=== PATIENT | male | born 1950 | race Caucasian/White ===

== ENCOUNTER → 2017-11-26 15:39 | Outpatient (CLI) | payer MEDICARE, OTHER, SELFPAY ==
--- NOTE | 2017-11-26 | DI.MRI.S_ITS ---
PROCEDURE: MR THORACIC SPINE WO CON INDICATIONS: PAIN IN THORACIC SPINE TECHNIQUE: Noncontrast sagittal T1 spine echo and T2 fast spin echo, sagittal STIR, axial T1 and T2 fast spin echo through the thoracic spine. COMPARISON: [facility], MR, L-SPINE W&WO CONTRAST, 05/08/2017, 17:51. [facility], MR, MR CERVICAL SPINE WO CON, 11/26/2017, 16:16. FINDINGS: Image quality: This examination is limited by involuntary motion artifact. Alignment and Curvature: There is normal bony alignment. Bone Marrow: Marrow is of normal overall signal. No acute vertebral body compression fractures. Scattered foci are seen, which are hyperintense on T1-weighted and T2-weighted imaging, which are most consistent with benign vertebral body hemangiomas. The most prominent of these is seen within the posterior T9 level. Spinal Cord: Visualized spinal cord is normal in size and signal. Paraspinous Soft Tissues: No paravertebral masses. Miscellaneous: At the T6-T7 level, there is a mild central/left disc protrusion seen. Minimal central canal narrowing is seen, with minimal mass effect on the ventral spinal cord. Multiple levels of bridging endplate osteophytes can be seen. IMPRESSION: Normal thoracic spine MRI for age. Dictated by: Houston Jackson M.D. on 11/26/2017 at 16:52 Approved by: Houston Jackson M.D. on 11/26/2017 at 16:54
--- NOTE | 2017-11-26 | DI.MRI.S_ITS ---
PROCEDURE: MR CERVICAL SPINE WO CON INDICATIONS: PAIN IN THORACIC SPINE TECHNIQUE: Noncontrast sagittal T1 spin echo and T2 fast spin echo, sagittal STIR, foraminal oblique sagittal T2 fast spin echo, and axial gradient echo or T2 fast spin echo through the cervical spine. COMPARISON: [facility], MR, MR THORACIC SPINE WO CON, 11/26/2017, 16:35. FINDINGS: Image quality: This examination is limited by involuntary motion artifact. Alignment and Curvature: There is normal bony alignment. Bone Marrow: Marrow demonstrates normal overall signal. Spinal Cord: Visualized spinal cord has normal size and signal. No cerebellar tonsillar herniation. Paraspinous Soft Tissues: No paravertebral masses. Prevertebral soft tissues are normal in thickness. C2-C3: No significant disc abnormality is seen. Moderate facet joint hypertrophy is seen. There is mild left-sided and no significant right-sided neural foraminal narrowing seen. Mild central canal narrowing is seen. C3-C4: The disc height is well-preserved. Mild to moderate disc osteophyte complex is seen. Moderate facet joint hypertrophy is seen. Moderate to severe bilateral neural foraminal narrowing is seen. Moderate central canal narrowing is seen. C4-C5: The disc height is well-preserved. Moderate generalized disc osteophyte complex is seen. Moderate facet joint hypertrophy is seen. There is moderate to severe bilateral neural foraminal narrowing seen, left worse than right. At least moderate central canal narrowing is seen. C5-C6: Multilevel loss of disc height and disc signal are seen. Moderate generalized disc osteophyte complex is seen. There is moderate to severe bilateral neural foraminal narrowing seen. Moderate to severe central canal narrowing is seen. C6-C7: Mild loss of disc height is seen. Loss of disc signal is seen. At least moderate disc osteophyte complex is seen. Lsjn-bo-qihaispd facet hypertrophy is seen. Moderate to severe bilateral neural foraminal narrowing is seen, left worse than right. Moderate central canal narrowing is seen. C7-T1: The disc height is well-preserved. Mild to moderate disc osteophyte complex is seen. Mild facet joint hypertrophy is seen. Moderate bilateral neural foraminal narrowing is seen. Tazr-[id number] central canal narrowing is seen. IMPRESSION: Multiple levels of cervical spine degenerative change are seen, which are most prominent at the C5-C6 level. Dictated by: Houston Jackson M.D. on 11/26/2017 at 16:47 Approved by: Houston Jackson M.D. on 11/26/2017 at 16:52
== END ==
PROVIDERS: PCP Internal Medicine; Visit Provider Family Medicine
DX: M50.322 Other cervical disc degeneration at C5-C6 level (principal); M54.6 Pain in thoracic spine; M48.02 Spinal stenosis, cervical region
CPT/HCPCS: 72141; 72146

== ENCOUNTER → 2018-01-07 12:36 | Outpatient (CLI) | payer MEDICARE, OTHER, SELFPAY ==
--- NOTE | 2018-01-07 | DI.MRI.S_ITS ---
PROCEDURE: MR KNEE LT WO CON INDICATIONS: PAIN IN LEFT KNEE TECHNIQUE: Noncontrast sagittal PD fast spin echo and T2 fast spin echo with fat saturation, sagittal 3-D FLASH with fat saturation; coronal T1 spin echo and PD fast spin echo with fat saturation, and axial PD fast spin echo with fat saturation through the knee. COMPARISON: None. FINDINGS: Image quality: Diagnostic. Bones and joint: There is no acute fracture or dislocation. No suspicious osseous lesions are evident. There is a moderate to large knee joint effusion identified with synovial hypertrophy present and scattered intra-articular joint bodies present the largest joint bodies are located on the posterior margin of the femoral notch, measuring up to approximately 11 mm in diameter. There is a Nix's cyst. Mild edema about the proximal and distal margins of the Nix's cyst are noted. Additional areas of subcutaneous edema are present about the knee. Mild/moderate degenerative changes of the left knee are most pronounced within the the patellofemoral and medial tibiofemoral compartments. Moderate to large full-thickness chronic appearing defect at the hyaline articular cartilage within these 2 compartments of the knee are present with areas of mild degenerative/reactive marrow change. Mild degenerative changes of the proximal tibiofibular joint are noted. Cruciate ligaments: The anterior and posterior cruciate ligaments are intact. Menisci: The lateral meniscus is intact and otherwise unremarkable. There is extensive maceration involving the body of the medial meniscus with complex tearing along the free edge. An oblique tear extending along the posterior horn of the medial meniscus is evident involving the inferior articular surface. Medial structures: The medial collateral ligament is intact. A small amount of fluid is contained within the medial collateral ligament bursa. The proximal aspect of the medial collateral ligament is thickened. The semimembranosus tendon insertion is intact. The imaged portions of the pes anserinus tendons are unremarkable. No significant fluid is contained within the pes anserinus bursa. Lateral structures: The popliteal tendon is edematous and heterogeneous with increased signal present.. The lateral collateral ligament proper (fibular collateral ligament) and the proximal tibiofibular ligaments are intact. Increased signal involving the femoral attachment of lateral collateral ligament is noted. The distal aspect of the biceps femoris tendon and the iliotibial band are intact. Anterior structures: The quadriceps and patellar tendons are intact. There is edema within the infrapatellar fat pad. Prominent prepatellar bursal edema/thickening is noted. ` IMPRESSION: 1. Moderate degenerative changes of the knee are most pronounced within the patellofemoral and medial tibiofemoral compartments. There are mild degenerative changes of the proximal tibiofibular joint. 2. Moderate to large knee joint effusion with an associated oderate sized probable leaking Nix cyst and scattered intra-articular joint bodies. 3. Complex tear involving the body of the medial meniscus. 4. Mild spurring of the medial collateral ligament. 5. Mild proximal popliteal tendinopathy. 6. Probable ligamentous degeneration/scarring of the lateral collateral ligament. No complete tear. 7. Prominent edema within the prepatellar soft tissues may be related to bursitis. Please correlate clinically. Dictated by: Jose Cisneros M.D. on 01/07/2018 at 14:42 Approved by: Jose Cisneros M.D. on 01/07/2018 at 14:47
== END ==
PROVIDERS: PCP Family Medicine; Visit Provider Family Medicine
DX: M25.562 Pain in left knee (principal); S83.232A Complex tear of medial meniscus, current injury, left knee, initial encounter; M71.22 Synovial cyst of popliteal space [Baker], left knee; M17.12 Unilateral primary osteoarthritis, left knee; M25.462 Effusion, left knee
CPT/HCPCS: 73721

== ENCOUNTER 2018-01-29 05:27 | Inpatient (IN) | payer MEDICARE, OTHER, SELFPAY ==
[2018-01-14 09:43] VITALS: BMI 36.6
[2018-01-29] VITALS (20 sets, daily range): BP systolic 119–154; BP diastolic 68–102; PULSE 59–81; RESP 10–96; TEMP 32–37.9; O2SAT 93–100; BMI 37.3
--- NOTE | 2018-01-29 | DI.RAD.S_ITS ---
PROCEDURE: XR LUMBAR SPINE 2-3V INDICATIONS: L3-4, L4-5 XLIF, L5-S1 TLIF FINDINGS: 2 limited intraoperative fluoroscopically stored images of the lower lumbar spine were obtained for intraoperative hardware localization purposes. These images are not meant for diagnostic purposes. Intraoperative findings related to a lower lumbar fusion procedure are present. IMPRESSION: Interpreted images obtained during the patient's lower lumbar fusion procedure. Dictated by: Jose Cisneros M.D. on 01/29/2018 at 12:53 Approved by: Jose Cisneros M.D. on 01/29/2018 at 12:54
[2018-01-29] MEDS: LACTATED RINGERS 1,000 ML 42 ML IV ×3 (07:18→13:16)
--- NOTE | 2018-01-29 07:24 | PM.PREOP ---
Pre-operative Note Interval Note Pre-op Check: Yes History & Physical Reviewed by Physician and Yes Exam Performed Changes: No
[2018-01-29] MEDS: CEFAZOLIN 2 GM/100 ML FROZ.PIGGY IV ×3 (08:00→19:42)
--- NOTE | 2018-01-29 08:30 | SUR.OPER ---
Right lateral on padded OR table. Head on pillow, gel axillary roll, pillow to support left arm. Legs flexed, pillows between legs, gel pad under down leg and ankle. Multiple passes of 3 inch cloth tape across shoulder, hip, upper and lower legs to secure patient on OR table.
--- NOTE | 2018-01-29 08:31 | SUR.OPER ---
Prone on spine table, head in foam head support, padded chest and pelvic supports, gel pad at knees, lower legs supported by pillows; nipples, genitalia and toes free of pressure, arms secured on foam padded arm boards at <90 degrees abduction. Tape over blanket at thigh secured to table.
[2018-01-29] MEDS: SODIUM CHLORIDE 0.9% 1,000 ML, GENTAMICIN 80 MG IRR (08:38)
[2018-01-29] MEDS: VANCOMYCIN 1,000 MG VIAL 1000 MG TOP (08:41)
[2018-01-29] MEDS: THROMBIN (BOVINE) 5,000 UNIT VIAL 5000 UNIT TOP (09:33)
[2018-01-29] MEDS: BUPIVACAINE 0.25% W/ EPI VIAL 50 ML INJ (09:34)
[2018-01-29] MEDS: BUPIVACAINE LIPOSOME 266 MG/20 ML VIAL INJ (09:34)
--- NOTE | 2018-01-29 10:05 | SUR.OPER ---
fsbg 124 at 1000
[2018-01-29] MEDS: ACETAMINOPHEN IV 1,000 MG/100 ML VIAL 400 MG IV (12:05)
--- NOTE | 2018-01-29 13:56 | PM.OP.1 ---
Operative Date/Time/Diagnoses Date of procedure: 01/29/18 Time of procedure: 13:56 Pre-op diagnosis: History of lumbar laminectomy Lumbar stenosis with radiculopathy Post-op diagnosis: same Procedure & Clinicians Procedure: L3-4 and L4-5 anterior fusion with cages L5-S1 TLIF (post/post innerbody fusion) with cage L3-4 and L4-5 posterior fusion L3 through S1 posterior screws Iliac crest bone graft Revision laminectomy at L3-4, L4-5, L5-S1 on the right Use of microscope Same procedure as scheduled: Yes Indications: [age] year old male with intractable pain from a stenosis. They had failed conservative management and requested operative intervention. Risks and benefits of surgery were discussed and appropriate consents were obtained. Surgeon: Javier Lewis [employer] Wheels And Axle Inspector: Anjelica Hill Anesthesia Type: General Operative Notes Findings: none Closure Type: primary Specimen(s): none sent Implants & Drains: NuVasive XLIF cages Globus Rise cage NuVasive MAS and open Reline screws Applied: catheter Estimated Blood Loss (mL): 300 Procedure in detail: Patient was brought to the operating room and intubated on the table. Time-out was performed. They were then rolled over to the lateral decubitus position with the [id number]. The table was bent and they were taped down in the correct position. X-rays were taken to confirm a true AP and lateral. Preoperative antibiotics were given. The left flank was prepped and draped in standard sterile fashion. Using fluoroscopy, a 3 cm incision was made above the iliac crest. We bluntly dissected down with Metzenbaum scissors and split the 3 abdominal muscle layers. We dissected out the retroperitoneal space and using finger guidance, brought our 1st dilator down to the psoas muscle. Using neuromonitoring and fluoroscopy, we placed it through the psoas onto the L4-5 disc space in an anterior position and gradually pulled the dilator posteriorly along the disc space. We placed our guidewire and measured our depth for the retractor. We then dilated with the next 2 dilators and then placed our retractor over the dilators. Position was confirmed with fluoroscopy and the retractor was locked down to the bar. We opened up the retractor and checked with neuro monitoring. We then placed the francisca and again checked with neuro monitoring. The retractor was opened further and the ALL retractor was placed. An annulotomy was performed. We then performed a complete diskectomy with ring curette, pituitary, box osteotome. A Hay was advanced across the disc space under fluoroscopy to release the lateral annulus on the opposite side. We then used sequentially larger trials and confirmed under fluoroscopy. An XLIF cage was packed with Osteocell bone graft and impacted into the L4-5 disc space with fluoroscopy for the anterior fusion at this level. The wound was irrigated. The retractor was closed down. The francisca was removed. We carefully removed the retractor with direct visualization to make sure there was no neurovascular or abdominal injury. We then went up to L3-4 into the same procedure with dilators, opening the retractor, complete diskectomy with lateral release, trialing and placing a cage with bone graft for the anterior fusion at L3-4. We carefully removed the retractor with direct visualization. Final x-rays were taken. The muscle fascia was closed, superficial tissue was closed. The skin was closed. Sterile dressing was placed. The patient was then rolled over on the well-padded prone position on the Lalit table. Using fluoroscopy for localization, a 12 cm incision was made in the midline using his previous incision. We dissected down the right sided paraspinal muscles to expose the lamina and confirmed our position. Extreme care was taken over that his previous laminotomies to not violate the spinal canal. We had significant dissection through the scar tissue. We then exposed the transverse processes. We then began placing our screws. A bur was used to decorticate the junction of the facet and transverse process. We then advanced a gear shifter down the pedicle using neuro monitoring. We checked with the ball probe to confirm a floor and 4 ackerman on the pedicle. We then tapped also with neuro monitoring. We checked again with the ball probe and then placed our screw with neuro monitoring. The screws were placed in this fashion down the right-sided pedicles of L3, L4, L5, and S1. We used 7.5 mm screws at the lower levels and a 6.5 mm screw at L3.. The jennifer was loosely placed and x-rays were taken to confirm positioning and then the set screws were locked down from L3 through 5. We then brought in the microscope. A revision laminectomy was performed at L5-S1, L4-5, and L3-4 with a curette, bur, and Kerrison rongeurs. He was extremely scarred in throughout all of this with close adhesion of the dura to the underside of the bone. This was meticulously dissected away until we could separate the bone from the dura and worked out laterally. This part took 2-3 hours of the surgical time. We used osteotomes to remove the majority of the facets. At the end we could run the ball probe from the midline all the way out laterally and make sure the foramen were completely open. This was separate and distinct from the approach for the posterior interbody fusion at L5-S1 due to the severe scarred in nature and more than double the amount of time for the decompression compared to normal. We then went back to L5-S1. We then carefully dissected the dura away from the disc as well as removed more of the upper surface of the facet in order to prep for the TLIF. Once the dura was carefully retracted as well as the nerve root, an annulotomy was performed. We then performed a complete diskectomy with pituitaries curettes paddles and Hany. The endplates were prepped. We filled the interbody space with bone graft. We then placed a globus Rise cage. This was expanded under fluoroscopy. This completed the posterior interbody fusion portion of the L5-S1 TLIF. We then locked down the final S1 screw. The wound was copiously irrigated. A small stab incision was made over the PSIS and a Jamshidi needle was placed into the iliac crest and several mL of bone marrow was aspirated. This was mixed with our locally harvested bone graft as well as the remaining Osteocell and placed in the posterolateral gutter for fusion at L3-4, L4-5, and the posterolateral aspect of the TLIF at L5-S1. The fascia was then closed. We then used fluoroscopy and made a 12 cm incision on the left-hand side. We came down and split the fascia with the Bovie. We then percutaneously placed Jamshidi needles down the left pedicles of L3 through S1 using fluoroscopic guidance and neural monitoring. These were changed out to guidewires. We then tapped and placed our matching MAS Reline screws. The jennifer was placed and locked down. The wound was irrigated and the fascia closed. Vancomycin powder was placed in the wounds The superficial and skin were closed. Sterile dressing was placed. The patient was then rolled over, extubated, brought to the recovery room with no complications. Complications: none Condition: stable Disposition: PACU Plan for aftercare: Inpatient. Up with physical therapy.
[2018-01-29] MEDS: hydrOXYzine 50 MG/ML INJ 25 MG IM (14:00)
[2018-01-29] MEDS: HYDROMORPHONE 2 MG INJ 1 MG IM ×2 (14:15→14:20)
[2018-01-29] MEDS: HYDROMORPHONE 2 MG INJ 0.5 MG IV ×2 (14:30→14:40)
--- NOTE | 2018-01-29 15:00 | SUR.PHASEI ---
pt held in holding PACU due to RN change of shift
--- NOTE | 2018-01-29 15:41 | SUR.PHASEI ---
pt in hold waiting for acute care RN-SPO2 dropped with periods of apnea . pt is alert and oriented taking liquids but when sleeping has periods of apnea - no further narcotics given and rt consult done- spoke with anesthesia and pt will move to ICU on bipap in order to maintain spo2
--- NOTE | 2018-01-29 16:29 | SUR.PHASEI ---
unable to end infusion last bag of LR as not started in APR- see i& o for total volume infused intra op
--- NOTE | 2018-01-29 16:29 | SUR.PHASEI ---
pt transferred to RN Kristie in stable condition. Bipap applied on arrival Spo2 100 %, VSS, pt a& o x 3
[2018-01-29] MEDS: LACTATED RINGERS 1,000 ML 125 ML IV (17:43)
--- NOTE | 2018-01-29 17:49 | PC.NURSE ---
Addendum entered by Kristie Medina R.N. 01/29/18 22:07: 1830 - Dr. Lewis into round on Pt. Updated to respiratory status. Notified of drainage to both drsgs, okay to reinforce if needed. Continue to monitor. 1945 - Pt awake, c/o pain, rx given. Pt tremulous, shaking, states that he feels like I am in shock. VSS. Educated to relaxation techniques. Warm blankets provided. 2030 - Pt c/o full bladder assess weems, Urine in bag and tubing. Advanced/adjusted weems, small clots noted. Bladder scan without any measurable amount. Weems irrigated, flush and drains easily. Small clots noted in urine. Pt report hx of difficulty initiating urine. Pt then reports that he possibly needs to have BM, became tremulous again. Offered BSC, pt declines at this time. Monitor. 2129 - Pt returned to Bi-pap, however r/t facial hair, intermittent air leak persists, RT changed to home c-pap machine without need for supplemental O2. Original Note: 1615 - Pt to room from PACU. Shadow drainage to drsgs beyond marked borders, remarked upon arrival. Pt able to follow commands and move all extremities. Mild anxiety, reinforced place, situation and treatment plan. Supportive at bedside. Drowsy. Sats >90% while awake, however with sleep pt has periods of apnea and sats decrease into the 80's. RT placed on bi-pap, FIO2 30%, 12/5, RR 10, however this desat trend continued for approximately an hour with need for intermittent stimulation and encouragement to deep breath. 1750 - Pt resting quietly, Bi-pap on, with settings unchanged. Sats 97%. Pt no longer requiring stimulation to encourage deep breath. IVF infusing as ordered. Monitor.
[2018-01-29] MEDS: CELECOXIB 200 MG CAPSULE 400 MG PO (19:15)
[2018-01-29] MEDS: HYDROMORPHONE 1 MG INJ 0.5 MG IV ×2 (19:16→23:07)
[2018-01-29] MEDS: hydrOXYzine pamoate 25 MG CAPSULE PO (19:42)
[2018-01-29] MEDS: DOCUSATE 100 MG CAPSULE PO (20:37)
[2018-01-29] MEDS: SENNOSIDES 8.6 MG TABLET 17.2 MG PO (20:37)
[2018-01-29] MEDS: ASPIRIN EC 81 MG TABLET PO (20:37)
[2018-01-29] MEDS: GABAPENTIN 300 MG CAPSULE PO (20:37)
[2018-01-30] VITALS (7 sets, daily range): BP systolic 113–131; BP diastolic 59–82; PULSE 82–90; RESP 12–96; TEMP 36.7–37.1; O2SAT 91–97
[2018-01-30] MEDS: HYDROMORPHONE 1 MG INJ 0.5 MG IV ×5 (01:31→21:43)
[2018-01-30] MEDS: LACTATED RINGERS 1,000 ML 125 ML IV (01:36)
[2018-01-30] MEDS: CEFAZOLIN 2 GM/100 ML FROZ.PIGGY IV (03:54)
[2018-01-30 05:16] LABS: Hematocrit 35.4 % (41-53); Hemoglobin 12.5 g/dL (13.5-17.5)
--- NOTE | 2018-01-30 06:03 | PC.NURSE ---
NOC Shift: POD #1 LAMI TLIF w/resp. suppression in PACU following extubation from surgery. Pt remained on home CPAP unit throughout shift while asleep w/o O2 bleed. SAO2 stable, pt denies SOB, lungs remain clear. Pt needs encouragement to use IS, and pulmonary toilet. Will be easier to comply when OOB. Pt continues to have 7 to 8/10 pain when awake re: low lumbar incision and bilateral leg pain. Most of the shift pt refused to reposition off of back, however did turn side to side several times to check dsg, and to receive skin care. Continues to take IV dilaudid for pain until taking more po for pain pills to avoid nausea. Josse remains in w/mild hematuria old blood unknown cause. Pt states he is ready to have it out. Has not been OOB yet, will get up today. VSS, SR 1 AVB on tele. ICU care.
[2018-01-30] MEDS: HYDROCODONE/ACET 5/325 TABLET 2 TAB PO ×5 (06:33→23:30)
[2018-01-30] MEDS: hydrOXYzine pamoate 25 MG CAPSULE PO ×3 (06:35→23:31)
--- NOTE | 2018-01-30 08:03 | P.PN_ITS ---
Subjective Date Patient Seen: 01/30/18 Time Patient Seen: 08:01 Interval history: He was very sedated after surgery and required BiPAP with an ICU admission for this. They did not have to use the BiPAP after yesterday evening and he has been alert and oriented since. Pain was about 8 earlier but now is down to 5/10 after few pills. Still pain in his bad left knee but no more radicular pain in the legs. The pain is primarily across his low back. Exam Vital Signs (past 8 hours): - 01/30/18 04:26 01/30/18 07:58 Temperature 98.7 F 98.8 F Pulse Rate 82 86 Respiratory Rate 21 12 Blood Pressure 131/82 128/81 Pulse Oximetry 93 97 Fraction of Inspired Oxygen 30 Oxygen Delivery Method CPAP Oxygen Flow Rate 0 Const Orientation: alert and oriented x3 Back/Spine/Pelvis Other: Heavy drainage with some saturation on the posterior dressing. Minimal dry drainage on the lateral dressing.. 5/5 motor both lower extremities Objective Labs Result Diagrams: 01/30/18 05:00 Labs: Laboratory Results - last 24 hr 01/29/18 01/30/18 16:15 05:00 Hgb 12.5 L Hct 35.4 L Nasal Screen MRSA (PCR) Negative for mrsa Assessment & Plan Post-op Postoperative Procedures Operation Date: 01/29/18 07:45 Actual Procedures Side Surgeon p L3-4,L4-5,L5-S1 Revision Laminectomy & Instru Fusion w/bone graft anterior/ posterior Javier Lewis MD He is doing much better now that the anesthetic is worn off. Mobilize with physical therapy. Transfer to the regular floor. Quality VTE Deep Vein Thrombosis/Pulmonary Embolism Present on Admission: No
[2018-01-30] MEDS: TELMISARTAN 40 MG TABLET 80 MG PO (08:26)
[2018-01-30] MEDS: BUMETANIDE 1 MG TABLET 2 MG PO (08:26)
[2018-01-30] MEDS: AMLODIPINE 5 MG TABLET PO (08:26)
[2018-01-30] MEDS: CELECOXIB 200 MG CAPSULE PO ×2 (08:27→21:11)
[2018-01-30] MEDS: CYANOCOBALAMIN (VITAMIN B-12) 500 MCG TABLET 1000 MCG PO (08:27)
[2018-01-30] MEDS: hydroCHLOROthiazide 25 MG TABLET PO (08:27)
[2018-01-30] MEDS: MULTIVITAMIN 1 TABLET 2 TAB PO (08:27)
[2018-01-30] MEDS: DOCUSATE 100 MG CAPSULE PO ×2 (08:27→21:10)
[2018-01-30] MEDS: TAMSULOSIN 0.4 MG CAPSULE PO (08:28)
[2018-01-30] MEDS: INSULIN ASPART 100 UNIT/ML INSULN PEN SUBCUT ×3 (08:29→17:22)
[2018-01-30] MEDS: MAGNESIUM HYDROXIDE 30 ML UDC PO ×2 (08:31→21:10)
--- NOTE | 2018-01-30 11:16 | PT.IIE ---
Current Diagnoses Obstructive sleep apnea (adult) (pediatric) (01/29/18) Unspecified asthma, uncomplicated (01/29/18) Spinal stenosis, lumbar region with neurogenic claudication (01/29/18) Ankylosing hyperostosis [[place]stier], site unspecified (01/29/18) Strain of muscle, fascia and tendon of lower back, subsequent encounter (01/29/18) Other specified postprocedural states (01/29/18) Surgery Performed Operation Date: 01/29/18 07:45 Actual Procedures p L3-4,L4-5,L5-S1 Revision Laminectomy & Instru Fusion w/bone graft anterior/posterior - Javier Lewis MD Surgical History (Last Updated 01/14/18 @ 10:59 by Zunilda Olivas, RN) History of colonoscopy (Acute) History of laminectomy (Acute) Medical History (Last Updated 01/14/18 @ 10:59 by Zunilda Olivas, RN) Obstructive sleep apnea of adult (Chronic) Primary insomnia (Resolved) Excessive daytime sleepiness (Resolved) Asthma (Acute) BPH (benign prostatic hyperplasia) (Acute) Cervical radiculopathy (Acute) Colitis (Acute) Constipation (Acute) DISH (diffuse idiopathic skeletal hyperostosis) (Acute) Derangement of other medial meniscus due to old tear or injury, unspecified knee (Acute) Diabetes mellitus (Acute) Disorder of nail (Acute) Disorder of tendon of shoulder region (Acute) Dyslipidemia (Acute) Edema (Acute) Hip pain (Acute) Hyperlipidemia (Acute) Hypertension (Acute) Hypokalemia (Acute) Lumbar stenosis with neurogenic claudication (Acute) Lumbar strain (Acute) Migraine (Acute) Morbid obesity (Acute) Myopia (Acute) Recurrent erosion of cornea (Acute) Slowing of urinary stream (Acute) Spider bite, venomous (Acute ~04/2017) Thoracic back pain (Acute) Venous stasis (Acute) Physical Therapy Inpatient Evaluation/Re-Eval M1 PT/OT-IP Prior Functional Status Start: 01/30/18 10:52 Freq: NEEDED Status: Active Protocol: Document 01/30/18 10:52 GLENIS (Rec: 01/30/18 11:16 GLENIS [id number]) Medical Review Prior Functional Status Medical History Reviewed Yes Diet/Fluid Consistency Regular Communication Normal Mobility and Gait Ambulates 5 blocks with the use of four wheel walker independently. Had a fall once 2 wks ago. 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 Social History Household Members spouse Living Arrangements House Number of Stairs To Enter/Railing? 1 step to get in to the main floor Home Environment Standard Height Toilet Home Equipment Front Wheel Walker Four Wheel Walker Employment Status Retired M2 PT-IP Current Condition Start: 01/30/18 10:52 Freq: NEEDED Status: Active Protocol: Document 01/30/18 10:52 EA (Rec: 01/30/18 11:16 EA [id number]) Physical Therapy Current Condition Current Condition Evaluation Date 01/29/18 Treatment Diagnosis S/P L3-L4, L4-L5 ANT FUS w/ cages, L5-S1 TLIF w/ cage, L3 through L5 POST F Onset Date 01/29/18 Precautions Lumbar Precautions Log Roll Weight Bearing Status Weight Bearing Status Weight Bear as Tolerated M3 PT-IP Subjective Start: 01/30/18 10:52 Freq: NEEDED Status: Active Protocol: Document 01/30/18 10:52 EA (Rec: 01/30/18 11:16 EA [id number]) Subjective Physical Therapy Visit Type Type Initial Evaluation Visit Start Time 10:15 Visit Stop Time 11:55 Total Visit Minutes 40 Number of DATA ACQUISITION TECHNICIAN Visits 0 Physical Therapy Visit Comments Patient Comments Patient would like to set-up on bed side chair. Patient would like to discharge to SNF; states his will have difficulty of taking care of him because of his body weight. Pt mentioned that it was difficult for them during the recovery of back surgery 2 years ago. Patient Goals Be able to walk 200 ft and indep bed and tranfers prior to discharge to SNF. Therapy Pain Assessment Pain When Pain Assessed At Rest Pain Present Pain Present Pain Reported Location Back Intensity 8 Scale Used Numeric (1 - 10) Description Acute Burning Pain Behaviors Facial Grimacing Guarding Moaning M4 PT-IP Mobility and Gait Start: 01/30/18 10:52 Freq: NEEDED Status: Active Protocol: Document 01/30/18 10:52 EA (Rec: 01/30/18 11:16 EA [id number]) PT-Bed Mobility Assessment Rolling Type of Rolling Log Rolling Level of Assist Minimal Assistance Supine to Sit Supine to Sit Minimal Assistance Sit to Supine Sit to Supine Minimal Assistance Scooting Scooting to Edge of Bed Minimal Assistance PT-Transfer Assessment Sit to and From Stand Sit to and from Stand Minimal Assistance Equipment Transfer Assistive Device Bed Rail Front Wheeled Walker Transfers Transfer Destination Bed Chair Transfer Technique stepping Comments Mobility Comments Moderate difficulty due to severe pain to low back/ surgical area Gait Assessment Gait Gait Assistance Required: Contact Guard Assist Able to Maintain Weight Bearing Status Yes During Gait Assistive Devices Assistive Device Gait Belt Front Wheeled Walker Gait Deviations General Gait Pattern Decreased Stride Length Decreased Feet Clearance Wide Based Gait Factors Limiting Gait Function Factors Limiting Gait Function Decreased Activity Tolerance Decreased Strength Pain PT-Balance Assessment Sitting Balance and Reactions Static Sitting Balance Ability Fair Dynamic Sitting Balance Ability Poor Standing Balance and Reactions Static Standing Balance Ability Fair Dynamic Standing Balance Ability Poor Device Used FWW M5 PT-IP Objective Assessments Start: 01/30/18 10:52 Freq: NEEDED Status: Active Protocol: Document 01/30/18 10:52 EA (Rec: 01/30/18 11:16 EA [id number]) Orientation Orientation/Cognition Level of Alertness Alert Orientation Name Age Month Date Year Day of Week Place Safety Awareness Understands Safety Issues Memory Description No Deficits Noted Gross Range of Motion Upper Extremity ROM Assessment Within Functional Limits Lower Extremity ROM Assessment Within Functional Limits Strength Upper Extremity Strength Assessment Within Functional Limits Lower Extremity Strength Hip 4-/5 Knee 4/5 Ankle 5/5 Comments Strength Comments Not properly tested due to increased in low back pain Coordination Assessment Gross Coordination Gross Coordination WNL Sensation Assessment Sensation Gross Sensation WNL Light Touch Intact Proprioception (Position) Intact M6 PT-IP Treatment Start: 01/30/18 10:52 Freq: NEEDED Status: Active Protocol: Document 01/30/18 10:52 EA (Rec: 01/30/18 11:16 EA [id number]) Physical Therapy Treatment Education Education Provided Precautions Weight Bearing Status Post-Op Packet Safety M7 PT-IP Assessment and Plan Start: 01/30/18 10:52 Freq: NEEDED Status: Active Protocol: Document 01/30/18 10:52 EA (Rec: 01/30/18 11:16 EA [id number]) PT Summary Assessment and Plan Potential Rehabilitation Potential Good Status of Condition at Evaluation Evolving Summary Impairments Pain ROM Strength Balance Bed Mobility Transfers Gait Activity Tolerance Assessment Summary Pt demonstrates difficulty with transfers and mobility due to mod/severe low back pain, weakness to both LE's and decreased tolerance to activity. Patient requires assistance in all mobility for safety at this time. Patient is a good candidate for skilled PT prior to discharge. Goals Bed Mobility Goal Minimal Assistance Transfer Goal Minimal Assistance Gait Goal Minimal Assistance Gait Distance 150 ft Other Goals 1 step practice Days to Meet Goals 2 Frequency of Treatment Frequency Of Treatment Twice a Day Treatment Plan Physical Therapy Treatment Plan Bed Mobility Training Transfer Training Gait Training Therapeutic Exercise Balance Retraining Post Op Education Discharge Planning Hot or Cold Pack Recommendations To Nursing Amount of Assist Needed 2 Person Assist Discharge Recommendations PT Discharge Recommendations Home Health SNF Rehab Other Discharge Recommendations SNF vs Home health
--- NOTE | 2018-01-30 11:33 | PC.NURSE ---
Addendum entered by Atul Berumen R.N. 01/30/18 15:03: 1100- Noted new dsg with light pink sero-sang drainage after working w/ PT. Drainage maintained within gauze dsg. Will monitor. Original Note: 0750- Pt refused OOB for breakfast. Reports r/t uncontrolled pain with movement. Reviewed med regimen. Pt also refusing weems cath out today despite education. Will monitor PO intake prior to d/c'ing IVFs. 0800- Dr. Lewis on rounds at bedside. Assessed pt together. Noted saturated back dsg. Orders received (and clarified) to change dsg. Premedicated with IV dilaudid per order and for pt c/o pain. Pt tolerated well. 1030- Pt requesting to sit up to EOB. Educated on how to log roll and reinforced activity restrictions. Pt requiring frequent reminders regarding activity restrictions (such as not twisting, bending, pulling) while assisting up to EOB. PT here for eval. Notified PT of pt need for continued education regarding restrictions. Written and verbal education done at this time. Pt required 2PA, gait belt, fww, yellow socks, and frequent/consistent cues for transfer. Tolerated fair. Medicated with hydrocodone for pain (see MAR).
[2018-01-30] MEDS: ALBUTEROL HFA 60 PUFF/8 GM INH INH (12:57)
--- NOTE | 2018-01-30 14:08 | OT.IP.EVAL ---
Current Diagnoses Obstructive sleep apnea (adult) (pediatric) (01/29/18) Unspecified asthma, uncomplicated (01/29/18) Spinal stenosis, lumbar region with neurogenic claudication (01/29/18) Ankylosing hyperostosis [[place]], site unspecified (01/29/18) Strain of muscle, fascia and tendon of lower back, subsequent encounter (01/29/18) Other specified postprocedural states (01/29/18) Surgery Performed Operation Date: 01/29/18 07:45 Actual Procedures p L3-4,L4-5,L5-S1 Revision Laminectomy & Instru Fusion w/bone graft anterior/posterior - Javier Lewis MD Past Medical History (Last Updated 01/14/18 @ 10:59 by Zunilda Olivas, RN) Obstructive sleep apnea of adult (Chronic) Primary insomnia (Resolved) Excessive daytime sleepiness (Resolved) Asthma (Acute) BPH (benign prostatic hyperplasia) (Acute) Cervical radiculopathy (Acute) Colitis (Acute) Constipation (Acute) DISH (diffuse idiopathic skeletal hyperostosis) (Acute) Derangement of other medial meniscus due to old tear or injury, unspecified knee (Acute) Diabetes mellitus (Acute) Disorder of nail (Acute) Disorder of tendon of shoulder region (Acute) Dyslipidemia (Acute) Edema (Acute) Hip pain (Acute) Hyperlipidemia (Acute) Hypertension (Acute) Hypokalemia (Acute) Lumbar stenosis with neurogenic claudication (Acute) Lumbar strain (Acute) Migraine (Acute) Morbid obesity (Acute) Myopia (Acute) Recurrent erosion of cornea (Acute) Slowing of urinary stream (Acute) Spider bite, venomous (Acute ~04/2017) Thoracic back pain (Acute) Venous stasis (Acute) Surgical History (Last Updated 01/14/18 @ 10:59 by Zunilda Oliavs RN) History of colonoscopy (Acute) History of laminectomy (Acute) Occupational Therapy Inpatient Evaluation/Re-Eval M1 PT/OT-IP Prior Functional Status Start: 01/30/18 10:52 Freq: NEEDED Status: Active Protocol: Document 01/30/18 14:08 JUAN (Rec: 01/30/18 14:47 JUAN [id number]) Medical Review Prior Functional Status Medical History Reviewed Yes Diet/Fluid Consistency Regular Communication WNL Mobility and Gait Ambulates 5 blocks with the use of four wheel walker independently. Had a fall once 2 wks ago. Pt ambulates without a device in house; uses cane or walker in community depending on how he feels Activities of Daily Living and IADL's Pt independent with all self care prior to admit except occasional assist with socks and donning shirt if stiff. Prior Functional Level (Other details) Supportive capable can provide 24 hr assist at d/c. Social History Household Members spouse Living Arrangements House Number of Floors (Floors) One Floor Number of Stairs To Enter/Railing? 1 step to get in to the main floor, no rail Home Environment Standard Height Toilet Home Equipment Front Wheel Walker Four Wheel Walker Straight Cane Raised Toilet Seat Without Armrests Shower Seat with Backrest Hand Held Shower Long Handled Sponge Long Handled Shoe Horn Remnant Sorter Grab Bars Near Toilet Grab Bars In Shower Employment Status Retired M2 OT-IP Current Condition Start: 01/30/18 14:21 Freq: Status: Active Protocol: Document 01/30/18 14:08 JUAN (Rec: 01/30/18 14:47 PJM [id number]) Occupational Therapy Current Condition Current Condition Evaluation Date 01/30/18 Treatment Diagnosis decreased self care, functional mobility after L3- S1 revision, lami fusion Diagnosis Onset Date 01/29/18 Post Operative Precautions Lumbar Precautions Log Roll Other Precautions Pt in ICU with post op respiratory suppression; wears CPAP from home. Weight Bearing Status Weight Bearing Status Weight Bear as Tolerated M3 OT- IP Subjective and Pain Start: 01/30/18 14:21 Freq: Status: Active Protocol: Document 01/30/18 14:08 JUAN (Rec: 01/30/18 14:47 PJM [id number]) OT- Subjective Occupational Therapy Visit Type Type Initial Evaluation Visit Start Time 13:35 Visit Stop Time 14:08 Total Visit Minutes 33 Notes here for education this session. Occupational Therapy Visit Comments Patient Comments I have got to get back to bed. Patient/Caregiver Goals to have less pain, to go home after rehab stay OT Pain Assessment Pain When Pain Assessed During Mobility Pain Present Pain Present Pain Reported Location Back Intensity 7 Scale Used Numeric (1 - 10) Description Aching Acute Pain Behaviors Facial Grimacing Guarding Management Techniques Re-positioning Timing of Activity with Medications M4 OT- IP ADL's Start: 01/30/18 14:21 Freq: Status: Active Protocol: Document 01/30/18 14:08 PJ (Rec: 01/30/18 14:47 [facility] [id number]) OT [id number]-[id number] General Evaluation Self-Feeding Ability Independent OT ADL-Grooming General Evaluation Grooming Ability Standby Assistance Areas Needing Assistance Face Washing Comments OT Grooming Comments after set up in bed or chair OT ADL-Oral Care Comments Oral Care Comments did not occur OT ADL-Dressing General Eval Upper Body Dressing Ability Minimal Assistance Lower Body Dressing Ability Maximum Assistance Comments OT Dressing Comments min assist with gown management OT ADL-Toileting General Evaluation Toileting Ability Total Assistance Comments OT Toileting Comments weems and unable to reach bottom for esperanza car; provided education re: toilet paper aids and resources; states she can assist PRN too OT ADL-Bathing Comments OT Bathing Comments to be assessed as activity tolerance improves; states she can assist PRN with shower at home. Pt has all necessary AED M5 OT- IP IADL's Start: 01/30/18 14:21 Freq: Status: Active Protocol: Document 01/30/18 14:08 PJ (Rec: 01/30/18 14:47 [facility] [id number]) OT-Instrumental Activities of Daily Living Deficits IADL Deficits Identified Deficits Home Safety Awareness Awareness of Need for Assistance at Home Good Awareness Ability to Problem Solve Emergency Able to Problem Solve Situations Medication Management Medication Management No Deficits Identified Money Management Money Management No Deficits Identified Meal Preparation Meal Preparation Caregiver Provides Assist Meal Preparation Comments does all shopping and cooking at home Sports Photographer Sports Photographer Caregiver Provides Assist Sports Photographer Comments does all heat treating bluer Driving Driving Caregiver Provides Assist Driving Comments can assist until pt able M6 OT- IP Functional Cognition Start: 01/30/18 14:21 Freq: Status: Active Protocol: Document 01/30/18 14:08 PJ (Rec: 01/30/18 14:47 [facility] [id number]) Cognitive Factors Limiting Selfcare Function Cognitive Ability Level of Alertness Alert Patient Orientation Name Age Birthday Month Date Year Day of Week Place Situation Attention Span Ability Capable of Focused Attention Ability to Follow Commands Able to Follow One Step Commands Memory Description No Deficits Noted Safety Awareness No Deficits Noted Cognitive Comments Cognitive Assessment Comments Pt distracted by pain level but verbalizes understanding of lumbar precautions and had previous lumbar surgery 2 yrs ago so precautions are familiar. OT- Vision and Hearing OT- Hearing Assessment OT- Hearing Assessment WFL OT- Vision Assessment Visual Acuity WFL Vision Assessment Comments Pt wears glasses for distance. He denies any recent vision changes. M7 OT- IP Mobility and Balance Start: 01/30/18 14:21 Freq: Status: Active Protocol: Document 01/30/18 14:08 PJM (Rec: 01/30/18 14:47 PJM [id number]) OT- Bed Mobility Assessment Rolling Type of Rolling Roll to Right Level of Assistance Minimal Assistance Sit to Supine Sit to Supine Assist Moderate Assistance 1 Person Assistance OT-Transfer Assessment Sit to and From Stand Sit to and from Stand Contact Guard Assistance Transfers Transfer Ability Contact Guard Assistance Technique Transfer Destination Bed Toilet Transfer Technique Stand Step Pivot Devices Transfer Assistive Devices Gait Belt Front Wheeled Walker OT- Gait Assessment Gait Gait Assistance Required: Contact Guard Assist Distance (Feet) 10 Assistive Devices Assistive Device Gait Belt Front Wheeled Walker Comments Gait Ability Comments Pt ambulated out of bathroom with assist from P.T. OT- Balance Assessment Sitting Balance and Reactions Static Sitting Balance Ability Good Standing Balance and Reactions Static Standing Balance Ability Good M8 OT- IP Objective Assessments Start: 01/30/18 14:21 Freq: Status: Active Protocol: Document 01/30/18 14:08 PJM (Rec: 01/30/18 14:47 PJ [id number]) OT Gross Range of Motion Upper Extremity Range of Motion Assessment Within Functional Limits OT Strength Upper Extremity Strength Assessment Within Functional Limits Hand Windows And Doors Installer Strength Hand Dominance Right OT- Coordination Assessment Comments Coordination Comments BUE WFL OT-Muscle Tone Assessment Muscle Tone WNL Yes OT Sensation Assessment Comments Summary Comments WNL BUE per pt Edema Edema Present Edema Comments B ankles min+ edema M9 OT- IP Assessment and Plan Start: 01/30/18 14:21 Freq: Status: Active Protocol: Document 01/30/18 14:08 PJ (Rec: 01/30/18 14:47 PJ [id number]) OT Summary Assessment and Plan Potential Rehabilitation Potential Good Summary OT Impairments Pain Balance Functional Mobility Grooming Dressing Toileting Bathing Toilet Transfers Shower Transfers Assessment Summary Low complexity OT assessment completed with emphasis on self care skills within lumbar spine precautions. Pt/ familiar with precautions from previous lumbar surgery 2 years ago. Pt currently has performance deficits in activity tolerance, standing grooming, dressing, bathing and toileting. He plans a short rehab stay at [facility] prior to return home with 24 hr assist from capable . Goals Grooming Goal Standby Assistance Dressing Goal Minimal Assistance Toileting Goal Minimal Assistance Bathing Goal Minimal Assistance Toilet Transfer Goal Standby Assistance Shower Transfer Goal Contact Guard Assistance Patient/Caregiver Education Goal Demonstrate Post-Op Precautions Demonstrate Energy Conservation and Pacing Caregiver Independent Assisting Patient OT-Other Goals Grooming to be done standing at sink with good body mechanics and safety awareness . Frequency of Treatment Frequency Of Treatment Once a Day Treatment Plan OT Treatment Plan ADL Training Functional Mobility Patient/Family Education Discharge Planning Other Treatment Recommendations and Next provide info to pt about Treatment Focus options for toilet paper aids, try sock aids, may need wide one, up to sink and BR if pain allows Discharge Recommendations OT Discharge Recommendations SNF Rehab Home Equipment Needs toilet paper aid, sock aid
--- NOTE | 2018-01-30 14:21 | CM.DPC ---
Referral faxed to [facility] per Dawna
--- NOTE | 2018-01-30 15:01 | CM.IDA ---
Discharge Planning/Care Management CM Discharge Assessment Start: 01/30/18 14:53 Freq: Status: Active Protocol: Document 01/30/18 14:54 DARREL (Rec: 01/30/18 15:01 DARREL [id number]) Discharge Planning Assessment Assigned Item Repair Manager GIULIANA Topete DPOA/Assigned Designee Name Ratna Montoya, spouse Contact Information [phone] Advance Directives? Yes Advance Directives on File Yes History Provided By Patient Significant Other Medical Record Prior Living Arrangements House Household Members spouse Type of transporation used prior to Relies on Others admit Independent with ADL's Yes: Slow d/t back pain Is patient alert and oriented? Yes Patient/Family Preference [facility] Facility Barriers to Discharge Yes Comment Met w/ pt and spouse, explained SW role. Spouse explains pt got bit by a black spider while they were on their boat in July and pt spent a week at then DC to [facility] for approx 3 weeks. Pt moves slowly at home, per spouse. Pt/spouse hopeful that pt will DC to [facility] again. This SUMMER SESSIONS DIRECTOR requested desktop administrator Yasmany to send referral to [facility]; reviewed this referral verbally w/Claudia at [facility], she needs to review clinical information before acceptance. PT: SNF Discharge Plan [facility] Facility Referrals Initiated [facility] Additional Comment [facility]. No b/u choice given Medicare Choice List Provided Yes SNF/HH Preference [facility] Whiteboard Updated in Patient Room with Yes name and ext. # of Item Repair Manager Review Status In Process
--- NOTE | 2018-01-30 15:27 | PT.IPTN ---
Current Diagnoses Obstructive sleep apnea (adult) (pediatric) (01/29/18) Unspecified asthma, uncomplicated (01/29/18) Spinal stenosis, lumbar region with neurogenic claudication (01/29/18) Ankylosing hyperostosis [[place]], site unspecified (01/29/18) Strain of muscle, fascia and tendon of lower back, subsequent encounter (01/29/18) Other specified postprocedural states (01/29/18) Surgery Performed Operation Date: 01/29/18 07:45 Actual Procedures p L3-4,L4-5,L5-S1 Revision Laminectomy & Instru Fusion w/bone graft anterior/posterior - Javier Lewis MD Physical Therapy Treatment Note M2 PT-IP Current Condition Start: 01/30/18 10:52 Freq: NEEDED Status: Active Protocol: Document 01/30/18 10:52 EA (Rec: 01/30/18 11:16 EA [id number]) Physical Therapy Current Condition Current Condition Evaluation Date 01/29/18 Treatment Diagnosis S/P L3-L4, L4-L5 ANT FUS w/ cages, L5-S1 TLIF w/ cage, L3 through L5 POST F Onset Date 01/29/18 Precautions Lumbar Precautions Log Roll Weight Bearing Status Weight Bearing Status Weight Bear as Tolerated M3 PT-IP Subjective Start: 01/30/18 10:52 Freq: NEEDED Status: Active Protocol: Document 01/30/18 15:14 SA (Rec: 01/30/18 15:27 SA [email or web address]) Subjective Physical Therapy Visit Type Type Treatment Note Visit Start Time 13:15 Visit Stop Time 13:50 Total Visit Minutes 35 Number of SENIOR SQL DATABASE DEVELOPER Visits 1 Physical Therapy Visit Comments Patient Comments Pt up in WC and wanting to go to bathroom. Rates back pain as 4/10 at rest. present. Therapy Pain Assessment Pain When Pain Assessed During Mobility Pain Present Pain Present Pain Reported Location Back Intensity 8 Scale Used Numeric (1 - 10) Pain Management Techniques Apply Cold Modification of Treatment Re-positioning Timing of Activity with Medications M4 PT-IP Mobility and Gait Start: 01/30/18 10:52 Freq: NEEDED Status: Active Protocol: Document 01/30/18 15:14 SA (Rec: 01/30/18 15:27 SA [email or web address]) PT-Bed Mobility Assessment Sit to Supine Sit to Supine Minimal Assistance Scooting Scooting to Edge of Bed Moderate Assistance Scooting Up and Down in Bed Moderate Assistance PT-Transfer Assessment Sit to and From Stand Sit to and from Stand Minimal Assistance Equipment Transfer Assistive Device Gait Belt Front Wheeled Walker Orthotic/Prosthetic Devices or Brace: No Transfers Transfer Destination Bed Toilet Transfer Technique Stand Step Pivot Comments Mobility Comments Pt with high pain levels during mobility, slow gaurded movements and cues for safety. Gait Assessment Gait Gait Assistance Required: Contact Guard Assist Distance (Feet) 16 Able to Maintain Weight Bearing Status Yes During Gait Assistive Devices Assistive Device Gait Belt Front Wheeled Walker Orthotic/Prosthetic Devices or Brace: No Gait Deviations General Gait Pattern Decreased Stride Length Decreased Feet Clearance Wide Based Gait Factors Limiting Gait Function Factors Limiting Gait Function Decreased Activity Tolerance Decreased Strength Pain Comments Gait Comments Pt very gaurded, CGA with gait and cues for upright posture and decreasng WBing through UEs. Also segmental turning to avoid twisting. M5 PT-IP Objective Assessments Start: 01/30/18 10:52 Freq: NEEDED Status: Active Protocol: Document 01/30/18 10:52 EA (Rec: 01/30/18 11:16 EA [id number]) Orientation Orientation/Cognition Level of Alertness Alert Orientation Name Age Month Date Year Day of Week Place Safety Awareness Understands Safety Issues Memory Description No Deficits Noted Gross Range of Motion Upper Extremity ROM Assessment Within Functional Limits Lower Extremity ROM Assessment Within Functional Limits Strength Upper Extremity Strength Assessment Within Functional Limits Lower Extremity Strength Hip 4-/5 Knee 4/5 Ankle 5/5 Comments Strength Comments Not properly tested due to increased in low back pain Coordination Assessment Gross Coordination Gross Coordination WNL Sensation Assessment Sensation Gross Sensation WNL Light Touch Intact Proprioception (Position) Intact M6 PT-IP Treatment Start: 01/30/18 10:52 Freq: NEEDED Status: Active Protocol: Document 01/30/18 15:14 SA (Rec: 01/30/18 15:27 SA [email or web address]) Physical Therapy Treatment Exercises Exercises Ankle Pumps Education Education Provided Precautions Weight Bearing Status Post-Op Packet Safety M7 PT-IP Assessment and Plan Start: 01/30/18 10:52 Freq: NEEDED Status: Active Protocol: Document 01/30/18 15:14 SA (Rec: 01/30/18 15:27 SA [email or web address]) PT Summary Assessment and Plan Potential Rehabilitation Potential Good Status of Condition at Evaluation Evolving Summary Assessment Summary LLE weakness with standing activity, Pain is most limiting factor. CGA-Min A provided and cues for safety and pacing. Frequency of Treatment Frequency Of Treatment Twice a Day Recommendations To Nursing Amount of Assist Needed 2 Person Assist Discharge Recommendations PT Discharge Recommendations Home Health SNF Rehab
[2018-01-30] MEDS: HYDROMORPHONE 1 MG INJ 0.2 MG IV (17:27)
[2018-01-30] MEDS: GABAPENTIN 300 MG CAPSULE PO (21:10)
[2018-01-30] MEDS: SENNOSIDES 8.6 MG TABLET 17.2 MG PO (21:11)
[2018-01-30] MEDS: ASPIRIN EC 81 MG TABLET PO (21:11)
--- NOTE | 2018-01-30 21:30 | PC.NURSE ---
Pt report feeling need to have BM, 2 person assist to BSC. Pt report Flatus. HS bowel meds given. Drsg with serosanguenous drainage to back. Left hip with in marked boarder. Reinforce mobility precautions. Using I.S. independently. Call light in reach.
[2018-01-31] VITALS: BP 101/53; PULSE 80; RESP 20; TEMP 36.8; O2SAT 97
[2018-01-31] MEDS: HYDROMORPHONE 1 MG INJ 0.5 MG IV ×3 (00:22→06:44)
[2018-01-31] MEDS: TRAZODONE 50 MG TABLET PO (00:23)
[2018-01-31] MEDS: HYDROCODONE/ACET 5/325 TABLET 2 TAB PO (04:26)
[2018-01-31] MEDS: hydrOXYzine pamoate 25 MG CAPSULE PO ×4 (04:27→22:36)
[2018-01-31] MEDS: MULTIVITAMIN 1 TABLET 2 TAB PO (08:09)
[2018-01-31] MEDS: DOCUSATE 100 MG CAPSULE PO ×2 (08:09→22:06)
[2018-01-31] MEDS: TELMISARTAN 40 MG TABLET 80 MG PO (08:10)
[2018-01-31] MEDS: BUMETANIDE 1 MG TABLET 2 MG PO (08:10)
--- NOTE | 2018-01-31 08:10 | PM.PNPO.1 ---
Subjective Date Patient Seen: 01/31/18 Time Patient Seen: 08:10 Interval history: Pain levels can go as high as 8/10 but with medication comfortable enough to be able to sleep. He had some sharp pain running down the left leg to the foot last night but that resolved. However still some numbness in the little toe. Pain is all in the back at this point. Exam Vital Signs (past 8 hours): Fraction of Inspired Oxygen 30 Oxygen Delivery Method CPAP Oxygen Flow Rate 0 Const Orientation: alert and oriented x3 Back/Spine/Pelvis Other: Mild drainage on new dressing. 5/5 motor both lower extremities. Decreased sensation left little toe Objective Labs Result Diagrams: 01/30/18 05:00 Assessment & Plan Post-op Postoperative Procedures Operation Date: 01/29/18 07:45 Actual Procedures Side Surgeon p L3-4,L4-5,L5-S1 Revision Laminectomy & Instru Fusion w/bone graft anterior/posterior Javier Lewis MD He is stable. Postoperative course as expected. Mobilize with physical therapy. Try to wean off the IV medication and switch over to stronger [place]. DC [place] Transfer to floor if bed available today Quality VTE Deep Vein Thrombosis/Pulmonary Embolism Present on Admission: No
[2018-01-31 08:11] VITALS: BP 101/55; PULSE 87; RESP 20; TEMP 36.8; O2SAT 95
[2018-01-31] MEDS: TAMSULOSIN 0.4 MG CAPSULE PO (08:11)
[2018-01-31] MEDS: hydroCHLOROthiazide 25 MG TABLET PO (08:11)
[2018-01-31] MEDS: CYANOCOBALAMIN (VITAMIN B-12) 500 MCG TABLET 1000 MCG PO (08:11)
[2018-01-31] MEDS: HYDROCODONE/ACET 10/325 TABLET 2 TAB PO ×3 (08:20→20:11)
[2018-01-31] MEDS: AMLODIPINE 5 MG TABLET PO (08:21)
[2018-01-31] MEDS: CELECOXIB 200 MG CAPSULE PO ×2 (08:21→22:06)
[2018-01-31] MEDS: BISACODYL 10 MG SUPP PR (09:00)
--- NOTE | 2018-01-31 10:58 | PC.NURSE ---
pt transferring with one person assist to br x2-3 times this am for attempted bm- lungs dim but clear and pain rx increased for po pills and decreased use of iv rx is the game plan- pt on board with this - weems removed and pt has voided small amount- will work on bowel status this shift
--- NOTE | 2018-01-31 12:06 | PT.IPTN ---
Current Diagnoses Obstructive sleep apnea (adult) (pediatric) (01/29/18) Unspecified asthma, uncomplicated (01/29/18) Spinal stenosis, lumbar region with neurogenic claudication (01/29/18) Ankylosing hyperostosis [[place]], site unspecified (01/29/18) Strain of muscle, fascia and tendon of lower back, subsequent encounter (01/29/18) Other specified postprocedural states (01/29/18) Surgery Performed Operation Date: 01/29/18 07:45 Actual Procedures p L3-4,L4-5,L5-S1 Revision Laminectomy & Instru Fusion w/bone graft anterior/posterior - Javier Lewis MD Physical Therapy Treatment Note M2 PT-IP Current Condition Start: 01/30/18 10:52 Freq: NEEDED Status: Active Protocol: Document 01/30/18 10:52 EA (Rec: 01/30/18 11:16 EA [id number]) Physical Therapy Current Condition Current Condition Evaluation Date 01/29/18 Treatment Diagnosis S/P L3-L4, L4-L5 ANT FUS w/ cages, L5-S1 TLIF w/ cage, L3 through L5 POST F Onset Date 01/29/18 Precautions Lumbar Precautions Log Roll Weight Bearing Status Weight Bearing Status Weight Bear as Tolerated M3 PT-IP Subjective Start: 01/30/18 10:52 Freq: NEEDED Status: Active Protocol: Document 01/31/18 12:00 SA (Rec: 01/31/18 12:06 SA [email or web address]) Subjective Physical Therapy Visit Type Type Treatment Note Visit Start Time 11:13 Visit Stop Time 11:33 Total Visit Minutes 20 Number of ASPHALT BLENDER Visits 2 Physical Therapy Visit Comments Patient Comments Pt sitting up in chair, agreeable to walk. Rates pain as 4/10 at rest. Therapy Pain Assessment Pain When Pain Assessed During Mobility Pain Present Pain Present Pain Reported Location Back Intensity 7 Scale Used Numeric (1 - 10) Pain Management Techniques Apply Cold Modification of Treatment Re-positioning Timing of Activity with Medications M4 PT-IP Mobility and Gait Start: 01/30/18 10:52 Freq: NEEDED Status: Active Protocol: Document 01/31/18 12:00 SA (Rec: 01/31/18 12:06 SA [email or web address]) PT-Transfer Assessment Sit to and From Stand Sit to and from Stand Contact Guard Assistance Equipment Transfer Assistive Device Gait Belt Front Wheeled Walker Orthotic/Prosthetic Devices or Brace: No Transfers Transfer Destination Chair Transfer Technique Stand Step Pivot Comments Mobility Comments CGA for sit to stands and transfers. Pt uses FWW safely, demonstrates decreased WBing through UEs with standing mobility. Gait Assessment Gait Gait Assistance Required: Contact Guard Assist Distance (Feet) 65 Able to Maintain Weight Bearing Status Yes During Gait Assistive Devices Assistive Device Gait Belt Front Wheeled Walker Orthotic/Prosthetic Devices or Brace: No Gait Deviations General Gait Pattern Decreased Stride Length Decreased Feet Clearance Wide Based Gait Factors Limiting Gait Function Factors Limiting Gait Function Decreased Activity Tolerance Decreased Strength Pain Comments Gait Comments Pt able to take longer steps and self correct posture for decreased UE WBing. Pain levels persist and movements are still slow and gaurded. M5 PT-IP Objective Assessments Start: 01/30/18 10:52 Freq: NEEDED Status: Active Protocol: Document 01/30/18 10:52 EA (Rec: 01/30/18 11:16 EA [id number]) Orientation Orientation/Cognition Level of Alertness Alert Orientation Name Age Month Date Year Day of Week Place Safety Awareness Understands Safety Issues Memory Description No Deficits Noted Gross Range of Motion Upper Extremity ROM Assessment Within Functional Limits Lower Extremity ROM Assessment Within Functional Limits Strength Upper Extremity Strength Assessment Within Functional Limits Lower Extremity Strength Hip 4-/5 Knee 4/5 Ankle 5/5 Comments Strength Comments Not properly tested due to increased in low back pain Coordination Assessment Gross Coordination Gross Coordination WNL Sensation Assessment Sensation Gross Sensation WNL Light Touch Intact Proprioception (Position) Intact M6 PT-IP Treatment Start: 01/30/18 10:52 Freq: NEEDED Status: Active Protocol: Document 01/31/18 12:00 SA (Rec: 01/31/18 12:06 [email or web address]) Physical Therapy Treatment Exercises Exercises Ankle Pumps Seated Knee Flexion/Extension Education Education Provided Precautions Weight Bearing Status Post-Op Packet Safety M7 PT-IP Assessment and Plan Start: 01/30/18 10:52 Freq: NEEDED Status: Active Protocol: Document 01/31/18 12:00 SA (Rec: 01/31/18 12:06 [email or web address]) PT Summary Assessment and Plan Potential Rehabilitation Potential Good Status of Condition at Evaluation Evolving Summary Assessment Summary Pt able to recite spinal precautions and implement with functional mobility. Continued pain and guarding with ambulation and transfers. Frequency of Treatment Frequency Of Treatment Twice a Day Recommendations To Nursing Amount of Assist Needed 1 Person Assist Discharge Recommendations PT Discharge Recommendations Home Health SNF Rehab
--- NOTE | 2018-01-31 13:45 | PC.NURSE ---
Addendum entered by Kathie Vila R.N. 01/31/18 14:53: pt asking for re-insertion of weems catheter although he has urinated few times since removal of catheter- pt is working with OT at present and then told him we would bladder scan to ensure he wasn't having much urinary retention Original Note: pt has moved bowels and urinating well seems po rx increase is effective for pain control
[2018-01-31] MEDS: INSULIN ASPART 100 UNIT/ML INSULN PEN SUBCUT (14:50)
[2018-01-31 16:34] VITALS: BP 91/53; PULSE 81; RESP 18; TEMP 37; O2SAT 94
--- NOTE | 2018-01-31 17:12 | OT.IP.TRT ---
Current Diagnoses Obstructive sleep apnea (adult) (pediatric) (01/29/18) Unspecified asthma, uncomplicated (01/29/18) Spinal stenosis, lumbar region with neurogenic claudication (01/29/18) Ankylosing hyperostosis [[place]], site unspecified (01/29/18) Strain of muscle, fascia and tendon of lower back, subsequent encounter (01/29/18) Other specified postprocedural states (01/29/18) Surgery Performed Operation Date: 01/29/18 07:45 Actual Procedures p L3-4,L4-5,L5-S1 Revision Laminectomy & Instru Fusion w/bone graft anterior/posterior - Javier Lewis MD Occupational Therapy Treatment Note M2 OT-IP Current Condition Start: 01/30/18 14:21 Freq: Status: Active Protocol: Document 01/30/18 14:08 PJM (Rec: 01/30/18 14:47 PJM [id number]) Occupational Therapy Current Condition Current Condition Evaluation Date 01/30/18 Treatment Diagnosis decreased self care, functional mobility after L3- S1 revision, lami fusion Diagnosis Onset Date 01/29/18 Post Operative Precautions Lumbar Precautions Log Roll Other Precautions Pt in ICU with post op respiratory suppression; wears CPAP from home. Weight Bearing Status Weight Bearing Status Weight Bear as Tolerated M3 OT- IP Subjective and Pain Start: 01/30/18 14:21 Freq: Status: Active Protocol: Document 01/31/18 17:05 [facility] (Rec: 01/31/18 17:12 [facility] [id number]) OT- Subjective Occupational Therapy Visit Type Type Treatment Note Visit Start Time 14:40 Visit Stop Time 15:00 Total Visit Minutes 20 Occupational Therapy Visit Comments Patient Comments Pt sitting on the toilet and wanting to get back to bed. OT Pain Assessment Pain When Pain Assessed At Rest Pain Present Pain Present Denied Pain M4 OT- IP ADL's Start: 01/30/18 14:21 Freq: Status: Active Protocol: Document 01/31/18 17:05 [facility] (Rec: 01/31/18 17:12 [facility] [id number]) OT ADL-Dressing General Eval Lower Body Dressing Ability Maximum Assistance Areas Needing Assistance Underpants/Brief Comments OT Dressing Comments MAX A to help rinku brief over feet and up over his hips. OT ADL-Toileting General Evaluation Toileting Ability Moderate Assistance Areas Needing Assistance Manage Clothing Devices Toileting Assistive Devices Grab Bars M5 OT- IP IADL's Start: 01/30/18 14:21 Freq: Status: Active Protocol: Document 01/30/18 14:08 PJM (Rec: 01/30/18 14:47 PJ [email or web address]) OT-Instrumental Activities of Daily Living Deficits IADL Deficits Identified Deficits Home Safety Awareness Awareness of Need for Assistance at Home Good Awareness Ability to Problem Solve Emergency Able to Problem Solve Situations Medication Management Medication Management No Deficits Identified Money Management Money Management No Deficits Identified Meal Preparation Meal Preparation Caregiver Provides Assist Meal Preparation Comments does all shopping and cooking at home Director Trial Director Trial Caregiver Provides Assist Director Trial Comments does all manager hospice Driving Driving Caregiver Provides Assist Driving Comments can assist until pt able M6 OT- IP Functional Cognition Start: 01/30/18 14:21 Freq: Status: Active Protocol: Document 01/30/18 14:08 PJM (Rec: 01/30/18 14:47 PJ [id number]) Cognitive Factors Limiting Selfcare Function Cognitive Ability Level of Alertness Alert Patient Orientation Name Age Birthday Month Date Year Day of Week Place Situation Attention Span Ability Capable of Focused Attention Ability to Follow Commands Able to Follow One Step Commands Memory Description No Deficits Noted Safety Awareness No Deficits Noted Cognitive Comments Cognitive Assessment Comments Pt distracted by pain level but verbalizes understanding of lumbar precautions and had previous lumbar surgery 2 yrs ago so precautions are familiar. OT- Vision and Hearing OT- Hearing Assessment OT- Hearing Assessment WFL OT- Vision Assessment Visual Acuity WFL Vision Assessment Comments Pt wears glasses for distance. He denies any recent vision changes. M7 OT- IP Mobility and Balance Start: 01/30/18 14:21 Freq: Status: Active Protocol: Document 01/31/18 17:05 [facility] (Rec: 01/31/18 17:12 [facility] [id number]) OT- Bed Mobility Assessment Sit to Supine Sit to Supine Assist Moderate Assistance 1 Person Assistance OT-Transfer Assessment Sit to and From Stand Sit to and from Stand Maximum Assistance 1 Person Assistance Transfers Transfer Ability Contact Guard Assistance Technique Transfer Destination Bed Toilet Transfer Technique Stand Step Pivot Devices Transfer Assistive Devices Gait Belt Front Wheeled Walker Comments Mobility Comments Pt needing MAXA x 1 to stand from low toilet in addition to use of grab bar. Once upright needing a few seconds to steady himself and then needing CGA with FWW. Pt needing MODA for BLE to get back into bed. OT- Gait Assessment Gait Gait Assistance Required: Contact Guard Assist Distance (Feet) 10 Assistive Devices Assistive Device Gait Belt Front Wheeled Walker OT- Balance Assessment Sitting Balance and Reactions Static Sitting Balance Ability Normal Dynamic Sitting Balance Ability Good Standing Balance and Reactions Static Standing Balance Ability Good Dynamic Standing Balance Ability Fair M8 OT- IP Objective Assessments Start: 01/30/18 14:21 Freq: Status: Active Protocol: Document 01/30/18 14:08 PJM (Rec: 01/30/18 14:47 PJM [id number]) OT Gross Range of Motion Upper Extremity Range of Motion Assessment Within Functional Limits OT Strength Upper Extremity Strength Assessment Within Functional Limits Hand Supply Chain Technician Strength Hand Dominance Right OT- Coordination Assessment Comments Coordination Comments BUE WFL OT-Muscle Tone Assessment Muscle Tone WNL Yes OT Sensation Assessment Comments Summary Comments WNL BUE per pt Edema Edema Present Edema Comments B ankles min+ edema M9 OT- IP Assessment and Plan Start: 01/30/18 14:21 Freq: Status: Active Protocol: Document 01/31/18 17:05 [facility] (Rec: 01/31/18 17:12 [facility] [id number]) OT Summary Assessment and Plan Potential Rehabilitation Potential Good Analytic Complexity at Evaluation Low Summary OT Impairments Pain Balance Functional Mobility Grooming Dressing Toileting Bathing Toilet Transfers Shower Transfers Progress Towards Goals Progressing Toward Goals Assessment Summary Pt would continue to benefit from going to skilled rehab due to extensive assist to stand especially from lower surfaces, assist for LB dressing, and bed mobility needs. Pt very cooperative for OT treatment today. Goals Grooming Goal Standby Assistance Dressing Goal Minimal Assistance Toileting Goal Contact Guard Assistance Bathing Goal Minimal Assistance Toilet Transfer Goal Standby Assistance Shower Transfer Goal Contact Guard Assistance Patient/Caregiver Education Goal Demonstrate Post-Op Precautions Demonstrate Energy Conservation and Pacing Caregiver Independent Assisting Patient OT-Other Goals Grooming to be done standing at sink with good body mechanics and safety awareness . Days to Meet Goals 5 Frequency of Treatment Frequency Of Treatment Once a Day Treatment Plan OT Treatment Plan ADL Training Functional Mobility Patient/Family Education Discharge Planning Other Treatment Recommendations and Next LB dressing Treatment Focus Discharge Recommendations OT Discharge Recommendations SNF Rehab Home Equipment Needs toilet paper aid, sock aid
--- NOTE | 2018-01-31 17:33 | PT.IPTN ---
Current Diagnoses Obstructive sleep apnea (adult) (pediatric) (01/29/18) Unspecified asthma, uncomplicated (01/29/18) Spinal stenosis, lumbar region with neurogenic claudication (01/29/18) Ankylosing hyperostosis [[place]], site unspecified (01/29/18) Strain of muscle, fascia and tendon of lower back, subsequent encounter (01/29/18) Other specified postprocedural states (01/29/18) Surgery Performed Operation Date: 01/29/18 07:45 Actual Procedures p L3-4,L4-5,L5-S1 Revision Laminectomy & Instru Fusion w/bone graft anterior/posterior - Javier Lewis MD Physical Therapy Treatment Note M2 PT-IP Current Condition Start: 01/30/18 10:52 Freq: NEEDED Status: Active Protocol: Document 01/31/18 17:12 NFW (Rec: 01/31/18 17:33 NFW [id number]) Physical Therapy Current Condition Current Condition Evaluation Date 01/29/18 Treatment Diagnosis S/P L3-L4, L4-L5 ANT FUS w/ cages, L5-S1 TLIF w/ cage, L3 through L5 POST F Onset Date 01/29/18 Precautions Lumbar Precautions Log Roll Other Precautions Pt in ICU with post op respiratory suppression; wears CPAP from home. Weight Bearing Status Weight Bearing Status Weight Bear as Tolerated M3 PT-IP Subjective Start: 01/30/18 10:52 Freq: NEEDED Status: Active Protocol: Document 01/31/18 17:12 NFW (Rec: 01/31/18 17:33 NFW [id number]) Subjective Physical Therapy Visit Type Type Treatment Note Visit Start Time 15:32 Visit Stop Time 17:12 Total Visit Minutes 24 Notes Pt seen initially and walked to toilet. Pt having difficulty in urinating. Left pt with nursing and returned ~ an hour later to complete treatment. Number of PUBLISHING SPECIALIST Visits 0 Physical Therapy Visit Comments Patient Comments Pt right sd lying in bed with need to get up to go to the toilet. Therapy Pain Assessment Pain When Pain Assessed During Mobility M4 PT-IP Mobility and Gait Start: 01/30/18 10:52 Freq: NEEDED Status: Active Protocol: Document 01/31/18 17:12 NFW (Rec: 01/31/18 17:33 NFW [id number]) PT-Bed Mobility Assessment Rolling Type of Rolling Roll to Left Level of Assist Contact Guard Assistance Supine to Sit Supine to Sit Minimal Assistance Sit to Supine Sit to Supine Minimal Assistance Scooting Scooting to Edge of Bed Contact Guard Assistance Scooting Up and Down in Bed Contact Guard Assistance PT-Transfer Assessment Sit to and From Stand Sit to and from Stand Contact Guard Assistance Equipment Transfer Assistive Device Gait Belt Front Wheeled Walker Orthotic/Prosthetic Devices or Brace: No Transfers Transfer Destination Chair Toilet Transfer Technique Stand Step Pivot Transfer Ability Level of Assist Contact Guard Assistance Comments Mobility Comments Pt mainly needs assistance in bed mobility between sitting and sdlying with assist in lifting LEs. Gait Assessment Gait Gait Assistance Required: Contact Guard Assist Distance (Feet) 50 Able to Maintain Weight Bearing Status Yes During Gait Assistive Devices Assistive Device Gait Belt Front Wheeled Walker Orthotic/Prosthetic Devices or Brace: No Gait Deviations General Gait Pattern Decreased Stride Length Decreased Feet Clearance Wide Based Gait Factors Limiting Gait Function Factors Limiting Gait Function Decreased Activity Tolerance Decreased Strength Pain Comments Gait Comments Pain noted with ambulation mainly through fascial expressions. Performing step through gait pattern. CGA with ambulation. M5 PT-IP Objective Assessments Start: 01/30/18 10:52 Freq: NEEDED Status: Active Protocol: Document 01/30/18 10:52 EA (Rec: 01/30/18 11:16 EA [id number]) Orientation Orientation/Cognition Level of Alertness Alert Orientation Name Age Month Date Year Day of Week Place Safety Awareness Understands Safety Issues Memory Description No Deficits Noted Gross Range of Motion Upper Extremity ROM Assessment Within Functional Limits Lower Extremity ROM Assessment Within Functional Limits Strength Upper Extremity Strength Assessment Within Functional Limits Lower Extremity Strength Hip 4-/5 Knee 4/5 Ankle 5/5 Comments Strength Comments Not properly tested due to increased in low back pain Coordination Assessment Gross Coordination Gross Coordination WNL Sensation Assessment Sensation Gross Sensation WNL Light Touch Intact Proprioception (Position) Intact M6 PT-IP Treatment Start: 01/30/18 10:52 Freq: NEEDED Status: Active Protocol: Document 01/31/18 17:12 NFW (Rec: 01/31/18 17:33 NFW [id number]) Physical Therapy Treatment Education Education Provided Precautions M7 PT-IP Assessment and Plan Start: 01/30/18 10:52 Freq: NEEDED Status: Active Protocol: Document 01/31/18 17:12 NFW (Rec: 01/31/18 17:33 NFW [id number]) PT Summary Assessment and Plan Potential Rehabilitation Potential Good Status of Condition at Evaluation Evolving Summary Impairments Pain ROM Strength Balance Bed Mobility Transfers Gait Activity Tolerance Assessment Summary Overall, did well with transfers requiring a little assist with lifting LE in and out of bed between sitting and supine, otherwise CGA. Main concern at present is pt's inability to urinate. Feet edematous. Frequency of Treatment Frequency Of Treatment Twice a Day Treatment Plan Physical Therapy Treatment Plan Bed Mobility Training Transfer Training Gait Training Therapeutic Exercise Balance Retraining Post Op Education Discharge Planning Hot or Cold Pack Recommendations To Nursing Amount of Assist Needed 1 Person Assist Discharge Recommendations PT Discharge Recommendations Home Health SNF Rehab
[2018-01-31 19:00] VITALS: RESP 15; O2SAT 97
--- NOTE | 2018-01-31 20:57 | PC.NURSE ---
analy note Pt c/o severe bladder distention, discomfort. Pt trying to void on toilet. Bladder scan shows >900 ml. Assisted pt back to bed and inserted 16 Fr. weems, with 1100 ml return. Pt c/o pain from left knee down to toes, burning sensation. Pin improvement with repositioning.
[2018-01-31] MEDS: SENNOSIDES 8.6 MG TABLET 17.2 MG PO (22:06)
[2018-01-31] MEDS: GABAPENTIN 300 MG CAPSULE PO (22:06)
[2018-01-31] MEDS: ASPIRIN EC 81 MG TABLET PO (22:06)
[2018-01-31 23:00] VITALS: BP 116/65; PULSE 83; RESP 18; TEMP 36.3
--- NOTE | 2018-01-31 23:31 | PC.NURSE ---
Pt transferred from ICU @ 2200 to room 204. Pt provided with snack as per request. Assisted with positioning onto left side with pillow behind back and between knees. Loaiza to gravity with clear, yellow urine. Call light within pt's reach and cpap available for pt's use. Vistaril for c/o burning to leg. Brief placed as per pt request as pt expresses concern regarding need to move bowels.
[2018-02-01] VITALS (7 sets, daily range): BP systolic 96–118; BP diastolic 57–73; PULSE 74–81; RESP 16–20; TEMP 36.3–36.9; O2SAT 91–97
[2018-02-01] MEDS: TRAZODONE 50 MG TABLET PO ×2 (00:33→21:55)
[2018-02-01] MEDS: HYDROCODONE/ACET 10/325 TABLET 2 TAB PO ×3 (00:33→21:55)
[2018-02-01] MEDS: hydrOXYzine pamoate 25 MG CAPSULE PO (02:16)
[2018-02-01] MEDS: TAMSULOSIN 0.4 MG CAPSULE PO (08:48)
[2018-02-01] MEDS: CELECOXIB 200 MG CAPSULE PO ×2 (08:48→21:56)
[2018-02-01] MEDS: MULTIVITAMIN 1 TABLET 2 TAB PO (08:48)
[2018-02-01] MEDS: CYANOCOBALAMIN (VITAMIN B-12) 500 MCG TABLET 1000 MCG PO (08:48)
[2018-02-01] MEDS: INSULIN ASPART 100 UNIT/ML INSULN PEN SUBCUT ×3 (08:49→16:47)
[2018-02-01] MEDS: DOCUSATE 100 MG CAPSULE PO ×2 (08:49→21:56)
[2018-02-01] MEDS: DEXAMETHASONE 4 MG TABLET PO ×3 (09:45→21:55)
[2018-02-01] MEDS: hydroCHLOROthiazide 25 MG TABLET PO (10:41)
[2018-02-01] MEDS: BUMETANIDE 1 MG TABLET 2 MG PO (10:41)
[2018-02-01] MEDS: AMLODIPINE 5 MG TABLET PO (10:41)
[2018-02-01] MEDS: TELMISARTAN 40 MG TABLET 80 MG PO (10:41)
[2018-02-01] MEDS: ALBUTEROL HFA 60 PUFF/8 GM INH INH (10:42)
--- NOTE | 2018-02-01 11:31 | PM.PNPO.1 ---
Subjective Date Patient Seen: 02/01/18 Time Patient Seen: 11:31 Interval history: Hospital day 4, postop day 3 following L3-4, L4-5 XLIF and L5-S1 TLIF by Dr. Lewis. Patient complaining of continued pain and left leg symptoms. Has been using [place] 10/325 mg and Celebrex 200 mg. It was planned to have patient go to [facility]. He had urine retention again yesterday after catheter removed. He had 900 mL as needed retention on bladder scan. Loaiza was reinserted. Patient also complaining of left knee pain which he had before surgery. He did have a left knee MRI done previously. This noted medial meniscus tear and some degenerative changes along with moderately severe effusion. Exam Vital Signs (past 8 hours): - 02/01/18 05:36 02/01/18 07:25 Temperature 97.9 F 97.9 F Pulse Rate 74 80 Respiratory Rate 18 16 Blood Pressure 96/63 98/57 L Pulse Oximetry 97 94 Fraction of Inspired Oxygen 30 Oxygen Delivery Method Room Air Oxygen Flow Rate 0 Narrative Exam Narrative: Alert, oriented in no acute distress sitting in chair. Back. Dressing to lumbar area is dry without drainage or inflammation. Dressing to the left flank was dry with a small area of shadowing not enlarging. No signs of infection or inflammation. Legs. No calf pain or swelling. Pulses symmetrical. He has continued left leg weakness and difficulty firing quad. Objective Labs Result Diagrams: 01/30/18 05:00 Assessment & Plan Post-op (1) Postoperative urinary retention: Onset Date: ~01/2018 Problem details: Patient had difficulty voiding after Loaiza was removed 01/31/2018. He is on tamsulosin. Bladder scan noted 900 mL urine postvoid. Current Visit: Yes Status: Acute Assessment and plan: Will and dexamethasone 4 mg q.8h see if this will help with his back and leg symptoms. Anticipate DC Loaiza catheter later today to see if he is able to void. Would try using straight cath if needed. Will keep patient in hospital today to observe. Dissipate discharged to [facility] tomorrow if he is stable. Postoperative Procedures Operation Date: 01/29/18 07:45 Actual Procedures Side Surgeon p L3-4,L4-5,L5-S1 Revision Laminectomy & Instru Fusion w/bone graft anterior/posterior Javier Lewis MD Time Spent With Patient less than 15 minutes Quality VTE Deep Vein Thrombosis/Pulmonary Embolism Present on Admission: No
--- NOTE | 2018-02-01 11:37 | P.PN_ITS ---
Subjective Date Patient Seen: 02/01/18 Time Patient Seen: 11:31 Interval history: Hospital day 4, postop day 3 following L3-4, L4-5 XLIF and L5- S1 TLIF by Dr. Lewis. Patient complaining of continued pain and left leg symptoms. Has been using [place] 10/325 mg and Celebrex 200 mg. It was planned to have patient go to [facility]. He had urine retention again yesterday after catheter removed. He had 900 mL as needed retention on bladder scan. Loaiza was reinserted. Patient also complaining of left knee pain which he had before surgery. He did have a left knee MRI done previously. This noted medial meniscus tear and some degenerative changes along with moderately severe effusion. Exam Vital Signs (past 8 hours): - 02/01/18 05:36 02/01/18 07:25 Temperature 97.9 F 97.9 F Pulse Rate 74 80 Respiratory Rate 18 16 Blood Pressure 96/63 98/57 L Pulse Oximetry 97 94 Fraction of Inspired Oxygen 30 Oxygen Delivery Method Room Air Oxygen Flow Rate 0 Narrative Exam Narrative: Alert, oriented in no acute distress sitting in chair. Back. Dressing to lumbar area is dry without drainage or inflammation. Dressing to the left flank was dry with a small area of shadowing not enlarging. No signs of infection or inflammation. Legs. No calf pain or swelling. Pulses symmetrical. He has continued left leg weakness and difficulty firing quad. Objective Labs Result Diagrams: 01/30/18 05:00 Assessment & Plan Post-op (1) Postoperative urinary retention: Onset Date: ~01/2018 Problem details: Patient had difficulty voiding after Loaiza was removed 01/31/2018. He is on tamsulosin. Bladder scan noted 900 mL urine postvoid. Current Visit: Yes Status: Acute Assessment and plan: Will and dexamethasone 4 mg q.8h see if this will help with his back and leg symptoms. Anticipate DC Loaiza catheter later today to see if he is able to void. Would try using straight cath if needed. Will keep patient in hospital today to observe. Dissipate discharged to [facility] tomorrow if he is stable. Postoperative Procedures Operation Date: 01/29/18 07:45 Actual Procedures Side Surgeon p L3-4,L4-5,L5-S1 Revision Laminectomy & Instru Fusion w/bone graft anterior/ posterior Javier Lewis MD Time Spent With Patient less than 15 minutes Quality VTE Deep Vein Thrombosis/Pulmonary Embolism Present on Admission: No
--- NOTE | 2018-02-01 11:39 | PT.IPTN ---
Current Diagnoses Obstructive sleep apnea (adult) (pediatric) (01/29/18) Unspecified asthma, uncomplicated (01/29/18) Spinal stenosis, lumbar region with neurogenic claudication (01/29/18) Ankylosing hyperostosis [[place]], site unspecified (01/29/18) Other postprocedural complications and disorders of genitourinary system (01/29/18) Other retention of urine (01/29/18) Strain of muscle, fascia and tendon of lower back, subsequent encounter (01/29/18) Other specified postprocedural states (01/29/18) Surgery Performed Operation Date: 01/29/18 07:45 Actual Procedures p L3-4,L4-5,L5-S1 Revision Laminectomy & Instru Fusion w/bone graft anterior/posterior - Javier Lewis MD Physical Therapy Treatment Note M2 PT-IP Current Condition Start: 01/30/18 10:52 Freq: NEEDED Status: Active Protocol: Document 01/31/18 17:12 NFW (Rec: 01/31/18 17:33 NFW [id number]) Physical Therapy Current Condition Current Condition Evaluation Date 01/29/18 Treatment Diagnosis S/P L3-L4, L4-L5 ANT FUS w/ cages, L5-S1 TLIF w/ cage, L3 through L5 POST F Onset Date 01/29/18 Precautions Lumbar Precautions Log Roll Other Precautions Pt in ICU with post op respiratory suppression; wears CPAP from home. Weight Bearing Status Weight Bearing Status Weight Bear as Tolerated M3 PT-IP Subjective Start: 01/30/18 10:52 Freq: NEEDED Status: Active Protocol: Document 02/01/18 11:39 DLM (Rec: 02/01/18 12:43 DLM [id number]) Subjective Physical Therapy Visit Type Type Treatment Note Visit Start Time 10:40 Visit Stop Time 11:39 Total Visit Minutes 59 Notes some of his treatment time was with pt having loose stool on toilet, supervised pt while up for safety Number of FIRE SPRINKLER DESIGNER Visits 0 Physical Therapy Visit Comments Patient Comments He feels like he leaks some loose stool every time he moves, reports he has a lot of pain last night (up to 8/10), he describes burning in his back this visit but no LE burning at this time, he has Left LE burning last night Therapy Pain Assessment Pain When Pain Assessed During Mobility Pain Present Pain Present Pain Reported Location Back Intensity 6 Scale Used Numeric (1 - 10) Pain Behaviors Facial Grimacing Guarding Pain Management Techniques Distraction Re-positioning Timing of Activity with Medications M4 PT-IP Mobility and Gait Start: 01/30/18 10:52 Freq: NEEDED Status: Active Protocol: Document 02/01/18 11:39 DLM (Rec: 02/01/18 12:43 DLM [id number]) PT-Transfer Assessment Sit to and From Stand Sit to and from Stand Minimal Assistance Use of Upper Extremities Equipment Transfer Assistive Device Gait Belt Front Wheeled Walker Transfers Transfer Destination Chair Toilet Transfer Technique Stand Step Pivot Transfer Ability Level of Assist Contact Guard Assistance Minimal Assistance Use of Upper Extremities Comments Mobility Comments Pt up in recliner at start of visit, recently got up with nursing. Gait Assessment Gait Gait Assistance Required: Contact Guard Assist Distance (Feet) 35 Assistive Devices Assistive Device Gait Belt Front Wheeled Walker Gait Deviations General Gait Pattern Decreased Stride Length Decreased Feet Clearance Wide Based Gait Factors Limiting Gait Function Factors Limiting Gait Function Decreased Activity Tolerance Decreased Strength Pain Comments Gait Comments He describes burning in his back while ambulating, pt describes feeling groggy from medications, noted he often closes his eyes PT-Balance Assessment Sitting Balance and Reactions Static Sitting Balance Ability Good Dynamic Sitting Balance Ability Good Standing Balance and Reactions Static Standing Balance Ability Fair Dynamic Standing Balance Ability Fair Device Used FWW M5 PT-IP Objective Assessments Start: 01/30/18 10:52 Freq: NEEDED Status: Active Protocol: Document 02/01/18 11:39 DLM (Rec: 02/01/18 12:43 DLM [id number]) Orientation Orientation/Cognition Level of Alertness Lethargic Orientation Name Age Month Date Year Day of Week Place Language Function Ability No Deficits Noted Safety Awareness Understands Safety Issues Memory Description No Deficits Noted Comments able to stay alert during visit but closes his eyes often, he describes feeling groggy in his head related to medications Strength Lower Extremity Strength Assessment Bilaterally Impaired Knee left knee ext 2+/5 with c/o pain Coordination Assessment Assessment Coordination Comments moving slowly over-all with LE 's more than UE's, motor planning is WNL but slow Sensation Assessment Comments Sensation Comments no abnormal sensation reported in LE's today, had burning in LE's over-night M6 PT-IP Treatment Start: 01/30/18 10:52 Freq: NEEDED Status: Active Protocol: Document 02/01/18 11:39 DLM (Rec: 02/01/18 12:43 DLM [id number]) Physical Therapy Treatment Exercises Exercises Ankle Pumps Seated Knee Flexion/Extension Education Education Provided Precautions Safety M7 PT-IP Assessment and Plan Start: 01/30/18 10:52 Freq: NEEDED Status: Active Protocol: Document 02/01/18 11:39 DLM (Rec: 02/01/18 12:43 DLM [id number]) PT Summary Assessment and Plan Summary Impairments Pain ROM Strength Balance Sensation Bed Mobility Transfers Gait Activity Tolerance Progress Towards Goals Slow Progress due to Pain Slow Progress due to Activity Tolerance Assessment Summary Pt is progressing slowly post- op. He continues to have a weems catheter due to urine retention. He has loose stool today. He has been experiencing intermittent nerve-like pains in his LE's with left LE more than right. Pt reports increased pain in left knee that makes it more difficult to use the LE functionally. His distance of gait is limited by pain, weakness and decreased activity tolerance. Due to the complex nature of his case and his slow progress he is a good candidate for SNF rehab at discharge before returning home. Frequency of Treatment Frequency Of Treatment Twice a Day Treatment Plan Physical Therapy Treatment Plan Bed Mobility Training Transfer Training Gait Training Therapeutic Exercise Balance Retraining Post Op Education Discharge Planning Hot or Cold Pack Recommendations To Nursing Amount of Assist Needed 1 Person Assist Discharge Recommendations PT Discharge Recommendations SNF Rehab
[2018-02-01] MEDS: HYDROCODONE/ACET 10/325 TABLET 1 TAB PO (11:52)
--- NOTE | 2018-02-01 12:31 | CM.DPC ---
DCP/ Call to [facility]: Able to accept patient. Per PA patient continues to have urine retention and leg pain. Patient has weems in place. Possible discharge tomorrow. Plan: [facility] when stable.
--- NOTE | 2018-02-01 14:29 | PT.IPTN ---
Current Diagnoses Obstructive sleep apnea (adult) (pediatric) (01/29/18) Unspecified asthma, uncomplicated (01/29/18) Spinal stenosis, lumbar region with neurogenic claudication (01/29/18) Ankylosing hyperostosis [[place]], site unspecified (01/29/18) Other postprocedural complications and disorders of genitourinary system (01/29/18) Other retention of urine (01/29/18) Strain of muscle, fascia and tendon of lower back, subsequent encounter (01/29/18) Other specified postprocedural states (01/29/18) Surgery Performed Operation Date: 01/29/18 07:45 Actual Procedures p L3-4,L4-5,L5-S1 Revision Laminectomy & Instru Fusion w/bone graft anterior/posterior - Javier Lewis MD Physical Therapy Treatment Note M2 PT-IP Current Condition Start: 01/30/18 10:52 Freq: NEEDED Status: Active Protocol: Document 01/31/18 17:12 NFW (Rec: 01/31/18 17:33 NFW [id number]) Physical Therapy Current Condition Current Condition Evaluation Date 01/29/18 Treatment Diagnosis S/P L3-L4, L4-L5 ANT FUS w/ cages, L5-S1 TLIF w/ cage, L3 through L5 POST F Onset Date 01/29/18 Precautions Lumbar Precautions Log Roll Other Precautions Pt in ICU with post op respiratory suppression; wears CPAP from home. Weight Bearing Status Weight Bearing Status Weight Bear as Tolerated M3 PT-IP Subjective Start: 01/30/18 10:52 Freq: NEEDED Status: Active Protocol: Document 02/01/18 14:28 GGD (Rec: 02/01/18 14:29 GGD [id number]) Subjective Physical Therapy Visit Type Type Patient Refusal Notes Pt refused, states he been spending a lot of time in the bathroom and can't walk far without needing to go back to the bathroom. Will see in AM. Recommendations To Nursing Amount of Assist Needed 1 Person Assist Discharge Recommendations PT Discharge Recommendations SNF Rehab
--- NOTE | 2018-02-01 14:36 | OT.IP.TRT ---
Current Diagnoses Obstructive sleep apnea (adult) (pediatric) (01/29/18) Unspecified asthma, uncomplicated (01/29/18) Spinal stenosis, lumbar region with neurogenic claudication (01/29/18) Ankylosing hyperostosis [[place]], site unspecified (01/29/18) Other postprocedural complications and disorders of genitourinary system (01/29/18) Other retention of urine (01/29/18) Strain of muscle, fascia and tendon of lower back, subsequent encounter (01/29/18) Other specified postprocedural states (01/29/18) Surgery Performed Operation Date: 01/29/18 07:45 Actual Procedures p L3-4,L4-5,L5-S1 Revision Laminectomy & Instru Fusion w/bone graft anterior/posterior - Javier Lewis MD Occupational Therapy Treatment Note M2 OT-IP Current Condition Start: 01/30/18 14:21 Freq: Status: Active Protocol: Document 01/30/18 14:08 PJM (Rec: 01/30/18 14:47 PJM [id number]) Occupational Therapy Current Condition Current Condition Evaluation Date 01/30/18 Treatment Diagnosis decreased self care, functional mobility after L3- S1 revision, lami fusion Diagnosis Onset Date 01/29/18 Post Operative Precautions Lumbar Precautions Log Roll Other Precautions Pt in ICU with post op respiratory suppression; wears CPAP from home. Weight Bearing Status Weight Bearing Status Weight Bear as Tolerated M3 OT- IP Subjective and Pain Start: 01/30/18 14:21 Freq: Status: Active Protocol: Document 02/01/18 14:35 [facility] (Rec: 02/01/18 14:36 [facility] [id number]) OT- Subjective Occupational Therapy Visit Type Type Patient Unavailable Notes Went to check on pt x2 and in the bathroom each time with . Therefore to check on pt tomorrow for OT treatment.
[2018-02-01] MEDS: GABAPENTIN 300 MG CAPSULE PO (21:56)
[2018-02-01] MEDS: SENNOSIDES 8.6 MG TABLET 17.2 MG PO (21:56)
[2018-02-01] MEDS: ASPIRIN EC 81 MG TABLET PO (21:56)
--- NOTE | 2018-02-02 03:04 | PC.NURSE ---
Addendum entered by Akiko Chan R.N. 02/02/18 06:48: [id number] Pt woke up with an erection, requesting that his weems be removed immediately as it was causing discomfort. Josse Ojeda. Urinal at this bedside. Original Note: Addendum entered by Akiko Chan R.N. 02/02/18 03:55: [id number] for pain. Discussed dc ge weems and pt refuses at this time, pt wants to sleep with minimal disruptions. Requested that his SCD's be removed, notable increase in edema to feet since the start of shift, right foot has 3+ pitting edema. Original Note: shift foreman: 0200 Pt has been on the toilet, had a small loose BM. Pt ambulated halls with 1PA/FWW/Gait belt and did well, steady on his feet and following post op precautions. Denies pain.
[2018-02-02] MEDS: hydrOXYzine pamoate 25 MG CAPSULE PO ×2 (03:39→11:15)
[2018-02-02] MEDS: HYDROCODONE/ACET 10/325 TABLET 1 TAB PO ×2 (03:39→11:15)
[2018-02-02 04:06] VITALS: BP 98/58; PULSE 74; RESP 16; TEMP 36.4; O2SAT 97
[2018-02-02] MEDS: DEXAMETHASONE 4 MG TABLET PO (06:36)
--- NOTE | 2018-02-02 07:09 | P.PN_ITS ---
Subjective Date Patient Seen: 02/02/18 Time Patient Seen: 07:07 Interval history: He is doing great. Absolutely no pain. He was a little bit lightheaded when he stood up yesterday but feels fine this morning. Exam Vital Signs (past 8 hours): - 02/01/18 23:30 02/02/18 04:06 Temperature 98.0 F 97.5 F L Pulse Rate 79 74 Respiratory Rate 16 16 Blood Pressure 113/66 98/58 L Pulse Oximetry 91 97 Fraction of Inspired Oxygen 30 Oxygen Delivery Method Room Air,CPAP Oxygen Flow Rate 0 Const Orientation: alert and oriented x3 Back/Spine/Pelvis Other: 5/5 motor both lower extremities. Dressing clean dry intact Objective Labs Result Diagrams: 01/30/18 05:00 Assessment & Plan Post-op Postoperative Procedures Operation Date: 01/29/18 07:45 Actual Procedures Side Surgeon p L3-4,L4-5,L5-S1 Revision Laminectomy & Instru Fusion w/bone graft anterior/ posterior Javier Lewis MD He is doing extremely well. I explained that at some point his epidural will wear off in his pain levels will increase. Continue to mobilize with physical therapy. I anticipate he should be fine for discharge home tomorrow. However, if he is doing extremely well, he could go home later today. Quality VTE Deep Vein Thrombosis/Pulmonary Embolism Present on Admission: No
--- NOTE | 2018-02-02 07:20 | P.DS_ITS ---
History of Present Illness Date Patient Seen: 02/02/18 Time Patient Seen: 07:20 Chief complaint: [id number] Narrative: 67-year-old male with spinal stenosis. He had back pain and primarily left leg pain. History of a three-level lumbar laminectomy in 2016. He had failed conservative management with therapy, medication, and injections and is brought to the operating room for surgery. Discharge Providers Date of admission: 01/29/18 05:27 Primary care physician: Allyson Zelaya DO Consults: 01/29/18 16:31 Consult to Occupational Therapy Evaluate & Treat Comment: Physician Instructions: Evaluate and treat Consult to Physical Therapy Evaluate & Treat Comment: Physician Instructions: Evaluate and Treat 01/31/18 08:13 Consult to Lead Software Developer Routine Comment: snf eval Discharge provider: Javier Lewis MD Discharge Date: 02/02/18 Summary Discharge Diagnosis: Lumbar stenosis with radiculopathy Urinary retention Hospital Course: He was admitted to the hospital on 01/29/2018 where he underwent a L3 through S1 anterior and posterior instrumented fusion and revision laminectomies. He had some difficulty waking up and was kept in the ICU overnight for monitoring and then went up to the floor afterwards. He slowly mobilized with therapy but after adjusting his medications the pain was under much better control and he was able move better. He also had urinary retention after his Loaiza catheter was removed and this did have to be replaced and he was kept an extra night. It was pulled on date of discharge. He did have some drainage in the 1st few days but it dried up by postop day 3. Status at Discharge Functional status at discharge: uses cane/walker Overall status at discharge: patient is progressing back to baseline Exam Vital Signs (past 8 hours): - 02/01/18 23:30 02/02/18 04:06 Temperature 98.0 F 97.5 F L Pulse Rate 79 74 Respiratory Rate 16 16 Blood Pressure 113/66 98/58 L Pulse Oximetry 91 97 Fraction of Inspired Oxygen 30 Oxygen Delivery Method Room Air,CPAP Oxygen Flow Rate 0 Const Orientation: alert and oriented x3 Back/Spine/Pelvis Other: Mild dry drainage on dressing. 5/5 motor both lower extremities. Objective Labs Result Diagrams: 01/30/18 05:00 Discharge Plan Discharge Plan Transfer to: [facility] Under care of provider: facility MD Transportation: Facility vehicle Consult as needed: Dental, Hearing, Mental health, Podiatry and Vision I certify the postop hospital alf care is medically necessary on a continuing basis for any conditions for which he/ she received care during this hospitalization.: Yes The receiving facility has agreed to accept transfer and provide medical treatment.: Yes Discharge Med Rec/Prescriptions Prescriptions: New hydrocodone-acetaminophen 10-325 mg Tablet See Label Instructions .ROUTE .COMPLEX PRN (Reason: Pain, Moderate (4-6)) Qty: 50 RF: 0 celecoxib [Celebrex] 200 mg Capsule 200 mg PO BID PRN (Reason: pain) Qty: 60 RF: 0 hydroxyzine pamoate 25 mg Capsule 25 mg PO Q4HR PRN (Reason: Nausea And Vomiting) Qty: 30 RF: 0 Continue aspirin 81 MG tablet,delayed release (DR/EC) 81 mg PO HS Qty: 0 RF: 0 epinephrine 0.3 MG/0.3 ML auto-injector 0.3 mg IM PRN PRN (Reason: Allergic Reaction) Qty: 0 RF: 0 telmisartan-hydrochlorothiazid [Micardis HCT] 80 MG/25 MG tablet 1 tab PO QDAY Qty: 0 RF: 0 albuterol sulfate [Ventolin HFA] 90 MCG/PUFF HFA aerosol inhaler 2 puff INH Q6H PRN (Reason: asthma) Qty: 0 RF: 0 fluticasone [Flonase Allergy Relief] 9.9 ML spray,suspension 1 spray Intranasal QDAY PRN (Reason: Sinus Congestion) Qty: 0 RF: 0 tamsulosin [Flomax] 0.4 MG capsule,extended release 24hr 0.4 mg PO QDAY Qty: 0 RF: 0 amlodipine [Norvasc] 5 mg Tablet 5 mg PO QDAY Qty: 0 RF: 0 cyanocobalamin (vitamin B-12) 5,000 MCG tablet,disintegrating 5,000 mcg PO QDAY Qty: 0 RF: 0 [PROBIOTIC 10] 2 cap PO QDAY Qty: 0 RF: 0 multivitamin [Multiple Vitamins] 1 EACH tablet 2 tab PO QDAY Qty: 0 RF: 0 acetaminophen 325 mg Tablet 650 mg PO Q6H PRN (Reason: Pain) RF: 0 docusate calcium 240 mg Capsule 240 mg PO DAILY RF: 0 docusate sodium [Dulcolax Stool Softener (dss)] 100 mg Capsule 100 mg PO BID RF: 0 bumetanide 2 mg Tablet 2 mg PO DAILY RF: 0 trazodone 50 mg Tablet 50 mg PO DAILY PRN (Reason: Sleep) RF: 0 Discontinued naproxen sodium [Aleve] 220 mg Tablet 660 mg PO BID PRN (Reason: Pain) RF: 0 hydrocodone-acetaminophen 7.5-325 mg Tablet 1 tab PO Q6H PRN (Reason: Pain) RF: 0 Discharge Orders: Discharge (Order); Ordered 02/02/18 Ordered By: Javier Lewis Discharge Data Primary Care Provider: Allyson Zelaya Attending Provider: Javier Lewis Admit Date/Time: 01/29/18 05:27 Quality VTE Deep Vein Thrombosis/Pulmonary Embolism Present on Admission: No
[2018-02-02 08:00] VITALS: BP 118/79; PULSE 74; RESP 16; TEMP 36.6; O2SAT 92
[2018-02-02] MEDS: CYANOCOBALAMIN (VITAMIN B-12) 500 MCG TABLET 1000 MCG PO (08:13)
[2018-02-02] MEDS: AMLODIPINE 5 MG TABLET PO (08:13)
[2018-02-02] MEDS: TAMSULOSIN 0.4 MG CAPSULE PO (08:13)
[2018-02-02] MEDS: MULTIVITAMIN 1 TABLET 2 TAB PO (08:14)
[2018-02-02] MEDS: CELECOXIB 200 MG CAPSULE PO (08:14)
[2018-02-02] MEDS: BUMETANIDE 1 MG TABLET 2 MG PO (08:14)
[2018-02-02] MEDS: DOCUSATE 100 MG CAPSULE PO (08:14)
[2018-02-02] MEDS: INSULIN ASPART 100 UNIT/ML INSULN PEN SUBCUT (08:15)
[2018-02-02] MEDS: hydroCHLOROthiazide 25 MG TABLET PO (08:15)
[2018-02-02] MEDS: TELMISARTAN 40 MG TABLET 80 MG PO (08:15)
--- NOTE | 2018-02-02 08:15 | CM.DPC ---
Addendum entered by GIULIANA Griffin 02/02/18 11:07: ADD: Return call from [facility] admissions Shanon RN who confirms they can accept the pt and provide transport around [phone]. SW updated STOCK PATCHER and NTL who updated RN and pt. Plan: Patient to d/c to [facility] today via w/c van at 1130. GIULIANA Griffin Original Note: DCP SNF Discharge Per MD, pt is medically stable to d/c to SNF today. SW met bedside with pt and explained role and pt confirmed that he is still agreeable with d/c plan to [facility] today via w/c. SW inquired if pt would like SW to call and update family and pt states he has his cell phone now and plans to place calls to family himself to update on d/c today. SW checked in with RN who requests d/c transport around 1100 if possible. DYAN Romero faxed pt d/c packed to [facility] efax for the weekend staff and SW called [facility] admissions and left msg with update on d/c orders and request for time to transport. Plan: SW to follow for return call from [facility] to confirm d/c transport time and confirmation they received d/c packet. aCsie Flores, :GIULIANA
[2018-02-02] MEDS: BISACODYL 10 MG SUPP PR (08:21)
--- NOTE | 2018-02-02 12:31 | PT.IPTN ---
Current Diagnoses Obstructive sleep apnea (adult) (pediatric) (01/29/18) Unspecified asthma, uncomplicated (01/29/18) Spinal stenosis, lumbar region with neurogenic claudication (01/29/18) Ankylosing hyperostosis [[place]], site unspecified (01/29/18) Other postprocedural complications and disorders of genitourinary system (01/29/18) Other retention of urine (01/29/18) Strain of muscle, fascia and tendon of lower back, subsequent encounter (01/29/18) Other specified postprocedural states (01/29/18) Surgery Performed Operation Date: 01/29/18 07:45 Actual Procedures p L3-4,L4-5,L5-S1 Revision Laminectomy & Instru Fusion w/bone graft anterior/posterior - Javier Lewis MD Physical Therapy Treatment Note M2 PT-IP Current Condition Start: 01/30/18 10:52 Freq: NEEDED Status: Discharge Protocol: Document 01/31/18 17:12 NFW (Rec: 01/31/18 17:33 NFW [id number]) Physical Therapy Current Condition Current Condition Evaluation Date 01/29/18 Treatment Diagnosis S/P L3-L4, L4-L5 ANT FUS w/ cages, L5-S1 TLIF w/ cage, L3 through L5 POST F Onset Date 01/29/18 Precautions Lumbar Precautions Log Roll Other Precautions Pt in ICU with post op respiratory suppression; wears CPAP from home. Weight Bearing Status Weight Bearing Status Weight Bear as Tolerated M3 PT-IP Subjective Start: 01/30/18 10:52 Freq: NEEDED Status: Discharge Protocol: Document 02/02/18 09:05 GGD (Rec: 02/02/18 12:30 GGD [email or web address]) Subjective Physical Therapy Visit Type Type Treatment Note Visit Start Time 08:50 Visit Stop Time 09:05 Total Visit Minutes 15 Number of TELEVISION NEWS VIDEO EDITOR Visits 1 Physical Therapy Visit Comments Patient Comments Pt states he wants to take a shower. Therapy Pain Assessment Pain When Pain Assessed During Mobility Pain Present Pain Present Pain Reported M4 PT-IP Mobility and Gait Start: 01/30/18 10:52 Freq: NEEDED Status: Discharge Protocol: Document 02/02/18 09:05 GGD (Rec: 02/02/18 12:30 GGD [email or web address]) PT-Transfer Assessment Sit to and From Stand Sit to and from Stand Contact Guard Assistance 1 Person Assistance Use of Upper Extremities Equipment Transfer Assistive Device Gait Belt Front Wheeled Walker Orthotic/Prosthetic Devices or Brace: No Transfers Transfer Destination Chair Transfer Ability Level of Assist Contact Guard Assistance Use of Upper Extremities Gait Assessment Gait Gait Assistance Required: Contact Guard Assist Distance (Feet) 40 Able to Maintain Weight Bearing Status Yes During Gait Assistive Devices Assistive Device Gait Belt Front Wheeled Walker Orthotic/Prosthetic Devices or Brace: No Gait Deviations General Gait Pattern Decreased Stride Length Decreased Feet Clearance Wide Based Gait Factors Limiting Gait Function Factors Limiting Gait Function Decreased Activity Tolerance Decreased Strength Pain Stair Climbing Assessment Evaluation Level of Assist On Stairs Contact Guard Assistance Devices Stair Climbing Assistive Devices Front Wheel Walker Technique/Endurance Stair Climbing Direction Ascend and Descend Stair Climbing Technique Step to Step Number of Steps Climbed 1 Query Text: Stair Climbing Set # Repetitions (reps) 1 M5 PT-IP Objective Assessments Start: 01/30/18 10:52 Freq: NEEDED Status: Discharge Protocol: Document 02/01/18 11:39 DLM (Rec: 02/01/18 12:43 DLM [id number]) Orientation Orientation/Cognition Level of Alertness Lethargic Orientation Name Age Month Date Year Day of Week Place Language Function Ability No Deficits Noted Safety Awareness Understands Safety Issues Memory Description No Deficits Noted Comments able to stay alert during visit but closes his eyes often, he describes feeling groggy in his head related to medications Strength Lower Extremity Strength Assessment Bilaterally Impaired Knee left knee ext 2+/5 with c/o pain Coordination Assessment Assessment Coordination Comments moving slowly over-all with LE 's more than UE's, motor planning is WNL but slow Sensation Assessment Comments Sensation Comments no abnormal sensation reported in LE's today, had burning in LE's over-night M6 PT-IP Treatment Start: 01/30/18 10:52 Freq: NEEDED Status: Discharge Protocol: Document 02/02/18 09:05 GGD (Rec: 02/02/18 12:30 GGD [email or web address]) Physical Therapy Treatment Exercises Exercises Ankle Pumps Education Education Provided Precautions M7 PT-IP Assessment and Plan Start: 01/30/18 10:52 Freq: NEEDED Status: Discharge Protocol: Document 02/02/18 09:05 GGD (Rec: 02/02/18 12:30 GGD [email or web address]) PT Summary Assessment and Plan Summary Assessment Summary Pt improving with mobility and gait. He had improved stability with gait with fWW. He was safe and stable with single step with FWW. Frequency of Treatment Frequency Of Treatment Twice a Day Treatment Plan Physical Therapy Treatment Plan Bed Mobility Training Transfer Training Gait Training Therapeutic Exercise Balance Retraining Post Op Education Discharge Planning Hot or Cold Pack Recommendations To Nursing Amount of Assist Needed 1 Person Assist Discharge Recommendations PT Discharge Recommendations SNF Rehab
== END 2018-02-02 11:55 | DRG 455 ==
LOC: AC 02-02 09:03 → ICU 12-23 14:27
PROVIDERS: Admitting Provider Orthopaedic Surgery; PCP Family Medicine; Visit Provider Orthopaedic Surgery
PROC: 0SG00A0 Fusion of Lumbar Vertebral Joint with Interbody Fusion Device, Anterior Approach, Anterior Column, Open Approach (ICD-10-PCS; CPT 22558; principal; 2018-01-29 07:45)
DX: M48.062 Spinal stenosis, lumbar region with neurogenic claudication (principal); M48.10 Ankylosing hyperostosis [Forestier], site unspecified; I10 Essential (primary) hypertension; E78.5 Hyperlipidemia, unspecified; J45.909 Unspecified asthma, uncomplicated; G47.30 Sleep apnea, unspecified; Z87.891 Personal history of nicotine dependence; E11.9 Type 2 diabetes mellitus without complications; Z79.84 Long term (current) use of oral hypoglycemic drugs; M96.1 Postlaminectomy syndrome, not elsewhere classified; S83.8X2D Sprain of other specified parts of left knee, subsequent encounter; M25.462 Effusion, left knee; R33.9 Retention of urine, unspecified
CPT/HCPCS: 36415; 72100; 76001; 82962; 85014; 85018; 87797; 94640; 94660; 94760; 97110; 97116; 97162; 97165; 97530; 97535; C1776; C9290; J0131; J0330; J0690; J1170; J2250; J2405; J2704; J3010; J3410

== ENCOUNTER → 2018-05-03 15:11 | Outpatient (CLI) | payer MEDICARE, OTHER, SELFPAY ==
[2018-01-29 16:44] VITALS: BMI 37.3
[2018-01-29 18:16] VITALS: PULSE 81; RESP 18; O2SAT 100
--- NOTE | 2018-05-03 | DI.CT.S_ITS ---
PROCEDURE: CT LUMBAR SPINE WO CON INDICATIONS: LOW BACK PAIN TECHNIQUE: Noncontrast 3 mm thick sections acquired from the T12 level to the sacrum. Sagittal and coronal reformats were constructed. For radiation dose reduction, the following was used: automated exposure control. COMPARISON: [facility] [place], CR, XR LUMBAR SPINE 2 OR 3 VIEWS, 04/24/2018, 9:54. [facility], MR, L-SPINE W&WO CONTRAST, 05/08/2017, 17:51. [facility] [place], CR, XR LUMBAR SPINE 2 OR 3 VIEWS, 04/30/2018, 15:04. FINDINGS: Image quality: Excellent. Bones: There is normal bony alignment. No acute vertebral body compression fractures. There is discectomy, posterior decompression and spinal fusion at L3-S1. There is fracture of the left S1 pedicular screw with mild displacement. No suspicious lytic or blastic bony lesions. Central spinal caliber is of normal overall caliber. No pars defects. T12-L1: Mild loss of disc height and Schmorl's nodes in the superior and inferior endplates. There is mild posterior disc bulge. The central canal is patent. No foraminal stenosis. L1-L2: Preserved disc height and Schmorl's nodes in the superior and inferior endplates. There is mild posterior disc bulge. The central canal is mildly narrowed. No foraminal stenosis. L2-L3: Moderate loss of disc height and endplate degeneration. There is diffuse posterior disc bulge and disc osteophyte complex. The central canal is mildly narrowed. Mild to moderate bilateral foraminal stenosis. L3-L4: Surgically fused with discectomy and posterior decompression. No central canal or foraminal stenosis. L4-L5: Surgically fused with discectomy and posterior decompression. No central canal stenosis. Moderate right and mild left foraminal stenosis. L5-S1: Surgically fused with discectomy and posterior decompression. There is a disc prosthesis. No central canal or foraminal stenosis. Soft tissues: No retroperitoneal masses or hematomas. Visualized aorta is normal in caliber. IMPRESSION: 1. Postsurgical changes with discectomy, posterior decompression and surgical fusion at L3-S1. 2. Fractured left S1 pedicular screw. 3. Mild central canal stenosis at L1-L2 and L2-L3. 4. Multilevel foraminal stenosis as described. Dictated by: Laury Nguyen M.D. on 05/03/2018 at 15:51 Approved by: Laury Nguyen M.D. on 05/03/2018 at 17:18
== END ==
PROVIDERS: PCP Family Medicine; Visit Provider Physician Assistant
DX: M54.5 Low back pain (principal); T84.216A Breakdown (mechanical) of internal fixation device of vertebrae, initial encounter; M48.061 Spinal stenosis, lumbar region without neurogenic claudication; Z98.1 Arthrodesis status
CPT/HCPCS: 72131

== ENCOUNTER 2018-05-09 09:48 | Inpatient (IN) | payer MEDICARE, OTHER, SELFPAY ==
[2018-01-29 16:44] VITALS: BMI 37.3
[2018-01-29 18:16] VITALS: PULSE 81; RESP 18; O2SAT 100
[2018-05-07 12:09] VITALS: BMI 37.3
[2018-05-09] VITALS (14 sets, daily range): BP systolic 118–143; BP diastolic 67–96; PULSE 57–83; RESP 10–18; TEMP 35.8–36.6; O2SAT 96–100; BMI 36.3
--- NOTE | 2018-05-09 10:10 | PM.PREOP ---
Pre-operative Note Interval Note History & Physical reviewed/Exam performed by Physician: Yes Changes to H&P: No
[2018-05-09] MEDS: LACTATED RINGERS 1,000 ML 42 ML IV ×2 (10:32→13:40)
[2018-05-09] MEDS: CEFAZOLIN 2 GM/100 ML FROZ.PIGGY IV ×2 (11:02→18:50)
[2018-05-09] MEDS: BUPIVACAINE LIPOSOME 266 MG/20 ML VIAL INJ (11:35)
[2018-05-09] MEDS: BUPIVACAINE 0.25% W/ EPI 30 ML VIAL 60 ML INJ (11:36)
[2018-05-09] MEDS: VANCOMYCIN 1,000 MG VIAL 1000 MG TOP (11:40)
[2018-05-09] MEDS: SODIUM CHLORIDE 0.9% 1,000 ML, GENTAMICIN 80 MG IRR (11:41)
[2018-05-09] MEDS: ACETAMINOPHEN IV 1,000 MG/100 ML VIAL 400 MG IV (13:15)
--- NOTE | 2018-05-09 13:27 | PM.OP.1 ---
Operative Date/Time/Diagnoses Date of procedure: 05/09/18 Time of procedure: 13:27 Pre-op diagnosis: Lumbar pseudoarthrosis broken hardware with bilateral broken S1 screws obesity, BMI 36 Post-op diagnosis: same Procedure & Clinicians Procedure: removal of broken bilateral S1 screws Placement of new bilateral S1 screws and jennifer from L3 through S1 iliac crest bone graft revision L5-S1 posterolateral fusion Same procedure as scheduled: Yes Indications: 67-year-old male 3 months after a lumbar fusion. He felt a pop in his back and was found to have a broken screw possibly bilaterally. It is felt that revision surgery would be in his best interest to stabilize him and help the fusion continue. Risks and benefits of surgery were discussed and appropriate consents were obtained. Surgeon: Javier Lewis Refinery Operator: Lawanda Veronica Anesthesia Type: General Operative Notes Findings: broken bilateral S1 screws Closure Type: primary Specimen(s): none sent Prosthetic devices, grafts, tissues, transplants, or devices: NuVasive Reline screws Estimated Blood Loss (mL): 50 Procedure in detail: The patient was brought to the operating room and intubated on the stretcher. He was rolled over to the well-padded prone position on the Lalit table. Preoperative antibiotics were given and a time-out was performed. The back was prepped and draped in the standard sterile fashion. We started off with the left side. We utilized his previous incision and opened back up again. Bovie used to come down to and split through the scar and lumbodorsal fascia down to the screws with fluoroscopic guidance. We then exposed the screws and cleared off the surrounding soft tissue Due to the patient's obesity, this was very deep approximately 10 cm to get down to the screws themselves. Due to this, it took much more time and dissection to get this exposed increased the complexity. We then removed the set screws and the jennifer. A screwdriver was placed into the head of the S1 screw and this was removed showing the broken piece approximately 1 cm down the threads. We then used the Bovie to clear around the facet and tissue around the screw hole . A bur was used to decorticate the facet and the remaining bone around the screw and exposed approximately 7 mm. We tried grabbing it with vice light cleaner but the screw was so well fixed in the bone that we could not remove it. We used the power screwdriver operator set and placed the screw extractor over the end of the screw and removed it by grabbing it with a reverse threaded extraction device. This came out. We exposed the transverse process of L5 as well as the sacral ala and decorticated them with a bur. A small stab incision was made over the left PSIS and a Jamshidi needle was advanced into the pelvis. We aspirated 5 mL of iliac crest bone graft. This was mixed with Osteocel bone graft and placed on the posterolateral gutter as well as along the decorticated L5-S1 facet for the posterolateral revision fusion at L5-S1. We then probed the hole with neuro monitoring. We tapped with a 7.5 tap and placed a new 8.5 mm screw into the S1 hole on the left with neural monitoring. We checked with fluoro. The wound was copiously irrigated. A new jennifer was placed and locked down. The fascia was closed. We then went to the right side. We utilized his previous incision to open it back up. Bovie was used to work our way out laterally to where the screws were. This was done with fluoro guidance. Once the screws were exposed the set screws were removed and the jennifer was removed. We removed the S1 screw on the right and also was broken. We then had to expose around the hole where the previous screw had been and bur down around this and then used the extraction device to remove it. We used the Bovie to expose the sacral ala on this side as well as the bony fusion mass laterally at L5. These were decorticated with the bur to prepare for the revision fusion. We checked the hole with a probe and neural monitoring. We tapped with another 7.5 mm tap and placed a new 8.5 mm S1 screw on the right. Position was confirmed with fluoroscopy. The wound was irrigated. A new jennifer and set screws were placed and locked down. Another 4 mL of iliac crest bone graft aspirate was obtained and mixed with demineralized bone matrix and placed out the posterolateral gutter for the revision posterolateral fusion on this side at L5-S1. The fascia was closed. We then used combination of Exparel and Marcaine for local anesthetic. Vancomycin powder was placed in the wounds. The superficial skin were closed. Sterile dressing was placed. He was then rolled over, extubated, and brought to recovery room with no complications. Complications: none Condition: stable Disposition: PACU Plan for aftercare: Inpatient. Up with physical therapy. Limited mobility.
--- NOTE | 2018-05-09 14:01 | SUR.PHASEI ---
Pt arrived to PACU, cpap ith 02 placed on pt. dressing as charted. no numbness/tingling. Report to Janna.
--- NOTE | 2018-05-09 14:03 | SUR.PHASEI ---
ASSUMED CARE OF PT FROM [facility] AT THIS TIME. PT RESTING IN BED WITH EYES CLOSED, EASILY AROUSES WHEN SPOKEN TO. DRSG OVER SURGICAL SITE OBSERVED TO HAVE MINIMUAL AMOUNT OF RED BLOOD -CIRCLED BY [facility]. PT CPAP IN PLACE AND BLEEDING IN 02 5 LITERS. PT TOLERATING ICE CHIPS WITHOUT ANY DIFFICULTLY. PT RATING PAIN 3/10 AT THIS TIME BUT REQUESTING NO PAIN MEDICATION AT THIS TIME. PT HAS EQUAL STRENGTH AND SENSTATION IN ALL FOUR EXTREMITIES.
--- NOTE | 2018-05-09 14:07 | DI.RAD.S_ITS ---
PROCEDURE: XR LUMBAR SPINE 2-3V INDICATIONS: REVISE SCREWS TECHNIQUE: 3 views of the lumbar spine were acquired. COMPARISON: [facility], CR, XR LUMBAR SPINE 2-3V, 01/29/2018, 8:26. [facility], CR, XR LUMBAR SPINE 2 OR 3 VIEWS, 04/30/2018, 15:04. FINDINGS: 3 spot fluoroscopic intraoperative images demonstrating paraspinal jennifer and pedicle screw fixation from L3-S1. There are also interbody cage grafts. There is expected intraoperative alignment. Overlying skin claudia. Hardware appears intact. Dictated by: Atul Monet M.D. on 05/09/2018 at 14:17 Approved by: Atul Monet M.D. on 05/09/2018 at 14:19
--- NOTE | 2018-05-09 14:13 | SUR.PHASEI ---
CHARTED CPAP IN ERROR, SHOULD BE BIPAP.
[2018-05-09] MEDS: POLYVINYL ALCOHOL DROPS 1 DROPS EYE-RIGHT (14:30)
--- NOTE | 2018-05-09 14:30 | SUR.PHASEI ---
PT C/O FEELING LIKE SOMETHING IN HIS RIGHT EYE. UPON LOOKING IN PT EYE, APPEARS TO BE IRRITATED AREA ON [place]NEA. CALLED AND SPOKE WITH DR. NEWMAN WHO GAVE VERBAL ORDER TO INSTILL ARTIFICAL TEARS IN RIGHT EYE. PT TOLERATED WELL.
--- NOTE | 2018-05-09 14:47 | SUR.PHASEI ---
PT TRANSFERRED TO ACUTE CARE FLOOR IN STABLE CONDITION, VSS. PT ALERT AND TALKING TO RN DURING TRANSPORT. PT FAMILY IN ROOM UPON ARRIVAL. BEDSIDE REPORT GIVEN TO [facility]. CHECKED DRESSING WITH [facility]Y JOHNSON NO CHANGE IN DRAINAGE AMOUNT ON DRSG. PT REPORTS ABLE TO SEE OUT OF RIGHT EYE BUT FEELS IRRITATED. TRANSFERRED CARE OF PT TO [facility] JOHNSON IN STABLE CONDITION.
[2018-05-09] MEDS: LACTATED RINGERS 1,000 ML 125 ML IV ×2 (14:58→23:15)
--- NOTE | 2018-05-09 15:02 | PC.ADMIT ---
[id number] Admission Note: The patient,Federico Montoya,67 y/o, was given written information regarding hospital policies, unit procedures and contact persons. Patient's smoking status: Former smoker. Vital Signs - 8 hr 05/09/18 10:15 05/09/18 13:54 05/09/18 13:59 Temperature 97.6 F Pulse Rate 72 67 66 Respiratory Rate 16 10 L 10 L Blood Pressure 141/94 H 132/94 H 141/96 H Pulse Oximetry 100 96 99 05/09/18 14:07 05/09/18 14:14 05/09/18 14:24 Temperature 96.8 F L 96.9 F L Pulse Rate 61 63 62 Respiratory Rate 10 L 12 11 L Blood Pressure 130/89 141/81 H 135/87 Pulse Oximetry 100 100 100 05/09/18 14:49 05/09/18 15:01 Temperature 97.2 F L Pulse Rate 64 62 Respiratory Rate 14 Blood Pressure 126/87 Pulse Oximetry 100 100 PATIENT CAME FROM PACU TO 205, ALERT, ORIENTED, CONVERSANT. SAT 100% W/ HM BIPAP MACHINE WITHOUT OXYGEN BLEED IN. DRSG DRY AND INTACT W/ SM AMT SHADOW DRAINAGE WHICH WAS MARKED IN INK BY RECOVERY NURSE. STILL WITH IN MARKINGS. BP ELEVATED BUT STABLE. STATES DID NOT take any of his USUAL MEDS THIS AM. HIS RIGHT EYE IS IRRITATED. HE FEELS LIKE THERE IS AN EYELASH. NOTHING SEEN. PER REPORTS FROM SYSTEMS ACCOUNTANT, ANESTHESIOLOGY SUGGESTED COULD BE REACTION FROM TAPE. WAS BROUGHT UP WITH ARTIFICIAL TEARS, WHICH ISN'T PARTICULARILY HELPING. NO NAUSEA. TAKING ICE CHIPS. IVF INFUSING. REPORT GIVEN TO DAISY CHACON RN, INCLUDING ALL ASSESSMENTS STILL NEED TO BE COMPLETED.
[2018-05-09] MEDS: CELECOXIB 200 MG CAPSULE PO (18:33)
[2018-05-09] MEDS: DOCUSATE 100 MG CAPSULE PO (20:46)
[2018-05-09] MEDS: GABAPENTIN 300 MG CAPSULE PO (20:46)
[2018-05-09] MEDS: ASPIRIN EC 81 MG TABLET PO (20:46)
[2018-05-09] MEDS: SENNOSIDES 8.6 MG TABLET 17.2 MG PO (20:46)
[2018-05-09] MEDS: HYDROCODONE/ACET 5/325 TABLET 2 TAB PO (22:01)
[2018-05-09] MEDS: BISACODYL 10 MG SUPP PR (22:08)
--- NOTE | 2018-05-09 22:34 | PC.NURSE ---
Kaci shift note: Received patient at 1500 with c/o right eye irritation. Patient states feels like something is in his eye. This RN visualized closely, no foreign object noted. Only mild redness and tearing. As shift progressed, redness significantly decreased and tearing stopped. Patient reports decreased in irritation and states its much improved. Artificial eye drops PRN. This RN visualized with second RN Rosemarie for any changes. Patient denies blurry vision or halos. Will continue to monitor closely.
[2018-05-10] MEDS: HYDROCODONE/ACET 5/325 TABLET 2 TAB PO ×2 (02:30→07:58)
[2018-05-10] MEDS: CEFAZOLIN 2 GM/100 ML FROZ.PIGGY IV (02:39)
[2018-05-10 03:00] VITALS: BP 123/81; PULSE 82; RESP 20; TEMP 36.4; O2SAT 97
[2018-05-10 06:46] LABS: Hematocrit 40.1 % (41-53); Hemoglobin 13.9 g/dL (13.5-17.5)
[2018-05-10] MEDS: TELMISARTAN 40 MG TABLET 80 MG PO (07:56)
[2018-05-10] MEDS: hydroCHLOROthiazide 25 MG TABLET PO (07:57)
[2018-05-10] MEDS: MULTIVITAMIN 1 TABLET 2 TAB PO (07:57)
[2018-05-10] MEDS: DOCUSATE 100 MG CAPSULE PO (07:58)
[2018-05-10] MEDS: TAMSULOSIN 0.4 MG CAPSULE PO (07:58)
[2018-05-10] MEDS: CYANOCOBALAMIN (VITAMIN B-12) 500 MCG TABLET 5000 MCG PO (07:59)
[2018-05-10] MEDS: AMLODIPINE 5 MG TABLET PO (08:00)
--- NOTE | 2018-05-10 08:15 | PM.PNPO.1 ---
Subjective Date Patient Seen: 05/10/18 Time Patient Seen: 08:15 Interval history: He is doing quite well. Pain manageable with medication. He has been out of bed and walking around the halls twice overnight. Exam Vital Signs (past 8 hours): - 05/10/18 03:00 Temperature 97.6 F Pulse Rate 82 Respiratory Rate 20 Blood Pressure 123/81 Pulse Oximetry 97 Oxygen Delivery Method BiPAP Oxygen Flow Rate 0 Const Orientation: alert and oriented x3 Back/Spine/Pelvis Other: Mild drainage at the bottom of the dressing. 5/5 motor both lower extremities Objective Labs Result Diagrams: 05/10/18 06:30 Labs: Laboratory Results - last 24 hr 05/10/18 06:30 Hgb 13.9 Hct 40.1 L Assessment & Plan Post-op Postoperative Procedures Operation Date: 05/09/18 11:15 Actual Procedures Side Surgeon p Removal, spinal instru, posterior non-segmental; Revision S1 screws & bone grafting Jvaier Lewis MD He is doing well. Continue to mobilize with physical therapy this morning and should be fine for discharge later today.
[2018-05-10 09:00] VITALS: BP 99/71; PULSE 86; RESP 18; TEMP 36.6; O2SAT 98
--- NOTE | 2018-05-10 09:32 | PT.IIE ---
Current Diagnoses Ankylosing hyperostosis [[place]], site unspecified (05/09/18) Strain of muscle, fascia and tendon of lower back, subsequent encounter (05/09/18) Breakdown (mechanical) of internal fixation device of vertebrae, initial encounter (05/09/18) Surgery Performed Operation Date: 05/09/18 11:15 Actual Procedures p Removal, spinal instru, posterior non-segmental; Revision S1 screws & bone grafting - Javier Lewis MD Surgical History (Last Updated 05/07/18 @ 12:21 by Priscilla Gilmore RN) History of colonoscopy (Acute) History of laminectomy (Acute ~2015) History of lumbar fusion (Acute 01/29/18) Medical History (Last Updated 05/07/18 @ 12:22 by Priscilla Gilmore RN) Obstructive sleep apnea of adult (Chronic) Primary insomnia (Resolved) Excessive daytime sleepiness (Resolved) Asthma (Acute) BPH (benign prostatic hyperplasia) (Acute) Cervical radiculopathy (Acute) Colitis (Acute) Constipation (Acute) DISH (diffuse idiopathic skeletal hyperostosis) (Acute) Derangement of other medial meniscus due to old tear or injury, unspecified knee (Acute) Diabetes mellitus (Acute) Disorder of nail (Acute) Disorder of tendon of shoulder region (Acute) Dyslipidemia (Acute) Edema (Acute) Hip pain (Acute) Hyperlipidemia (Acute) Hypertension (Acute) Hypokalemia (Acute) Lumbar stenosis with neurogenic claudication (Acute) Lumbar strain (Acute) Migraine (Acute) Morbid obesity (Acute) Myopia (Acute) Recurrent erosion of cornea (Acute) Slowing of urinary stream (Acute) Spider bite, venomous (Acute ~04/2017) Thoracic back pain (Acute) Urinary retention (Acute ~01/2018) Venous stasis (Acute) Physical Therapy Inpatient Evaluation/Re-Eval M1 PT/OT-IP Prior Functional Status Start: 05/10/18 09:32 Freq: NEEDED Status: Active Protocol: Document 05/10/18 09:32 DLMarianela (Rec: 05/10/18 09:43 DLMarianela [id number]) Medical Review Prior Functional Status Medical History Reviewed Yes Diet/Fluid Consistency Regular Communication WNL Mobility and Gait Independent without device Activities of Daily Living and IADL's Independent, uses assistive device to assist with toileting due to limited bending after back sx in January Social History Household Members spouse Living Arrangements House Number of Floors (Floors) One Floor Number of Stairs To Enter/Railing? 1, no rail Home Environment Standard Height Toilet Bidet Home Equipment Front Wheel Walker Four Wheel Walker Hospital Bed Employment Status Retired Additional Social History Comment Went to SNF rehab in Jan after surgery. He reports he can sleep in hospital bed or recliner at home. M2 PT-IP Current Condition Start: 05/10/18 09:32 Freq: NEEDED Status: Active Protocol: Document 05/10/18 09:32 DLM (Rec: 05/10/18 09:43 DL [id number]) Physical Therapy Current Condition Current Condition Evaluation Date 05/10/18 Treatment Diagnosis L3-S1 TLIF revision Onset Date 05/09/18 Precautions Lumbar Precautions Log Roll No Twisting Limit Bending Lifting Restriction of 10 lbs Gait Belt above Incisional Area Weight Bearing Status Weight Bearing Status Weight Bear as Tolerated M3 PT-IP Subjective Start: 05/10/18 09:32 Freq: NEEDED Status: Active Protocol: Document 05/10/18 09:32 DLM (Rec: 05/10/18 09:43 DL [id number]) Subjective Physical Therapy Visit Type Type Initial Evaluation Visit Start Time 09:00 Visit Stop Time 09:32 Total Visit Minutes 32 Number of SENIOR SALES OPERATIONS ANALYST Visits 0 Physical Therapy Visit Comments Patient Comments Numbness in left LE has resolved since surgery Patient Goals go home today Therapy Pain Assessment Pain When Pain Assessed After Treatment Pain Present Pain Present Pain Reported Location Back Intensity 5 Scale Used Numeric (1 - 10) Description Aching Pain Behaviors Guarding Pain Management Techniques Apply Cold Re-positioning M4 PT-IP Mobility and Gait Start: 05/10/18 09:32 Freq: NEEDED Status: Active Protocol: Document 05/10/18 09:32 DLM (Rec: 05/10/18 09:43 DL [id number]) PT-Transfer Assessment Sit to and From Stand Sit to and from Stand Independent Use of Upper Extremities Equipment Transfer Assistive Device Gait Belt Front Wheeled Walker Transfers Transfer Destination Chair Transfer Technique Stand Step Pivot Transfer Ability Level of Assist Standby Assistance Use of Upper Extremities Comments Mobility Comments he declined to get back into bed, he reports it is too hard /painful, wants to stay up in chair, he plans to stay in recliner at home until his back feels better Gait Assessment Gait Gait Assistance Required: Standby Assistance Distance (Feet) 250 Assistive Devices Assistive Device Gait Belt Front Wheeled Walker Gait Deviations General Gait Pattern Decreased Stride Length Factors Limiting Gait Function Factors Limiting Gait Function Decreased Activity Tolerance Pain Stair Climbing Assessment Evaluation Level of Assist On Stairs Standby Assistance Devices Stair Climbing Assistive Devices Left Railing Right Railing Technique/Endurance Stair Climbing Direction Ascend and Descend Stair Climbing Technique Step to Step Number of Steps Climbed 1 Query Text: Stair Climbing Set # Repetitions (reps) 4 Comments Stair Climbing Comments he reports he hold door frame at home PT-Balance Assessment Sitting Balance and Reactions Static Sitting Balance Ability Good Dynamic Sitting Balance Ability Good Standing Balance and Reactions Static Standing Balance Ability Good Dynamic Standing Balance Ability Good Device Used FWW M5 PT-IP Objective Assessments Start: 05/10/18 09:32 Freq: NEEDED Status: Active Protocol: Document 05/10/18 09:32 DLM (Rec: 05/10/18 09:43 DL [id number]) Orientation Orientation/Cognition Level of Alertness Alert Orientation Name Age Birthday Month Date Year Day of Week Place Situation Language Function Ability No Deficits Noted Safety Awareness Understands Safety Issues Memory Description No Deficits Noted Comments he can verbalize his spine precautions Gross Range of Motion Upper Extremity ROM Assessment Within Functional Limits Lower Extremity ROM Assessment Within Functional Limits Impairments pain with hip flexion on right Strength Upper Extremity Strength Assessment Within Functional Limits Lower Extremity Strength Assessment Within Functional Limits Hip painful Coordination Assessment Gross Coordination Gross Coordination WNL Sensation Assessment Sensation Gross Sensation WNL Comments Sensation Comments he reports numbness in left LE before this surgery that has now resolved Muscle Tone Muscle Tone WNL Yes M6 PT-IP Treatment Start: 05/10/18 09:32 Freq: NEEDED Status: Active Protocol: Document 05/10/18 09:32 DLM (Rec: 05/10/18 09:43 DL [id number]) Physical Therapy Treatment Education Education Provided Precautions Safety Other Treatments Other Treatment Performed his is not present this visit M7 PT-IP Assessment and Plan Start: 05/10/18 09:32 Freq: NEEDED Status: Active Protocol: Document 05/10/18 09:32 DLM (Rec: 05/10/18 09:43 DL [id number]) PT Summary Assessment and Plan Potential Rehabilitation Potential Good Status of Condition at Evaluation Evolving Summary Impairments Pain ROM Strength Balance Bed Mobility Transfers Gait Activity Tolerance Assessment Summary Federico tolerated gait in the lindo well this visit with fWW. Educated in post-op precautions. He recalls his spine precautions from Dec surgery. He reports left LE numbness has resolves since surgery. He appears safe to discharge home with his to assist when medically cleared. Goals Bed Mobility Goal Independent Transfer Goal Independent Front Wheeled Walker Gait Goal Independent Front Wheel Walker Gait Distance 300 Other Goals up and down one step with UE support, independent Days to Meet Goals 1 Frequency of Treatment Frequency Of Treatment Twice a Day Treatment Plan Physical Therapy Treatment Plan Bed Mobility Training Transfer Training Gait Training Post Op Education Discharge Planning Hot or Cold Pack Recommendations To Nursing Amount of Assist Needed Standby Assistance Discharge Recommendations PT Discharge Recommendations Home with Assistance Outpatient PT
--- NOTE | 2018-05-10 09:59 | OT.IP.TRT ---
Current Diagnoses Ankylosing hyperostosis [[place]], site unspecified (05/09/18) Strain of muscle, fascia and tendon of lower back, subsequent encounter (05/09/18) Breakdown (mechanical) of internal fixation device of vertebrae, initial encounter (05/09/18) Surgery Performed Operation Date: 05/09/18 11:15 Actual Procedures p Removal, spinal instru, posterior non-segmental; Revision S1 screws & bone grafting - Javier Lewis MD Occupational Therapy Treatment Note M3 OT- IP Subjective and Pain Start: 05/10/18 09:56 Freq: Status: Active Protocol: Document 05/10/18 09:56 [facility] (Rec: 05/10/18 09:59 [facility] [id number]) OT- Subjective Occupational Therapy Visit Type Type Administrative Note Notes Pt has all OT equipment needs from prior surgery and able to assist for all needs. Therefore OT eval not needed at this time.
--- NOTE | 2018-05-10 10:56 | PC.NURSE ---
DRSG CHANGED PRIOR TO DC PER DOCTOR ORDER. COVERSITE X2 APPLIED. NO ACTIVE DRAINAGE FROM PARALLEL INCISIONS. JANAK PRESENT AND INTACT, BUT RATHER THAN FLUSH AGAINST THE SKIN, ARE AT APPROX 50% LENGTH OF INSERTION. NO ERYTHEMA OR EDEMA. PATIENT DISCHARGED W/ SCRIPTS AND BELONGINGS W/ CUSTOMER LOGISTICS MANAGER ESCORT BY WC TO VEHICLE W/ SPOUSE.
--- NOTE | 2018-05-10 11:12 | CM.DANOTE ---
Discharge Planning/Care Management DCP: assessment: case received and discussed today in Team Rounds, 1000. AUTOMOTIVE GENERAL MANAGER noted that pt was doing well from a therapy standpoint and would likely d/c home today.' Pt is a 67 year old male who admitted to care of Dr. Lewis for a spinal surgery yesterday. Payer: Medicare and Revl. Dr. Lewis did see pt early today and ok'd him for d/c home as long as he did well with PT. Went to room 1100 to meet with pt. YOLY Wise reports that pt had left for home with his shortly before 1100. No concerns re the d/c home were noted by the care team members. CM Discharge Assessment Start: 05/10/18 11:10 Freq: Status: Active Protocol: Document 05/10/18 11:10 ITV (Rec: 05/10/18 11:12 ITV [id number]) Discharge Planning Assessment Advance Directives? Yes Advance Directives on File Yes History Provided By Medical Record Prior Living Arrangements House Review Status In Process Next Review Type Continued Stay Review Pre-Anesthesia Assessment Start: 05/07/18 12:09 Freq: Status: Complete Protocol: Document 05/07/18 12:09 CAB (Rec: 05/07/18 12:23 CAB [id number]) Pre-Anesthesia Assessment PAC Comment Chart review only, pt s/p L3- S1 TLIF 01/29/18 Patient Information Reviewed Via Chart Review Primary Care Provider Allyson Zelaya Seen Specialist in Last 12 Months Yes Specialist Seen Orthopedist Primary Language Greek Preferred Language Greek Communications Engineering Technician Required No Height 177.8 cm Weight 117.934 kg Body Mass Index (BMI) 37.3 Hearing Ability Hard of Hearing Visual Impairment Partially Limited Visual Assist Glasses Dentition Type Teeth, Natural Present Teeth, Missing Partial- Upper Barriers to Learning Auditory Visual Hx Anesthesia Reactions No Hx Family Anesthesia Reaction No Hx Malignant Hyperthermia No Hx Blood Transfusions No alcohol intake current alcohol intake frequency a few times a week Smoking Status Former smoker Tobacco type cigarettes Has it been 2 weeks or less since No patient quit smoking how long ago did patient quit smoking 42 years ago Substance Use Type does not use Pain Present Pain Reported Musculoskeletal Symptoms Abnormal Gait Back Pain History of Falling (Recent or History of Yes ) Patient is completely paralyzed or No completely immobile Prosthesis or Orthotic Device Cane Front Wheel Walker Crutches Gait/Transferring Weak Mental Status Oriented to own ability Is patient on oxygen? No Does patient have REYNA/SOB Yes: Sometimes, inhibited by pain Hx Sleep Apnea Yes CPAP/BIPAP use prescribed and used routinely Currently Taking a Beta Wilma No Can You Climb a Flight of Stairs Without Yes SOB Hx Chest Pain Yes: When he has asthma, work- up negative, last incident 2 yr ago Hx SOB Yes Hx Syncope or Dizziness No Anti-Coagulant Therapy Yes: Aspirin Has a Vacuum Bottle Assembler No Cardiac Testing No Hx Pacemaker/ICD No Pacemaker Rep Required? No Cardiac Clearance Received Not Applicable Diet Type At Home Diabetic Low Sodium dysphagia No Bladder Pattern Frequency Hesitancy Nocturia Retention Urgency Urinary Catheter Present No Hx Urinary Self Catheterization No Comment Urinary retention s/p TLIF 01/06 Diabetes Yes HgbA1C 6.2 Date 12/07/17 Have you traveled outside the [facility] in the last 30 days? Marital Status Lives With spouse Prior Living Arrangements House Number of Floors (Floors) One Floor Support System Spouse Does the Patient Have Assistance After Yes Surgery Do You Have Any Spiritual Beliefs That No May Affect Your HC Choices? Do You Have Any Cultural Practices That No May Affect Your HC Choices? Spiritual Referral None Comment Anglican Who Can We Speak to About Patient's Care Family, friends Identifying Code for Release of Patient Declines to issue Information Health Care Proxy/Next of Kin Ratna () Health Care Proxy Emergency Contact Name Ratna () Emergency Contact Advance Directives? Yes Advance Directives on File Yes Power of Tamping Machine Operator Yes Power of Tamping Machine Operator Name Ratna () Power of Tamping Machine Operator
== END 2018-05-10 10:40 | disposition home or self-care (01) | DRG 460 ==
PROVIDERS: Admitting Provider Orthopaedic Surgery; PCP Family Medicine; Visit Provider Orthopaedic Surgery
PROC: 0SG3071 Fusion of Lumbosacral Joint with Autologous Tissue Substitute, Posterior Approach, Posterior Column, Open Approach (ICD-10-PCS; principal; 2018-05-09 11:15)
DX: T84.216A Breakdown (mechanical) of internal fixation device of vertebrae, initial encounter (principal); M48.10 Ankylosing hyperostosis [Forestier], site unspecified; Z98.1 Arthrodesis status
CPT/HCPCS: 72100; 76000; 85014; 85018; 97162; C1776; C9290; J0131; J0330; J0690; J2250; J2405; J2704; J3010

== ENCOUNTER → 2018-08-12 10:50 | Outpatient (CLI) | payer MEDICARE, OTHER, SELFPAY ==
[2018-01-29 18:16] VITALS: PULSE 81; RESP 18; O2SAT 100
[2018-05-09 15:35] VITALS: BMI 36.3
--- NOTE | 2018-08-12 | DI.CT.S_ITS ---
PROCEDURE: CT CERVICAL SPINE WO CON INDICATIONS: BILATERAL UPPER EXTREMITY NUMBNESS TECHNIQUE: Noncontrast 3 mm thick sections acquired from the skull base to the T4 level. Sagittal and coronal reformats were then constructed. For radiation dose reduction, the following was used: automated exposure control, adjustment of mA and/or kV according to patient size. COMPARISON: [facility], MR, MR CERVICAL SPINE WO CON, 11/26/2017, 16:16. FINDINGS: Image quality: Excellent. Bones: No fractures or dislocations. Visualized superior ribs are intact. There is reversal cervical curvature most prominent from C5-C7, increased compared to exam. There is trace anterolisthesis of C4 on C5, trace retrolisthesis of C6 on C7. There is moderate to severe disc space narrowing at C6-7, moderate throughout the remainder of the cervical spine. Disc osteophyte complexes are present throughout the cervical spine. Mild spinal stenosis is noted at C2-3, moderate C3-C4, C4-5, C6-7, C7-T1 and moderate to severe C5-6. There is mild left foraminal narrowing C2-3, moderate to severe bilateral C3-4, C4-5, C5-6, C6-7 and moderate bilateral C7-T1. Multilevel facet arthropathy is present. Overall, no appreciable interval change. Soft tissues: Prevertebral soft tissues are normal in thickness. No paravertebral hematomas. No apical pneumothoraces. IMPRESSION: 1. Multilevel degenerative changes, overall stable compared to 2018. 2. Multilevel moderate to severe spinal stenosis secondary to disc osteophyte complexes, as well as reversal cervical curvature. 3. Multiple moderate to severe foraminal narrowing secondary to uncovertebral arthropathy. Dictated by: Brenna Corrales M.D. on 08/12/2018 at 12:59 Approved by: Brenna Corrales M.D. on 08/12/2018 at 13:15
== END ==
PROVIDERS: PCP Family Medicine; Visit Provider Orthopaedic Surgery
DX: R20.0 Anesthesia of skin (principal); M48.02 Spinal stenosis, cervical region; M47.812 Spondylosis without myelopathy or radiculopathy, cervical region
CPT/HCPCS: 72125

== ENCOUNTER → 2018-11-04 12:53 | Outpatient (CLI) | payer MEDICARE, OTHER, SELFPAY ==
[2018-01-29 18:16] VITALS: PULSE 81; RESP 18; O2SAT 100
[2018-05-09 15:35] VITALS: BMI 36.3
--- NOTE | 2018-11-04 12:57 | DI.CT.S_ITS ---
PROCEDURE: CT LUMBAR SPINE WO CON INDICATIONS: Arthrodesis status TECHNIQUE: Noncontrast 3 mm thick sections acquired from the T12 level to the sacrum. Sagittal and coronal reformats were constructed. For radiation dose reduction, the following was used: automated exposure control. COMPARISON: [facility], MR, L-SPINE W&WO CONTRAST, 05/08/2017, 17:51. [facility], CR, XR LUMBAR SPINE 2 OR 3 VIEWS, 10/30/2018, 11:46. [facility], CR, XR LUMBAR SPINE 2 OR 3 VIEWS, 08/07/2018, 10:58. [facility], CR, XR LUMBAR SPINE 2 OR 3 VIEWS, 05/28/2018, 13:48. [facility], CT, CT LUMBAR SPINE WO CON, 05/03/2018, 15:24. FINDINGS: Image quality: Excellent. Bones: No acute vertebral body compression fractures. No suspicious lytic or blastic bony lesions. Central spinal caliber is of normal overall caliber. No pars defects. Postoperative changes are seen, with bilateral pedicle screws at the L3, L4, L5, and S1 levels. The screws appear well placed. There is a fractured left S1 screw seen. Vertical fixation rods are seen. Disc spacers are seen at L3-L4, L4-L5, and L5-S1 levels. No other findings of hardware failure or hardware loosening can be seen. There has been removal of portions of the posterior elements. Minimal retrolisthesis is seen at the L5-S1 level. T12-L1: The disc height is relatively well-preserved. Bridging endplate osteophytes are seen. No significant neural foraminal or central canal narrowing can be seen. Stable from the prior study. L1-L2: The disc height is well-preserved. Bridging anterior osteophytes are seen. Moderate disc bulge is seen. There is moderate bilateral neural foraminal narrowing seen. Moderate central canal narrowing is seen. When comparison is made with the prior examination, these findings are similar. L2-L3: Moderate to severe loss of disc height is seen at this level. Prominent endplate irregularity is seen. Prominent bridging endplate osteophytes are seen. There is moderate bilateral neural foraminal narrowing seen at this level. Moderate central canal narrowing is seen. When comparison is made with the prior examination, these findings are similar. L3-L4: Postoperative changes are seen at this level. Mild bilateral neural foraminal narrowing is seen. No significant central canal narrowing is seen. Stable from the prior study. L4-L5: There are postoperative changes at this level. Mild to moderate disc bulge is seen. There is moderate bilateral neural foraminal narrowing seen. No significant central canal narrowing is seen. When comparison is made with the prior examination, these findings are similar. L5-S1: The disc height is well preserved. Postoperative changes are seen at this level. Moderate facet joint hypertrophy is seen. There is at least moderate bilateral neural foraminal narrowing seen. No significant central canal narrowing is seen. When comparison is made with the prior examination, these findings are similar. Soft tissues: No retroperitoneal masses or hematomas. Visualized aorta is normal in caliber. IMPRESSION: L3-S1 postoperative hardware. The left screw at S1 is again seen to be fractured. Multiple levels of degenerative change are seen, which are similar to the prior CT examination. Dictated by: Houston Jackson M.D. on 11/04/2018 at 15:07 Approved by: Houston Jackson M.D. on 11/04/2018 at 15:17
== END ==
PROVIDERS: Family Provider Family Medicine; PCP Family Medicine; Visit Provider Orthopaedic Surgery
DX: T84.216A Breakdown (mechanical) of internal fixation device of vertebrae, initial encounter (principal); M47.816 Spondylosis without myelopathy or radiculopathy, lumbar region; Z98.1 Arthrodesis status
CPT/HCPCS: 72131

== ENCOUNTER → 2019-03-25 14:52 | Outpatient (CLI) | payer MEDICARE, OTHER, SELFPAY ==
[2018-01-29 18:16] VITALS: PULSE 81; RESP 18; O2SAT 100
[2018-05-09 15:35] VITALS: BMI 36.3
--- NOTE | 2019-03-25 | DI.MRI.S_ITS ---
PROCEDURE: MR LUMBAR SPINE WO CON INDICATIONS: SPINAL STENOSIS TECHNIQUE: Noncontrast sagittal T1 spin echo and T2 fast echo, sagittal STIR, axial T1 and T2 fast spin echo through the lumbar spine. In cases with scoliosis, additional coronal T2 fast spin echo may be performed. COMPARISON: [facility], CT, CT LUMBAR SPINE WO CON, 03/25/2019, 14:58. [facility], MR, L-SPINE W&WO CONTRAST, 05/08/2017, 17:51. [facility], MR, L-SPINE WITHOUT CONTRAST, 11/29/2015, 20:14. FINDINGS: Image quality: Excellent. Alignment and Curvature: There is trace retrolisthesis of L1 on L2, L2 on L3, trace anterolisthesis of L4 on L5. Posterior fusion is present from L3-S1. Left S1 pedicular screw fracture is noted better appreciated on CT L-spine of 03/25/19. Bone Marrow: Marrow is of normal overall signal. No acute vertebral body compression fractures. Spinal Cord: Conus medullaris terminates at the L1-L2 level. Visualized cord demonstrates normal signal and size. Paraspinous Soft Tissues: No paravertebral masses. Discs: Moderate to severe desiccation is present within the discs of the lumbar spine. L1-L2: Mild disc bulge with moderate spinal stenosis. No foraminal narrowing. Facet and ligamentum flavum hypertrophy are present. No interval change. L2-L3: Mild disc bulge with moderate spinal stenosis. Moderate to severe right and moderate left foraminal narrowing with facet and ligamentum flavum hypertrophy. No interval change. L3-L4: Postsurgical changes are present at this level. Mild spinal stenosis which has improved compared to prior MRI in 2018, but stable since CT lumbar spine 2019. Moderate to severe bilateral foraminal narrowing is present with facet/ligamentum flavum hypertrophy. L4-L5: Postsurgical changes are present at this level. Mild spinal stenosis which has improved compared to prior MRI in 2018, but stable since CT lumbar spine 2019. Mild to moderate bilateral foraminal narrowing is present with facet/ligamentum flavum hypertrophy. L5-S1: Postsurgical changes are present. No spinal stenosis. Left lateral disc osteophyte complex is noted, stable. The right foramina is significantly obscured secondary to artifact. Mild degree of foraminal narrowing cannot be definitively excluded. It does not appear significantly changed. Facet hypertrophy is present. IMPRESSION: 1. Multilevel postsurgical changes as above. Pedicular screw fracture is noted better appreciated on CT lumbar spine 03/25/19. 2. Multilevel foraminal narrowing most prominent at L2-3 and L3-4 secondary to facet arthropathy. 3. Multilevel spinal stenosis most notable at L2-3 secondary to disc bulge with contributing factor facet/ligament flavum arthropathy. Dictated by: Brenna Corrales M.D. on 03/26/2019 at 10:48 Approved by: Brenna Corrales M.D. on 03/26/2019 at 11:28
--- NOTE | 2019-03-25 | DI.CT.S_ITS ---
PROCEDURE: CT LUMBAR SPINE WO CON INDICATIONS: SPINAL STENOSIS TECHNIQUE: Noncontrast 3 mm thick sections acquired from the T12 level to the sacrum. Sagittal and coronal reformats were constructed. For radiation dose reduction, the following was used: automated exposure control. COMPARISON: [facility] [place], CR, XR LUMBAR SPINE 2 OR 3 VIEWS, 12/25/2018, 9:49. [facility], CT, CT LUMBAR SPINE WO CON, 11/04/2018, 12:58. FINDINGS: Image quality: Excellent. Bones: No acute vertebral body compression fractures. No suspicious lytic or blastic bony lesions. Central spinal caliber is of normal overall caliber. No pars defects. Postoperative changes are seen, with bilateral pedicle screws at the L3-S1 levels. The screws appear well placed. Vertical fixation rods are seen. Disc spacers are seen at the L3-L4, L4-L5, and L5-S1. The left screw at the S1 level again demonstrates a fracture. There is lucency seen surrounding the S1 screws. No additional findings of hardware failure or hardware loosening are seen. There has been removal of portions of the posterior elements. T12-L1: The disc height is relatively well-preserved. Bridging anterior osteophytes are seen. No significant neural foraminal or central canal narrowing can be seen. No significant change from the prior. L1-L2: The disc height is relatively well-preserved. Bridging endplate osteophytes are seen. Moderate to prominent disc bulge is seen. Moderate central canal narrowing is seen. No significant change from the prior. L2-L3: Moderate to severe loss of disc height and disc signal are seen. Partial bridging of the vertebral bodies can be seen. Prominent bridging endplate osteophytes are seen. Posteriorly projected endplate osteophytes are seen. There is moderate to severe right-sided and moderate left-sided neural foraminal narrowing seen. Moderate central canal narrowing is seen. Stable from the prior study. L3-L4: Postoperative changes are seen at this level. At least moderate disc bulge is seen. Prominent bridging anterior osteophytes are seen. Moderate bilateral neural foraminal narrowing is seen. Mild central canal narrowing is seen. No significant change from the prior. L4-L5: At least moderate disc bulge is seen. [id number] foraminal neural foraminal narrowing can be seen. Mild central canal narrowing is seen. When comparison is made with the prior examination, these findings are similar. L5-S1: The disc height is relatively well-preserved. At least moderate disc bulge is seen, which is eccentric to the left. There is moderate to severe left-sided and at least moderate right-sided neural foraminal narrowing seen. No significant central canal narrowing is seen. No significant change from the prior. Soft tissues: No retroperitoneal masses or hematomas. Visualized aorta is normal in caliber. IMPRESSION: The left S1 screw again seen to be fractured. Lucency is seen adjacent to the S1 screws, which is consistent with screw loosening. Stable degenerative changes Dictated by: Houston Jackson M.D. on 03/25/2019 at 15:33 Approved by: Houston Jackson M.D. on 03/25/2019 at 15:42
--- NOTE | 2019-03-25 | DI.MRI.S_ITS ---
PROCEDURE: MR CERVICAL SPINE WO CON INDICATIONS: SPINAL STENOSIS TECHNIQUE: Noncontrast sagittal T1 spin echo and T2 fast spin echo, sagittal STIR, foraminal oblique sagittal T2 fast spin echo, and axial gradient echo or T2 fast spin echo through the cervical spine. COMPARISON: [facility], MR, MR CERVICAL SPINE WO CON, 11/26/2017, 16:16. FINDINGS: Image quality: Excellent. Alignment and Curvature: There is reversal of curvature with apex at C5-6. Bone Marrow: Marrow demonstrates normal overall signal. Schmorl's node is noted along the superior endplate at C7 and inferior endplate at C6, with mild reactive change. Spinal Cord: Visualized spinal cord has normal size and signal. No cerebellar tonsillar herniation. Paraspinous Soft Tissues: No paravertebral masses. Prevertebral soft tissues are normal in thickness. Discs: Moderate to severe disc dessication is present. C2-C3: Minimal disc bulge without spinal stenosis. Mild left foraminal narrowing with uncovertebral hypertrophy. C3-C4: Mild disc bulge with moderate spinal stenosis. Moderate to severe bilateral foraminal narrowing. Uncovertebral hypertrophy is present. No interval change. C4-C5: Mild disc bulge with moderate spinal stenosis. Moderate to severe bilateral foraminal narrowing, left greater than right and uncovertebral hypertrophy. No interval change. C5-C6: Mild disc bulge with moderate to severe spinal stenosis. This is felt to be relatively stable, although artifact was present on prior exam within this region. Moderate to severe bilateral foraminal narrowing with uncovertebral hypertrophy. No interval change. C6-C7: Mild disc bulge with moderate to severe spinal stenosis. Moderate to severe bilateral foraminal narrowing, left greater than right with uncovertebral hypertrophy. No interval change. C7-T1: Mild disc bulge with mild to moderate spinal stenosis. Moderate bilateral foraminal narrowing. No interval change.. IMPRESSION: 1. Stable exam. 2. Multilevel spinal stenosis, most notable at C5-6 and C6-7 secondary to disc bulge. 3. Multilevel foraminal narrowing overall moderate to severe secondary to uncovertebral arthropathy. Dictated by: Brenna Corrales M.D. on 03/26/2019 at 9:07 Approved by: Brenna Corrales M.D. on 03/26/2019 at 10:43
--- NOTE | 2019-03-25 15:32 | DI.RAD.S_ITS ---
PROCEDURE: XR T AND L SPINE 2 TO 3 VIEWS INDICATIONS: SCOLIOSIS TECHNIQUE: 2 views acquired of the thoracolumbar spine. COMPARISON: [facility] [place], CR, XR LUMBAR SPINE 2 OR 3 VIEWS, 12/25/2018, 9:49. [facility], CT, CT LUMBAR SPINE WO CON, 03/25/2019, 14:58. FINDINGS: Bones: No acute fractures or dislocations. Prior lumbosacral spine fusion procedure crossing from L3-S1 shows minimally displaced fracture through the shaft of the S1 left-sided pedicle fixation screw, also present on 12/25/18. No significant scoliosis is found. Visualized inferior ribs appear intact. No suspicious bony lesions. Soft tissues: No suspicious soft tissue calcifications. IMPRESSION: Lumbosacral spine fusion procedure, L3-S1, with stable appearance of the fixation devices in stable appearance of a minimally displaced fracture through the shaft of the left S1 fixation screw, previously documented. Dictated by: Cecilio Everett M.D. on 03/25/2019 at 16:58 Approved by: Cecilio Everett M.D. on 03/25/2019 at 17:00
== END ==
PROVIDERS: Family Provider Family Medicine; PCP Family Medicine; Referring Provider Student in an Organized Health Care Education/Training Program; Visit Provider Student in an Organized Health Care Education/Training Program
DX: M48.061 Spinal stenosis, lumbar region without neurogenic claudication (principal); T84.226A Displacement of internal fixation device of vertebrae, initial encounter; T84.216A Breakdown (mechanical) of internal fixation device of vertebrae, initial encounter; M47.816 Spondylosis without myelopathy or radiculopathy, lumbar region; M51.26 Other intervertebral disc displacement, lumbar region; M48.02 Spinal stenosis, cervical region; M47.812 Spondylosis without myelopathy or radiculopathy, cervical region; M50.21 Other cervical disc displacement, high cervical region; M89.9 Disorder of bone, unspecified; R29.890 Loss of height; Z98.1 Arthrodesis status; Z87.891 Personal history of nicotine dependence; Z91.89 Other specified personal risk factors, not elsewhere classified; Z98.890 Other specified postprocedural states
CPT/HCPCS: 72082; 72131; 72141; 72148; 77080

== ENCOUNTER → 2019-08-19 13:19 | Outpatient (CLI) | payer MEDICARE, OTHER, SELFPAY ==
[2018-01-29 18:16] VITALS: PULSE 81; RESP 18; O2SAT 100
[2018-05-09 15:35] VITALS: BMI 36.3
[2019-08-19 14:36] LABS: Add Manual Diff / Slide Review NO; Basophils Absolute Auto 100 /uL (0-100); Basophils Percent Auto 0.7 % (0-2); Eosinophils Absolute Auto 200 /uL (0-450); Eosinophils Percent Auto 2.4 % (2-4); Hematocrit 41.7 % (41-53); Hemoglobin 15.2 g/dL (13.5-17.5); Lymphocytes Absolute Auto 1800 /uL (1100-4500); Lymphocytes Percent Auto 22.5 % (25-40); Mean Corpuscular HGB Conc 36.4 % (30-36); Mean Corpuscular Hemoglobin 32.4 PG (26-34); Mean Corpuscular Volume 88.9 fL (80-100); Monocytes Absolute Auto 600 /uL (0-900); Monocytes Percent Auto 6.8 % (3-14); Neutrophils Absolute Auto 5500 /uL (1500-7000); Neutrophils Percent Auto 67.6 % (50-75); Platelet Count 215 X10^3/uL (150-400); Red Blood Cell Count 4.68 X10^6/uL (4.5-5.9); Red Cell Distribution Width 13.7 % (11.6-14.8); White Blood Cell Count 8.1 X10^3/uL (4.5-11.0)
[2019-08-19 15:00] LABS: BUN Creatinine Ratio 26.4 (6-22); Blood Urea Nitrogen 19 mg/dL (9-20); Calcium 9.9 mg/dL (8.4-10.2); Carbon Dioxide 27 mmol/L (22-32); Chloride 101 mmol/L (98-107); Estimated Glomerular Filt Rate > 60.0 mL/min (>60); Glucose 185 mg/dL (80-110); HEMOLYSIS < 15 (0-50); Potassium 3.7 mmol/L (3.4-5.1); Sodium 136 mmol/L (137-145)
== END ==
PROVIDERS: Family Provider Family Medicine; PCP Family Medicine; Referring Provider Family Medicine; Visit Provider Orthopaedic Surgery
DX: Z01.818 Encounter for other preprocedural examination (principal); Z01.812 Encounter for preprocedural laboratory examination
CPT/HCPCS: 36415; 80048; 85025; 93005

== ENCOUNTER → 2019-08-29 08:39 | Outpatient (CLI) | payer MEDICARE, OTHER, SELFPAY ==
[2018-01-29 18:16] VITALS: PULSE 81; RESP 18; O2SAT 100
[2018-05-09 15:35] VITALS: BMI 36.3
[2019-08-30 09:06] LABS: COVID19 Sendout Not Detected (Not Detect)
== END ==
PROVIDERS: Family Provider Family Medicine; PCP Family Medicine; Visit Provider Physician Assistant
DX: Z01.812 Encounter for preprocedural laboratory examination (principal)
CPT/HCPCS: 87635

== ENCOUNTER 2019-09-01 05:36 | Inpatient (IN) | payer MEDICARE, OTHER, SELFPAY ==
[2018-01-29 18:16] VITALS: PULSE 81; RESP 18; O2SAT 100
[2018-05-09 15:35] VITALS: BMI 36.3
[2019-08-27 09:59] VITALS: BMI 37.4
[2019-09-01] VITALS (16 sets, daily range): BP systolic 124–159; BP diastolic 75–98; PULSE 53–94; RESP 12–20; TEMP 35.9–36.7; O2SAT 92–100; BMI 37.4
--- NOTE | 2019-09-01 06:00 | DI.RAD.S_ITS ---
PROCEDURE: XR SHOULDER LT MIN 1V INDICATIONS: post op total shoulder. TECHNIQUE: Single frontal views of the shoulder were acquired. COMPARISON: None. FINDINGS: Bones: No fractures or dislocations. Normal frontal view alignment after right shoulder arthroplasty. No suspicious bony lesions. Visualized ribs appear intact. Soft tissues: No suspicious soft tissue calcifications. IMPRESSION: Normal alignment is stab list after right shoulder arthroplasty. A surgical drain overlies the operative bed. Dictated by: Cecilio Everett M.D. on 09/01/2019 at 16:17 Approved by: Cecilio Everett M.D. on 09/01/2019 at 16:18
[2019-09-01] MEDS: ACETAMINOPHEN 325 MG TABLET 975 MG PO (10:16)
[2019-09-01] MEDS: PREGABALIN 75 MG CAPSULE PO (10:17)
[2019-09-01] MEDS: CELECOXIB 200 MG CAPSULE PO (10:17)
[2019-09-01] MEDS: LACTATED RINGERS 1,000 ML 42 ML IV ×2 (10:36→13:07)
--- NOTE | 2019-09-01 10:56 | PM.PREOP ---
Pre-operative Note COVID-19 COVID-19 status: Negative Result date/Date tested (Pos, Neg/Pending): 08/29/19 Interval Note History & Physical reviewed/Exam performed by Physician: Yes Changes to H&P: No
[2019-09-01] MEDS: MIDAZOLAM 2 MG/2 ML VIAL IV (11:27)
[2019-09-01] MEDS: CEFAZOLIN 2 GM/100 ML FROZ.PIGGY IV (11:47)
--- NOTE | 2019-09-01 12:05 | SUR.PREOP ---
Block start time [1125] . Monitoring initiated and maintained throughout procedure. Oxygen and medications given per anesthesiologist instructions. Patient remained stable throughout procedure, no adverse reactions noted. Block end time [1127.
[2019-09-01] MEDS: TRANEXAMIC ACID 1,000 MG VIAL 1000 MG INJ ×2 (12:10→13:49)
--- NOTE | 2019-09-01 12:34 | SUR.OPER ---
Beach chair with Schlein shoulder positioner. Lower body on padded OR bed. Head in foam padded head cradle, secured with straps. Non-operative arm secured <90 degrees abduction. Pillow x2 under knees. Safety belt at thigh. Cloth tape over blanket over lower legs.
[2019-09-01] MEDS: THROMBIN (RECOMBINANT) 5,000 UNIT VIAL 5000 UNIT TOP (12:39)
[2019-09-01] MEDS: BUPIVACAINE 0.5% W/ EPI (PF) 30 ML VIAL INJ (12:44)
--- NOTE | 2019-09-01 13:23 | SUR.OPER ---
CBG taken at 1225. It was 142. Left great toe used d/t unable to access a finger.
[2019-09-01] MEDS: HYDROMORPHONE 2 MG INJ IV ×2 (14:32→14:47)
--- NOTE | 2019-09-01 14:33 | P.OP_ITS ---
Operative Date/Time/Diagnoses Date of procedure: 09/01/19 Time of procedure: 14:33 Pre-op diagnosis: Left shoulder osteoarthritis Post-op diagnosis: same Procedure & Clinicians Procedure: Left total shoulder replacement Same procedure as scheduled: Yes Indications: The patient has had progressively worsening left shoulder pain with radiographic changes consistent with arthritis. Non-operative management has failed and the patient has requested total shoulder replacement. The risks, benefits and alternatives to surgery were discussed with the patient prior to proceeding. Risks discussed included, but were not limited to, failure to relieve pain, stiffness, infection, nerve damage, deep venous thrombosis, pulmonary embolism, stroke, coma, heart attack, permanent paralysis and , as well as the potential need for eventual revision of the prosthetic. Surgeon: Hesham Reyes Personal Care Assistant: Solange Holland Click Yes if Unassisted: No Anesthesia Type: General, Peripheral nerve block and Local Operative Notes Findings: Significant osteoarthritic change with large osteophytes Closure Type: primary Specimen(s): none sent Prosthetic devices, grafts, tissues, transplants, or devices: Implants used in this procedure were manufactured by the [employer] and included a 14 mm short stemmed Altivate humeral prosthetic with a neutral neck and a 50 mm x 18 mm offset humeral head. There was also a 50 mm all polyethylene pegged E +glenoid. Applied: drain(s) and implant(s) Estimated Blood Loss (mL): 300 Blood products transfused: none Procedure in detail: The patient was seen in the pre-operative area, where the patient identified the left shoulder as the operative site and this was marked with my initials. The patient received pre-operative antibiotics, underwent an interscalene block, and was taken to the operating room and placed on the operative table in the supine position. After satisfactory anesthesia, a full ?time out? was performed. The patient was repositioned in the ?beach chair? position using a dedicated positioner. All pressure points were well padded, and the knees were slightly bent to prevent tension on the sciatic nerves. The left arm was prepared from the fingers to the base of the neck with ChloroPrep in the usual fashion and draped through sterile drapes. An approximately 15 cm incision was created, starting at the clavicle above the coracoid process and extended towards the deltoid insertion. The deltopectoral interval was used to access the shoulder. The cephalic vein was taken medially. A self retaining retractor was placed. The upper centimeter of the pectoralis major tendon was released. The ?three sisters? were identified and cauterized. The axillary nerve was palpated and protected throughout the case. The biceps was released from its groove and tenodesed over the top of the pectoralis major tendon. The subscapularis was released from the lesser tuberosity with a subscapularis peel and tagged for later repair. The shoulder was dislocated and a cutting guide was used for the proximal humeral osteotomy in 30 degrees of retroversion. A starter Reamer was used followed by the cylindrical reamers. This continued in larger sizes in till cortical bite was achieved. Sequential broaching was then performed until a line to line fit with the Reamer occurred. A proximal humeral protector was then placed. We then removed the self-retaining retractor and placed retractors to access the glenoid. The subscapularis was released with a ?360 degree release? with care being taken to protect the axillary nerve with the inferior portion of this procedure. The remnant of labrum and biceps stump were removed. The appropriate size reamer was chosen with the glenoid sizer, and the guide pin placed. The glenoid was appropriately reamed. The guide for the peripheral holes was used and the center hole enlarged. The trial glenoid was placed with good stability. We then cemented the final implant into place after irrigating the peg holes and drying them with thrombin-soaked Gelfoam. We returned our attention to the humerus, a trial humeral head was applied and a trial reduction performed. Stability was checked with 50% posterior translation with spontaneous reduction, 45? external rotation with the subscapularis held in the repaired position and 70? of internal rotation in the ?scarecrow position?. This was felt to be satisfactory and the appropriate implants were opened. Five holes were drilled along the humeral osteotomy and #2 Ethibond sutures placed for eventual subscapularis repair. The humeral prosthetic was impacted into the humerus. The humeral head was applied when the stem was still slightly proud and impacted to both seat the head and fully seat the stem. The joint was relocated one final time. The joint was irrigated and the subscapularis repaired to the previously placed sutures using Seng-Varinder sutures. The top of the subscapularis was closed to the leading edge of the supraspinatus with a figure of 8 #2 Ethibond to close the rotator interval. A deep drain was placed and brought out supero-laterally. The deltopectoral interval was closed with interrupted 0 Vicryl. The subcutaneous layer was closed with 3-0 Vicryl, and the skin with a running 3-0 V-Lock suture and Dermabond. 20 mL of 0.5% Marcaine was injected into the subcutaneous tissues for postoperative pain control. An Aquacel Ag dressing was applied, the patient?s arm was placed in a sling, and the patient was taken to recovery having tolerated the procedure well. Complications: none Post-operative Condition: stable Disposition: PACU Plan for aftercare: The patient will be maintained on a standard total shoulder replacement protocol with passive range of motion limited to 90 degrees forward flexion, 0 degrees external rotation at the side, 0 degrees abduction and internal rotation to the body. The patient will receive aspirin and sequential compression devices for DVT prophylaxis. The patient will be discharged home when safe for the home environment, likely tomorrow.
[2019-09-01] MEDS: HYDROMORPHONE 2 MG TABLET PO (15:04)
[2019-09-01] MEDS: hydrOXYzine 50 MG/ML INJ 25 MG IM (15:09)
--- NOTE | 2019-09-01 15:40 | SUR.PHASEI ---
Pt to transfer to room 210 via bed with all belongings. Report given to YOLY Fong prior to transfer. Pt's vital signs stable with pain controlled with medications; see flowsheet documentation for details. YOLY Fong at bedside upon arrival to room 210; handoff assessment completed. Hetal to assume care of pt at this time.
--- NOTE | 2019-09-01 16:03 | PT-IP ANOTE ---
Received PT orders and checked with nursing and with pt who was complaining of severe pain. Pt still very groggy and unable to participate with PT at this time.
[2019-09-01] MEDS: LACTATED RINGERS 1,000 ML 125 ML IV ×2 (16:14→23:47)
[2019-09-01] MEDS: ALBUTEROL INHALER 2 EACH INH (16:32)
[2019-09-01] MEDS: OXYCODONE/ACETAMINOPHEN 5/325 TABLET 2 TAB PO ×2 (16:43→20:39)
[2019-09-01] MEDS: HYDROMORPHONE 0.5 MG INJ IV (18:42)
--- NOTE | 2019-09-01 19:11 | PC.NURSE ---
Addendum entered by Hetal Ontiveros R.N. 09/01/19 21:31: pt unable to void. pt tried to void and got up 3 times. bladder scan 460cc. In and out cath output had 625cc. pt tolerated well. Original Note: pt reports hx of itching w/oxycodone, verified percocet order with and he was ok with patient taking percocet. VTO for bendaryl PRN. pain controlled wiht percocet and dilaudid IV.
[2019-09-01] MEDS: POTASSIUM CHLORIDE 10 MEQ TAB PO (20:39)
[2019-09-01] MEDS: NAPROXEN 250 MG TABLET 500 MG PO (20:40)
[2019-09-01] MEDS: TRAZODONE 50 MG TABLET PO (23:30)
[2019-09-01] MEDS: ZOLPIDEM 5 MG TABLET 10 MG PO (23:30)
--- NOTE | 2019-09-02 00:28 | PC.NURSE ---
Addendum entered by Miladis De Leon R.N. 09/02/19 06:15: Continues to complain of 3/10 shoulder pain so medicated with 2nd tab of Percocet (had only wanted 1 tab earlier). Has not been able to void and bladder scan showing 377cc. In/out cath done with 375cc clear ta urine returned; tolerated well. Addendum entered by Miladis De Leon R.N. 09/02/19 05:13: Complains of 3/10 right shoulder pain; medicated with Percocet. Has not yet voided since straight cathed on previous shift; wants to wait for pain med to start working and then will stand and try to void. Original Note: Patient seen and assessed at 0. Is alert and oriented. Breath sounds CTA with RA sat of 98%; placed on home bipap for night. HRR. BP elevated at 159/80; hx of HTN and is on Amlodipine. Denies nausea. BT hypoactive and denies having passed flatus. Straight cathed on previous shift as was unable to void. Is able to turn himself in bed. Needs 1 assist to get out of bed. Aquacel dressing to left shoulder is CDI; hemovac is intact and compressed. Left arm is in sling and has good CMS although states his fingers are stiff. Stated pain was only 3/10 and tolerable; had been medicated with Percocet at 2038 so ice pack applied. Wearing bilateral calf SCD's. Fall risk score is moderate; bed alarm is activated.
[2019-09-02 04:00] VITALS: BP 121/72; PULSE 65; RESP 18; TEMP 36.2; O2SAT 96
[2019-09-02] MEDS: OXYCODONE/ACETAMINOPHEN 5/325 TABLET 1 TAB PO ×2 (05:12→06:15)
[2019-09-02 05:42] LABS: Hematocrit 36.3 % (41-53); Hemoglobin 12.8 g/dL (13.5-17.5); Mean Corpuscular HGB Conc 35.3 % (30-36); Mean Corpuscular Hemoglobin 31.9 PG (26-34); Mean Corpuscular Volume 90.2 fL (80-100); Platelet Count 173 X10^3/uL (150-400); Red Blood Cell Count 4.02 X10^6/uL (4.5-5.9); Red Cell Distribution Width 13.3 % (11.6-14.8); White Blood Cell Count 10.1 X10^3/uL (4.5-11.0)
--- NOTE | 2019-09-02 07:54 | P.DS_ITS ---
History of Present Illness History of Present Illness Date Patient Seen: 09/02/19 Time Patient Seen: 07:55 Chief complaint: LT TSA Narrative: History and physical is contained in the chart previously completed note. Please refer to that note for this information. Discharge Providers Provider Date of admission: 09/01/19 05:36 Discharge Date: 09/02/19 Primary care physician: Allyson Zelaya DO Consults: 09/01/19 06:00 Consult to Anesthesiology Routine Comment: Consulting Provider: Anesthesiologist Reason for consultation: Regional block for post operative pain control 09/01/19 15:35 Consult to Discharge Planning Routine Comment: Consult to Physical Therapy Evaluate & Treat Comment: Pendulums. PROM 90 FF, 0 ER, 0 Ab, IR to body Physician Instructions: Evaluate and Treat Consult to Respiratory Therapy Evaluate & Treat Comment: Physician Instructions: Evaluate and treat Discharge provider: Hesham Reyes MD Summary Hospital Course Discharge Diagnosis: 1. Left shoulder osteoarthritis 2. Post hemorrhagic anemia 3. Acute urinary retention Hospital Course: The patient was admitted to the hospital and taken directly to the operating room on September 01, 2019. He underwent a left total shoulder replacement without complications. Postoperatively he had moderate pain control issues. He also had difficulty urinating and required to straight catheterization episodes. At the time of this dictation the plan is to mobilize him this morning and see if he has the ability to spontaneously void. If he requires catheterization again a Loaiza catheter and leg bag will be placed with a referral to Urology as well as an in-patient urology consult. It is anticipated he will be discharged later today. Status at Discharge Cognitive/behavioral status at discharge: oriented Functional status at discharge: independent ambulation Overall status at discharge: patient is progressing back to baseline Time Spent with Patient Time spent: Less than 30 minutes Exam Vital Signs (past 8 hours): - 09/02/19 04:00 Temperature 97.2 F L Pulse Rate 65 Respiratory Rate 18 Blood Pressure 121/72 Pulse Oximetry 96 Oxygen Delivery Method CPAP,BiPAP Oxygen Flow Rate 0 Narrative Exam Narrative: Left shoulder wound is dressed with no drainage on the bandage. Light touch is intact in the radial, ulnar, median, muscular cutaneous and axillary nerve distribution. He can extend his thumb, abduct his thumb, abduct his fingers and can fire his biceps and deltoid. Objective Labs Result Diagrams: 09/02/19 05:19 Labs: Laboratory Results - last 24 hr 09/02/19 05:19 WBC 10.1 RBC 4.02 L Hgb 12.8 L Hct 36.3 L MCV 90.2 MCH 31.9 MCHC 35.3 RDW 13.3 Plt Count 173 Discharge Plan Discharge Plan Patient Disposition: Home Discharge orders & Medications Prescriptions: New oxycodone-acetaminophen 5-325 mg Tablet 1 tab PO Q4HR PRN (Reason: Pain, Moderate (4-6)) Qty: 40 RF: 0 Continued epinephrine 0.3 MG/0.3 ML auto-injector 0.3 mg IM PRN PRN (Reason: Allergic Reaction) Qty: 0 RF: 0 telmisartan-hydrochlorothiazid [Micardis HCT] 80 MG/25 MG tablet 1 tab PO QDAY Qty: 0 RF: 0 albuterol sulfate [Ventolin HFA] 90 MCG/PUFF HFA aerosol inhaler 2 puff INH Q6H PRN (Reason: asthma) Qty: 0 RF: 0 fluticasone propionate [Flonase Allergy Relief] 9.9 ML spray,suspension 1 spray Intranasal QDAY PRN (Reason: Sinus Congestion) Qty: 0 RF: 0 tamsulosin [Flomax] 0.4 MG capsule,extended release 24hr 0.4 mg PO QDAY Qty: 0 RF: 0 amlodipine [Norvasc] 5 mg Tablet 5 mg PO QDAY Qty: 0 RF: 0 cyanocobalamin (vitamin B-12) 5,000 MCG tablet,disintegrating 5,000 mcg PO QDAY Qty: 0 RF: 0 Probiotic 10 billion cell Capsule 10 cell PO DAILY Qty: 0 RF: 0 multivitamin [Multiple Vitamins] 1 EACH tablet 2 tab PO QDAY Qty: 0 RF: 0 docusate calcium 240 mg Capsule 240 mg PO DAILY RF: 0 trazodone 50 mg Tablet 50 mg PO BEDTIME RF: 0 polyethylene glycol 3350 17 gram Powder In Packet 17 g PO DAILY PRN (Reason: Constipation) RF: 0 potassium chloride [Klor-Con 10] 10 mEq Tablet Extended Release 10 meq PO BID RF: 0 aspirin 81 mg Tablet,Delayed Release (Dr/Ec) 81 mg PO DAILY RF: 0 furosemide 20 mg Tablet 20 mg PO QAM RF: 0 zolpidem 10 mg Tablet 10 mg PO BEDTIME RF: 0 naproxen 500 mg Tablet 500 mg PO BID RF: 0 Discontinued acetaminophen 325 mg Tablet 325 mg PO BID RF: 0 No Action (DME) Respironics System One BIPAP Qty: 1 RF: 0 Follow up/Referrals: Hesham Reyes MD [Physician] - 2 Weeks Allyson Zelaya DO [Primary Care Provider] - Discharge Health Status Multidrug resistant organism: No MDRO Diet/Activity/Treatments Diet: Diet as Tolerated and Regular Activity: You may use your left arm in front of your torso below shoulder level. Stay in a sling except for hygiene, eating and use of a computer. Cold/Heat Therapy: Apply ice to the left shoulder for 15 minutes every hour as needed for pain control. Skin/Wound/Dressing Care Report to your healthcare provider any signs of infection, such as:: chills, f ever, night sweats, increased pain, unusual drainage and unusual redness Dressing: Leave the dressing intact until your postoperative follow-up. You may shower with the dressing in place. If the central strip of the dressing becomes saturated with either water or blood, please call the office to have it evaluated. Visit Report/Discharge Packet Instructions: DI for Prescription Opioid Use, DI for Shoulder Replacement Stand Alone Forms: Surgery Discharge Discharge Data Primary Care Provider: Allyson Zelaya
[2019-09-02 08:00] VITALS: BP 120/75; PULSE 64; RESP 18; TEMP 36.8; O2SAT 96
[2019-09-02] MEDS: DOCUSATE 250 MG CAPSULE PO (08:36)
[2019-09-02] MEDS: AMLODIPINE 5 MG TABLET PO (08:36)
[2019-09-02] MEDS: ASPIRIN EC 81 MG TABLET PO (08:36)
[2019-09-02] MEDS: FUROSEMIDE 20 MG TABLET PO (08:37)
[2019-09-02] MEDS: POTASSIUM CHLORIDE 10 MEQ TAB PO (08:37)
[2019-09-02] MEDS: hydroCHLOROthiazide 25 MG TABLET PO (08:37)
[2019-09-02] MEDS: TAMSULOSIN 0.4 MG CAPSULE PO (08:37)
[2019-09-02] MEDS: TELMISARTAN 40 MG TABLET 80 MG PO (08:38)
[2019-09-02] MEDS: NAPROXEN 250 MG TABLET 500 MG PO (08:44)
[2019-09-02] MEDS: CYANOCOBALAMIN (VITAMIN B-12) 500 MCG TABLET 5000 MCG PO (08:48)
--- NOTE | 2019-09-02 10:16 | PT.IIE ---
Current Diagnoses Primary osteoarthritis, right shoulder (09/01/19) Surgery Performed Operation Date: 09/01/19 11:30 Actual Procedures p Total Shoulder Arthroplasty(Left) - Hesham Reyes MD Surgical History (Last Updated 08/27/19 @ 10:38 by Priscilla Gilmore, RN) History of carpal tunnel surgery of right wrist (Acute 2019) History of colonoscopy (Resolved) History of laminectomy (Resolved ~2015) History of lumbar fusion (Resolved 01/29/18) History of surgery (Acute 05/09/18) Hx of hemorrhoidectomy (Acute 2018) Medical History (Last Updated 08/27/19 @ 10:40 by Priscilla Gilmore RN) Asthma (Chronic) BPH (benign prostatic hyperplasia) (Chronic) Cervical radiculopathy (Acute) Colitis (Acute) Constipation (Acute) Derangement of other medial meniscus due to old tear or injury, unspecified knee (Acute) Diabetes mellitus (Chronic) DISH (diffuse idiopathic skeletal hyperostosis) (Chronic) Disorder of nail (Chronic) Disorder of tendon of shoulder region (Chronic) Dyslipidemia (Chronic) Edema (Acute) Excessive daytime sleepiness (Inactive) Hip pain (Acute) Hyperlipidemia (Chronic) Hypertension (Chronic) Hypokalemia (Acute) Lumbar stenosis with neurogenic claudication (Chronic) Lumbar strain (Acute) Migraine (Chronic) Morbid obesity (Resolved) Myopia (Chronic) Obstructive sleep apnea of adult (Chronic) Pre-diabetes (Acute) Primary insomnia (Inactive) Recurrent erosion of cornea (Acute) Slowing of urinary stream (Acute) Spider bite, venomous (Resolved ~04/2017) Thoracic back pain (Acute) Urinary retention (Acute ~01/2018) Venous stasis (Chronic) Physical Therapy Inpatient Evaluation/Re-Eval M1 PT/OT-IP Prior Functional Status Start: 09/01/19 15:52 Freq: NEEDED Status: Active Protocol: Document 09/02/19 09:51 AW (Rec: 09/02/19 10:16 AW [id number]) Medical Review Prior Functional Status Medical History Reviewed Yes Communication WNL. Pt is an effective verbal communicator. Mobility and Gait Pt reports independent gait with a limit of about one block primarily due to right hip pain. Activities of Daily Living and IADL's Pt admits difficulty donning a belt but states he is otherwise indpendent with dressing. His provides shower assist for washing and drying. He has a bidet and uses a comfort toilet cnc router operator to dry but requires no assist on and off the toilet. Social History Household Members spouse Living Arrangements House Number of Floors (Floors) One Floor Number of Stairs To Enter/Railing? 2 NEDRA without railing Home Environment Standard Height Toilet,Tub/ Shower,Bidet Home Equipment Front Wheel Walker,Four Wheel Walker,Straight Cane,Shower Seat without Backrest,Hand Held Shower,Long Handled Shoe Horn,Lift Recliner,Grab Bars In Shower Additional Social History Comment In addition to equipment listed above, pt also has a tripod cane. He lives with his , Diego, who does not work outside the home. She will be available and able to assist as needed at discharge. M2 PT-IP Current Condition Start: 09/01/19 15:52 Freq: NEEDED Status: Active Protocol: Document 09/02/19 09:51 AW (Rec: 09/02/19 10:16 AW [id number]) Physical Therapy Current Condition Current Condition Evaluation Date 09/02/19 Treatment Diagnosis s/p L TSA Onset Date 09/01/19 Precautions Shoulder Precautions Sling,PROM,Internal Rotation to Body,No External Rotation, No Abduction,Forward Flexion to 90 degrees,Pendulums Brace Sling on at all times M3 PT-IP Subjective Start: 09/01/19 15:52 Freq: NEEDED Status: Active Protocol: Document 09/02/19 09:51 AW (Rec: 09/02/19 10:16 AW [id number]) Subjective Physical Therapy Visit Type Type Initial Evaluation Visit Start Time 18:50 Visit Stop Time 09:14 Total Visit Minutes 24 Notes Pt's , Diego, present throughout evaluation. Number of PHYSICAL MEDICINE SPECIALIST Visits 0 Physical Therapy Visit Comments Patient Comments Pt is willing to participate with PT Patient Goals Pt hopes to return home with his assisting. Therapy Pain Assessment Pain When Pain Assessed At Rest Pain Present Pain Present Pain Reported Location left shoulder Intensity 3 Scale Used Numeric (0 - 10) Pain Management Techniques Apply Cold,Timing of Activity with Medications M4 PT-IP Mobility and Gait Start: 09/01/19 15:52 Freq: NEEDED Status: Active Protocol: Document 09/02/19 09:51 AW (Rec: 09/02/19 10:16 AW [id number]) PT-Transfer Assessment Sit to and From Stand Sit to and from Stand Contact Guard Assistance,Use of Upper Extremities Equipment Transfer Assistive Device Gait Belt Orthotic/Prosthetic Devices or Brace: Yes Transfers Transfer Destination Chair Transfer Technique pt ambulated without AD Transfer Ability Level of Assist Contact Guard Assistance,Use of Upper Extremities Comments Mobility Comments Pt was sitting up in the chair upon PT arrival. He completed sit to stand CGA and ambulated without AD to the sink but reached for the edge of the bed and for the countertop while walking with mild unsteadiness. He complained of lightheadedness which improved within one minute standing. BP was stable . He stood at the sink for education on sling adjustment and donning/doffing. He then walked into the lindo and to the stairs CGA due to mild unsteadiness. He practiced up/ down on the platform step x 2 with cues to lead with the stronger leg ascending and the weaker leg descending. He ambulated back to the room with improving steadiness and transferred to the toilet CGA with his providing assist . Pt was left in the bathroom with call light. PT notified nursing of pt's location. Gait Assessment Gait Gait Assistance Required: Contact Guard Assist Distance (Feet) 200 Assistive Devices Assistive Device Gait Belt Orthotic/Prosthetic Devices or Brace: Yes Gait Deviations General Gait Pattern Antalgic,Decreased Stride Length,Decreased Feet Clearance,Flexed Trunk Factors Limiting Gait Function Factors Limiting Gait Function Decreased Activity Tolerance, Decreased Sensation,Decreased Strength,Limited Range of Motion,Pain,Poor Balance,Poor Safety Awareness Comments Gait Comments Pt required CGA for ambulation in the halls. Pt states he occasionally uses a cane at home. He was too tired to trial gait with SPC and agreed to work with PT on gait training early PM. Stair Climbing Assessment Evaluation Level of Assist On Stairs Contact Guard Assistance Technique/Endurance Stair Climbing Direction Ascend and Descend Stair Climbing Technique Step to Step Number of Steps Climbed 1 Query Text: Stair Climbing Set # Repetitions (reps) 2 Comments Stair Climbing Comments Up/down platform step without device. PT-Balance Assessment Sitting Balance and Reactions Static Sitting Balance Ability Good Dynamic Sitting Balance Ability Good Standing Balance and Reactions Static Standing Balance Ability Good Dynamic Standing Balance Ability Fair Device Used none M5 PT-IP Objective Assessments Start: 09/01/19 15:52 Freq: NEEDED Status: Active Protocol: Document 09/02/19 09:51 AW (Rec: 09/02/19 10:16 AW [id number]) Orientation Orientation/Cognition Level of Alertness Alert Orientation Name,Day of Week,Place, Situation Language Function Ability No Deficits Noted Safety Awareness Decreased Safety Awareness Memory Description No Deficits Noted Gross Range of Motion Upper Extremity ROM Assessment Left Impaired Lower Extremity ROM Assessment Within Functional Limits Strength Upper Extremity Strength Assessment Left Impaired Lower Extremity Strength Assessment Within Functional Limits Comments Strength Comments BLE grossly 4+/5 Coordination Assessment Gross Coordination Gross Coordination WNL Sensation Assessment Sensation Gross Sensation WNL Comments Sensation Comments Pt reports good sensation to both UE Muscle Tone Muscle Tone WNL Yes M6 PT-IP Treatment Start: 09/01/19 15:52 Freq: NEEDED Status: Active Protocol: Document 09/02/19 09:51 AW (Rec: 09/02/19 10:16 [id number]) Physical Therapy Treatment Exercises Exercises Shoulder Pendulums,Elbow Flexion/Extension,Wrist ROM, Hand ROM Education Education Provided Precautions,Post-Op Packet, Safety Other Treatments Other Treatment Performed Provided education on optimal fit for shoulder sling using mirror for visual feedback. Pt and his were comfortable with adjustments for the sling and able to teach back regarding proper positioning. Pt was educated on tips for performing ADL's with the sling, shoulder precautions, and AROM for elbow, wrist, and hand. PT provided handout with ADL promotion and exercise prescription. M7 PT-IP Assessment and Plan Start: 09/01/19 15:52 Freq: NEEDED Status: Active Protocol: Document 09/02/19 09:51 AW (Rec: 09/02/19 10:16 [id number]) PT Summary Assessment and Plan Potential Rehabilitation Potential Good Status of Condition at Evaluation Evolving Summary Impairments Pain,ROM,Strength,Balance,Bed Mobility,Transfers,Gait, Activity Tolerance Assessment Summary Leoncio is a 68 yo man seen for PT evaluation on POD1 following L TSA. At baseline, he ambulates independently but with a limit of ~1 block due to back and hip pain. He has been requiring assist for ADL' s which his provides. She will be available and able to assist as needed at discharge . Pt required CGA for transfers and gait without AD this AM due to pain. He will be seen for PM session to conduct gait training with SPC . PT anticipates he will be safe for discharge once this is completed. Goals Bed Mobility Goal Standby Assistance Transfer Goal Standby Assistance,Cane Gait Goal Standby Assistance,Cane Gait Distance 200 Other Goals - up/down 2 steps with SPC SBA Frequency of Treatment Frequency Of Treatment Twice a Day Treatment Plan Physical Therapy Treatment Plan Bed Mobility Training,Transfer Training,Gait Training, Therapeutic Exercise,Balance Retraining,Post Op Education, Discharge Planning,Hot or Cold Pack Other Recommendations and Next Treatment review precautions; ask if any Focus questions about sling management; gait training with SPC to include stairs Recommendations To Nursing Amount of Assist Needed 1 Person Assist Discharge Recommendations PT Discharge Recommendations Home with Assistance, Outpatient PT Transportation Needs at Discharge Private Vehicle
[2019-09-02] MEDS: OXYCODONE/ACETAMINOPHEN 5/325 TABLET 2 TAB PO ×2 (10:54→14:52)
--- NOTE | 2019-09-02 11:35 | PC.NURSE ---
Addendum entered by Janneth Crawford R.N. 09/02/19 15:23: This RN spoke with Dawna of pharmacy regarding pt abulterol and spacer; Dawna indicates that a misplaced spacer is in the pharmacy and that she will come to the floor to verify with patient Addendum entered by Janneth Crawford R.N. 09/02/19 15:09: Pt ambulated with PT in hallway, sat in bathroom for 45 min, voided in toilet, did not use urinal; bladder scan shows 87 mL Original Note: Difficulty voiding, 25 mL to urinal; this RN encouraged hydration; mild to moderate pain, PO Percocet administered and ice applied to left shoulder; Aquacell drsg c/d/i; left arm to sling; 1+ dependent edema to BL feet; LS clear; in room
--- NOTE | 2019-09-02 14:12 | PT.IPTN ---
Current Diagnoses Primary osteoarthritis, right shoulder (09/01/19) Surgery Performed Operation Date: 09/01/19 11:30 Actual Procedures p Total Shoulder Arthroplasty(Left) - Hesham Reyes MD Physical Therapy Treatment Note M2 PT-IP Current Condition Start: 09/01/19 15:52 Freq: NEEDED Status: Active Protocol: Document 09/02/19 09:51 AW (Rec: 09/02/19 10:16 AW [id number]) Physical Therapy Current Condition Current Condition Evaluation Date 09/02/19 Treatment Diagnosis s/p L TSA Onset Date 09/01/19 Precautions Shoulder Precautions Sling,PROM,Internal Rotation to Body,No External Rotation, No Abduction,Forward Flexion to 90 degrees,Pendulums Brace Sling on at all times M3 PT-IP Subjective Start: 09/01/19 15:52 Freq: NEEDED Status: Active Protocol: Document 09/02/19 13:56 CLB (Rec: 09/02/19 14:44 CLB [id number]) Subjective Physical Therapy Visit Type Type Treatment Note Visit Start Time 13:56 Visit Stop Time 14:12 Total Visit Minutes 18 Notes Pt present in room. Physical Therapy Visit Comments Patient Comments Pt is willing to participate with PT Patient Goals Pt hopes to return home with his assisting. Therapy Pain Assessment Pain When Pain Assessed At Rest Pain Present Pain Present Pain Reported Location left shoulder Intensity 2 Scale Used Numeric (0 - 10) Pain Management Techniques Apply Cold,Timing of Activity with Medications M4 PT-IP Mobility and Gait Start: 09/01/19 15:52 Freq: NEEDED Status: Active Protocol: Document 09/02/19 13:56 CLB (Rec: 09/02/19 14:44 CLB [id number]) PT-Bed Mobility Assessment Supine to Sit Supine to Sit Contact Guard Assistance,Head of Bed Elevated Scooting Scooting to Edge of Bed Standby Assistance PT-Transfer Assessment Sit to and From Stand Sit to and from Stand Standby Assistance Equipment Transfer Assistive Device Gait Belt Orthotic/Prosthetic Devices or Brace: Yes Transfers Transfer Destination Bed,Toilet Transfer Technique pt ambulated with SPC Transfer Ability Level of Assist Standby Assistance Comments Mobility Comments Pt required CGA for supine to sit and SBA for sit-stand, SPC adjusted to proper height and pt ambulated in lindo ~400ft w /SPC and SBA. Pt climbed stairs using cane CGA and required SBA with use of rails on second set of stairs as pt stated he had stead object he holds while climbing stairs. Pt ambulated into bathroom SBA , pt remained in BR on toilet with call light, present in room and RN informed pt would call when finished in BR . Gait Assessment Gait Gait Assistance Required: Standby Assistance,1 Person Assist Distance (Feet) 400 Assistive Devices Assistive Device Gait Belt,Straight Cane Orthotic/Prosthetic Devices or Brace: Yes Gait Deviations General Gait Pattern Antalgic,Decreased Stride Length,Decreased Feet Clearance,Flexed Trunk Factors Limiting Gait Function Factors Limiting Gait Function Decreased Activity Tolerance, Decreased Sensation,Decreased Strength,Limited Range of Motion,Pain,Poor Balance Comments Gait Comments Pt ambulated in lindo with SPC and SBA with steady gait and cues for reciprocal right cane /left leg. Pt stated he felt steadier with cane and has one in car to use at d/c. Stair Climbing Assessment Evaluation Level of Assist On Stairs Contact Guard Assistance Technique/Endurance Stair Climbing Direction Ascend and Descend Stair Climbing Technique Step Over Step Number of Steps Climbed 3 Stair Climbing Set # Repetitions (reps) 2 Comments Stair Climbing Comments up/down three steps with SPC requiring CGA then use of right rail SBA. M5 PT-IP Objective Assessments Start: 09/01/19 15:52 Freq: NEEDED Status: Active Protocol: Document 09/02/19 09:51 AW (Rec: 09/02/19 10:16 AW [id number]) Orientation Orientation/Cognition Level of Alertness Alert Orientation Name,Day of Week,Place, Situation Language Function Ability No Deficits Noted Safety Awareness Decreased Safety Awareness Memory Description No Deficits Noted Gross Range of Motion Upper Extremity ROM Assessment Left Impaired Lower Extremity ROM Assessment Within Functional Limits Strength Upper Extremity Strength Assessment Left Impaired Lower Extremity Strength Assessment Within Functional Limits Comments Strength Comments BLE grossly 4+/5 Coordination Assessment Gross Coordination Gross Coordination WNL Sensation Assessment Sensation Gross Sensation WNL Comments Sensation Comments Pt reports good sensation to both UE Muscle Tone Muscle Tone WNL Yes M6 PT-IP Treatment Start: 09/01/19 15:52 Freq: NEEDED Status: Active Protocol: Document 09/02/19 09:51 AW (Rec: 09/02/19 10:16 AW [id number]) Physical Therapy Treatment Exercises Exercises Shoulder Pendulums,Elbow Flexion/Extension,Wrist ROM, Hand ROM Education Education Provided Precautions,Post-Op Packet, Safety Other Treatments Other Treatment Performed Provided education on optimal fit for shoulder sling using mirror for visual feedback. Pt and his were comfortable with adjustments for the sling and able to teach back regarding proper positioning. Pt was educated on tips for performing ADL's with the sling, shoulder precautions, and AROM for elbow, wrist, and hand. PT provided handout with ADL promotion and exercise prescription. M7 PT-IP Assessment and Plan Start: 09/01/19 15:52 Freq: NEEDED Status: Active Protocol: Document 09/02/19 13:56 CLB (Rec: 09/02/19 14:44 CLB [id number]) PT Summary Assessment and Plan Potential Rehabilitation Potential Good Status of Condition at Evaluation Evolving Summary Impairments Pain,ROM,Strength,Balance,Bed Mobility,Transfers,Gait, Activity Tolerance Assessment Summary Pt improved with ambulation with SPC able to ambulate ~ 400ft SBA. Pt required CGA for CAMP DIRECTOR in supine then SBA for scooting to EOB, sit<>stand. Pt and pt's stated they had no further questions about brace fitting. Goals Bed Mobility Goal Standby Assistance Transfer Goal Standby Assistance,Cane Gait Goal Standby Assistance,Cane Gait Distance 200 Other Goals - up/down 2 steps with SPC SBA Frequency of Treatment Frequency Of Treatment Twice a Day Treatment Plan Physical Therapy Treatment Plan Bed Mobility Training,Transfer Training,Gait Training, Therapeutic Exercise,Balance Retraining,Post Op Education, Discharge Planning,Hot or Cold Pack Other Recommendations and Next Treatment review precautions; ask if any Focus questions about sling management; gait training with SPC to include stairs Recommendations To Nursing Amount of Assist Needed 1 Person Assist Discharge Recommendations PT Discharge Recommendations Home with Assistance, Outpatient PT Transportation Needs at Discharge Private Vehicle
--- NOTE | 2019-09-02 14:50 | CM.DANOTE ---
DCP/Assessment: Reviewed chart. Patient is a 68yr male admitted to [facility] for left TSA performed on 09-01-[address] Reyes. PCP listed is Sherry Zelaya. Primary payor is 1)Medicare 2)[employer]. Met with patient and spouse/Ratna at bedside explained CM/SW role. Patient using restroom at time of visit. Spouse reports that patient hopes to d/c home today. Patient currently with weems cath waiting to void. Spouse reports patient has cane for steadiness. Spouse and patient deny any d/c planning needs. Patient seen by therapy this AM and cleared to d/c home. P: Home when medically stable. GIULIANA [place] Discharge Planning/Care Management CM Discharge Assessment Start: 09/02/19 14:36 Freq: Status: Active Protocol: Document 09/02/19 14:43 KJS (Rec: 09/02/19 14:50 KJS [id number]) Discharge Planning Assessment Assigned Farm Supervisor GIULIANA [place] Contact Information Ratna Montoya (spouse) [phone] Advance Directives? Yes Advance Directives on File Yes History Provided By Patient,Significant Other, Medical Record Has Patient been admitted in last 30 No days? Prior Living Arrangements House Household Members spouse Independent with ADL's Yes Is patient alert and oriented? Yes Caregiver for Another No Barriers to Discharge No Discharge Plan Home Transportation Arrangement Family to provide transport. Whiteboard Updated in Patient Room with Yes name and ext. # of Farm Supervisor Review Status In Process Next Review Type Continued Stay Review Pre-Anesthesia Assessment Start: 08/27/19 09:59 Freq: Status: Complete Protocol: Document 08/27/19 09:59 CAB (Rec: 08/27/19 10:40 CAB [id number]) Pre-Anesthesia Assessment Preferred Name Leoncio Patient Information Reviewed Via Phone Assessment Assessment Completed With Patient Diagnostic Results BMP/CMP,CBC,EKG Comment Labs/EKG @ 08/19/19-COVID screen @ 08/29/19 Primary Care Provider Allyson Zelaya Seen Specialist in Last 12 Months Yes Specialist Seen Orthopedist Primary Language Ecuadorean Preferred Language Ecuadorean Type Bar And Segment Assembler Required No Height 177.8 cm Weight 118.388 kg Body Mass Index (BMI) 37.4 Hearing Ability Hard of Hearing Visual Assist Glasses Dentition Type Teeth, Natural Present,Teeth, Missing Barriers to Learning None Hx Anesthesia Reactions No Hx Family Anesthesia Reaction No Hx Malignant Hyperthermia No Hx Blood Transfusions No Hx Blood Transfusion Reaction No Anesthesia Review Requested No Tube Room Cashier No alcohol intake current alcohol intake frequency a few times a week Smoking Status Former smoker Tobacco type cigarettes how long ago did patient quit smoking 42 years ago Substance Use Type does not use Pain Present Pain Reported Musculoskeletal Symptoms Back Pain,Joint Pain,Limited Range of Motion,Numbness Patient is completely paralyzed or No completely immobile Mental Status Oriented to own ability Does patient have REYNA/SOB Yes: Sometimes r/t flying, Asthma Hx Sleep Apnea Yes: BiPAP CPAP/BIPAP use prescribed and used routinely Will Bring CPAP/BIPAP DOS Yes Currently Taking a Beta Wilma No Can You Climb a Flight of Stairs Without Yes SOB Hx Chest Pain Yes: Sometimes r/t flying, Asthma Hx SOB Yes Hx Syncope or Dizziness No Anti-Coagulant Therapy No Has a Bronze Plater No Cardiac Testing No Hx Pacemaker/ICD No Pacemaker Rep Required? No Cardiac Clearance Received Not Applicable Diet Type At Home Regular dysphagia No Gastrointestinal Symptoms Constipation Genitourinary Symptoms Change in Urinary Stream Bladder Pattern Retention Urinary Catheter Present No Hx Urinary Self Catheterization No Comment Urinary stream improved with flomax, hx retention w/back surgeries Diabetes No: Pre-diabetes Hx Drug Resistant Organism No Presence of External or Internal Medical Yes: BiPAP, lumbar hardware, Devices teeth implants Have you had any close contact with No someone diagnosed with COVID-19? Evaluation/Screening for possible COVID- Yes 19 infection completed? Marital Status Lives With spouse Prior Living Arrangements House Number of Floors (Floors) One Floor Support System Spouse Does the Patient Have Assistance After Yes Surgery Patient Discharge Plan Description Return Home Comment Pt advised overnight length of stay per surgeon Feels Safe in Current Environment Yes Been Physically Hurt or Threatened By a No Person in Current Environment Do you have thoughts of harming yourself None or others? Are you currently considering suicide? No Do you have a plan to hurt yourself or No Plan others? Do You Have Any Spiritual Beliefs That No May Affect Your HC Choices? Do You Have Any Cultural Practices That No May Affect Your HC Choices? Comment Confucianist Who Can We Speak to About Patient's Care Family, friends Identifying Code for Release of Patient Declines to issue Information Health Care Proxy/Next of Kin Diego () Health Care Proxy Emergency Contact Name Ratna () Emergency Contact Advance Directives? Yes Advance Directives on File Yes Power of Materials Research Engineer Yes Power of Materials Research Engineer Name Ratna () Power of Materials Research Engineer PAC Instructions Bring CPAP/BIPAP,Durable medical equipment,Medications to take/avoid,Nasal antibiotic ,No ETOH/petroleum product on skin DOS,NPO,Pre-surgical wash ,Sturdy shoes/comfortable clothes,Do not bring valuables and remove jewelry Document 09/01/19 21:00 HCW (Rec: 09/01/19 21:31 HCW [id number])
== END 2019-09-02 15:43 | disposition home or self-care (01) | DRG 483 ==
PROVIDERS: Admitting Provider Orthopaedic Surgery; Family Provider Family Medicine; PCP Family Medicine; Referring Provider Orthopaedic Surgery; Visit Provider Orthopaedic Surgery
PROC: 0RRK0JZ Replacement of Left Shoulder Joint with Synthetic Substitute, Open Approach (ICD-10-PCS; CPT 23472; principal; 2019-09-01 11:30)
DX: M19.012 Primary osteoarthritis, left shoulder (principal); G47.33 Obstructive sleep apnea (adult) (pediatric); E66.01 Morbid (severe) obesity due to excess calories; I10 Essential (primary) hypertension; E78.5 Hyperlipidemia, unspecified; J45.909 Unspecified asthma, uncomplicated; M25.712 Osteophyte, left shoulder; E11.9 Type 2 diabetes mellitus without complications; N40.1 Benign prostatic hyperplasia with lower urinary tract symptoms; R33.9 Retention of urine, unspecified; Z87.891 Personal history of nicotine dependence; Z01.812 Encounter for preprocedural laboratory examination; Z11.59 Encounter for screening for other viral diseases; Z68.37 Body mass index [BMI] 37.0-37.9, adult
CPT/HCPCS: 36415; 64450; 73030; 82962; 85027; 87635; 94640; 94760; 97116; 97161; 97530; C1776; J0690; J1100; J1170; J2250; J2405; J2704; J3010; J3410

== ENCOUNTER → 2020-05-05 15:22 | Outpatient (CLI) | payer MEDICARE, OTHER, SELFPAY ==
[2018-01-29 18:16] VITALS: PULSE 81; RESP 18; O2SAT 100
[2019-09-01 15:45] VITALS: BMI 37.4
--- NOTE | 2020-05-05 15:26 | DI.ECHO.S_ITS ---
[facility] +---------+ : : [address] : : : : [id number] : : : : Phone: [phone]+ Echocardiogram Report + + :Name: LUISITO YOUSSEF Study Date: 05/05/2020 Height: 70 in : :[facility] ReadingLocation: Weight: 255 lb : : Gender: Male BSA: 2.3 m2 : :: 1950 Age: 69 yrs BP: 147/91 mmHg: :Reason For Study: CHEST PAIN : :Ordering Physician: FABIO, : :YVAN Bear Performed By: Lucie Maciel : :Referring: YVAN MCCARTHY : + + Interpretation Summary The left ventricle is normal in size and wall thickness. The ejection fraction is estimated to be 55-60%. The right ventricle is mildly dilated. The right ventricular systolic function is normal. No significant valvular pathology seen. The ascending aorta is mildly enlarged. 4.2 cm in diameter. BSA 2.3 mA?. Procedure: A two-dimensional transthoracic echocardiogram with color flow and Doppler was performed. The study quality was technically adequate. There is no prior echocardiogram noted for this patient. The patient was in sinus rhythm with heart rates between 55-76 bpm during the exam. Left Ventricle: The left ventricle is normal in size and wall thickness. There is no thrombus. The ejection fraction is estimated to be 55-60%. There are no focal wall motion abnormalities. Diastolic parameters suggest a relaxation abnormality of the left ventricle, consistent with probable normal filling pressures. Right Ventricle: The right ventricle is mildly dilated. The right ventricular systolic function is normal. Atria: The left atrial size is normal. Right atrial size is normal. There is no Doppler evidence for an interatrial shunt. Mitral Valve: The mitral valve leaflets are slightly calcified. There is trace mitral regurgitation. Aortic Valve: The aortic valve is trileaflet. The aortic valve opens well. There is no aortic valve stenosis. No aortic regurgitation is present. Tricuspid Valve: The tricuspid valve is normal in structure and function. There is trace tricuspid regurgitation. Pulmonary artery pressures cannot be estimated because of the lack of a measurable TR jet velocity but the IVC suggests a CVP of around 8 mmHg. Pulmonic Valve: The pulmonic valve is not well seen, but is grossly normal. There is no pulmonic valvular regurgitation. Great Vessels: The aortic root is normal size. The ascending aorta is mildly enlarged. The IVC is of normal diameter and collapses greater than 50% with a sniff. This suggests a low right atrial pressure of 3 mm Hg. Pericardium/ Pleura There is no pericardial effusion. There is no pleural effusion. MMode/2D Measurements & Calculations LVIDd: 5.2 cm LVOT diam: 2.3 cm LVIDs: 3.7 cm Ao root diam: 3.9 cm FS: 29.0 % asc Aorta Diam: 4.2 cm EPSS: 1.3 cm IVSd: 0.94 cm LVPWd: 1.0 cm LV vasquez. diameter/BSA (cm/m^2): 2.3 LV sys. diameter/BSA (cm/m^2): 1.6 LA A2 area: 20.9 cm2 RA long axis: 4.8 cm LA A4 area: 16.5 cm2 RA area: 16.9 cm2 LA length (vol): 5.0 cm RA vol: 50.6 ml LA vol: 58.4 ml RA : 21.9 ml/m2 LA vol index: 25.2 ml/m2 IVC diam: 2.1 cm RVD1 (basal): 4.0 cm TAPSE: 2.2 cm Doppler Measurements & Calculations Ao V2 max: 119.7 cm/sec LVOT Max Vazquez: 101.7 cm/sec Ao V2 mean: 80.3 cm/sec LV V1 max P.1 mmHg Ao max P.7 mmHg LV V1 VTI: 19.9 cm Ao mean P.0 mmHg SIMBA(I,D): 3.4 cm2 Ao V2 VTI: 23.8 cm SIMBA(V,D): 3.4 cm2 sev ratio: 0.83 SIMBA indexed to BSA (cm^2/m^2): 1.5 MV E max vazquez: 43.3 cm/sec PA pr(Accel): 32.8 mmHg MV A max vazquez: 71.5 cm/sec MV E/A: 0.61 Med Peak E' Vazquez: 9.3 cm/sec E/E' med: 4.7 Lat Peak E' Vazquez: 8.0 cm/sec E/E' lat: 5.4 E/e' average: 5.0 MV dec time: 0.41 sec SV(LVOT): 80.2 ml Reading Physician:12:02 PM
== END ==
PROVIDERS: Family Provider Family Medicine; PCP Family Medicine; Referring Provider Family Medicine; Visit Provider Family Medicine
DX: R07.9 Chest pain, unspecified (principal); I77.89 Other specified disorders of arteries and arterioles; R60.9 Edema, unspecified
CPT/HCPCS: 93306

== ENCOUNTER 2021-01-14 05:34 | Emergency (ER) | payer MEDICARE, OTHER, SELFPAY ==
[2018-01-29 18:16] VITALS: PULSE 81; RESP 18; O2SAT 100
[2019-09-01 15:45] VITALS: BMI 37.4
--- NOTE | 2021-01-14 05:43 | DI.RAD.S_ITS ---
PROCEDURE: XR FOOT LT MIN 3V INDICATIONS: dropped heavy bar on it week ago TECHNIQUE: 3 views of the foot were acquired. COMPARISON: None. FINDINGS: Bones: No fractures or dislocations. Small calcaneal spurs. Small osteophytes in the midfoot. No suspicious bony lesions. Soft tissues: No tibiotalar joint effusion. Achilles tendon appears normal. Swelling at the dorsal aspect of the foot. IMPRESSION: No acute osseous abnormality. Swelling at the dorsal aspect of the foot. This report is concordant with the overnight preliminary interpretation. Dictated by: Benitez Parker M.D. on 01/14/2021 at 8:10 Approved by: Benitez Parker M.D. on 01/14/2021 at 8:11
[2021-01-14 05:45] VITALS: BP 158/94; PULSE 57; RESP 16; TEMP 36.3; O2SAT 97; BMI 37.6
--- NOTE | 2021-01-14 06:29 | ED.LOWEXIN ---
HPI - Extremity Injury (Lower) General Chief Complaint: Extremity Injury, Lower Stated Complaint: left foot pain/injury 7 days ago Time Seen by Provider: 01/14/21 06:29 Source: patient Mode of arrival: Ambulatory Limitations: no limitations History of Present Illness HPI Narrative: 70-year-old male with history of osteoarthritis, morbid obesity, hypertension, hyperlipidemia, spinal stenosis presenting today day with left foot pain. He has been on it unable to sleep because he has sharp stabbing pains intermittently in his foot. He dropped something heavy on about 1 week ago but the pain and discomfort did not start until last night. He does have some swelling but he is ambulatory on it. No other issue today Related Data Home Medications Medication Instructions Recorded Confirmed albuterol sulfate 90 mcg/actuation 2 puff INH Q6H PRN #0 01/12/16 07/15/20 aerosol inhaler (Ventolin HFA) epinephrine 0.3 mg/0.3 mL 0.3 mg IM PRN PRN #0 01/12/16 07/15/20 injection, auto-injector fluticasone propionate 50 1 spray INTRANASAL QDAY PRN #0 01/12/16 07/15/20 mcg/actuation nasal spray,suspension (Flonase Allergy Relief) telmisartan 80 1 tab PO QDAY #0 01/12/16 07/15/20 mg-hydrochlorothiazide 25 mg tablet (Micardis HCT) Lactobacillus acidophilus 10 10 cell PO DAILY #0 05/28/17 07/15/20 billion cell capsule (Probiotic) amlodipine 5 mg tablet (Norvasc) 5 mg PO QDAY #0 05/28/17 07/15/20 cyanocobalamin (vitamin B-12) 5,000 mcg PO QDAY #0 05/28/17 07/15/20 5,000 mcg disintegrating tablet multivitamin (Multiple Vitamins) 2 tab PO QDAY #0 05/28/17 07/15/20 trazodone 50 mg tablet 50 mg PO BEDTIME 01/14/18 07/15/20 aspirin 81 mg tablet,delayed 81 mg PO DAILY 08/27/19 07/15/20 release naproxen 500 mg tablet 500 mg PO BID 08/27/19 07/15/20 polyethylene glycol 3350 17 gram 17 g PO DAILY PRN 08/27/19 07/15/20 oral powder packet zolpidem 10 mg tablet 10 mg PO BEDTIME 08/27/19 07/15/20 ResMed BIPAP #1 ea 07/15/20 07/15/20 furosemide 20 mg tablet 40 mg PO QAM tab 07/15/20 07/15/20 Previous Rx's Medication Instructions Recorded gabapentin 300 mg capsule 300 mg PO BEDTIME #30 cap 01/14/21 Allergies Allergy/AdvReac Type Severity Reaction Status Date / Time shellfish derived Allergy Severe ALLERGIC Verified 09/01/19 10:11 [SHELLFISH DERIVED] TO LOBSTER, CLOSES THROAT, CHEST PRESSURE venom-honey bee Allergy Severe THROAT Verified 09/01/19 10:11 [BEE VENOM (HONEY BEE)] CLOSES, CHEST PRESSURE oxycodone Allergy Intermediate Itch all Verified 09/01/19 10:11 over sildenafil AdvReac Intermediate Migraine Verified 09/01/19 10:11 Review of Systems Review of Systems Narrative: GENERAL: Denies chills,fever HEENT: Denies throat pain RESPIRATORY: Denies dyspnea, cough, wheezing CARDIOVASCULAR: Denies chest pain, palpitations GASTROINTESTINAL: Denies nausea, vomiting MUSCULOSKELETAL: See HPI SKIN: No rash, no laceration, no pruritus NEUROLOGIC: Denies weakness, dizziness, headache, numbness 8 point review of systems is negative except for those stated above and HPI Patient History Medical History (Updated 01/14/21 @ 06:49 by Maggie Burgos DO) Asthma BPH (benign prostatic hyperplasia) Cellulitis Cervical radiculopathy Colitis Constipation Derangement of other medial meniscus due to old tear or injury, unspecified knee Diabetes mellitus DISH (diffuse idiopathic skeletal hyperostosis) Disorder of nail Disorder of tendon of shoulder region Dyslipidemia Edema Excessive daytime sleepiness Hip pain Hyperlipidemia Hypertension Hypokalemia Left leg cellulitis Lumbar stenosis with neurogenic claudication Lumbar strain Migraine Myopia Obstructive sleep apnea of adult Postoperative urinary retention (~01/2018) Pre-diabetes Primary insomnia Recurrent erosion of cornea Slowing of urinary stream Spider bite, venomous (~04/2017) Thoracic back pain Tinea pedis Urinary retention (~01/2018) UTI (urinary tract infection) Venous stasis Surgical History History of carpal tunnel surgery of right wrist (2019) History of colonoscopy History of laminectomy (~2015) History of lumbar fusion (01/29/18) History of surgery (05/09/18) Hx of hemorrhoidectomy (2019) Social History marital status: (to Ratna) details: lives in [place] household members: spouse lives independently: Yes caregiver/support person: No housing: house Smoking Status: Former smoker alcohol intake: current Smoking Status: Former smoker alcohol intake frequency: 0-2 drinks per day Substance Use Type: does not use Exam Initial Vital Signs Initial Vital Signs: Vital Signs Temperature 97.4 F L 01/14/21 05:45 Pulse Rate 57 L 01/14/21 05:45 Respiratory Rate 16 01/14/21 05:45 Blood Pressure 158/94 H 01/14/21 05:45 Pulse Oximetry 97 01/14/21 05:45 GENERAL: Alert 70-year-old male appears to be uncomfortable CARDIOVASCULAR: peripheral pulses in tact, cap refill <2 sec RESPIRATORY: No respiratory distress, speaks in full sentences without difficulty EXTREMITIES: Normal range of motion, no clubbing or edema. Neurovascularly intact Left foot [Right/Left] eye was treated with proparacaine, stained with fluorescein. No dye uptake. No foreign body. Swelling not significantly more supple no erythema no contusion tender dorsal side skin min sensitive able to flex extend and move ankle without any issue Achilles tendon is intact. Able flex NEUROLOGICAL: Cranial nerves II through XII grossly intact. Normal gait and speech. SKIN: Warm, dry, no petechiae, no rashes or lesions. Course Orders Ordered: ED Orders 01/14/21 05:43 XR foot LT min 3V Stat Discontinued Medications Acetaminophen (Acetaminophen 325 Mg Tablet) 975 mg PO NOW ONE Stop: 01/14/21 06:43 Last Admin: 01/14/21 06:55 Dose: 975 mg Documented by: BHARATHI Vital Signs Vital signs: Vital Signs - 8 hr 01/14/21 05:45 01/14/21 07:07 Temperature 97.4 F L Pulse Rate 57 L 56 L Pulse Rate [Left Dorsalis Pedis] 57 L Respiratory Rate 16 18 Blood Pressure 158/94 H 151/82 H Pulse Oximetry 97 97 MDM - Extremity Injury (Lower) Imaging Data Extremity x-ray #1: Radiologist's Impression: Preliminary report no acute osseous findings dorsal soft tissue swelling Discharge Plan Departure Patient Disposition: Home Clinical Impression: Contusion of foot, left Instructions: DI for Foot Pain Activity Restrictions/Additional Instructions: *You have been diagnosed with left foot contusion *What to do: At this time his acute having nerve pain. Please let they and at least 4 times day for 20 minutes at a time. Or orthopedic shoe as needed increase activity as tolerated. If pain is still occurring he may require patient MRI however not indicated today *Continue to take medications as directed Tylenol 1000 mg every 6 hours if needed for tvgh-iq-oqnhftww pain Motrin 600 mg needed for omfe-sb-tarblhlp pain Gabapentin 300 mg at night to help nerve pain and get sleep *Follow up with your primary care provider in 2-3 days *Return to ER if you should have increasing pain swelling, inability to walk or any new, worsening or concerning symptoms Prescriptions: New gabapentin 300 mg capsule 300 mg PO BEDTIME Qty: 30 0RF No Action epinephrine 0.3 MG/0.3 ML auto-injector 0.3 mg IM PRN PRN (Reason: Allergic Reaction) Qty: 0 0RF telmisartan-hydrochlorothiazid [Micardis HCT] 80 MG/25 MG tablet 1 tab PO QDAY Qty: 0 0RF albuterol sulfate [Ventolin HFA] 90 MCG/PUFF HFA aerosol inhaler 2 puff INH Q6H PRN (Reason: asthma) Qty: 0 0RF fluticasone propionate [Flonase Allergy Relief] 9.9 ML spray,suspension 1 spray Intranasal QDAY PRN (Reason: Sinus Congestion) Qty: 0 0RF amlodipine [Norvasc] 5 mg Tablet 5 mg PO QDAY Qty: 0 0RF cyanocobalamin (vitamin B-12) 5,000 MCG tablet,disintegrating 5,000 mcg PO QDAY Qty: 0 0RF Probiotic 10 billion cell Capsule 10 cell PO DAILY Qty: 0 0RF multivitamin [Multiple Vitamins] 1 EACH tablet 2 tab PO QDAY Qty: 0 0RF trazodone 50 mg Tablet 50 mg PO BEDTIME 0RF polyethylene glycol 3350 17 gram Powder In Packet 17 g PO DAILY PRN (Reason: Constipation) 0RF aspirin 81 mg Tablet,Delayed Release (Dr/Ec) 81 mg PO DAILY 0RF zolpidem 10 mg Tablet 10 mg PO BEDTIME 0RF naproxen 500 mg Tablet 500 mg PO BID 0RF furosemide 20 mg tablet 40 mg PO QAM 0RF (DME) ResMed BIPAP Qty: 1 0RF Dose Instruction: As directed Label Comments: Pressure: IPAP 13 EPAP 9 DME: [facility] Rx Instructions: As directed Referrals: Allyson Zelaya DO [Primary Care Provider] -
[2021-01-14] MEDS: ACETAMINOPHEN 325 MG TABLET 975 MG PO (06:55)
[2021-01-14 07:07] VITALS: BP 151/82; PULSE 56; RESP 18; O2SAT 97
== END 2021-01-14 07:08 | disposition home or self-care (01) ==
PROVIDERS: Emergency Provider Emergency Medicine; Family Provider Family Medicine; PCP Family Medicine
DX: S90.32XA Contusion of left foot, initial encounter (principal); W20.8XXA Other cause of strike by thrown, projected or falling object, initial encounter
CPT/HCPCS: 73630; 99283

== ENCOUNTER → 2021-09-01 14:59 | Outpatient (CLI) | payer MEDICARE, OTHER, SELFPAY ==
[2018-01-29 18:16] VITALS: PULSE 81; RESP 18; O2SAT 100
[2019-09-01 15:45] VITALS: BMI 37.4
--- NOTE | 2021-09-01 | DI.CT.S_ITS ---
PROCEDURE: CT UE RT WO CON INDICATIONS: Primary osteoarthritis, right shoulder TECHNIQUE: Noncontrast 1 mm thick sections acquired from the acromioclavicular joint to the inferior scapula using match point protocol, with coronal and sagittal reformatting. COMPARISON: [facility] [place], CR, XR SHOULDER 2+ VIEWS LEFT, 08/23/2021, 10:53. FINDINGS: Image quality: Excellent. Bones: Shoulder alignment is anatomic. Moderate acromioclavicular joint osteoarthritic changes are seen with joint space narrowing and subchondral sclerosis. Severe glenohumeral joint osteoarthritic changes are noted with significant joint space narrowing, subchondral sclerosis and prominent inferior marginal osteophyte formation. No suspicious intraosseous lesion. No fracture or dislocation. Visualized left upper ribs are intact. Soft tissues: There is no full-thickness rotator cuff tendon rupture. No significant muscle atrophy is seen on sagittal images. There is small joint effusion and moderate amount of subcoracoid bursal fluid. No abnormal soft tissue calcifications. No axillary lymphadenopathy. Visualized right upper lung field is clear. IMPRESSION: 1. Severe glenohumeral joint osteoarthritis and moderate acromioclavicular joint osteoarthritis. No shoulder fracture or dislocation. No suspicious bony lesion. 2. No full-thickness rotator cuff tendon rupture. No significant muscle atrophy. No abnormal soft tissue calcifications. 3. Small to moderate amount of joint effusion and subcoracoid bursal fluid. No intra-articular loose bodies. Dictated by: Augustin King M.D. on 09/01/2021 at 16:47 Approved by: Augustin King M.D. on 09/01/2021 at 16:50
== END ==
PROVIDERS: Family Provider Family Medicine; PCP Family Medicine; Referring Provider Orthopaedic Surgery; Visit Provider Orthopaedic Surgery
DX: M19.011 Primary osteoarthritis, right shoulder (principal); M25.411 Effusion, right shoulder
CPT/HCPCS: 73200

== ENCOUNTER → 2022-02-16 10:19 | Outpatient (CLI) | payer MEDICARE, OTHER, SELFPAY ==
[2018-01-29 18:16] VITALS: PULSE 81; RESP 18; O2SAT 100
[2019-09-01 15:45] VITALS: BMI 37.4
[2022-02-16 11:11] LABS: Add Manual Diff / Slide Review NO; Basophils Absolute Auto 100 /uL (0-100); Eosinophils Absolute Auto 300 /uL (0-450); Hematocrit 44.6 % (41-53); Hemoglobin 16.1 g/dL (13.5-17.5); Lymphocytes Absolute Auto 2100 /uL (1100-4500); Lymphocytes Percent Auto 29.5 % (25-40); Mean Corpuscular HGB Conc 36.2 % (30-36); Mean Corpuscular Hemoglobin 31.8 PG (26-34); Mean Corpuscular Volume 87.9 fL (80-100); Monocytes Absolute Auto 500 /uL (0-900); Monocytes Percent Auto 6.8 % (3-14); Neutrophils Absolute Auto 4100 /uL (1500-7000); Neutrophils Percent Auto 58.7 % (50-75); Platelet Count 192 X10^3/uL (150-400); Red Blood Cell Count 5.07 X10^6/uL (4.5-5.9); Red Cell Distribution Width 13.4 % (11.6-14.8)
[2022-02-16 11:17] LABS: Hemoglobin A1C% w Est Avg Glu 8.2 % (4.0-6.0)
[2022-02-16 11:43] LABS: Appearance Urine UA CLEAR; Bilirubin Urine UA NEGATIVE (NEGATIVE); Color Urine UA YELLOW; Glucose Urine UA NEGATIVE (Negative); Ketones Urine UA NEGATIVE (NEGATIVE); Leukocyte Esterase Urine UA TRACE (NEGATIVE); Nitrite Urine UA NEGATIVE (Negative); Occult Blood Urine UA NEGATIVE (Negative); Protein Urine UA TRACE (Negative); Urobilinogen Urine UA 0.2 E.U./dL (0.2); pH Urine UA 6.5 (4.5-8.0)
[2022-02-16 11:44] LABS: Blood Urea Nitrogen 22 mg/dL (9-20); Calcium 9.8 mg/dL (8.4-10.2); Carbon Dioxide 32 mmol/L (22-32); Chloride 100 mmol/L (98-107); Estimated Glomerular Filt Rate > 60 mL/min (>60); Glucose 191 mg/dL (80-110); HEMOLYSIS < 15 (0-50); Potassium 4.4 mmol/L (3.4-5.1); Sodium 138 mmol/L (137-145)
[2022-02-16 11:53] LABS: Bacteria Urine Occasional (0-1); Culture Indicated Urine Specimen Cultured; RBC Urine None Seen (0-5/HPF); WBC Urine 5-10/HPF (0-5/HPF)
== END ==
PROVIDERS: Family Provider Family Medicine; PCP Family Medicine; Referring Provider Orthopaedic Surgery; Visit Provider Orthopaedic Surgery
DX: Z01.818 Encounter for other preprocedural examination (principal); R73.9 Hyperglycemia, unspecified; M25.511 Pain in right shoulder; Z01.812 Encounter for preprocedural laboratory examination; N39.0 Urinary tract infection, site not specified
CPT/HCPCS: 36415; 80048; 81001; 83036; 85025; 87086; 93005

== ENCOUNTER 2022-08-03 07:52 | Day surgery (SDC) | payer MEDICARE, OTHER, SELFPAY ==
[2018-01-29 18:16] VITALS: PULSE 81; RESP 18; O2SAT 100
[2019-09-01 15:45] VITALS: BMI 37.4
[2022-07-26 09:52] VITALS: BMI 38.4
[2022-08-03] VITALS (11 sets, daily range): BP systolic 133–164; BP diastolic 82–102; PULSE 55–75; RESP 10–20; TEMP 35.9–36.8; O2SAT 98–100; BMI 38.4
--- NOTE | 2022-08-03 08:32 | DI.RAD.S_ITS ---
PROCEDURE: XR HIP W PEL IF DONE RT 2V INDICATIONS: postop TECHNIQUE: AP pelvis and lateral view of the right hip acquired. COMPARISON: None. FINDINGS: Bones: Patient is status post right hip arthroplasty, with hardware components in expected positions. The hip joint appears congruent. The visualized bony structures appear intact. Soft tissues: Overlying postoperative changes are noted. No suspicious soft tissue densities. IMPRESSION: Expected postoperative appearance of a right hip arthroplasty. Dictated by: Yousuf Porter M.D. on 08/03/2022 at 16:15 Approved by: Yousuf Porter M.D. on 08/03/2022 at 16:16
[2022-08-03] MEDS: PREGABALIN 75 MG CAPSULE PO (09:04)
[2022-08-03] MEDS: ACETAMINOPHEN 325 MG TABLET 975 MG PO (09:04)
[2022-08-03] MEDS: CELECOXIB 200 MG CAPSULE PO (09:04)
[2022-08-03] MEDS: LACTATED RINGERS 1,000 ML 42 ML IV ×2 (09:04→11:45)
--- NOTE | 2022-08-03 09:31 | SUR.PREOP ---
ambulates with cane. Chronic knee, back, hip and shoulder pain. 3+ LE edema. States he has been very sedentary the last couple years. Uses BiPap.
[2022-08-03] MEDS: VANCOMYCIN 1,000 MG/200 ML PIGGYBACK 200 MG IV (09:56)
--- NOTE | 2022-08-03 10:19 | P.OP_ITS ---
Operative Date/Time/Diagnoses Date of procedure: 08/03/22 Time of procedure: 11:00 Pre-op diagnosis: right hip OA Post-op diagnosis: same Procedure & Clinicians Procedure: right total hip arthroplasty posterior approach Same procedure as scheduled: Yes Indications: The patient has had progressively worsening right hip pain with radiographic changes consistent with arthritis. Non-operative management has failed and the patient has requested total hip replacement. The risks, benefits and alternatives to surgery were discussed with the patient prior to proceeding. Risks discussed included, but were not limited to, failure to relieve pain, leg length discrepancy, dislocation, stiffness, infection, nerve damage, deep venous thrombosis, pulmonary embolism, stroke, coma, heart attack, permanent paralysis and , as well as the potential need for eventual revision of the prosthetic. Patient has a very extensive spine fusion and was felt that we needed dual mobility to improve his stability due to severely restricted lumbar spine motion Surgeon: Kim Galeas Dial Equipment Engineer: Akiko High Anesthesia Type: Spinal Operative Notes Findings: Severe right hip osteoarthritis, adequate stability Closure Type: primary Specimen(s): none sent Prosthetic devices, grafts, tissues, transplants, or devices: Galeas and nephew R3, size 6 standard offset anthology, dual mobility 28 x 40 with a-3 Oxinium femoral head, size 52 R3 cup, one 6.5 mm screw Estimated Blood Loss (mL): 250 Procedure in detail: The patient was seen in the pre-operative area, where the patient identified the right hip as the operative site and this was marked with my initials. The patient received pre-operative antibiotics and was taken to the operating room and placed on the operative table in the left lateral decubitus position after satisfactory anesthesia. A suction dredge dumping supervisor out was performed. The right leg was prepared from the ankle to the iliac crest with ChloroPrep in the usual fashion and draped through sterile drapes. The hip was approached through an approximately 20 cm incision centered over the greater trochanter and curving gently posteriorly as it went proximally. This was carried sharply to the fascia megan, which was divided and retracted with a self retaining retractor. The trochanteric bursa was excised with care being taken to avoid the sciatic nerve, which was identified and protected throughout the case. The short external rotators were incised and the capsulomuscular flap was raised and tagged for later repair. The hip was dislocated, and a femoral neck osteotomy performed approximately 15 mm above the lesser trochanter. Retractors were placed around the femur. The canal was opened with a box cutting osteotome, followed by a T handled reamer and a lateralizing reamer. The chili pepper broach was then used, followed by sequential broaching until there was good stability of the broach in the femur. Retractors were placed to expose the acetabulum. He had a very tight leg and we worked meticulously to mobilize the femur in order to anteriorize it and placed it anterior to the cup. The labrum and central soft tissues were removed. Reaming was performed initially going up in 2 mm increments, then 1 mm increments until good bite was obtained with an odd sized reamer. The cup 1 mm larger than the last reamer was then inserted using the appropriate anteversion guides. It was further stabilized with a single screw. A trial neutral liner was placed. The broach was placed in the canal. A trial head and neck were then placed and the hip relocated and checked for leg length and stability. An intraoperative film confirmed the component position and no evidence of fracture. The patient was stable in the position of sleep, of squatting, and could be put through a range of motion with 45 degrees internal rotation without dislocation. At 90 degrees flexion, internal rotation to 70? was possible before dislocation. This was felt to be satisfactory and the appropriate components were opened, and the trials were removed. The patient has a very extensive spine fusion. It was felt that we needed the additional stability provided by dual mobility liner and a dual mobility liner was placed. The acetabular liner was impacted into position. The final stem was then impacted into the prepared femoral canal. A brief Betadine soak was performed while trialing with head options. The hip was meticulously irrigated with normal saline. Finally the femoral head was impacted onto the stem. The acetabulum was cleared of all material and the hip relocated one final time. The capsulomuscular flap was then repaired to the greater trochanter though an awl hole using the tag sutures. The short external rotators were repaired with a nonabsorbable suture. A deep drain was placed and brought out anteriorly. The fascia megan was closed with Vicryl. The subcutaneous layer was closed with barbed sutures and skin claudia. A pa Dressing was applied and the patient was taken to recovery having tolerated the procedure well. Complications: none Post-operative Condition: stable Disposition: Acute Care Plan for aftercare: The patient will be maintained on a standard total hip replacement protocol with weight bearing as tolerated and posterior hip precautions. The patient will receive Aspirin and sequential compression devices for DVT prophylaxis. The patient will be discharged home when safe for the home environment.
--- NOTE | 2022-08-03 10:19 | PM.PREOP ---
Pre-operative Note Interval Note History & Physical reviewed/Exam performed by Physician: Yes Changes to H&P: No
[2022-08-03] MEDS: CEFAZOLIN VIAL 3 GM in SODIUM CHLORIDE 0.9% 100 ML IV ×2 (11:00→18:10)
--- NOTE | 2022-08-03 11:00 | DI.RAD.S_ITS ---
PROCEDURE: XR PELVIS 1-2V INDICATIONS: INNER OP TECHNIQUE: Intra-operative view of the pelvis and hip acquired. COMPARISON: None. FINDINGS: Bones: Intraoperative devices prior to placement of arthroplasty prostheses are in expected positions. No fractures or suspicious bony lesions. Soft tissues: Overlying surgical retractors are present, along with other intraoperative changes. IMPRESSION: Expected appearance of the right total hip trial hardware. Dictated by: Yousuf Porter M.D. on 08/03/2022 at 16:15 Approved by: Yousuf Porter M.D. on 08/03/2022 at 16:15
--- NOTE | 2022-08-03 11:28 | SUR.OPER ---
Lateral on padded OR bed. Gel axillary roll. Arms secured on padded armboard with pillow supporting top arm. Padded hip positioner braces x4 - anterior and posterior chest and pelvis. Additional gel pad used anterior pelvis. Gel pad under bottom leg from knee to foot and secured with tape over sheet.
[2022-08-03] MEDS: BUPIVACAINE LIPOSOME 266 MG/20 ML VIAL INJ ×2 (11:33)
[2022-08-03] MEDS: TRANEXAMIC ACID 1,000 MG VIAL 1000 MG INJ (11:33)
[2022-08-03] MEDS: BUPIVACAINE 0.25% (PF) 60 ML, EPINEPHrine 0.3 MG INJ (11:33)
--- NOTE | 2022-08-03 14:32 | SUR.PHASEI ---
Pt states he feels the need to void. Unable to void using urinal. Bladder scanned for 771ml. Dr Galeas updated. Order received to straight cath pt. Emptied 1100ml. Catheter removed.
[2022-08-03] MEDS: IBUPROFEN 400 MG TABLET PO ×3 (15:23→22:11)
[2022-08-03] MEDS: ACETAMINOPHEN 325 MG TABLET 650 MG PO ×2 (15:24→20:45)
[2022-08-03] MEDS: LACTATED RINGERS 1,000 ML 100 ML IV (15:27)
[2022-08-03] MEDS: OXYCODONE IR 5 MG TABLET PO ×2 (16:03→20:46)
[2022-08-03] MEDS: ASPIRIN EC 81 MG TABLET PO (20:44)
[2022-08-03] MEDS: TEMAZEPAM 15 MG CAPSULE PO (20:45)
[2022-08-03] MEDS: PROPRANOLOL 10 MG TABLET 30 MG PO (20:46)
[2022-08-03] MEDS: DOCUSATE 100 MG CAPSULE PO (20:47)
[2022-08-03] MEDS: TRAZODONE 50 MG TABLET PO (21:50)
[2022-08-04] MEDS: LACTATED RINGERS 1,000 ML 100 ML IV (01:36)
[2022-08-04 03:05] VITALS: BP 120/72; PULSE 65; RESP 18; TEMP 36.2; O2SAT 96
[2022-08-04] MEDS: CEFAZOLIN VIAL 3 GM in SODIUM CHLORIDE 0.9% 100 ML IV (03:21)
[2022-08-04] MEDS: ACETAMINOPHEN 325 MG TABLET 650 MG PO ×4 (03:50→20:32)
[2022-08-04] MEDS: IBUPROFEN 400 MG TABLET PO ×6 (03:50→21:44)
[2022-08-04] MEDS: OXYCODONE IR 5 MG TABLET PO ×3 (04:10→13:18)
[2022-08-04] MEDS: LEVOTHYROXINE 50 MCG TABLET PO (06:17)
[2022-08-04 06:27] LABS: Hematocrit 35.8 % (41-53)
[2022-08-04 08:00] VITALS: BP 130/71; PULSE 61; RESP 17; TEMP 35.9; O2SAT 98
[2022-08-04] MEDS: ESCITALOPRAM 10 MG TABLET 5 MG PO (08:17)
[2022-08-04] MEDS: NIFEdipine 30 MG TAB ER 90 MG PO (08:17)
[2022-08-04 08:18] VITALS: BP 130/71; PULSE 61
[2022-08-04] MEDS: METFORMIN HCL 500 MG TABLET 1000 MG PO (08:18)
[2022-08-04] MEDS: DOCUSATE 100 MG CAPSULE PO ×2 (08:18→20:04)
[2022-08-04] MEDS: LOSARTAN 50 MG TABLET 100 MG PO (08:18)
[2022-08-04] MEDS: PROPRANOLOL 10 MG TABLET 30 MG PO ×2 (08:18→20:04)
[2022-08-04] MEDS: polyethylene glycoL 3350 17 GM POWD.PACK PO (08:19)
[2022-08-04] MEDS: TAMSULOSIN 0.4 MG CAPSULE PO (08:19)
[2022-08-04] MEDS: AMLODIPINE 5 MG TABLET PO (08:19)
[2022-08-04] MEDS: ASPIRIN EC 81 MG TABLET PO ×2 (08:19→20:04)
[2022-08-04] MEDS: MULTIVITAMIN 1 TABLET 1 TAB PO (08:19)
[2022-08-04] MEDS: FUROSEMIDE 20 MG TABLET 40 MG PO (08:19)
--- NOTE | 2022-08-04 11:16 | CM.DANOTE ---
Addendum entered by Neda Casillas R.N. 08/04/22 15:02: Met with patient again to discuss DCP. Just worked with PT/OT and they feel patient would do well with established plan for OP PT. CM team offered Medicare.gov list for future planning should he wish to consider HH PT. He and state they understand and agree with DCP. He offers that he will call a local friend to assist with getting him comfortably situated at home for DC plan tomorrow. Addendum entered by Neda Casillas R.N. 08/04/22 13:40: PASRR completed for anticipated SNF level rehab referral. Original Note: DCP: Chart review for case, met with patient at bedside, he agree to case management assessment. Evaluated baseline activity level prior to admission. Completed DCP assessment based on information available. PCP is Allyson Zelaya Payor: [employer] Medicare CC: Patient is a 71 year old admitted for planned right HARJIT. Admitted to care of orthopedic team. Confirms that he walks with a cane, resides with spouse in [facility]. Outlines concern for returning home and being dependent upon spouse, aims to be independent at discharge. Agrees to OP PT and states he is already set up ( has specific information in packet) but acknowledges possible need for HH PT and/or even SNF level rehab. States he has had SNF rehab after prior back surgery. Updated patient that insurance is no longer contracted with local SNF and could possibly go to SNF in [facility] as next closest option. P: Awaiting PT eval for DCP. Neda Casillas RN, CM Discharge Planning/Care Management CM Discharge Assessment Start: 08/04/22 11:10 Freq: Status: Active Protocol: Document 08/04/22 11:11 BQ (Rec: 08/04/22 11:16 BQ [id number]) Discharge Planning Assessment Assigned Funeral Home Location Manager Neda Casillas RN, CM Advance Directives? Yes Advance Directives on File Yes History Provided By Patient,Significant Other, Medical Record Has Patient been admitted in last 30 No days? Prior Living Arrangements House Household Members spouse Type of transporation used prior to Drives own vehicle admit Comment States some difficulty with pressing accelorator Independent with ADL's Yes Is patient alert and oriented? Yes Caregiver for Another No DME Already Rented / Owned Bath Bench,Elevated Toilet Seat,FWW / Walker,Cane,Other Comment States uses lift chair for standing. Patient/Family Preference Nursing Home Facility,Home with Home Health,OP FUEL HANDLER Therapy Barriers to Discharge Yes Comment Pending mobility and spousal support Discharge Plan Home Transportation Arrangement Family to provide transport, if able to go home. Whiteboard Updated in Patient Room with Yes name and ext. # of Funeral Home Location Manager Review Status In Process Next Review Type Continued Stay Review Pre-Anesthesia Assessment Start: 07/26/22 09:52 Freq: Status: Complete Protocol: Document 07/26/22 09:52 CAB (Rec: 07/26/22 10:32 CAB [id number]) Pre-Anesthesia Assessment Preferred Name Leoncio Patient Information Reviewed Via Phone Assessment Assessment Completed With Patient Diagnostic Results BMP/CMP,CBC,EKG Comment Outside labs/EKG scanned Primary Care Provider Allyson Zelaya Specialist Seen Security Flex Officer,Orthopedist Primary Language Nepalese Preferred Language Nepalese Supervisor Computer Operations Required No Height 177.8 cm Weight 121.563 kg Body Mass Index (BMI) 38.4 Hearing Ability Hearing Impaired Visual Assist Glasses Dentition Type Teeth, Natural Present,Teeth, Missing Barriers to Learning None Hx Anesthesia Reactions No: hard to wake up, required ICU stay w/a back surgery Hx Family Anesthesia Reaction No Hx Malignant Hyperthermia No Hx Blood Transfusions No Hx Blood Transfusion Reaction No Anesthesia Review Requested No 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 No Does patient have REYNA/SOB Yes: Sometimes r/t flying, Asthma Hx Sleep Apnea Yes: BiPAP CPAP/BIPAP use prescribed and used routinely Will Bring CPAP/BIPAP DOS Yes Currently Taking a Beta Wilma Yes: Propranolol Can You Climb a Flight of Stairs Without Yes SOB Hx Chest Pain Yes: Sometimes r/t flying, Asthma Hx SOB Yes Hx Syncope or Dizziness No Anti-Coagulant Therapy No Has a Battery Container Tester No Cardiac Testing No Hx Pacemaker/ICD No Pacemaker Rep Required? No Cardiac Clearance Received Not Applicable Diet Type At Home Regular Dysphagia No Gastrointestinal Symptoms Constipation Genitourinary Symptoms Change in Urinary Stream Bladder Pattern Retention Urinary Catheter Present No Hx Urinary Self Catheterization No Comment Urinary stream improved with flomax, hx retention w/back surgeries Diabetes No: Egk-bbfsykur-Zl checks blood sugars at home HgbA1C 6.8 Date 04/05/22 Comment BS in am consistently over 200 , advised to review w/surgeon and PCP prior Hx Drug Resistant Organism No Presence of External or Internal Medical Yes: BiPAP, lumbar hardware, Devices teeth implants, left shoulder Received a COVID vaccine? Yes Received all doses? No Marital Status Lives With spouse Current Living Arrangements House Number of Floors (Floors) One Floor Support System Spouse Does the Patient Have Assistance After Yes Surgery Patient Discharge Plan Description Return Home,Nursing Home Facility/Rehab Comment Pt advised that he should go to a SNF prior to DC home Feels Safe in Current Environment Yes Been Physically Hurt or Threatened By a No Person in Current Environment Do you have thoughts of harming yourself None or others? Are you currently considering suicide? No Do you have a plan to hurt yourself or No Plan others? Do You Have Any Spiritual Beliefs That No May Affect Your HC Choices? Do You Have Any Cultural Practices That No May Affect Your HC Choices? Comment Rastafarian Who Can We Speak to About Patient's Care Family, friends Identifying Code for Release of Patient Declines to issue Information Health Care Proxy/Next of Kin Diego () Health Care Proxy Emergency Contact Name Diego () Emergency Contact Advance Directives? Yes Advance Directives on File Yes Power of Planer Setup Operator Yes Power of Planer Setup Operator Name Diego () Power of Planer Setup Operator PAC Instructions Diabetes instructions,Durable medical equipment,Medications to take/avoid,Nasal antibiotic ,No ETOH/petroleum product on skin DOS,NPO,Post-op transportation,Pre-surgical wash,Sensory aids,Sturdy shoes /comfortable clothes,Do not bring valuables and remove jewelry
--- NOTE | 2022-08-04 12:06 | PT.IIE ---
Addendum entered and electronically signed by Radha Galeas PT 08/04/22 12:07: . Original Note: Current Diagnoses Unilateral primary osteoarthritis, right hip (08/03/22) Surgery Performed Operation Date: 08/03/22 10:45 Actual Procedures p Total Hip Arthroplasty(Right) - Kim Galeas MD Surgical History (Last Updated 07/26/22 @ 09:57 by Priscilla Gilmore, RN) History of carpal tunnel surgery of right wrist (2019) History of colonoscopy History of laminectomy (~2015) History of lumbar fusion (01/29/18) History of surgery (05/09/18) History of total replacement of left shoulder joint (09/01/19) Hx of hemorrhoidectomy (2018) Medical History (Last Updated 07/26/22 @ 10:18 by Priscilla Gilmore RN) Asthma BPH (benign prostatic hyperplasia) Cellulitis Cervical radiculopathy Colitis Constipation Derangement of other medial meniscus due to old tear or injury, unspecified knee Diabetes mellitus DISH (diffuse idiopathic skeletal hyperostosis) Disorder of nail Disorder of tendon of shoulder region Dyslipidemia Edema Excessive daytime sleepiness Hip pain Hyperlipidemia Hypertension Hypokalemia Left leg cellulitis Lumbar stenosis with neurogenic claudication Lumbar strain Melanoma (~2020) Migraine Myopia Obesity (BMI 30-39.9) (Unknown) Obstructive sleep apnea of adult Postoperative urinary retention (~01/2018) Pre-diabetes Primary insomnia Recurrent erosion of cornea Slowing of urinary stream Spider bite, venomous (~04/2017) Thoracic back pain Tinea pedis Urinary retention (~01/2018) UTI (urinary tract infection) Venous stasis Physical Therapy Inpatient Evaluation/Re-Eval M1 PT/OT-IP Prior Functional Status Start: 08/04/22 11:32 Freq: NEEDED Status: Active Protocol: Document 08/04/22 11:33 ES (Rec: 08/04/22 12:06 ES [id number]) Medical Review Prior Functional Status Medical History Reviewed Yes Diet/Fluid Consistency Regular Communication Indep Mobility and Gait Modified indep with cane and walkers. Uses FWW inside on occasion, 4WW outside. Has difficulty with mobility at baseline due to chronic back and joint problems. Activities of Daily Living and IADL's assists with bathing and dressing due to back problems and limited ability to bend/ reach. Social History Household Members spouse Living Arrangements House Number of Floors (Floors) One Floor Number of Stairs To Enter/Railing? 2 NEDRA without rails Home Environment Standard Height Toilet,Tub/ Shower Home Equipment Front Wheel Walker,Four Wheel Walker,Straight Cane,Shower Seat without Backrest,Hand Held Shower,Parachute Accessories Attacher,Lift Recliner,Hospital Bed,Grab Bars Near Toilet,Grab Bars In Shower Employment Status Retired Additional Social History Comment is dealing with back pain and sciatica and is limited in her ability to physically assist with mobility. Patient plans to sleep in his lift recliner. Has a hospital bed but it is folded up in the garage at the moment. M2 PT-IP Current Condition Start: 08/04/22 11:32 Freq: NEEDED Status: Active Protocol: Document 08/04/22 11:33 ES (Rec: 08/04/22 12:06 ES [id number]) Physical Therapy Current Condition Current Condition Evaluation Date 08/04/22 Treatment Diagnosis S/p R HARJIT posterior, R hip pain, difficulty walking Onset Date 08/03/22 M3 PT-IP Subjective Start: 08/04/22 11:32 Freq: NEEDED Status: Active Protocol: Document 08/04/22 11:33 ES (Rec: 08/04/22 12:06 ES [id number]) Subjective Physical Therapy Visit Type Type Initial Evaluation Visit Start Time 10:10 Visit Stop Time 11:31 Total Visit Minutes 45 Notes Split visit 10:10-10:29 and 11 :05-11:31 Physical Therapy Visit Comments Patient Comments Patient initially declined pain meds prior to visit, but after attempting to move his RLE and finding it to be very painful, he agreed to take some before mobilizing with PT . present during second half of visit. reported she and the patient were thinking they want Federico to go to rehab before going home. Therapy Pain Assessment Pain When Pain Assessed During Mobility Pain Present Pain Present Pain Reported Location right hip Intensity 5 Scale Used Numeric (0 - 10) Description With Movement Pain Management Techniques Apply Cold,Elevation, Modification of Treatment,Re- positioning,Timing of Activity with Medications M4 PT-IP Mobility and Gait Start: 08/04/22 11:32 Freq: NEEDED Status: Active Protocol: Document 08/04/22 11:33 ES (Rec: 08/04/22 12:06 ES [id number]) PT-Bed Mobility Assessment Sit to Supine Sit to Supine Moderate Assistance,Bedrails Scooting Scooting Up and Down in Bed Moderate Assistance PT-Transfer Assessment Sit to and From Stand Sit to and from Stand Moderate Assistance,Use of Upper Extremities Equipment Transfer Assistive Device Gait Belt,Front Wheeled Walker Orthotic/Prosthetic Devices or Brace: No Transfers Transfer Destination Bed,Chair,Toilet Transfer Technique Ambulation Transfer Ability Level of Assist Moderate Assistance,Use of Upper Extremities Comments Mobility Comments Required mod A to push to stand from each surface. Able to maintain hip precautions with assist to slide R foot forward. Cues for set up using LUE on chair/bed and RUE on FWW, with assist required to hold FWW steady so patient could use for better leverage. Ended session with patient in bed with legs elevated and ice packs applied to R hip. Gait Assessment Gait Gait Assistance Required: Contact Guard Assist Distance (Feet) 70 Assistive Devices Assistive Device Gait Belt,Front Wheeled Walker Gait Deviations General Gait Pattern Antalgic,Decreased Stride Length,Decreased Feet Clearance,Flexed Trunk Factors Limiting Gait Function Factors Limiting Gait Function Decreased Strength,Pain Comments Gait Comments Ambulated with emerging step- through gait, minimal foot clearance on RLE, slow chet and one standing rest break. PT-Balance Assessment Sitting Balance and Reactions Static Sitting Balance Ability Good Dynamic Sitting Balance Ability Good Standing Balance and Reactions Static Standing Balance Ability Fair Dynamic Standing Balance Ability Fair Device Used FWW M5 PT-IP Objective Assessments Start: 08/04/22 11:32 Freq: NEEDED Status: Active Protocol: Document 08/04/22 11:33 ES (Rec: 08/04/22 12:06 ES [id number]) Orientation Orientation/Cognition Level of Alertness Alert Orientation Name,Age,Birthday,Month,Date, Year,Day of Week,Place, Situation Language Function Ability No Deficits Noted Safety Awareness Decreased Safety Awareness Memory Description No Deficits Noted Gross Range of Motion Upper Extremity ROM Assessment Right Impaired Impairments R shoulder limited 2/2 pain from prior injury Lower Extremity ROM Assessment Right Impaired Impairments R hip limited 2/2 hip precautions Strength Lower Extremity Strength Assessment Bilaterally Impaired Comments Strength Comments General weakness especially in B hips. R hip grossly 3-/5. M6 PT-IP Treatment Start: 08/04/22 11:32 Freq: NEEDED Status: Active Protocol: Document 08/04/22 11:33 ES (Rec: 08/04/22 12:06 ES [id number]) Physical Therapy Treatment Exercises Exercises Ankle Pumps,Quad Sets Education Education Provided Precautions,Weight Bearing Status,Post-Op Packet,Safety M7 PT-IP Assessment and Plan Start: 08/04/22 11:32 Freq: NEEDED Status: Active Protocol: Document 08/04/22 11:33 ES (Rec: 08/04/22 12:06 ES [id number]) PT Summary Assessment and Plan Potential Rehabilitation Potential Fair Status of Condition at Evaluation Stable Summary Impairments Pain,ROM,Strength,Bed Mobility ,Transfers,Gait,Activity Tolerance Assessment Summary Patient is a 71 year old male POD #1 s/p R posterior HARJIT. Patient was seen in split visit due to needing pain meds prior to mobilizing with PT after initially declining taking any. He had improved ability to move with less pain after meds were given. He still had difficulty with all mobility in part due to weakness and pain from surgery , and in part due to his chronic back pain and LE weakness. He was able to ambulate 70 ft with FWW very slowly and got up to the bathroom. Educated patient on importance of having good pain control to allow him to move around more easily as a part of his recovery. Patient will benefit from further skilled PT to increase his independence with functional mobility. He may benefit from HH PT since it will be difficult for him to travel to OP PT appt's initially. If d/ c home is not possible due to continued mobility deficits and increased needs from baseline, patient may need short subacute rehab stay. Will continue to assess progress. Goals Transfer Goal Independent,Front Wheeled Walker Gait Goal Independent,Front Wheel Walker Gait Distance 100 ft Other Goals Patient will be able to ascend /descend 2 stairs with cane and SBA. Patient will be indep with TKA HEP. Days to Meet Goals 3 Frequency of Treatment Frequency Of Treatment Twice a Day Treatment Plan Physical Therapy Treatment Plan Transfer Training,Gait Training,Therapeutic Exercise, Post Op Education,Discharge Planning,Hot or Cold Pack Precautions Posterior Hip Precautions No Hip Flexion > 90 degrees,No Hip Internal Rotation,No Hip Adduction Weight Bearing Status Weight Bearing Status Weight Bear as Tolerated Allowed Weight Bearing Amount (enter % WBAT RLE or #) (%) Recommendations To Nursing Amount of Assist Needed 1 Person Assist Discharge Recommendations PT Discharge Recommendations Home vs SNF Other Discharge Recommendations Home with HH vs SNF Transportation Needs at Discharge Private Vehicle,Wheelchair/ Cabulance
[2022-08-04 12:47] VITALS: BP 131/79; PULSE 68; RESP 19; O2SAT 99
--- NOTE | 2022-08-04 13:18 | CM.DPC ---
Addendum entered by Karyna Brooks R.N. 08/04/22 14:44: Liz at [facility], called back and indicated that Trulicity is about $400.00, therefore can't accept. Was going to attempt to update patient on other choices, he is with P.T. in the hallway mobilizing, will check in today, and will discuss home options. He did indicate prior, that he is set up at [facility]. Addendum entered by Karyna Brooks R.N. 08/04/22 14:21: Claudia called back, indicated, Trulicity is expensive, over $300.00, and would not be able to provide due to the expense. She also indicated that most likely would not be able to do a carve out with insurance. Only other option if they change him to insulin. Claudia will hold on referral for now. Went ahead and contacted Liz at [facility]. She will consult with her pharmacist, and call back, to see if this is something that they can provide, and will call back. She does have male beds available. Original Note: DCP Cont: P.T. worked with patient today, having pain, did not want pain meds before working with P.T. Recommendations skilled versus home, but may need some rehab short term, spouse can't do any lifting. Called Claudia at [facility], does have beds. Spoke to patient over the phone regarding choice list, is ok with going to [facility] if needed, P.T. will work again with patient this pm. Claudia at [facility] indicated that she can initiate auth today if accepted, could potentially have by tonight. Patient asked this DC financial planner if he was ready for discharge today, let him know that is depends on ortho, no current note, and how he does with P.T. this afternoon. Patient concerned that if he can't mobilize on his own, going home may not be the best idea. P: DCP to continue to follow. Patient will work again with P.T. this afternoon. Plan is either home if he improves with P.T, or [facility], if they can initiate auth for the possibility of acceptance tomorrow. Will complete PASSR. Karyna Brooks RN/Dehydration Unit Operator
--- NOTE | 2022-08-04 15:16 | OT.IP.EVAL ---
Current Diagnoses Unilateral primary osteoarthritis, right hip (08/03/22) Surgery Performed Operation Date: 08/03/22 10:45 Actual Procedures p Total Hip Arthroplasty(Right) - Kim Galeas MD Past Medical History (Last Updated 07/26/22 @ 10:18 by Priscilla Gilmore, RN) Asthma BPH (benign prostatic hyperplasia) Cellulitis Cervical radiculopathy Colitis Constipation Derangement of other medial meniscus due to old tear or injury, unspecified knee Diabetes mellitus DISH (diffuse idiopathic skeletal hyperostosis) Disorder of nail Disorder of tendon of shoulder region Dyslipidemia Edema Excessive daytime sleepiness Hip pain Hyperlipidemia Hypertension Hypokalemia Left leg cellulitis Lumbar stenosis with neurogenic claudication Lumbar strain Melanoma (~2020) Migraine Myopia Obesity (BMI 30-39.9) (Unknown) Obstructive sleep apnea of adult Postoperative urinary retention (~01/2018) Pre-diabetes Primary insomnia Recurrent erosion of cornea Slowing of urinary stream Spider bite, venomous (~04/2017) Thoracic back pain Tinea pedis Urinary retention (~01/2018) UTI (urinary tract infection) Venous stasis Surgical History (Last Updated 07/26/22 @ 09:57 by Priscilal Gilmore, YOLY) History of carpal tunnel surgery of right wrist (2019) History of colonoscopy History of laminectomy (~2015) History of lumbar fusion (01/29/18) History of surgery (05/09/18) History of total replacement of left shoulder joint (09/01/19) Hx of hemorrhoidectomy (2018) Occupational Therapy Inpatient Evaluation/Re-Eval M1 PT/OT-IP Prior Functional Status Start: 08/04/22 11:32 Freq: NEEDED Status: Active Protocol: Document 08/04/22 11:33 ES (Rec: 08/04/22 12:06 ES [id number]) Medical Review Prior Functional Status Medical History Reviewed Yes Diet/Fluid Consistency Regular Communication Indep Mobility and Gait Modified indep with cane and walkers. Uses FWW inside on occasion, 4WW outside. Has difficulty with mobility at baseline due to chronic back and joint problems. Activities of Daily Living and IADL's assists with bathing and dressing due to back problems and limited ability to bend/ reach. Social History Household Members spouse Living Arrangements House Number of Floors (Floors) One Floor Number of Stairs To Enter/Railing? 2 NEDRA without rails Home Environment Standard Height Toilet,Tub/ Shower Home Equipment Front Wheel Walker,Four Wheel Walker,Straight Cane,Shower Seat without Backrest,Hand Held Shower,Manager Stone,Lift Recliner,Hospital Bed,Grab Bars Near Toilet,Grab Bars In Shower Employment Status Retired Additional Social History Comment is dealing with back pain and sciatica and is limited in her ability to physically assist with mobility. Patient plans to sleep in his lift recliner. Has a hospital bed but it is folded up in the garage at the moment. M3 OT- IP Subjective and Pain Start: 08/04/22 15:07 Freq: Status: Active Protocol: Document 08/04/22 15:07 [facility] (Rec: 08/04/22 15:16 [facility] [id number]) OT- Subjective Occupational Therapy Visit Type Type Initial Evaluation Visit Start Time 14:20 Visit Stop Time 14:58 Total Visit Minutes 38 Occupational Therapy Visit Comments Patient Comments Pt agreed to get up. Patient/Caregiver Goals To go home. OT Pain Assessment Pain When Pain Assessed At Rest Pain Present Pain Present Denied Pain M4 OT- IP ADL's Start: 08/04/22 15:07 Freq: Status: Active Protocol: Document 08/04/22 15:07 [facility] (Rec: 08/04/22 15:16 [facility] [id number]) OT BFP-Bvmi-Vyslxpo General Evaluation Self-Feeding Ability Independent OT ADL-Grooming General Evaluation Grooming Ability Independent Areas Needing Assistance Retrieving/Set-up of Grooming Items Comments OT Grooming Comments Able to do while standing with FWW. OT ADL-Oral Care General Eval Oral Care Ability Independent Areas of Assistance Retrieving/Set-Up of Items Comments Oral Care Comments Able to do while standing with FWW. OT ADL-Dressing General Eval Lower Body Dressing Ability Minimal Assistance Areas Needing Assistance Shoes Comments OT Dressing Comments Pt wears slipper and loose clothing at home and his able to assist. OT ADL-Toileting Comments OT Toileting Comments Pt has a bidet at home and use of toilet paper aid as well. Suggested pt use the urinal during the day if needed. OT ADL-Bathing Comments OT Bathing Comments Pt states to just use the shower stall with shower chair instead of tub/shower or just sponge off. M6 OT- IP Functional Cognition Start: 08/04/22 15:07 Freq: Status: Active Protocol: Document 08/04/22 15:07 [facility] (Rec: 08/04/22 15:16 [facility] [id number]) Cognitive Factors Limiting Selfcare Function Cognitive Ability Level of Alertness Alert Patient Orientation Name,Age,Birthday,Month,Date, Year,Day of Week,Place, Situation Attention Span Ability Capable of Focused Attention, Capable of Sustained Attention Ability to Follow Commands Able to Follow Multi-Step Commands Cognitive Comments Cognitive Assessment Comments Pt intact and able to follow his hip precautions for ADL and mobility needs. OT- Vision and Hearing OT- Vision Assessment Visual Acuity Glasses All The Time M7 OT- IP Mobility and Balance Start: 08/04/22 15:07 Freq: Status: Active Protocol: Document 08/04/22 15:07 [facility] (Rec: 08/04/22 15:16 [facility] [id number]) OT-Transfer Assessment Sit to and From Stand Sit to and from Stand Contact Guard Assistance Transfers Transfer Ability Contact Guard Assistance Technique Transfer Destination Bed,Chair Transfer Technique Stand Step Pivot Devices Transfer Assistive Devices Gait Belt,Front Wheeled Walker Comments Mobility Comments CGA to stand and from close SBA to CGA with FWW to walk to the sink and then in the hallway with PT. OT- Balance Assessment Sitting Balance and Reactions Static Sitting Balance Ability Good Dynamic Sitting Balance Ability Good Standing Balance and Reactions Static Standing Balance Ability Fair Dynamic Standing Balance Ability Fair M9 OT- IP Assessment and Plan Start: 08/04/22 15:07 Freq: Status: Active Protocol: Document 08/04/22 15:07 [facility] (Rec: 08/04/22 15:16 [facility] [id number]) OT Summary Assessment and Plan Potential Rehabilitation Potential Good Analytic Complexity at Evaluation Low Summary OT Impairments Pain,Balance,Functional Mobility,Dressing,Toileting, Bathing,Toilet Transfers, Shower Transfers Progress Towards Goals Progressing Toward Goals Assessment Summary Pt low complexity and main barrier are pain , steps- but now to replace the steps with a ramp, and will need assist for LB dressing bathing needs. Pt has a supportive and good set-up at home to be able to assist pt for all needs. Pt to go home with assist when medically stable. Goals Dressing Goal Minimal Assistance Toileting Goal Standby Assistance Bathing Goal Minimal Assistance Toilet Transfer Goal Standard Toilet Shower Transfer Goal Contact Guard Assistance Days to Meet Goals 7 Frequency of Treatment Frequency Of Treatment Once a Day Treatment Plan OT Treatment Plan ADL Training,Functional Mobility,Patient/Family Education,Discharge Planning Discharge Recommendations OT Discharge Recommendations Home with Assistance, Outpatient PT Transportation Needs at Discharge Private Vehicle
--- NOTE | 2022-08-04 15:18 | PT.IPTN ---
Current Diagnoses Unilateral primary osteoarthritis, right hip (08/03/22) Surgery Performed Operation Date: 08/03/22 10:45 Actual Procedures p Total Hip Arthroplasty(Right) - Kim Galeas MD Physical Therapy Treatment Note M2 PT-IP Current Condition Start: 08/04/22 11:32 Freq: NEEDED Status: Active Protocol: Document 08/04/22 11:33 ES (Rec: 08/04/22 12:06 ES [id number]) Physical Therapy Current Condition Current Condition Evaluation Date 08/04/22 Treatment Diagnosis S/p R HARJIT posterior, R hip pain, difficulty walking Onset Date 08/03/22 M3 PT-IP Subjective Start: 08/04/22 11:32 Freq: NEEDED Status: Active Protocol: Document 08/04/22 15:02 ES (Rec: 08/04/22 15:17 ES [id number]) Subjective Physical Therapy Visit Type Type Treatment Note Visit Start Time 14:22 Visit Stop Time 14:58 Total Visit Minutes 30 Notes Co-tx with OT Physical Therapy Visit Comments Patient Comments Patient agreeable to work with therapies. Still having pain but wants to participate. present and reported they have a ramp they can install on the first stair and can have a friend help him get into the house. Therapy Pain Assessment Pain When Pain Assessed During Mobility Pain Present Pain Present Pain Reported Location right hip Intensity 5 Scale Used Numeric (0 - 10) Description With Movement Pain Management Techniques Apply Cold,Elevation,Re- positioning,Timing of Activity with Medications M4 PT-IP Mobility and Gait Start: 08/04/22 11:32 Freq: NEEDED Status: Active Protocol: Document 08/04/22 15:02 ES (Rec: 08/04/22 15:17 ES [id number]) PT-Bed Mobility Assessment Sit to Supine Sit to Supine Moderate Assistance,Head of Bed Elevated,Bedrails Scooting Scooting Up and Down in Bed Standby Assistance PT-Transfer Assessment Sit to and From Stand Sit to and from Stand Contact Guard Assistance,Use of Upper Extremities Equipment Transfer Assistive Device Gait Belt,Front Wheeled Walker Transfers Transfer Destination Bed Transfer Technique Ambulation Transfer Ability Level of Assist Contact Guard Assistance,Use of Upper Extremities Comments Mobility Comments Trapeze placed on patient's bed to increase independence with bed mobility and repositioning. Able to reposition with HOB lowered without physical assistance. Performed sit to/from stand with min cues for placing R foot forward prior to reaching back. Able to stand at sink with SHRUTHI support for at least 5 minutes for self care. Gait Assessment Gait Gait Assistance Required: Standby Assistance Distance (Feet) 70 Assistive Devices Assistive Device Gait Belt,Front Wheeled Walker Gait Deviations General Gait Pattern Antalgic,Decreased Stride Length,Decreased Feet Clearance,Flexed Trunk Factors Limiting Gait Function Factors Limiting Gait Function Decreased Strength,Pain Comments Gait Comments Cued to increase R heel-toe pattern and hip/knee flexion for improved gait pattern but difficult for him due to pain. Stair Climbing Assessment Evaluation Level of Assist On Stairs Minimal Assistance Devices Stair Climbing Assistive Devices Front Wheel Walker Technique/Endurance Stair Climbing Direction Ascend and Descend Stair Climbing Technique Step to Step Number of Steps Climbed 1 Stair Climbing Set # Repetitions (reps) 1 Comments Stair Climbing Comments Performed with platform step with cues for LE sequencing. Difficult and painful for patient to fully WB onto RLE. PT-Balance Assessment Sitting Balance and Reactions Static Sitting Balance Ability Good Dynamic Sitting Balance Ability Good Standing Balance and Reactions Static Standing Balance Ability Good Dynamic Standing Balance Ability Fair Device Used FWW M5 PT-IP Objective Assessments Start: 08/04/22 11:32 Freq: NEEDED Status: Active Protocol: Document 08/04/22 11:33 ES (Rec: 08/04/22 12:06 ES [id number]) Orientation Orientation/Cognition Level of Alertness Alert Orientation Name,Age,Birthday,Month,Date, Year,Day of Week,Place, Situation Language Function Ability No Deficits Noted Safety Awareness Decreased Safety Awareness Memory Description No Deficits Noted Gross Range of Motion Upper Extremity ROM Assessment Right Impaired Impairments R shoulder limited 2/2 pain from prior injury Lower Extremity ROM Assessment Right Impaired Impairments R hip limited 2/2 hip precautions Strength Lower Extremity Strength Assessment Bilaterally Impaired Comments Strength Comments General weakness especially in B hips. R hip grossly 3-/5. M6 PT-IP Treatment Start: 08/04/22 11:32 Freq: NEEDED Status: Active Protocol: Document 08/04/22 15:02 ES (Rec: 08/04/22 15:17 ES [id number]) Physical Therapy Treatment Exercises Exercises Gluteal Sets,Quad Sets,Heel Slides Education Education Provided Precautions,Weight Bearing Status,Safety M7 PT-IP Assessment and Plan Start: 08/04/22 11:32 Freq: NEEDED Status: Active Protocol: Document 08/04/22 15:02 ES (Rec: 08/04/22 15:17 ES [id number]) PT Summary Assessment and Plan Summary Impairments Pain,ROM,Strength,Bed Mobility ,Transfers,Gait,Activity Tolerance Progress Towards Goals Slow Progress due to Pain,Slow Progress due to Activity Tolerance Assessment Summary Patient was able to perform transfers with decreased assistance this visit, and was able to initiate stair training though this was difficult and painful for him to perform. He was able to progress his HEP with improved tolerance using AAROM for heel slides. Hip abduction was too painful and weak so did not do this visit. He will benefit from further PT to increase independence and safety with stairs and for further training with HEP to be able to go home. With patient's progress today, anticipate he will be able to d/c home tomorrow. Recommend he plan to keep his OP PT appts starting next week; educated patient on importance of staying compliant with his ex's at home and mobilize throughout the day to continue to gain strength until then. Goals Transfer Goal Independent,Front Wheeled Walker Gait Goal Independent,Front Wheel Walker Gait Distance 100 ft Other Goals Patient will be able to ascend /descend 2 stairs with cane and SBA. Patient will be indep with TKA HEP. Days to Meet Goals 3 Frequency of Treatment Frequency Of Treatment Twice a Day Treatment Plan Physical Therapy Treatment Plan Transfer Training,Gait Training,Therapeutic Exercise, Post Op Education,Discharge Planning,Hot or Cold Pack Precautions Posterior Hip Precautions No Hip Flexion > 90 degrees,No Hip Internal Rotation,No Hip Adduction Weight Bearing Status Weight Bearing Status Weight Bear as Tolerated Allowed Weight Bearing Amount (enter % WBAT RLE or #) (%) Recommendations To Nursing Amount of Assist Needed 1 Person Assist Discharge Recommendations PT Discharge Recommendations Home,Outpatient PT Transportation Needs at Discharge Private Vehicle
--- NOTE | 2022-08-04 17:26 | P.DS_ITS ---
History of Present Illness History of Present Illness Date Patient Seen: 08/04/22 Time Patient Seen: 07:30 Chief complaint: Right Total Hip Arthroplasty 08/03 Narrative: Patient is resting comfortably in bed this morning. He is having right hip and thigh pain which is controlled with medication. No other complaints. Denies chest pain, shortness of breath, numbness, tingling in the extremities. Discharge Providers Provider Discharge Date: 08/04/22 Primary care physician: Allyson Zelaya DO Consults: 08/03/22 08:32 Consult to Anesthesiology Routine Comment: Consulting Provider: Anesthesiologist Reason for consultation: Regional block for post operative pain control 08/03/22 14:50 Consult to Discharge Planning Routine Comment: Consult to Occupational Therapy Evaluate & Treat Comment: Physician Instructions: Evaluate and treat Consult to Physical Therapy Evaluate & Treat Comment: Physician Instructions: post op HARJIT protocol Discharge provider: Akiko High PA-C Summary Hospital Course Discharge Diagnosis: Right total hip arthroplasty, posterior approach Hospital Course: Operative Date/Time/Diagnoses Date of procedure: 08/03/22 Time of procedure: 11:00 Pre-op diagnosis: right hip OA Post-op diagnosis: same Procedure & Clinicians Procedure: right total hip arthroplasty posterior approach Same procedure as scheduled: Yes Indications: The patient has had progressively worsening right hip pain with radiographic changes consistent with arthritis. Non-operative management has failed and the patient has requested total hip replacement. The risks, benefits and alternatives to surgery were discussed with the patient prior to proceeding. Risks discussed included, but were not limited to, failure to relieve pain, leg length discrepancy, dislocation, stiffness, infection, nerve damage, deep venous thrombosis, pulmonary embolism, stroke, coma, heart attack, permanent paralysis and , as well as the potential need for eventual revision of the prosthetic.? Patient has a very extensive spine fusion and was felt that we needed dual mobility to improve his stability due to severely restricted lumbar spine motion Surgeon: Kim Galeas Shipping And Receiving Specialist: Akiko High Anesthesia Type: Spinal Operative Notes Findings: Severe right hip osteoarthritis, adequate stability Closure Type: primary Specimen(s): none sent Prosthetic devices, grafts, tissues, transplants, or devices: Galeas and nephew R3, size 6 standard offset anthology, dual mobility 28 x 40 with a-3 Oxinium femoral head, size 52 R3 cup, one 6.5 mm screw Estimated Blood Loss (mL): 250 Status at Discharge Cognitive/behavioral status at discharge: oriented Functional status at discharge: uses cane/walker Overall status at discharge: patient is progressing back to baseline Exam Vital Signs (past 8 hours): - 08/04/22 12:47 Pulse Rate 68 Respiratory Rate 19 Blood Pressure 131/79 Pulse Oximetry 99 Oxygen Flow Rate 0 Oxygen Delivery Method Room Air Oxygen Flow Rate 0 Narrative Exam Narrative: Pleasant 71-year-old male. Awake, alert, and oriented. Intraoperative dressing clean, dry, and intact to suction. Strength and sensation intact to bilateral lower extremities. Bilateral feet with 2+ pitting edema, chronic and stable per patient. Objective Labs 08/04/22 06:20 Labs: Laboratory Results - last 24 hr 08/04/22 06:20 Hgb 13.0 L Hct 35.8 L [facility] Medical History Asthma BPH (benign prostatic hyperplasia) Cellulitis Cervical radiculopathy Colitis Constipation Derangement of other medial meniscus due to old tear or injury, unspecified knee Diabetes mellitus DISH (diffuse idiopathic skeletal hyperostosis) Disorder of nail Disorder of tendon of shoulder region Dyslipidemia Edema Excessive daytime sleepiness Hip pain Hyperlipidemia Hypertension Hypokalemia Left leg cellulitis Lumbar stenosis with neurogenic claudication Lumbar strain Melanoma (~2020) Migraine Myopia Obesity (BMI 30-39.9) (Unknown) Obstructive sleep apnea of adult Postoperative urinary retention (~01/2018) Pre-diabetes Primary insomnia Recurrent erosion of cornea Slowing of urinary stream Spider bite, venomous (~04/2017) Thoracic back pain Tinea pedis Urinary retention (~01/2018) UTI (urinary tract infection) Venous stasis Surgical History History of carpal tunnel surgery of right wrist (2019) History of colonoscopy History of laminectomy (~2015) History of lumbar fusion (01/29/18) History of surgery (05/09/18) History of total replacement of left shoulder joint (09/01/19) Hx of hemorrhoidectomy (2018) Social History marital status: (to Ratna) details: lives in [place] household members: spouse lives independently: Yes caregiver/support person: No housing: house Smoking Status: Former smoker alcohol intake: current Discharge Assessment & Plan Assessment and Plan Assessment: Patient is progressing as expected after right total hip arthroplasty, posterior approach. Plan of Treatment: Continue with outpatient physical therapy. Continue multimodal pain regimen with Tylenol, ibuprofen, and oxycodone as needed. Follow-up with orthopedics 2 weeks after surgery as scheduled. Discharge Plan Discharge Plan Patient Disposition: Home Discharge orders & Medications Discharge Orders: Discharge (Order); Ordered 08/04/22 Ordered By: Akiko High Prescriptions: New oxycodone 5 mg Tablet 5 mg PO Q3H PRN (Reason: Pain, Moderate (4-6)) Qty: 40 0RF aspirin 81 mg Tablet,Delayed Release (Dr/Ec) 81 mg PO BID Qty: 84 0RF Continued epinephrine 0.3 MG/0.3 ML auto-injector 0.3 mg IM PRN PRN (Reason: Allergic Reaction) Qty: 0 albuterol sulfate [Ventolin HFA] 90 MCG/PUFF HFA aerosol inhaler 2 puff INH Q6H PRN (Reason: asthma) Qty: 0 fluticasone propionate [Flonase Allergy Relief] 9.9 ML spray,suspension 1 spray Intranasal QDAY PRN (Reason: Sinus Congestion) Qty: 0 cyanocobalamin (vitamin B-12) 5,000 MCG tablet,disintegrating 5,000 mcg PO QDAY Qty: 0 multivitamin [Multiple Vitamins] 1 EACH tablet 2 tab PO QDAY Qty: 0 trazodone 50 mg Tablet 50 - 100 mg PO BEDTIME polyethylene glycol 3350 17 gram Powder In Packet 17 g PO DAILY PRN (Reason: Constipation) aspirin 81 mg Tablet,Delayed Release (Dr/Ec) 81 mg PO BEDTIME naproxen 500 mg Tablet 500 mg PO BID furosemide 20 mg tablet 40 mg PO QAM nifedipine 90 mg Tablet Extended Release 90 mg PO DAILY tamsulosin 0.4 mg Capsule 0.4 mg PO DAILY levothyroxine 50 mcg Tablet 50 mcg PO DAILY telmisartan 80 mg Tablet 80 mg PO DAILY gabapentin 300 mg Capsule 300 mg PO DAILY PRN (Reason: Pain) escitalopram oxalate 10 mg tablet 5 mg PO DAILY amlodipine 5 mg tablet 5 mg PO DAILY propranolol 60 mg capsule,extended release 24 hr 60 mg PO DAILY levothyroxine [Synthroid] 50 mcg tablet 50 mcg PO DAILY (DME) [facility] BIPAP Qty: 1 Dose Instruction: As directed Patient Comments: Pressure: IPAP 13 EPAP 9 DME: [facility] Rx Instructions: As directed metformin 500 mg tablet 1,000 mg PO DAILY acetaminophen [Tylenol] 325 mg capsule 325 mg PO TID temazepam 15 mg capsule 15 mg PO BEDTIME propranolol 60 mg capsule,extended release 24 hr 60 mg PO BEDTIME Trulicity 0.75 mg/0.5 mL pen injector 1.5 mg SUBCUT QWEEK Follow up/Referrals: Allyson Zelaya DO [Primary Care Provider] - Kim Galeas MD [Physician] - As previously scheduled (Follow up w/ Dr Galeas on 08/16/2022 @ 2:00 pm at [facility].) Diet/Activity/Treatments Diet: Diet as Tolerated Activity: WBAT to right leg. Posterior hip precautions. Cold/Heat Therapy: Ice to hip as needed for pain. Skin/Wound/Dressing Care Report to your healthcare provider any signs of infection, such as:: chills, fever, night sweats, unusual drainage and unusual redness Dressing: May shower. Leave dressing in place until follow up in office. No bathing or otherwise soaking incision. Call the office if the dressing becomes saturated inside. Visit Report/Discharge Packet Instructions: DI for Hip Replacement Stand Alone Forms: Patient Portal/API, Surgery Discharge Discharge Data Primary Care Provider: Allyson Zelaya Attending Provider: Kim Galeas
[2022-08-04 20:00] VITALS: BP 107/60; PULSE 78; RESP 19; TEMP 36.4; O2SAT 94
[2022-08-04] MEDS: TRAZODONE 50 MG TABLET PO (20:04)
[2022-08-04] MEDS: TEMAZEPAM 15 MG CAPSULE PO (20:04)
[2022-08-05] VITALS: BP 112/64; PULSE 71; RESP 18; TEMP 36.1; O2SAT 96
[2022-08-05 04:00] VITALS: BP 105/64; PULSE 64; RESP 16; TEMP 36.3; O2SAT 96
[2022-08-05] MEDS: LEVOTHYROXINE 50 MCG TABLET PO (05:16)
[2022-08-05 08:22] VITALS: BP 110/66; PULSE 66; RESP 17; TEMP 36.6; O2SAT 97
[2022-08-05] MEDS: ASPIRIN EC 81 MG TABLET PO (08:34)
[2022-08-05] MEDS: PROPRANOLOL 10 MG TABLET 30 MG PO (08:34)
[2022-08-05] MEDS: METFORMIN HCL 500 MG TABLET 1000 MG PO (08:34)
[2022-08-05] MEDS: FUROSEMIDE 20 MG TABLET 40 MG PO (08:35)
[2022-08-05] MEDS: MULTIVITAMIN 1 TABLET 1 TAB PO (08:35)
[2022-08-05] MEDS: TAMSULOSIN 0.4 MG CAPSULE PO (08:35)
[2022-08-05 08:36] VITALS: BP 110/66; PULSE 69
[2022-08-05] MEDS: ACETAMINOPHEN 325 MG TABLET 650 MG PO (08:36)
[2022-08-05] MEDS: LOSARTAN 50 MG TABLET 100 MG PO (08:36)
[2022-08-05] MEDS: NIFEdipine 30 MG TAB ER 90 MG PO (08:37)
[2022-08-05] MEDS: GABAPENTIN 300 MG CAPSULE PO (08:38)
[2022-08-05] MEDS: OXYCODONE IR 10 MG TABLET PO ×2 (08:38→11:12)
[2022-08-05] MEDS: DOCUSATE 100 MG CAPSULE PO (08:38)
[2022-08-05] MEDS: AMLODIPINE 5 MG TABLET PO (08:39)
--- NOTE | 2022-08-05 08:40 | PT.IPTN ---
Current Diagnoses Unilateral primary osteoarthritis, right hip (08/03/22) Surgery Performed Operation Date: 08/03/22 10:45 Actual Procedures p Total Hip Arthroplasty(Right) - Kim Galeas MD Physical Therapy Treatment Note M2 PT-IP Current Condition Start: 08/04/22 11:32 Freq: NEEDED Status: Active Protocol: Document 08/04/22 11:33 ES (Rec: 08/04/22 12:06 ES [id number]) Physical Therapy Current Condition Current Condition Evaluation Date 08/04/22 Treatment Diagnosis S/p R HARJIT posterior, R hip pain, difficulty walking Onset Date 08/03/22 M3 PT-IP Subjective Start: 08/04/22 11:32 Freq: NEEDED Status: Active Protocol: Document 08/05/22 09:07 TS (Rec: 08/05/22 09:22 TS [id number]) Subjective Physical Therapy Visit Type Type Treatment Note Visit Start Time 08:40 Visit Stop Time 09:00 Total Visit Minutes 20 Number of VICE PRESIDENT NETWORK Visits 1 Physical Therapy Visit Comments Patient Comments Pt found up in chair, reports he feeling much better this morning than yesterday, reports performing bed exercises, agreeable to PT. Therapy Pain Assessment Pain When Pain Assessed During Mobility Pain Present Pain Present Pain Reported M4 PT-IP Mobility and Gait Start: 08/04/22 11:32 Freq: NEEDED Status: Active Protocol: Document 08/05/22 09:07 TS (Rec: 08/05/22 09:22 TS [id number]) PT-Transfer Assessment Sit to and From Stand Sit to and from Stand Standby Assistance Equipment Transfer Assistive Device Gait Belt,Front Wheeled Walker Orthotic/Prosthetic Devices or Brace: No Comments Mobility Comments Pt recalled 2/3 precautions this morning(no hip flexion past 90D).Sit to stand from chair with FWW SBA, heavy UE support to come into standing with flexed posture. Pt ambulated in ~200' SBA with cautious step to gait with heavy UE assist, no bucklling or LOB, denied any dizziness. Stand to sit in chair SBA with FWW, provided cues for RLE extended descending into chair . Pt was left in room with call light nearby, all needs met, RN notified. Gait Assessment Gait Gait Assistance Required: Standby Assistance Distance (Feet) 200 Assistive Devices Assistive Device Gait Belt,Front Wheeled Walker Orthotic/Prosthetic Devices or Brace: No Gait Deviations General Gait Pattern Antalgic,Decreased Stride Length,Decreased Feet Clearance,Flexed Trunk Factors Limiting Gait Function Factors Limiting Gait Function Decreased Strength,Pain Comments Gait Comments See mobility comments. Stair Climbing Assessment Comments Stair Climbing Comments Pt will be using a ramp to get into home. PT-Balance Assessment Sitting Balance and Reactions Static Sitting Balance Ability Good Dynamic Sitting Balance Ability Good Standing Balance and Reactions Static Standing Balance Ability Good Dynamic Standing Balance Ability Fair Device Used FWW M5 PT-IP Objective Assessments Start: 08/04/22 11:32 Freq: NEEDED Status: Active Protocol: Document 08/04/22 11:33 ES (Rec: 08/04/22 12:06 ES [id number]) Orientation Orientation/Cognition Level of Alertness Alert Orientation Name,Age,Birthday,Month,Date, Year,Day of Week,Place, Situation Language Function Ability No Deficits Noted Safety Awareness Decreased Safety Awareness Memory Description No Deficits Noted Gross Range of Motion Upper Extremity ROM Assessment Right Impaired Impairments R shoulder limited 2/2 pain from prior injury Lower Extremity ROM Assessment Right Impaired Impairments R hip limited 2/2 hip precautions Strength Lower Extremity Strength Assessment Bilaterally Impaired Comments Strength Comments General weakness especially in B hips. R hip grossly 3-/5. M6 PT-IP Treatment Start: 08/04/22 11:32 Freq: NEEDED Status: Active Protocol: Document 08/05/22 09:07 TS (Rec: 08/05/22 09:22 TS [id number]) Physical Therapy Treatment Education Education Provided Precautions,Weight Bearing Status,Safety Other Treatments Other Treatment Performed Provided education on the importance of exercises while at home before outpatient therapy appointment. M7 PT-IP Assessment and Plan Start: 08/04/22 11:32 Freq: NEEDED Status: Active Protocol: Document 08/05/22 09:07 TS (Rec: 08/05/22 09:22 TS [id number]) PT Summary Assessment and Plan Potential Rehabilitation Potential Good Summary Impairments Pain,ROM,Strength,Bed Mobility ,Transfers,Gait,Activity Tolerance Progress Towards Goals Progressing Toward Goals Assessment Summary Pt is progressing well with his mobility. Pt recalled 2/3 hip precautions this morning ( no hip flexion past 90D).He performed sit to stand x1 SBA with heavy use of UEs on FWW. He progressed his ambualtion to ~200' SBA with FWW with cautious step to gait, no buckling or LOB. Pt will be using ramp to get into house and will not have to be suing stairs. He will also be sleeping in a lift recliner at home and has all DME he needs from previous surgeries. PT is recommending return home with spouse for assist. Goals Transfer Goal Independent,Front Wheeled Walker Gait Goal Independent,Front Wheel Walker Gait Distance 100 ft Other Goals Patient will be able to ascend /descend 2 stairs with cane and SBA. Patient will be indep with TKA HEP. Days to Meet Goals 3 Frequency of Treatment Frequency Of Treatment Twice a Day Treatment Plan Physical Therapy Treatment Plan Transfer Training,Gait Training,Therapeutic Exercise, Post Op Education,Discharge Planning,Hot or Cold Pack Other Recommendations and Next Treatment Continue to progress gait, Focus assess carryover of hip precautions. Precautions Posterior Hip Precautions No Hip Flexion > 90 degrees,No Hip Internal Rotation,No Hip Adduction Weight Bearing Status Weight Bearing Status Weight Bear as Tolerated Allowed Weight Bearing Amount (enter % WBAT RLE or #) (%) Recommendations To Nursing Amount of Assist Needed Standby Assistance Discharge Recommendations PT Discharge Recommendations Home,Outpatient PT Transportation Needs at Discharge Private Vehicle
[2022-08-05] MEDS: ESCITALOPRAM 10 MG TABLET 5 MG PO (08:43)
--- NOTE | 2022-08-05 10:13 | P.PN_ITS ---
Subjective Subjective Date Patient Seen: 08/05/22 Time Patient Seen: 10:13 Interval history: Pt was scheduled for d/c yesterday, but stayed the night for more work with PT this morning. Did well w/ PT, ready to go home. Pain well-controlled with oral medication. Exam Vital Signs (past 8 hours): - 08/05/22 04:00 08/05/22 08:22 08/05/22 08:36 Temperature 97.3 F L 98 F Pulse Rate 64 66 69 Respiratory Rate 16 17 Blood Pressure 105/64 110/66 110/66 Pulse Oximetry 96 97 Oxygen Flow Rate 0 Oxygen Delivery Method Room Air Oxygen Flow Rate 0 Narrative Exam Narrative: ENOC dressing working, scant bloody drainage. Objective Labs 08/04/22 06:20 [facility] Medical History Asthma BPH (benign prostatic hyperplasia) Cellulitis Cervical radiculopathy Colitis Constipation Derangement of other medial meniscus due to old tear or injury, unspecified knee Diabetes mellitus DISH (diffuse idiopathic skeletal hyperostosis) Disorder of nail Disorder of tendon of shoulder region Dyslipidemia Edema Excessive daytime sleepiness Hip pain Hyperlipidemia Hypertension Hypokalemia Left leg cellulitis Lumbar stenosis with neurogenic claudication Lumbar strain Melanoma (~2020) Migraine Myopia Obesity (BMI 30-39.9) (Unknown) Obstructive sleep apnea of adult Postoperative urinary retention (~01/2018) Pre-diabetes Primary insomnia Recurrent erosion of cornea Slowing of urinary stream Spider bite, venomous (~04/2017) Thoracic back pain Tinea pedis Urinary retention (~01/2018) UTI (urinary tract infection) Venous stasis Surgical History History of carpal tunnel surgery of right wrist (2019) History of colonoscopy History of laminectomy (~2015) History of lumbar fusion (01/29/18) History of surgery (05/09/18) History of total replacement of left shoulder joint (09/01/19) Hx of hemorrhoidectomy (2018) Social History marital status: (to Ratna) details: lives in [place] household members: spouse lives independently: Yes caregiver/support person: No housing: house Smoking Status: Former smoker alcohol intake: current Assessment & Plan Post-op Assessment and plan (1) S/P total hip arthroplasty: Assessment and Plan narrative: Discharge home, ASA BID x 6 weeks for VTE prophylaxis, WBAT to RLE w/ posterior hip precautions. Outpt PT, f/u in office in 2 weeks as scheduled. Postoperative Procedures: Procedures Operation Date: 08/03/22 10:45 Actual Procedure Side Surgeon p Total Hip Arthroplasty Right Kim Galeas MD Postoperative day: 2
[2022-08-05] MEDS: IBUPROFEN 400 MG TABLET PO (10:57)
--- NOTE | 2022-08-05 12:20 | PC.NURSE ---
Pt D/C'd home today with spouse. PICCO dressing had minimal spotting from blood. Pt and spouse verbalized understanding how to care for PICCO dressing, when to follow up with the surgeon's office, when to follow up with PCP, how to take all medications, and when to return to the ED if needed. All questions answered at the time of D/C. Pt able to self transfer from bed into W/C and W/C and to POV. IV taken out and cath tip present. Went over s/s of infection, not to submerge dressing into water/bath, and posterior hip precautions when over with Pt and spouse and they both were able to verbalize and them back to the his RN. Pt was able to demonstrated prior hip precautions prior to D/C.
== END 2022-08-05 11:40 | disposition home or self-care (01) ==
LOC: OR 07:52 → AC 07:53
PROVIDERS: Family Provider Family Medicine; PCP Family Medicine; Referring Provider Orthopaedic Surgery; Visit Provider Orthopaedic Surgery
PROC: 0SR90JZ Replacement of Right Hip Joint with Synthetic Substitute, Open Approach (ICD-10-PCS; CPT 27130; principal; 2022-08-03 10:45)
DX: M16.11 Unilateral primary osteoarthritis, right hip (principal)
CPT/HCPCS: 27130; 36415; 72170; 73502; 82962; 85014; 85018; 97110; 97116; 97161; 97165; C1776; C9290; J0171; J0690; J2704

== ENCOUNTER 2022-08-08 18:10 | Emergency (ER) | payer MEDICARE, OTHER, SELFPAY ==
[2018-01-29 18:16] VITALS: PULSE 81; RESP 18; O2SAT 100
[2022-08-03 14:58] VITALS: BMI 38.4
[2022-08-08 18:14] VITALS: BP 118/64; PULSE 75; RESP 20; TEMP 37.1; O2SAT 96; BMI 37.6
--- NOTE | 2022-08-08 18:25 | DI.US.S_ITS ---
PROCEDURE: US PERIPH VENOUS LOW EXTREM RT INDICATIONS: EDEMA 5 DAYS POST RIGHT HIP REPLACEMENT TECHNIQUE: Real-time imaging, as well as color and pulse Doppler interrogation, were performed of the lower extremity deep veins from the inguinal ligament to the popliteal fossa. COMPARISON: None. FINDINGS: The common femoral, femoral and popliteal veins are normally compressible, and free of intraluminal thrombus. Color and pulse Doppler demonstrate normal phasic intraluminal flow. There is normal augmentation response to distal compression maneuver. IMPRESSION: 1. No evidence of deep venous thrombosis in the right lower extremity. Dictated by: Jethro Greene M.D. on 08/08/2022 at 20:20 Approved by: Jethro Greene M.D. on 08/08/2022 at 20:20
[2022-08-08 21:01] VITALS: BP 135/80; PULSE 73; RESP 18; O2SAT 98
--- NOTE | 2022-08-08 21:09 | ED_ITS ---
HPI - Extremity Problem General Chief complaint: Extremity Problem,Nontraumatic Stated complaint: Sent from provider to rule out DVT Time Seen by Provider: 08/08/22 18:38 Source: patient Mode of arrival: Wheelchair History of Present Illness HPI Narrative: Patient is a 71-year-old male. His just about 1 week status post right-sided total hip replacement. He would a follow-up with his orthopedic surgeon's office today. He states he did not see the orthopedic surgeon who saw the physician's community relations assistant. Patient does have a swollen right lower extremity and there was concern about blood clot. He was sent to the emergency department to rule out a DVT. He is ambulatory. No fevers. He states that his right leg is swollen. It is red and warm compared to the left side. Related Data Home Medications Medication Instructions Recorded Confirmed albuterol sulfate 90 mcg/actuation 2 puff INH Q6H PRN asthma ##0 01/12/16 07/26/22 aerosol inhaler (Ventolin HFA) epinephrine 0.3 mg/0.3 mL 0.3 mg IM PRN PRN Allergic 01/12/16 07/26/22 injection, auto-injector Reaction ##0 fluticasone propionate 50 1 spray intranasal QDAY PRN Sinus 01/12/16 07/26/22 mcg/actuation nasal Congestion ##0 spray,suspension (Flonase Allergy Relief) cyanocobalamin (vitamin B-12) 5,000 mcg PO QDAY ##0 05/28/17 07/26/22 5,000 mcg disintegrating tablet multivitamin (Multiple Vitamins 2 tab PO QDAY ##0 05/28/17 07/26/22 tablet) trazodone 50 mg tablet 50 - 100 mg PO BEDTIME Sleep 01/14/18 07/26/22 aspirin 81 mg tablet,delayed 81 mg PO BEDTIME 08/27/19 08/03/22 release naproxen 500 mg tablet 500 mg PO BID 08/27/19 07/26/22 polyethylene glycol 3350 17 gram 17 g PO DAILY PRN Constipation 08/27/19 07/26/22 oral powder packet ResMed BIPAP #1 ea 07/15/20 08/03/22 furosemide 20 mg tablet 40 mg PO QAM 07/15/20 08/03/22 acetaminophen 325 mg capsule 325 mg PO TID 08/17/21 07/26/22 (Tylenol) dulaglutide 0.75 mg/0.5 mL 1.5 mg SUBCUT QWEEK 08/17/21 07/26/22 subcutaneous pen injector (Trulicity) metformin 500 mg tablet 1,000 mg PO DAILY 08/17/21 07/26/22 propranolol 60 mg capsule,24 60 mg PO BEDTIME 08/17/21 07/26/22 hr,extended release temazepam 15 mg capsule 15 mg PO BEDTIME 08/17/21 07/26/22 escitalopram oxalate 10 mg tablet 5 mg PO DAILY 07/26/22 07/26/22 gabapentin 300 mg capsule 300 mg PO DAILY PRN Pain 07/26/22 08/03/22 levothyroxine 50 mcg tablet 50 mcg PO DAILY 07/26/22 07/26/22 nifedipine 90 mg tablet,extended 90 mg PO DAILY 07/26/22 08/03/22 release tamsulosin 0.4 mg capsule 0.4 mg PO DAILY 07/26/22 07/26/22 telmisartan 80 mg tablet 80 mg PO DAILY 07/26/22 07/26/22 amlodipine 5 mg tablet 5 mg PO DAILY 08/03/22 08/03/22 levothyroxine 50 mcg tablet 50 mcg PO DAILY 08/03/22 08/03/22 (Synthroid) propranolol 60 mg capsule,24 60 mg PO DAILY 08/03/22 08/03/22 hr,extended release Previous Rx's Medication Instructions Recorded aspirin 81 mg tablet,delayed 81 mg PO BID #84 tabs 08/04/22 release oxycodone 5 mg tablet 5 mg PO Q3H PRN Pain, Moderate 08/04/22 (4-6) #40 tabs Allergies Allergy/AdvReac Type Severity Reaction Status Date / Time shellfish derived Allergy Severe ALLERGIC Verified 08/17/21 14:18 [SHELLFISH DERIVED] TO LOBSTER, CLOSES THROAT, CHEST PRESSURE venom-honey bee Allergy Severe THROAT Verified 08/17/21 14:18 [BEE VENOM (HONEY BEE)] CLOSES, CHEST PRESSURE oxycodone Allergy Intermediate Itch all Verified 08/17/21 14:18 over sildenafil AdvReac Intermediate Migraine Verified 08/17/21 14:18 Review of Systems Constitutional Constitutional: Reports system reviewed and no additional complaints, except as documented Musculoskeletal Musculoskeletal: Reports system reviewed and no additional complaints, except as documented Integumentary/Breasts Skin/Breast: Reports system reviewed and no additional complaints, except as documented Neurologic Neurologic: Reports system reviewed and no additional complaints, except as documented Hematologic/Lymphatic On Anticoagulants: No Patient History Medical History Asthma BPH (benign prostatic hyperplasia) Cellulitis Cervical radiculopathy Colitis Constipation Derangement of other medial meniscus due to old tear or injury, unspecified knee Diabetes mellitus DISH (diffuse idiopathic skeletal hyperostosis) Disorder of nail Disorder of tendon of shoulder region Dyslipidemia Edema Excessive daytime sleepiness Hip pain Hyperlipidemia Hypertension Hypokalemia Left leg cellulitis Lumbar stenosis with neurogenic claudication Lumbar strain Melanoma (~2020) Migraine Myopia Obesity (BMI 30-39.9) (Unknown) Obstructive sleep apnea of adult Postoperative urinary retention (~01/2018) Pre-diabetes Primary insomnia Recurrent erosion of cornea Slowing of urinary stream Spider bite, venomous (~04/2017) Thoracic back pain Tinea pedis Urinary retention (~01/2018) UTI (urinary tract infection) Venous stasis Surgical History History of carpal tunnel surgery of right wrist (2019) History of colonoscopy History of laminectomy (~2015) History of lumbar fusion (01/29/18) History of surgery (05/09/18) History of total replacement of left shoulder joint (09/01/19) Hx of hemorrhoidectomy (2018) Social History marital status: (to Ratna) details: lives in [place] household members: spouse lives independently: Yes caregiver/support person: No housing: house Smoking Status: Former smoker alcohol intake: current Smoking Status: Former smoker alcohol intake frequency: 0-2 drinks per day Substance Use Type: does not use Exam Initial Vital Signs Initial Vital Signs: Vital Signs Temperature 98.8 F 08/08/22 18:14 Pulse Rate 75 08/08/22 18:14 Respiratory Rate 20 08/08/22 18:14 Blood Pressure 118/64 08/08/22 18:14 Pulse Oximetry 96 08/08/22 18:14 Oxygen Delivery Method Room Air 08/08/22 18:14 HENMA Head: normal to inspection and normocephalic Resp Effort & Inspection: normal respiratory effort Cardio Pulses: dorsalis pedis present on the right Skin Other: Patient does have erythema that is circumferential on her right leg from his hip down to his ankle. Neuro Sensory Exam: no sensory deficits noted Extrem Other: Right leg is swollen. It is slightly worse compared to the left side. Does somewhat warm compared to the left side. Course Orders Ordered: ED Orders 08/08/22 18:25 US periph venous low extrem rt Stat 08/08/22 21:26 Basic Metabolic Panel Stat Complete Blood Count AUTO DIFF Stat 08/08/22 22:14 Blood Culture Stat Vital Signs Vital signs: Vital Signs - 8 hr 08/08/22 21:01 08/08/22 21:49 08/08/22 22:32 Pulse Rate 73 66 71 Respiratory Rate 18 22 16 Blood Pressure 135/80 155/85 H 147/80 H Pulse Oximetry 98 97 Oxygen Delivery Method Room Air Room Air MDM - Extremity (Nontraumatic) Lab Data 08/08/22 21:26 08/08/22 21:26 Labs: Lab Results 08/08/22 08/08/22 Range/Units 21:26 21:26 WBC 7.2 (4.5-11.0) X10^3/uL RBC 3.96 L (4.5-5.9) X10^6/uL Hgb 12.8 L (13.5-17.5) g/dL Hct 35.7 L (41-53) % MCV 90.2 (80-100) fL MCH 32.3 (26-34) PG MCHC 35.8 (30-36) % RDW 13.2 (11.6-14.8) % Plt Count 305 (150-400) X10^3/uL Neut % (Auto) 56.5 (50-75) % Lymph % (Auto) 28.7 (25-40) % Gosper % (Auto) 9.4 (3-14) % Eos % (Auto) 5.0 H (2-4) % Baso % (Auto) 0.4 (0-2) % Neut # (Auto) 4000 (8818-8115) /uL Lymph # (Auto) 2100 (4428-1274) /uL Gosper # (Auto) 700 (0-900) /uL Eos # (Auto) 400 (0-450) /uL Baso # (Auto) 0 (0-100) /uL Sodium 136 L (137-145) mmol/L Potassium 4.2 (3.4-5.1) mmol/L Chloride 98 (98-107) mmol/L Carbon Dioxide 34 H (22-32) mmol/L BUN 18 (9-20) mg/dL Creatinine 0.81 (0.66-1.25) mg/dL Estimated GFR > 60 (>60) mL/min BUN/Creatinine Ratio 22.2 H (6-22) Glucose 155 H (80-110) mg/dL Calcium 9.3 (8.4-10.2) mg/dL Imaging Data US - DVT: Radiologist's Impression: PROCEDURE:? US PERIPH VENOUS LOW EXTREM RT ? INDICATIONS:? EDEMA 5 DAYS POST RIGHT HIP REPLACEMENT ? TECHNIQUE:? Real-time imaging, as well as color and pulse Doppler interrogation, were p erformed of the lower extremity deep veins from the inguinal ligament to the popliteal fossa.? ? COMPARISON:? None. ? FINDINGS:? The common femoral, femoral and popliteal veins are normally compressible, and free of intraluminal thrombus.? Color and pulse Doppler demonstrate normal phasic intraluminal flow.? There is normal augmentation response to distal compression maneuver. ? ? IMPRESSION:? ? 1. No evidence of deep venous thrombosis in the right lower extremity. [facility] Narrative Medical decision making narrative: Patient's just 1 week status post right total hip replacement. His workup today is negative for a DVT although he does have swelling to his right lower extremity. He also has erythema to the right lower extremity. Patient is afebrile, not tachycardic and does not have a leukocytosis. Given the erythema I do have some suspicion about an infection however I would suspect given the extent of the redness and swelling to his right lower extremity I would think that he would have some other signs of a systemic illness such as leukocytosis or fever or tachycardia. He does not have these findings. The swelling and erythema could very well just be because of the surgery that he recently had. I feel given the lack of other findings that we should hold on any antibiotics for now but he does require close follow-up. I did discuss the case with Dr. Holland who is on-call for Orthopedic surgery. She stated that the patient could contact their office tomorrow morning and could be seen in the clinic tomorrow by the operative surgeon. I did discuss this with the patient and his . I did inform him that if his symptoms worsen prior to this visit that he does need to return to the emergency department. He was given return precautions. He expressed understanding and agreement plan. Discharge Plan Departure Patient Disposition: Home Clinical Impression: Edema Activity Restrictions/Additional Instructions: Recommend that you follow all of the postoperative instructions given to you by Dr. Galeas. I recommend that tomorrow morning you contact Dr. Galeas office here in [place] for follow-up tomorrow afternoon. Until then if your symptoms worsen or you develop new symptoms please return to the emergency department for further evaluation. Prescriptions: No Action epinephrine 0.3 MG/0.3 ML auto-injector 0.3 mg IM PRN PRN (Reason: Allergic Reaction) Qty: 0 albuterol sulfate [Ventolin HFA] 90 MCG/PUFF HFA aerosol inhaler 2 puff INH Q6H PRN (Reason: asthma) Qty: 0 fluticasone propionate [Flonase Allergy Relief] 9.9 ML spray,suspension 1 spray Intranasal QDAY PRN (Reason: Sinus Congestion) Qty: 0 cyanocobalamin (vitamin B-12) 5,000 MCG tablet,disintegrating 5,000 mcg PO QDAY Qty: 0 multivitamin [Multiple Vitamins] 1 EACH tablet 2 tab PO QDAY Qty: 0 trazodone 50 mg Tablet 50 - 100 mg PO BEDTIME polyethylene glycol 3350 17 gram Powder In Packet 17 g PO DAILY PRN (Reason: Constipation) aspirin 81 mg Tablet,Delayed Release (Dr/Ec) 81 mg PO BEDTIME naproxen 500 mg Tablet 500 mg PO BID furosemide 20 mg tablet 40 mg PO QAM nifedipine 90 mg Tablet Extended Release 90 mg PO DAILY tamsulosin 0.4 mg Capsule 0.4 mg PO DAILY levothyroxine 50 mcg Tablet 50 mcg PO DAILY telmisartan 80 mg Tablet 80 mg PO DAILY gabapentin 300 mg Capsule 300 mg PO DAILY PRN (Reason: Pain) escitalopram oxalate 10 mg tablet 5 mg PO DAILY amlodipine 5 mg tablet 5 mg PO DAILY propranolol 60 mg capsule,extended release 24 hr 60 mg PO DAILY levothyroxine [Synthroid] 50 mcg tablet 50 mcg PO DAILY aspirin 81 mg Tablet,Delayed Release (Dr/Ec) 81 mg PO BID Qty: 84 0RF oxycodone 5 mg Tablet 5 mg PO Q3H PRN (Reason: Pain, Moderate (4-6)) Qty: 40 0RF (DME) ResMed BIPAP Qty: 1 Dose Instruction: As directed Patient Comments: Pressure: IPAP 13 EPAP 9 DME: [facility] Rx Instructions: As directed metformin 500 mg tablet 1,000 mg PO DAILY acetaminophen [Tylenol] 325 mg capsule 325 mg PO TID temazepam 15 mg capsule 15 mg PO BEDTIME propranolol 60 mg capsule,extended release 24 hr 60 mg PO BEDTIME Trulicity 0.75 mg/0.5 mL pen injector 1.5 mg SUBCUT QWEEK Referrals: Allyson Zelaya DO [Primary Care Provider] - Kim Galeas MD [Physician] - Stand Alone Forms: Patient Portal/API
[2022-08-08 21:45] LABS: Add Manual Diff / Slide Review NO; Basophils Absolute Auto 0 /uL (0-100); Basophils Percent Auto 0.4 % (0-2); Eosinophils Absolute Auto 400 /uL (0-450); Hematocrit 35.7 % (41-53); Hemoglobin 12.8 g/dL (13.5-17.5); Lymphocytes Absolute Auto 2100 /uL (1100-4500); Lymphocytes Percent Auto 28.7 % (25-40); Mean Corpuscular HGB Conc 35.8 % (30-36); Mean Corpuscular Hemoglobin 32.3 PG (26-34); Mean Corpuscular Volume 90.2 fL (80-100); Monocytes Absolute Auto 700 /uL (0-900); Monocytes Percent Auto 9.4 % (3-14); Neutrophils Absolute Auto 4000 /uL (1500-7000); Neutrophils Percent Auto 56.5 % (50-75); Platelet Count 305 X10^3/uL (150-400); Red Blood Cell Count 3.96 X10^6/uL (4.5-5.9); Red Cell Distribution Width 13.2 % (11.6-14.8); White Blood Cell Count 7.2 X10^3/uL (4.5-11.0)
[2022-08-08 21:49] VITALS: BP 155/85; PULSE 66; RESP 22
[2022-08-08 21:55] LABS: BUN Creatinine Ratio 22.2 (6-22); Blood Urea Nitrogen 18 mg/dL (9-20); Calcium 9.3 mg/dL (8.4-10.2); Carbon Dioxide 34 mmol/L (22-32); Chloride 98 mmol/L (98-107); Estimated Glomerular Filt Rate > 60 mL/min (>60); Glucose 155 mg/dL (80-110); HEMOLYSIS 19 (0-50); Potassium 4.2 mmol/L (3.4-5.1); Sodium 136 mmol/L (137-145)
[2022-08-08 22:32] VITALS: BP 147/80; PULSE 71; RESP 16; O2SAT 97
== END 2022-08-08 22:33 | disposition home or self-care (01) ==
PROVIDERS: Emergency Provider Emergency Medicine; Family Provider Family Medicine; PCP Family Medicine
DX: R60.9 Edema, unspecified (principal); Z96.641 Presence of right artificial hip joint
CPT/HCPCS: 36415; 80048; 85025; 87040; 93971; 99284

== ENCOUNTER 2022-08-26 17:03 | Emergency (ER) | payer MEDICARE, OTHER, SELFPAY ==
[2018-01-29 18:16] VITALS: PULSE 81; RESP 18; O2SAT 100
[2022-08-03 14:58] VITALS: BMI 38.4
[2022-08-26] VITALS (18 sets, daily range): BP systolic 97–129; BP diastolic 53–80; PULSE 62–72; RESP 12–23; TEMP 36.5; O2SAT 94–97; BMI 39.7
--- NOTE | 2022-08-26 17:14 | DI.RAD.S_ITS ---
PROCEDURE: XR CHEST 1V INDICATIONS: chest pain TECHNIQUE: One view of the chest was acquired. COMPARISON: [facility], , CHEST FOR PICC PLACEMENT, 06/01/2017, 12:17. FINDINGS: Surgical changes and devices: None. Lungs and pleura: Lungs are clear. No pleural effusions or pneumothorax. Mediastinum: Mediastinal contours appear normal. Heart size is normal. Bones and chest wall: No suspicious bony lesions. Overlying soft tissues appear unremarkable. IMPRESSION: No acute cardiopulmonary abnormality. Dictated by: Brad Rojas M.D. on 08/26/2022 at 17:54 Approved by: Brad Rojas M.D. on 08/26/2022 at 17:54
[2022-08-26 17:44] LABS: Add Manual Diff / Slide Review NO; Basophils Absolute Auto 0 /uL (0-100); Basophils Percent Auto 0.4 % (0-2); Eosinophils Absolute Auto 200 /uL (0-450); Eosinophils Percent Auto 3.4 % (2-4); Hematocrit 38.8 % (41-53); Hemoglobin 13.8 g/dL (13.5-17.5); Lymphocytes Absolute Auto 2100 /uL (1100-4500); Lymphocytes Percent Auto 30.8 % (25-40); Mean Corpuscular HGB Conc 35.6 % (30-36); Mean Corpuscular Volume 89.9 fL (80-100); Monocytes Absolute Auto 500 /uL (0-900); Monocytes Percent Auto 7.6 % (3-14); Neutrophils Absolute Auto 4000 /uL (1500-7000); Neutrophils Percent Auto 57.8 % (50-75); Platelet Count 275 X10^3/uL (150-400); Red Blood Cell Count 4.31 X10^6/uL (4.5-5.9); Red Cell Distribution Width 13.8 % (11.6-14.8)
[2022-08-26] MEDS: SODIUM CHLORIDE 0.9% 1,000 ML 1000 ML IV (17:45)
[2022-08-26 17:46] LABS: INR 1.1 (0.9-1.3); Prothrombin Time 12.7 SECONDS (10.1-12.7)
[2022-08-26 17:49] LABS: PTT Partial Thromboplastin Tim 28 SECONDS (26-36)
[2022-08-26 17:52] LABS: Lactate (Lactic Acid) 2.3 mmol/L (0.7-2.1)
[2022-08-26 17:54] LABS: Alanine Aminotransferase 29 IU/L (<50); Albumin Globulin Ratio 1.4 (1.0-2.8); Alkaline Phosphatase 97 U/L (38-126); Aspartate Aminotransferase 22 IU/L (17-59); BUN Creatinine Ratio 14.6 (6-22); Bilirubin Total 0.5 mg/dL (0.2-1.3); Blood Urea Nitrogen 18 mg/dL (9-20); Calcium 9.5 mg/dL (8.4-10.2); Carbon Dioxide 28 mmol/L (22-32); Chloride 99 mmol/L (98-107); Creatine Kinase 26 U/L (55-170); Estimated Glomerular Filt Rate > 60 mL/min (>60); Globulin 2.8 g/dL (1.7-4.1); Glucose 209 mg/dL (80-110); HEMOLYSIS < 15 (0-50); Lipase 142 U/L (23-300); Magnesium 1.9 mg/dL (1.6-2.3); Potassium 4.2 mmol/L (3.4-5.1); Sodium 136 mmol/L (137-145); Total Protein 6.8 g/dL (6.3-8.2)
[2022-08-26 18:01] LABS: NT-proBNP (BNP-Adult 18+) 54 pg/mL (<125)
[2022-08-26 18:03] LABS: Troponin I < 0.012 ng/mL (0.01-0.034)
[2022-08-26 18:09] LABS: Procalcitonin 0.05 ng/mL (<0.5)
--- NOTE | 2022-08-26 18:44 | ED_ITS ---
HPI - General Adult General Chief complaint: Dizziness Stated complaint: BP 123/77 low, dizzy, T-0 Time Seen by Provider: 08/26/22 17:39 Source: patient Mode of arrival: Family Vehicle History of Present Illness HPI narrative: Patient is a 71-year-old male. Does have a history of hypertension. He also recently had a right hip replacement. He is currently on antibiotics because of cellulitis to his right lower extremity. He does take his blood pressure on a regular basis. He states that earlier today he started to not feel very well. He states he felt dizzy. Has some vision changes. Took his blood pressure and over several readings had a systolic blood pressure in the 70s and 80s. He states he does not think that he took extra doses of his blood pressure medicine. At the time he was not having chest pain nor palpitations. No nausea vomiting. He did have a headache. At the time of my evaluation he states he is feeling much better. He has received fluids prior to my evaluation. He is not had any recent illnesses. No change in urinary symptoms nor diarrhea. Related Data Home Medications Medication Instructions Recorded Confirmed albuterol sulfate 90 mcg/actuation 2 puff INH Q6H PRN asthma ##0 01/12/16 07/26/22 aerosol inhaler (Ventolin HFA) epinephrine 0.3 mg/0.3 mL 0.3 mg IM PRN PRN Allergic 01/12/16 07/26/22 injection, auto-injector Reaction ##0 fluticasone propionate 50 1 spray intranasal QDAY PRN Sinus 01/12/16 07/26/22 mcg/actuation nasal Congestion ##0 spray,suspension (Flonase Allergy Relief) cyanocobalamin (vitamin B-12) 5,000 mcg PO QDAY ##0 05/28/17 07/26/22 5,000 mcg disintegrating tablet multivitamin (Multiple Vitamins 2 tab PO QDAY ##0 05/28/17 07/26/22 tablet) trazodone 50 mg tablet 50 - 100 mg PO BEDTIME Sleep 01/14/18 07/26/22 aspirin 81 mg tablet,delayed 81 mg PO BEDTIME 08/27/19 08/03/22 release naproxen 500 mg tablet 500 mg PO BID 08/27/19 07/26/22 polyethylene glycol 3350 17 gram 17 g PO DAILY PRN Constipation 08/27/19 07/26/22 oral powder packet ResMed BIPAP #1 ea 07/15/20 08/03/22 furosemide 20 mg tablet 40 mg PO QAM 07/15/20 08/03/22 acetaminophen 325 mg capsule 325 mg PO TID 08/17/21 07/26/22 (Tylenol) dulaglutide 0.75 mg/0.5 mL 1.5 mg SUBCUT QWEEK 08/17/21 07/26/22 subcutaneous pen injector (Trulicity) metformin 500 mg tablet 1,000 mg PO DAILY 08/17/21 07/26/22 propranolol 60 mg capsule,24 60 mg PO BEDTIME 08/17/21 07/26/22 hr,extended release temazepam 15 mg capsule 15 mg PO BEDTIME 08/17/21 07/26/22 escitalopram oxalate 10 mg tablet 5 mg PO DAILY 07/26/22 07/26/22 gabapentin 300 mg capsule 300 mg PO DAILY PRN Pain 07/26/22 08/03/22 levothyroxine 50 mcg tablet 50 mcg PO DAILY 07/26/22 07/26/22 nifedipine 90 mg tablet,extended 90 mg PO DAILY 07/26/22 08/03/22 release tamsulosin 0.4 mg capsule 0.4 mg PO DAILY 07/26/22 07/26/22 telmisartan 80 mg tablet 80 mg PO DAILY 07/26/22 07/26/22 amlodipine 5 mg tablet 5 mg PO DAILY 08/03/22 08/03/22 levothyroxine 50 mcg tablet 50 mcg PO DAILY 08/03/22 08/03/22 (Synthroid) propranolol 60 mg capsule,24 60 mg PO DAILY 08/03/22 08/03/22 hr,extended release Previous Rx's Medication Instructions Recorded aspirin 81 mg tablet,delayed 81 mg PO BID #84 tabs 08/04/22 release oxycodone 5 mg tablet 5 mg PO Q3H PRN Pain, Moderate 08/04/22 (4-6) #40 tabs Allergies Allergy/AdvReac Type Severity Reaction Status Date / Time shellfish derived Allergy Severe ALLERGIC Verified 08/26/22 17:13 [SHELLFISH DERIVED] TO LOBSTER, CLOSES THROAT, CHEST PRESSURE venom-honey bee Allergy Severe THROAT Verified 08/26/22 17:13 [BEE VENOM (HONEY BEE)] CLOSES, CHEST PRESSURE oxycodone Allergy Intermediate Itch all Verified 08/26/22 17:13 over sildenafil AdvReac Intermediate Migraine Verified 08/26/22 17:13 Review of Systems Review of Systems ROS Unobtainable: All systems reviewed & are unremarkable except as noted in HPI and below Patient History Medical History Asthma BPH (benign prostatic hyperplasia) Cellulitis Cervical radiculopathy Colitis Constipation Derangement of other medial meniscus due to old tear or injury, unspecified knee Diabetes mellitus DISH (diffuse idiopathic skeletal hyperostosis) Disorder of nail Disorder of tendon of shoulder region Dyslipidemia Edema Excessive daytime sleepiness Hip pain Hyperlipidemia Hypertension Hypokalemia Left leg cellulitis Lumbar stenosis with neurogenic claudication Lumbar strain Melanoma (~2020) Migraine Myopia Obesity (BMI 30-39.9) (Unknown) Obstructive sleep apnea of adult Postoperative urinary retention (~01/2018) Pre-diabetes Primary insomnia Recurrent erosion of cornea Slowing of urinary stream Spider bite, venomous (~04/2017) Thoracic back pain Tinea pedis Urinary retention (~01/2018) UTI (urinary tract infection) Venous stasis Surgical History History of carpal tunnel surgery of right wrist (2019) History of colonoscopy History of laminectomy (~2015) History of lumbar fusion (01/29/18) History of surgery (05/09/18) History of total replacement of left shoulder joint (09/01/19) Hx of hemorrhoidectomy (2018) Social History marital status: (to Ratna) details: lives in [place] household members: spouse lives independently: Yes caregiver/support person: No housing: house Smoking Status: Former smoker alcohol intake: current Smoking Status: Former smoker alcohol intake frequency: 0-2 drinks per day Substance Use Type: does not use Exam Initial Vital Signs Initial Vital Signs: Vital Signs Temperature 97.7 F 08/26/22 17:07 Pulse Rate 72 08/26/22 17:07 Respiratory Rate 18 08/26/22 17:07 Blood Pressure 104/63 08/26/22 17:07 Pulse Oximetry 95 08/26/22 17:07 Oxygen Delivery Method Room Air 08/26/22 17:07 Const General: cooperative, comfortable and No ill appearing [facility] Head: normal to inspection and normocephalic Resp Effort & Inspection: normal respiratory effort Auscultation: clear to auscultation bilaterally Cardio Rate: regular rate Rhythm: regular rhythm GI Inspection: normal to inspection Palpation: soft and No tender Skin General: no rashes or lesions noted Neuro General: patient alert, patient awake, patient oriented x3 and moves all extremities Extrem General: normal to inspection and capillary refill normal Psych Appearance: grossly normal and well kempt Course Orders Ordered: ED Orders 08/26/22 17:14 XR chest 1V Stat 08/26/22 17:27 BNP [NT-proBNP (BNP-Adult 18+)] Stat Complete Blood Count AUTO DIFF Stat Comprehensive Metabolic Panel Stat Lactate (Lactic Acid) Stat Lipase Stat Magnesium Stat PTT Partial Thromboplastin Abner Stat Procalcitonin Stat Prothrombin Time INR Stat Troponin & CK Cardiac Panel Stat EKG-12 Lead Stat 08/26/22 17:36 Blood Culture Stat Discontinued Medications Aspirin (Aspirin 81 Mg Chew Tab) 324 mg PO NOW ONE Stop: 08/26/22 17:15 Last Admin: 08/26/22 17:40 Dose: Not Given Documented By: KLS Sodium Chloride (Normal Saline 0.9%) 1,000 mls @ 1,000 mls/hr IV BOLUS ONE Stop: 08/26/22 18:38 Last Infusion: 08/26/22 19:13 Dose: 0 mls/hr Documented By: Admin: 08/26/22 17:45 Dose: 1,000 mls/hr Documented By: WILLAM Vital Signs Vital signs: Vital Signs - 8 hr 08/26/22 18:00 08/26/22 18:00 08/26/22 18:10 Pulse Rate 66 63 Respiratory Rate 21 22 Blood Pressure 107/66 Pulse Oximetry 95 96 08/26/22 18:10 08/26/22 18:20 08/26/22 18:20 Pulse Rate 63 Respiratory Rate 22 Blood Pressure 112/66 115/70 Pulse Oximetry 95 08/26/22 18:30 08/26/22 18:30 08/26/22 18:40 Pulse Rate 67 68 Respiratory Rate 22 21 Blood Pressure 115/72 Pulse Oximetry 94 97 08/26/22 18:40 08/26/22 18:50 08/26/22 18:50 Pulse Rate 65 Respiratory Rate 23 Blood Pressure 113/73 105/65 Pulse Oximetry 95 08/26/22 19:00 08/26/22 19:01 08/26/22 19:01 Pulse Rate 64 62 Respiratory Rate 18 16 Blood Pressure 129/73 Pulse Oximetry 96 97 08/26/22 19:15 08/26/22 19:15 08/26/22 19:30 Pulse Rate 64 Respiratory Rate 20 Blood Pressure 118/78 126/80 Pulse Oximetry 95 08/26/22 19:30 08/26/22 19:39 08/26/22 19:39 Pulse Rate 66 65 Respiratory Rate 16 22 Blood Pressure 122/71 Pulse Oximetry 96 97 08/26/22 19:42 08/26/22 19:42 Pulse Rate 64 Respiratory Rate 12 Blood Pressure 118/74 Pulse Oximetry 97 Medical Decision Making Lab Data Lab results reviewed: Yes I reviewed the patient's lab results. 08/26/22 17:27 08/26/22 17:27 Labs: Lab Results 08/26/22 08/26/22 08/26/22 Range/Units 17:27 17:27 17:27 WBC 7.0 (4.5-11.0) X10^3/uL RBC 4.31 L (4.5-5.9) X10^6/uL Hgb 13.8 (13.5-17.5) g/dL Hct 38.8 L (41-53) % MCV 89.9 (80-100) fL MCH 32.0 (26-34) PG MCHC 35.6 (30-36) % RDW 13.8 (11.6-14.8) % Plt Count 275 (150-400) X10^3/uL Neut % (Auto) 57.8 (50-75) % Lymph % (Auto) 30.8 (25-40) % [place] % (Auto) 7.6 (3-14) % Eos % (Auto) 3.4 (2-4) % Baso % (Auto) 0.4 (0-2) % Neut # (Auto) 4000 (3345-5105) /uL Lymph # (Auto) 2100 (5612-7965) /uL [place] # (Auto) 500 (0-900) /uL Eos # (Auto) 200 (0-450) /uL Baso # (Auto) 0 (0-100) /uL PT 12.7 (10.1-12.7) SECONDS INR 1.1 (0.9-1.3) APTT 28 (26-36) SECONDS Sodium 136 L (137-145) mmol/L Potassium 4.2 (3.4-5.1) mmol/L Chloride 99 (98-107) mmol/L Carbon Dioxide 28 (22-32) mmol/L BUN 18 (9-20) mg/dL Creatinine 1.23 (0.66-1.25) mg/dL Estimated GFR > 60 (>60) mL/min BUN/Creatinine Ratio 14.6 (6-22) Glucose 209 H (80-110) mg/dL Lactate (0.7-2.1) mmol/L Calcium 9.5 (8.4-10.2) mg/dL Magnesium 1.9 (1.6-2.3) mg/dL Total Bilirubin 0.5 (0.2-1.3) mg/dL AST 22 (17-59) IU/L ALT 29 (<50) IU/L Alkaline Phosphatase 97 (38-126) U/L Total Creatine Kinase 26 L (55-170) U/L Troponin I < 0.012 (0.01-0.034) ng/mL NT-Pro-B Natriuret Pep (<125) pg/mL Total Protein 6.8 (6.3-8.2) g/dL Albumin 4.0 (3.5-5.0) g/dL Globulin 2.8 (1.7-4.1) g/dL Albumin/Globulin Ratio 1.4 (1.0-2.8) Lipase 142 (23-300) U/L Procalcitonin (<0.5) ng/mL 08/26/22 08/26/22 Range/Units 17:27 17:27 WBC (4.5-11.0) X10^3/uL RBC (4.5-5.9) X10^6/uL Hgb (13.5-17.5) g/dL Hct (41-53) % MCV (80-100) fL MCH (26-34) PG MCHC (30-36) % RDW (11.6-14.8) % Plt Count (150-400) X10^3/uL Neut % (Auto) (50-75) % Lymph % (Auto) (25-40) % [place] % (Auto) (3-14) % Eos % (Auto) (2-4) % Baso % (Auto) (0-2) % Neut # (Auto) (0885-8588) /uL Lymph # (Auto) (7651-9550) /uL [place] # (Auto) (0-900) /uL Eos # (Auto) (0-450) /uL Baso # (Auto) (0-100) /uL PT (10.1-12.7) SECONDS INR (0.9-1.3) APTT (26-36) SECONDS Sodium (137-145) mmol/L Potassium (3.4-5.1) mmol/L Chloride (98-107) mmol/L Carbon Dioxide (22-32) mmol/L BUN (9-20) mg/dL Creatinine (0.66-1.25) mg/dL Estimated GFR (>60) mL/min BUN/Creatinine Ratio (6-22) Glucose (80-110) mg/dL Lactate 2.3 H (0.7-2.1) mmol/L Calcium (8.4-10.2) mg/dL Magnesium (1.6-2.3) mg/dL Total Bilirubin (0.2-1.3) mg/dL AST (17-59) IU/L ALT (<50) IU/L Alkaline Phosphatase (38-126) U/L Total Creatine Kinase (55-170) U/L Troponin I (0.01-0.034) ng/mL NT-Pro-B Natriuret Pep 54 (<125) pg/mL Total Protein (6.3-8.2) g/dL Albumin (3.5-5.0) g/dL Globulin (1.7-4.1) g/dL Albumin/Globulin Ratio (1.0-2.8) Lipase (23-300) U/L Procalcitonin 0.05 (<0.5) ng/mL Imaging Data Chest x-ray: Radiologist's Impression: PROCEDURE:? XR CHEST 1V ? INDICATIONS:? chest pain ? TECHNIQUE:? One view of the chest was acquired.? ? COMPARISON:? [facility], , CHEST FOR PICC PLACEMENT, 06/01/2017, 12:17. ? FINDINGS:? ? Surgical changes and devices:? None.? ? Lungs and pleura:? Lungs are clear.? No pleural effusions or pneumothorax.? ? Mediastinum:? Mediastinal contours appear normal.? Heart size is normal.? ? Bones and chest wall:? No suspicious bony lesions.? Overlying soft tissues appear unremarkable.? ? IMPRESSION:? No acute cardiopulmonary abnormality. ECG Data Attestation: I personally reviewed and interpreted this ECG as follows: Interpretation: Sinus rhythm Ventricular rate is 64 Normal axis Normal QRS Normal QTC No ST T wave changes MDM Narrative Medical decision making narrative: Patient's blood pressure after fluids is unremarkable. His heart rate is unremarkable. He ambulated around the department without issue. Unsure the exact etiology of his symptoms earlier today where his hypotension but low suspicion for ACS. Low suspicion for sepsis. He was not complaining of any palpitations at the time although a transient arrhythmia his still possible. Plan will be is to discharge patient home to have him continue to take his blood pressure at home. If he finds that his blood pressure is running low then he can talk with his primary doctor about changing his blood pressure medicines alt kayleigh we will hold on doing any of that currently. He was given return precautions and follow-up instructions. He expressed understanding and agreement. Discharge Plan Departure Patient Disposition: Home Clinical Impression: Dizziness, Hypotension Instructions: DI for Dizziness-Nonvertigo Activity Restrictions/Additional Instructions: I do recommend that you continue to take all of your medications as directed and continue to take your blood pressure at home like we discussed. Keep all of your scheduled medical appointments. Return to the emergency department for new or worsening symptoms. Prescriptions: No Action epinephrine 0.3 MG/0.3 ML auto-injector 0.3 mg IM PRN PRN (Reason: Allergic Reaction) Qty: 0 albuterol sulfate [Ventolin HFA] 90 MCG/PUFF HFA aerosol inhaler 2 puff INH Q6H PRN (Reason: asthma) Qty: 0 fluticasone propionate [Flonase Allergy Relief] 9.9 ML spray,suspension 1 spray Intranasal QDAY PRN (Reason: Sinus Congestion) Qty: 0 cyanocobalamin (vitamin B-12) 5,000 MCG tablet,disintegrating 5,000 mcg PO QDAY Qty: 0 multivitamin [Multiple Vitamins] 1 EACH tablet 2 tab PO QDAY Qty: 0 trazodone 50 mg Tablet 50 - 100 mg PO BEDTIME polyethylene glycol 3350 17 gram Powder In Packet 17 g PO DAILY PRN (Reason: Constipation) aspirin 81 mg Tablet,Delayed Release (Dr/Ec) 81 mg PO BEDTIME naproxen 500 mg Tablet 500 mg PO BID furosemide 20 mg tablet 40 mg PO QAM nifedipine 90 mg Tablet Extended Release 90 mg PO DAILY tamsulosin 0.4 mg Capsule 0.4 mg PO DAILY levothyroxine 50 mcg Tablet 50 mcg PO DAILY telmisartan 80 mg Tablet 80 mg PO DAILY gabapentin 300 mg Capsule 300 mg PO DAILY PRN (Reason: Pain) escitalopram oxalate 10 mg tablet 5 mg PO DAILY amlodipine 5 mg tablet 5 mg PO DAILY propranolol 60 mg capsule,extended release 24 hr 60 mg PO DAILY levothyroxine [Synthroid] 50 mcg tablet 50 mcg PO DAILY aspirin 81 mg Tablet,Delayed Release (Dr/Ec) 81 mg PO BID Qty: 84 0RF oxycodone 5 mg Tablet 5 mg PO Q3H PRN (Reason: Pain, Moderate (4-6)) Qty: 40 0RF (DME) ResMed BIPAP Qty: 1 Dose Instruction: As directed Patient Comments: Pressure: IPAP 13 EPAP 9 DME: [facility] Rx Instructions: As directed metformin 500 mg tablet 1,000 mg PO DAILY acetaminophen [Tylenol] 325 mg capsule 325 mg PO TID temazepam 15 mg capsule 15 mg PO BEDTIME propranolol 60 mg capsule,extended release 24 hr 60 mg PO BEDTIME Trulicity 0.75 mg/0.5 mL pen injector 1.5 mg SUBCUT QWEEK Referrals: Allyson Zelaya DO [Primary Care Provider] - Stand Alone Forms: Patient Portal/API
[2022-08-26 19:42] LABS: Reflexed Lactate in 2 Hours Y
--- NOTE | 2022-08-26 19:44 | PC.NURSE ---
dc pt's IV from left forearm, site clear
== END 2022-08-26 19:52 | disposition home or self-care (01) ==
PROVIDERS: Emergency Medicine; Emergency Provider Emergency Medicine; Family Provider Family Medicine; PCP Family Medicine
DX: R42 Dizziness and giddiness (principal); I95.9 Hypotension, unspecified
CPT/HCPCS: 36415; 71045; 80053; 82550; 83605; 83690; 83735; 83880; 84145; 84484; 85025; 85610; 85730; 87040; 93005; 93010; 99283; 99284

== ENCOUNTER → 2022-09-29 11:34 | Outpatient (CLI) | payer MEDICARE, OTHER, SELFPAY ==
[2018-01-29 18:16] VITALS: PULSE 81; RESP 18; O2SAT 100
[2022-08-03 14:58] VITALS: BMI 38.4
--- NOTE | 2022-09-29 | DI.CT.S_ITS ---
PROCEDURE: CT LUMBAR SPINE WO CON INDICATIONS: spinal stenosis lumbar region TECHNIQUE: Noncontrast 3 mm thick sections acquired from the T12 level to the sacrum. Sagittal and coronal reformats were constructed. For radiation dose reduction, the following was used: automated exposure control. COMPARISON: [facility], MR, MR LUMBAR SPINE WO CON, 03/25/2019, 16:21. [facility] [place], CR, XR LUMBAR SPINE 2 OR 3 VIEWS, 09/21/2022, 9:35. [facility], CT, CT LUMBAR SPINE WO CON, 03/25/2019, 14:58. [facility], CT, CT LUMBAR SPINE WO CON, 11/04/2018, 12:58. FINDINGS: Image quality: Excellent. Bones: Postsurgical changes again seen with posterior fixation hardware extending from L3 through S1 including bilateral pedicle screws, interbody rods, and disc spacers. Fracture of the left S1 pedicle screw is again noted as before. Lucency again seen surrounding the right S1 pedicle screw with new subtle step-off indicating a minimally displaced pedicle screw fracture. There has also been interval fracture of the left L3 pedicle screw when compared to the prior CT. Metal hardware is otherwise intact. No acute vertebral body compression fracture. Osseous alignment does not appear significantly changed. No suspicious lytic or blastic bony lesions. T12-L1: Anterior and lateral osteophyte formation. No significant spinal canal stenosis or neural foraminal narrowing. L1-L2: Bridging osteophyte formation and mild circumferential disc bulging as well as mild bilateral facet hypertrophy and buckling of the ligamentum flavum. Findings result in moderate narrowing of the spinal canal and mild narrowing of the bilateral neural foramina, not significantly changed when compared to 03/25/2019. L2-L3: Moderate to severe loss of disc space height with bridging osteophyte formation as well as mild circumferential disc bulging and moderate facet hypertrophy. Findings result in moderate narrowing of the spinal canal as well as moderate to severe right and moderate left neural foraminal narrowing, not significantly changed when compared to the prior CT. L3-L4: Postsurgical changes from right hemilaminectomy with decompression of the spinal canal. Moderate bilateral neural foraminal narrowing, not significantly changed when compared to the prior exam. L4-L5: Postsurgical changes from right hemilaminectomy with decompression of the spinal canal. [id number] bilateral neural foraminal narrowing, not significantly changed when compared to the prior CT. L5-S1: Postsurgical changes are seen from right hemilaminectomy with decompression of the spinal canal. There is moderate to severe bilateral neural foraminal narrowing, not significantly changed when compared to prior exam. Soft tissues: No retroperitoneal masses or hematomas. Visualized aorta is normal in caliber. IMPRESSION: 1. Postsurgical changes again seen from posterior fixation at L3 through S1. Left at S1 pedicle screw is again seen to be fractured, unchanged. New minimally displaced fractures of the right S1 pedicle screw and left L3 pedicle screw. 2. Multilevel degenerative disc disease and facet hypertrophy does not appear significantly changed when compared to the prior CT from 03/25/2019. Approved by: Hernesto Montana M.D. on 09/29/2022 at 14:34
== END ==
PROVIDERS: Family Provider Family Medicine; PCP Family Medicine; Referring Provider Orthopaedic Surgery Orthopaedic Surgery of the Spine; Visit Provider Orthopaedic Surgery Orthopaedic Surgery of the Spine
DX: M48.062 Spinal stenosis, lumbar region with neurogenic claudication (principal); M51.36 Other intervertebral disc degeneration, lumbar region; M47.816 Spondylosis without myelopathy or radiculopathy, lumbar region; T84.216A Breakdown (mechanical) of internal fixation device of vertebrae, initial encounter
CPT/HCPCS: 72131

== ENCOUNTER → 2022-12-18 14:01 | Outpatient (CLI) | payer MEDICARE, OTHER, SELFPAY ==
[2018-01-29 18:16] VITALS: PULSE 81; RESP 18; O2SAT 100
[2022-08-03 14:58] VITALS: BMI 38.4
== END ==
PROVIDERS: Family Provider Family Medicine; PCP Family Medicine; Referring Provider Family Medicine; Visit Provider Surgery
DX: I89.0 Lymphedema, not elsewhere classified (principal)
CPT/HCPCS: 99203; 99212

== ENCOUNTER → 2022-12-23 13:48 | Outpatient (CLI) | payer MEDICARE, OTHER, SELFPAY ==
[2018-01-29 18:16] VITALS: PULSE 81; RESP 18; O2SAT 100
[2022-08-03 14:58] VITALS: BMI 38.4
--- NOTE | 2022-12-23 | DI.MRI.S_ITS ---
PROCEDURE: MR KNEE RT WO CON INDICATIONS: Pain in right knee TECHNIQUE: Noncontrast sagittal PD fast spin echo and T2 fast spin echo with fat saturation, sagittal 3-D FLASH with fat saturation; coronal T1 spin echo and PD fast spin echo with fat saturation, and axial PD fast spin echo with fat saturation through the knee. COMPARISON: [facility], MR, MR KNEE LT WO CON, 01/07/2018, 13:33. FINDINGS: Image quality: Excellent. Moderate diffuse subcutaneous ill-defined T2 signal elevation. Menisci: There is radial tearing of the posterior horn medial meniscus at the meniscal root ligament insertion site. Linear horizontal high T2 signal intensity traverses the inner, middle, and peripheral thirds of the posterior horn medial meniscus, demonstrating superior articular surface extension, indicating horizontal tearing. Lateral meniscus is intact. Cruciate ligaments: The anterior and posterior cruciate ligaments appear intact. Medial structures: The medial collateral ligament appears intact. There is a small amount of fluid deep to the medial collateral ligament. Visualized portions of the pes anserinus tendons appear normal. No abnormal bursal fluid. Lateral structures: The lateral collateral ligament, long and short heads of the biceps femoris tendon appear intact. The popliteus tendon appears normal. Iliotibial band appears normal. Anterior structures: The quadriceps and patellar tendons appear intact. Patellar alignment is normal. No femoral trochlear dysplasia or ventral trochlear prominence. No edema in the infrapatellar fat pad. Bones and cartilage: No bone marrow contusions or fractures. Mild tricompartmental periarticular osteophyte formation. Mild articular cartilage loss diffusely overlies the weight-bearing aspects of the medial femoral condyle and medial tibial plateau. Severe articular cartilage loss overlies the lateral patellar facet and lateral femoral trochlea. Moderate articular cartilage loss overlies the medial femoral trochlea. Joint space: There is a small knee joint effusion. A 24 mm diameter cystic focus at the posterior aspect of the intercondylar notch is present, suggestive of a ganglion cyst. No Nix's cyst. Normal appearing synovial plicae are incidentally noted. IMPRESSION: 1. Tricompartmental osteoarthritis with associated articular cartilage loss. 2. Medial meniscal tearing. 3. Medial collateral ligament bursitis. 4. Knee joint effusion. 5. Ganglion cyst at the posterior aspect of the knee joint. 6. Diffuse subcutaneous edema versus cellulitis. Dictated by: Kyle Bautista M.D. on 12/25/2022 at 13:19 Approved by: Kyle Bautista M.D. on 12/25/2022 at 13:22
== END ==
PROVIDERS: Family Provider Family Medicine; PCP Family Medicine; Referring Provider Family Medicine; Visit Provider Family Medicine
DX: M17.11 Unilateral primary osteoarthritis, right knee (principal); S83.241A Other tear of medial meniscus, current injury, right knee, initial encounter; M71.561 Other bursitis, not elsewhere classified, right knee; M25.461 Effusion, right knee; M67.461 Ganglion, right knee; M25.561 Pain in right knee
CPT/HCPCS: 73721

== ENCOUNTER 2023-04-27 11:19 | Inpatient (IN) | payer MEDICARE, OTHER, SELFPAY ==
[2018-01-29 18:16] VITALS: PULSE 81; RESP 18; O2SAT 100
[2022-08-03 14:58] VITALS: BMI 38.4
[2023-04-27] VITALS (31 sets, daily range): BP systolic 121–162; BP diastolic 57–91; PULSE 89–108; RESP 16–18; TEMP 37.7–40.4; O2SAT 92–97; BMI 38.7
[2023-04-27 12:21] LABS: COVID-19 CEPHEID 4-PLEX PCR Negative (Negative); Influenza A - CEPHEID Flu A NEGATIVE (NEGATIVE); Influenza B - CEPHEID Flu B NEGATIVE (NEGATIVE); Respiratory Syncytial Virus Negative (Negative)
[2023-04-27 12:34] LABS: Add Manual Diff / Slide Review NO; Basophils Absolute Auto 0 /uL (0-100); Basophils Percent Auto 0.2 % (0-2); Eosinophils Absolute Auto 0 /uL (0-450); Eosinophils Percent Auto 0.2 % (2-4); Lymphocytes Absolute Auto 600 /uL (1100-4500); Lymphocytes Percent Auto 4.4 % (25-40); Mean Corpuscular HGB Conc 35.7 % (30-36); Mean Corpuscular Hemoglobin 31.7 PG (26-34); Mean Corpuscular Volume 88.7 fL (80-100); Monocytes Absolute Auto 900 /uL (0-900); Monocytes Percent Auto 6.2 % (3-14); Neutrophils Absolute Auto 12600 /uL (1500-7000); Platelet Count 177 X10^3/uL (150-400); Red Blood Cell Count 4.74 X10^6/uL (4.5-5.9); Red Cell Distribution Width 13.8 % (11.6-14.8); White Blood Cell Count 14.1 X10^3/uL (4.5-11.0)
--- NOTE | 2023-04-27 12:39 | DI.RAD.S_ITS ---
PROCEDURE: XR CHEST 1V INDICATIONS: fever TECHNIQUE: One view of the chest was acquired. COMPARISON: [facility], [facility]ZZ[facility], XR CHEST 1V, 08/26/2022, 17:35. [facility], [facility], CHEST FOR PICC PLACEMENT, 06/01/2017, 12:17. FINDINGS: Surgical changes and devices: None. Lungs and pleura: Lungs are clear. No pleural effusions or pneumothorax. Mediastinum: Mediastinal contours appear normal. Heart size is normal. Bones and chest wall: No suspicious bony lesions. Overlying soft tissues appear unremarkable. IMPRESSION: Mild linear atelectasis lateral left lung base, no definite pneumonia seen. Dictated by: Cecilio Everett M.D. on 04/27/2023 at 13:15 Approved by: Cecilio Everett M.D. on 04/27/2023 at 13:16
[2023-04-27 12:47] LABS: Alanine Aminotransferase 24 IU/L (<50); Albumin Globulin Ratio 1.3 (1.0-2.8); Alkaline Phosphatase 83 U/L (38-126); Aspartate Aminotransferase 25 IU/L (17-59); BUN Creatinine Ratio 16.5 (6-22); Bilirubin Total 1.2 mg/dL (0.2-1.3); Blood Urea Nitrogen 14 mg/dL (9-20); Calcium 9.5 mg/dL (8.4-10.2); Carbon Dioxide 30 mmol/L (22-32); Chloride 102 mmol/L (98-107); Estimated Glomerular Filt Rate > 60 mL/min (>60); Globulin 3.1 g/dL (1.7-4.1); Glucose 224 mg/dL (80-110); HEMOLYSIS 54 (0-50); Lactate (Lactic Acid) 2.3 mmol/L (0.7-2.1); Potassium 4.3 mmol/L (3.4-5.1); Sodium 136 mmol/L (137-145); Total Protein 7.1 g/dL (6.3-8.2)
[2023-04-27] MEDS: SODIUM CHLORIDE 0.9% 1,000 ML 1000 ML IV (14:05)
[2023-04-27 14:06] LABS: Reflexed Lactate in 2 Hours Y
[2023-04-27 14:52] LABS: Lactate 2HR (Lactic Acid Rflx) 1.9 mmol/L (0.7-2.1)
--- NOTE | 2023-04-27 15:38 | PC.NURSE ---
This RN informed provider of patient increasing temperature and pulse. Provider noted and no new orders given.
--- NOTE | 2023-04-27 16:14 | DI.CT.S_ITS ---
PROCEDURE: CT ABDOMEN PELVIS W CON INDICATIONS: abd pain TECHNIQUE: After the administration of intravenous contrast, axial sections acquired from the lung bases to the pubic symphysis. Coronal and sagittal reformats were performed. For radiation dose reduction, the following was used: automated exposure control, adjustment of mA and/or kV according to patient size. COMPARISON: None. FINDINGS: Image quality: Portions of the lower pelvis are suboptimally evaluated secondary to metallic streak artifact from hip arthroplasty. Lower Chest: No significant findings. ABDOMEN: Liver: No solid mass. Liver measures 18.6 cm with steatosis. Gallbladder: No radiopaque gallstones or wall thickening. Biliary ducts: No biliary dilation. Pancreas: No ductal dilation. Spleen: Size is within normal limits. Adrenal Glands: No adrenal nodules. Kidneys and Ureters: No hydronephrosis. No solid mass. No complex renal cystic lesion which requires follow up. Stomach and Bowel: Normal colonic caliber, without significant wall thickening. Appendix is normal. Peritoneum: No abnormal intraperitoneal fluid. No free air. Ventral Wall: Fat containing ventral hernia. Abdominal Nodes: No retroperitoneal or mesenteric adenopathy by size criteria. Vessels: Aorta and inferior vena cava are normal in size. PELVIS: Pelvic Organs: Unremarkable. Bladder: No bladder wall thickening, accounting for underdistention. Pelvic Nodes: No enlarged lymph nodes. Miscellaneous: No inguinal hernias are seen. Bones: No aggressive osseous abnormality. IMPRESSION: No visualized acute intra-abdominal or pelvic process. Dictated by: Brenna Corrales M.D. on 04/27/2023 at 16:52 Approved by: Brenna Corrales M.D. on 04/27/2023 at 16:54
--- NOTE | 2023-04-27 16:14 | DI.RAD.S_ITS ---
PROCEDURE: XR TIBIA FUBULA RT 2V INDICATIONS: cellulitis r leb TECHNIQUE: 2 views of the tibia and fibula were acquired. COMPARISON: None. FINDINGS: Bones: No fractures or dislocations. No suspicious bony lesions. Soft tissues: No suspicious soft tissue calcifications or masses. Edema within the calf region soft tissues. IMPRESSION: No trauma found, no gas in the soft tissues seen. No foreign body identified. No underlying osteomyelitis. Apparent cellulitis. Dictated by: Cecilio Everett M.D. on 04/27/2023 at 16:43 Approved by: Cecilio Everett M.D. on 04/27/2023 at 16:44
--- NOTE | 2023-04-27 16:17 | ED_ITS ---
HPI - Fever General Chief Complaint: Fever Stated Complaint: Chills/shakes Time Seen by Provider: 04/27/23 12:13 Source: patient and EMS Mode of arrival: EMS History of Present Illness HPI Narrative: 72-year-old man with a history of type 2 diabetes and recurrent lower extremity cellulitis presenting with a fever beginning today. Had a temperature of a 102? at home this morning prior to coming in. Also felt generally weak lightheaded with shaking chills. Has urinary hesitancy which is baseline. He has not noted any abdominal pain nausea vomiting or diarrhea. He has not have a cough or dyspnea, does have right lower extremity warmth and some pain in his groin. He is accompanied here by his who assists with the history. Related Data Home Medications Medication Instructions Recorded Confirmed albuterol sulfate 90 mcg/actuation 2 puff INH Q6H PRN asthma ##0 01/12/16 07/26/22 aerosol inhaler (Ventolin HFA) epinephrine 0.3 mg/0.3 mL 0.3 mg IM PRN PRN Allergic 01/12/16 07/26/22 injection, auto-injector Reaction ##0 fluticasone propionate 50 1 spray intranasal QDAY PRN Sinus 01/12/16 07/26/22 mcg/actuation nasal Congestion ##0 spray,suspension (Flonase Allergy Relief) cyanocobalamin (vitamin B-12) 5,000 mcg PO QDAY ##0 05/28/17 07/26/22 5,000 mcg disintegrating tablet multivitamin (Multiple Vitamins 2 tab PO QDAY ##0 05/28/17 07/26/22 tablet) trazodone 50 mg tablet 50 - 100 mg PO BEDTIME Sleep 01/14/18 07/26/22 aspirin 81 mg tablet,delayed 81 mg PO BEDTIME 08/27/19 08/03/22 release naproxen 500 mg tablet 500 mg PO BID 08/27/19 07/26/22 polyethylene glycol 3350 17 gram 17 g PO DAILY PRN Constipation 08/27/19 07/26/22 oral powder packet ResMed BIPAP #1 ea 07/15/20 08/03/22 furosemide 20 mg tablet 40 mg PO QAM 07/15/20 08/03/22 acetaminophen 325 mg capsule 325 mg PO TID 08/17/21 07/26/22 (Tylenol) dulaglutide 0.75 mg/0.5 mL 1.5 mg SUBCUT QWEEK 08/17/21 07/26/22 subcutaneous pen injector (Trulicity) metformin 500 mg tablet 1,000 mg PO DAILY 08/17/21 07/26/22 propranolol 60 mg capsule,24 60 mg PO BEDTIME 08/17/21 07/26/22 hr,extended release temazepam 15 mg capsule 15 mg PO BEDTIME 08/17/21 07/26/22 escitalopram oxalate 10 mg tablet 5 mg PO DAILY 07/26/22 07/26/22 gabapentin 300 mg capsule 300 mg PO DAILY PRN Pain 07/26/22 08/03/22 levothyroxine 50 mcg tablet 50 mcg PO DAILY 07/26/22 07/26/22 nifedipine 90 mg tablet,extended 90 mg PO DAILY 07/26/22 08/03/22 release tamsulosin 0.4 mg capsule 0.4 mg PO DAILY 07/26/22 07/26/22 telmisartan 80 mg tablet 80 mg PO DAILY 07/26/22 07/26/22 amlodipine 5 mg tablet 5 mg PO DAILY 08/03/22 08/03/22 levothyroxine 50 mcg tablet 50 mcg PO DAILY 08/03/22 08/03/22 (Synthroid) propranolol 60 mg capsule,24 60 mg PO DAILY 08/03/22 08/03/22 hr,extended release Previous Rx's Medication Instructions Recorded aspirin 81 mg tablet,delayed 81 mg PO BID #84 tabs 08/04/22 release oxycodone 5 mg tablet 5 mg PO Q3H PRN Pain, Moderate 08/04/22 (4-6) #40 tabs Allergies Allergy/AdvReac Type Severity Reaction Status Date / Time shellfish derived Allergy Severe ALLERGIC Verified 04/27/23 11:49 [SHELLFISH DERIVED] TO LOBSTER, CLOSES THROAT, CHEST PRESSURE venom-honey bee Allergy Severe THROAT Verified 04/27/23 11:49 [BEE VENOM (HONEY BEE)] CLOSES, CHEST PRESSURE oxycodone Allergy Intermediate Itch all Verified 04/27/23 11:49 over sildenafil AdvReac Intermediate Migraine Verified 04/27/23 11:49 Patient History Medical History Asthma BPH (benign prostatic hyperplasia) Cellulitis Cervical radiculopathy Colitis Constipation Derangement of other medial meniscus due to old tear or injury, unspecified knee Diabetes mellitus DISH (diffuse idiopathic skeletal hyperostosis) Disorder of nail Disorder of tendon of shoulder region Dyslipidemia Edema Excessive daytime sleepiness Hip pain Hyperlipidemia Hypertension Hypokalemia Left leg cellulitis Lumbar stenosis with neurogenic claudication Lumbar strain Melanoma (~2020) Migraine Myopia Obesity (BMI 30-39.9) (Unknown) Obstructive sleep apnea of adult Postoperative urinary retention (~01/2018) Pre-diabetes Primary insomnia Recurrent erosion of cornea Slowing of urinary stream Spider bite, venomous (~04/2017) Thoracic back pain Tinea pedis Urinary retention (~01/2018) UTI (urinary tract infection) Venous stasis Surgical History History of carpal tunnel surgery of right wrist (2019) History of colonoscopy History of laminectomy (~2015) History of lumbar fusion (01/29/18) History of surgery (05/09/18) History of total replacement of left shoulder joint (09/01/19) Hx of hemorrhoidectomy (2018) Social History marital status: (to Ratna) details: lives in [place] household members: spouse lives independently: Yes caregiver/support person: No housing: house Smoking Status: Former smoker alcohol intake: current Smoking Status: Former smoker alcohol intake frequency: 0-2 drinks per day Substance Use Type: does not use Exam Initial Vital Signs Initial Vital Signs: Vital Signs Temperature 99.8 F H 04/27/23 11:20 Pulse Rate 95 H 04/27/23 11:20 Respiratory Rate 18 04/27/23 11:20 Blood Pressure 162/90 H 04/27/23 11:20 Pulse Oximetry 96 04/27/23 11:20 Oxygen Delivery Method Room Air 04/27/23 11:20 Patient is ill-appearing, he is flushed, he arrives with a temp of 99.8? T-max is 100.6. He is also developed a little bit of tachycardia while here. HENMT Head: normocephalic and atraumatic Mouth: oral mucosae normal, oropharynx normal and moist mucous membranes Neck Other: Neck is supple without adenopathy Resp Other: lungs are clear with equal breath sounds Cardio Other: regular rhythm rate no murmur rub or gallop GI Other: abdomen is obese, bowel sounds are normal abdomen is soft he has right and left lower quadrant tenderness no guarding rebound or mass Other: no CVAT Skin Other: flushed without rash Extrem Other: bilateral venous stasis changes in lower extremity edema. Right lower extremity is erythematous and hot between the knee and the ankle. There is no cord there is no lymphangitis he does have tender lymph nodes in the right groin Course Orders Ordered: ED Orders 04/27/23 11:27 Covid-19 + FLU A/B + RSV - PCR Stat 04/27/23 12:25 CBC Auto Diff [Complete Blood Count AUTO DIFF] Stat CMP [Comprehensive Metabolic Panel] Stat Lactate (Lactic Acid) Stat 04/27/23 12:39 Chest [XR chest 1V] Stat 04/27/23 16:14 CT abdomen pelvis w con Stat XR tibia fibula RT 2V Stat 04/27/23 16:15 Blood Culture Stat Discontinued Medications Sodium Chloride (Normal Saline 0.9%) 1,000 mls @ 1,000 mls/hr IV BOLUS ONE Stop: 04/27/23 14:46 Last Infusion: 04/27/23 15:24 Dose: Infused Documented By: Admin: 04/27/23 14:05 Dose: 1,000 mls/hr Documented By: FRANKIE Ceftriaxone Sodium 2,000 mg/ (Sodium Chloride) 100 mls @ 200 mls/hr IV NOW ONE Stop: 04/27/23 16:17 Consultations Consultation #1: D/W hospitalist, Dr. Myers who accepts admit Vital Signs Vital signs: Vital Signs - 8 hr 04/27/23 11:20 04/27/23 11:36 04/27/23 11:37 Temperature 99.8 F H Pulse Rate 95 H 95 H Respiratory Rate 18 Blood Pressure 162/90 H 162/90 H Pulse Oximetry 96 95 Oxygen Delivery Method Room Air 04/27/23 12:00 04/27/23 12:00 04/27/23 12:30 Temperature Pulse Rate 99 H 89 Respiratory Rate Blood Pressure 145/76 H Pulse Oximetry 96 96 Oxygen Delivery Method 04/27/23 12:30 04/27/23 13:00 04/27/23 13:00 Temperature Pulse Rate 90 Respiratory Rate Blood Pressure 121/63 145/91 H Pulse Oximetry 95 Oxygen Delivery Method 04/27/23 13:30 04/27/23 13:47 04/27/23 14:00 Temperature 100.6 F H Pulse Rate 97 H 95 H Respiratory Rate Blood Pressure Pulse Oximetry 95 93 Oxygen Delivery Method 04/27/23 14:00 04/27/23 14:30 04/27/23 14:30 Temperature Pulse Rate 96 H Respiratory Rate Blood Pressure 147/77 H 127/68 Pulse Oximetry 95 Oxygen Delivery Method 04/27/23 15:00 04/27/23 15:00 04/27/23 15:30 Temperature Pulse Rate 94 H 104 H Respiratory Rate Blood Pressure 131/57 L Pulse Oximetry 95 96 Oxygen Delivery Method 04/27/23 15:30 04/27/23 16:00 04/27/23 16:00 Temperature Pulse Rate 102 H Respiratory Rate Blood Pressure 128/64 145/67 H Pulse Oximetry 97 Oxygen Delivery Method 04/27/23 16:26 Temperature 100.6 F H Pulse Rate Respiratory Rate Blood Pressure Pulse Oximetry Oxygen Delivery Method MDM - Fever Lab Data Lab results narrative: white count 14.1. CMP remarkable for glucose of 224 kidney functions are intact. Initial lactate is 2.3 comes down to 1.9 with hydration. Urine dip is unremarkable. 04/27/23 12:25 04/27/23 12:25 Labs: Lab Results 04/27/23 04/27/23 04/27/23 Range/Units 11:27 12:25 14:35 WBC 14.1 H (4.5-11.0) X10^3/uL RBC 4.74 (4.5-5.9) X10^6/uL Hgb 15.0 (13.5-17.5) g/dL Hct 42.0 (41-53) % MCV 88.7 (80-100) fL MCH 31.7 (26-34) PG MCHC 35.7 (30-36) % RDW 13.8 (11.6-14.8) % Plt Count 177 (150-400) X10^3/uL Neut % (Auto) 89.0 H (50-75) % Lymph % (Auto) 4.4 L (25-40) % [place] % (Auto) 6.2 (3-14) % Eos % (Auto) 0.2 L (2-4) % Baso % (Auto) 0.2 (0-2) % Neut # (Auto) 32257 H (3400-5168) /uL Lymph # (Auto) 600 L (5453-6759) /uL [place] # (Auto) 900 (0-900) /uL Eos # (Auto) 0 (0-450) /uL Baso # (Auto) 0 (0-100) /uL Sodium 136 L (137-145) mmol/L Potassium 4.3 (3.4-5.1) mmol/L Chloride 102 (98-107) mmol/L Carbon Dioxide 30 (22-32) mmol/L BUN 14 (9-20) mg/dL Creatinine 0.85 (0.66-1.25) mg/dL Estimated GFR > 60 (>60) mL/min BUN/Creatinine Ratio 16.5 (6-22) Glucose 224 H (80-110) mg/dL Lactate 2.3 H 1.9 (0.7-2.1) mmol/L Calcium 9.5 (8.4-10.2) mg/dL Total Bilirubin 1.2 (0.2-1.3) mg/dL AST 25 (17-59) IU/L ALT 24 (<50) IU/L Alkaline Phosphatase 83 (38-126) U/L Total Protein 7.1 (6.3-8.2) g/dL Albumin 4.0 (3.5-5.0) g/dL Globulin 3.1 (1.7-4.1) g/dL Albumin/Globulin Ratio 1.3 (1.0-2.8) SARS-CoV-2 (PCR) Negative (Negative) Influenza A (RT-PCR) Flu a negative (NEGATIVE) Influenza B (RT-PCR) Flu b negative (NEGATIVE) RSV (PCR) Negative (Negative) Urine Dip Bedside Urine Glucose Negative Bedside Urine Bilirubin - Negative Bedside Urine Ketone - Negative Urine Specific [place] 1.015 Bedside Urine Occult Blood - Negative Bedside Urine pH 7.0 Bedside Urine Protein - Negative Bedside Urine Urobilinogen - Negative Bedside Urine Nitrite - Negative Bedside Urine Leukocytes - Negative Esterase Imaging Data CT scan - abdomen/pelvis: My Impression: Independently reviewed, bladder is full no acute process otherwise Radiologist's Impression: radiologist report no acute finding Chest x-ray: My Impression: no acute findings Radiologist's Impression: [address] [place] [address] XRay Report Signed Patient: Federico Montoya MR#: [id number] : 1950 Acct:[id number] Age/Sex: 72 / M Date of Service: 04/27/23 Loc: ED Accession Number: [id number] Procedure: XR chest 1V Ordering Provider: Domingo Thurston MD PROCEDURE: XR CHEST 1V INDICATIONS: fever TECHNIQUE: One view of the chest was acquired. COMPARISON: [facility], CR, XR CHEST 1V, 08/26/2022, 17:35. [facility], CR, CHEST FOR PICC PLACEMENT, 06/01/2017, 12:17. FINDINGS: Surgical changes and devices: None. Lungs and pleura: Lungs are clear. No pleural effusions or pneumothorax. Mediastinum: Mediastinal contours appear normal. Heart size is normal. Bones and chest wall: No suspicious bony lesions. Overlying soft tissues appear unremarkable. IMPRESSION: Mild linear atelectasis lateral left lung base, no definite pneumonia seen. Dictated by: Cecilio Everett M.D. on 04/27/2023 at 1 Extremity x-ray #1: My Impression: right tibia fibula, no acute findings Radiologist's Impression: radiology reports soft tissue edema, no gas in the soft tissues no bony injury MDM Narrative Medical decision making narrative: 72-year-old male with a history of recurrent lower extremity cellulitis presenting with an acute febrile illness. Right lower extremity does appear to be a bit cellulitic. He has leukocytosis presented with an elevated lactic acid and spiked a fever while here in the emergency department. The patient was ill- appearing. Extensive search for source of fever showed minimal findings on the chest x-ray and possible recurrent cellulitis. I started him on ceftriaxone for recurrent cellulitis. Patient will be admitted to the hospitalist service. Discharge Plan Departure Patient Disposition: Admitted as Observation Clinical Impression: Cellulitis Qualifiers: Site of cellulitis: extremity Site of cellulitis of extremity: lower extremity Laterality: right Qualified Code(s): L03.115 - Cellulitis of right lower limb Admit Date/Time: 04/27/23 16:57 Admit Provider: Varinder Myers
[2023-04-27] MEDS: LIDOCAINE 2% (GLYDO) 6 ML GEL TOP (17:07)
[2023-04-27] MEDS: cefTRIAXone 2,000 MG in SODIUM CHLORIDE 0.9% 100 ML 200 MG IV (17:20)
--- NOTE | 2023-04-27 17:28 | PC.NURSE ---
Patient has a weems placed with a temp sensing 2 way 10cc weems cath. The patient was given glydo lidocaine lubrication. The patient tolerated the procedure well.
--- NOTE | 2023-04-27 17:28 | PM.HP.1 ---
History of Present Illness History of Present Illness Date Patient Seen: 04/27/23 Time Patient Seen: 17:29 Chief complaint: Chills/shakes Narrative: The patient is a 72-year-old male with diabetes, obesity class 2, and recurrent right leg cellulitis as well as BPH and urinary retention. He presents not feeling well since this morning with a low-grade fever of up to 102. In addition he has had shaking chills throughout the course of the day and become progressively weak. In the emergency department he could urinate about 200 mils, when palpating his abdomen he is clearly uncomfortable in the suprapubic region. He denies recent rhinorrhea, sore throat, cough, or dyspnea. His notes his right leg will isolate between red and normal or [address] deputy [address] security in color. Fevers are abnormal for him. He has also had anorexia but no vomiting. He is some constipation and denies any recent diarrhea, blood per rectum or melena. He also denies any vomiting. He has no abdominal pain in the right upper or left upper quadrant. He does take metformin for diabetes and Flomax for BPH. He has had a Lo[place]iza catheter in the past. [facility] Medical History Melanoma (~2020) Obesity (BMI 30-39.9) (Unknown) Pre-diabetes Urinary retention (~01/2018) Postoperative urinary retention (~01/2018) Spider bite, venomous (~04/2017) Constipation Thoracic back pain Slowing of urinary stream Recurrent erosion of cornea Myopia Migraine Hypertension Hyperlipidemia Hip pain Edema Dyslipidemia Disorder of tendon of shoulder region Disorder of nail Derangement of other medial meniscus due to old tear or injury, unspecified knee Colitis Cervical radiculopathy DISH (diffuse idiopathic skeletal hyperostosis) Lumbar strain Lumbar stenosis with neurogenic claudication Hypokalemia Asthma BPH (benign prostatic hyperplasia) Diabetes mellitus Venous stasis Obstructive sleep apnea of adult Primary insomnia Excessive daytime sleepiness Cellulitis Tinea pedis Left leg cellulitis UTI (urinary tract infection) Surgical History History of total replacement of left shoulder joint (09/01/19) History of surgery (05/09/18) History of carpal tunnel surgery of right wrist (2019) Hx of hemorrhoidectomy (2018) History of lumbar fusion (01/29/18) History of colonoscopy History of laminectomy (~2015) Social History marital status: (to Ratna) details: lives in [place] household members: spouse lives independently: Yes caregiver/support person: No housing: house Smoking Status: Former smoker alcohol intake: current Meds Home Medications and Allergies Home Medications Medication Instructions Recorded Confirmed Type albuterol sulfate 90 mcg/actuation 2 puff INH Q6H PRN asthma ##0 01/12/16 07/26/22 History aerosol inhaler (Ventolin HFA) epinephrine 0.3 mg/0.3 mL 0.3 mg IM PRN PRN Allergic 01/12/16 07/26/22 History injection, auto-injector Reaction ##0 fluticasone propionate 50 1 spray intranasal QDAY PRN Sinus 01/12/16 07/26/22 History mcg/actuation nasal Congestion ##0 spray,suspension (Flonase Allergy Relief) cyanocobalamin (vitamin B-12) 5,000 mcg PO QDAY ##0 05/28/17 07/26/22 History 5,000 mcg disintegrating tablet multivitamin (Multiple Vitamins 2 tab PO QDAY ##0 05/28/17 07/26/22 History tablet) trazodone 50 mg tablet 50 - 100 mg PO BEDTIME Sleep 01/14/18 07/26/22 History aspirin 81 mg tablet,delayed 81 mg PO BEDTIME 08/27/19 08/03/22 History release naproxen 500 mg tablet 500 mg PO BID 08/27/19 07/26/22 History polyethylene glycol 3350 17 gram 17 g PO DAILY PRN Constipation 08/27/19 07/26/22 History oral powder packet ResMed BIPAP #1 ea 07/15/20 08/03/22 History furosemide 20 mg tablet 40 mg PO QAM 07/15/20 08/03/22 History acetaminophen 325 mg capsule 325 mg PO TID 08/17/21 07/26/22 History (Tylenol) dulaglutide 0.75 mg/0.5 mL 1.5 mg SUBCUT QWEEK 08/17/21 07/26/22 History subcutaneous pen injector (Trulicity) metformin 500 mg tablet 1,000 mg PO DAILY 08/17/21 07/26/22 History propranolol 60 mg capsule,24 60 mg PO BEDTIME 08/17/21 07/26/22 History hr,extended release temazepam 15 mg capsule 15 mg PO BEDTIME 08/17/21 07/26/22 History escitalopram oxalate 10 mg tablet 5 mg PO DAILY 07/26/22 07/26/22 History gabapentin 300 mg capsule 300 mg PO DAILY PRN Pain 07/26/22 08/03/22 History levothyroxine 50 mcg tablet 50 mcg PO DAILY 07/26/22 07/26/22 History nifedipine 90 mg tablet,extended 90 mg PO DAILY 07/26/22 08/03/22 History release tamsulosin 0.4 mg capsule 0.4 mg PO DAILY 07/26/22 07/26/22 History telmisartan 80 mg tablet 80 mg PO DAILY 07/26/22 07/26/22 History amlodipine 5 mg tablet 5 mg PO DAILY 08/03/22 08/03/22 History levothyroxine 50 mcg tablet 50 mcg PO DAILY 08/03/22 08/03/22 History (Synthroid) propranolol 60 mg capsule,24 60 mg PO DAILY 08/03/22 08/03/22 History hr,extended release aspirin 81 mg tablet,delayed 81 mg PO BID #84 tabs 08/04/22 Rx release oxycodone 5 mg tablet 5 mg PO Q3H PRN Pain, Moderate 08/04/22 Rx (4-6) #40 tabs Allergies Allergy/AdvReac Type Severity Reaction Status Date / Time shellfish derived Allergy Severe ALLERGIC Verified 04/27/23 11:49 [SHELLFISH DERIVED] TO LOBSTER, CLOSES THROAT, CHEST PRESSURE venom-honey bee Allergy Severe THROAT Verified 04/27/23 11:49 [BEE VENOM (HONEY BEE)] CLOSES, CHEST PRESSURE oxycodone Allergy Intermediate Itch all Verified 04/27/23 11:49 over sildenafil AdvReac Intermediate Migraine Verified 04/27/23 11:49 Review of Systems Review of Systems Narrative: All else reviewed and otherwise unremarkable except as noted in the history and physical. Exam Vital Signs (past 8 hours): - 04/27/23 11:20 04/27/23 11:36 04/27/23 11:37 Temperature 99.8 F H Pulse Rate 95 H 95 H Respiratory Rate 18 Blood Pressure 162/90 H 162/90 H Pulse Oximetry 96 95 Oxygen Delivery Method Room Air 04/27/23 12:00 04/27/23 12:00 04/27/23 12:30 Temperature Pulse Rate 99 H 89 Respiratory Rate Blood Pressure 145/76 H Pulse Oximetry 96 96 Oxygen Delivery Method 04/27/23 12:30 04/27/23 13:00 04/27/23 13:00 Temperature Pulse Rate 90 Respiratory Rate Blood Pressure 121/63 145/91 H Pulse Oximetry 95 Oxygen Delivery Method 04/27/23 13:30 04/27/23 13:47 04/27/23 14:00 Temperature 100.6 F H Pulse Rate 97 H 95 H Respiratory Rate Blood Pressure Pulse Oximetry 95 93 Oxygen Delivery Method 04/27/23 14:00 04/27/23 14:30 04/27/23 14:30 Temperature Pulse Rate 96 H Respiratory Rate Blood Pressure 147/77 H 127/68 Pulse Oximetry 95 Oxygen Delivery Method 04/27/23 15:00 04/27/23 15:00 04/27/23 15:30 Temperature Pulse Rate 94 H 104 H Respiratory Rate Blood Pressure 131/57 L Pulse Oximetry 95 96 Oxygen Delivery Method 04/27/23 15:30 04/27/23 16:00 04/27/23 16:00 Temperature Pulse Rate 102 H Respiratory Rate Blood Pressure 128/64 145/67 H Pulse Oximetry 97 Oxygen Delivery Method 04/27/23 16:26 Temperature 100.6 F H Pulse Rate Respiratory Rate Blood Pressure Pulse Oximetry Oxygen Delivery Method Oxygen Delivery Method Room Air Narrative Exam Narrative: NAD, alert and oriented, fluent speech, anxious and uncomfortable in appearance. Normocephalic skull, EOMI, anicteric sclera, symmetric pupils. Oropharynx unremarkable, no droop. Neck supple, midline trachea, no adenopathy. Lungs clear, normal rate and effort. Heart regular, no murmur gallop or rub. Abdomen is soft, distended, and very tender in the suprapubic region. Extremities are free of edema. Skin is free of rash or lesions except the right leg which is somewhat boggy above the ankle and has a light red hue. It is also warm to the touch compared to the left leg.. Joints are not swollen or deformed. Judgment appears to be normal. Cranial nerves are grossly intact, motor strength is 5/5 all extremities. Objective Imaging Chest x-ray: Radiologist's impression: Mild linear atelectasis lateral left lung base, no definite pneumonia seen. Leg X ray: Radiologist's impression: No trauma found, no gas in the soft tissues seen. No foreign body identified. No underlying osteomyelitis. Apparent cellulitis. CT scan - abdomen: Radiologist's impression: No visualized acute intra-abdominal or pelvic process. Labs 04/27/23 12:25 04/27/23 12:25 Labs: Laboratory Results - last 24 hr 04/27/23 04/27/23 04/27/23 11:27 12:25 14:35 WBC 14.1 H RBC 4.74 Hgb 15.0 Hct 42.0 MCV 88.7 MCH 31.7 MCHC 35.7 RDW 13.8 Plt Count 177 Neut % (Auto) 89.0 H Lymph % (Auto) 4.4 L [place] % (Auto) 6.2 Eos % (Auto) 0.2 L Baso % (Auto) 0.2 Neut # (Auto) 83837 H Lymph # (Auto) 600 L [place] # (Auto) 900 Eos # (Auto) 0 Baso # (Auto) 0 Sodium 136 L Potassium 4.3 Chloride 102 Carbon Dioxide 30 BUN 14 Creatinine 0.85 Estimated GFR > 60 BUN/Creatinine Ratio 16.5 Glucose 224 H Lactate 2.3 H 1.9 Calcium 9.5 Total Bilirubin 1.2 AST 25 ALT 24 Alkaline Phosphatase 83 Total Protein 7.1 Albumin 4.0 Globulin 3.1 Albumin/Globulin Ratio 1.3 SARS-CoV-2 (PCR) Negative Influenza A (RT-PCR) Flu a negative Influenza B (RT-PCR) Flu b negative RSV (PCR) Negative Assessment & Plan Assessment & Plan narrative: 1. Right leg cellulitis with shaking chills, present on admission and active. 2. Lactic acidosis, present on admission and active. 3. Urine retention, present on admission and active. 4. BPH, present on admission and active. 5. DM 2, present on admission and active. Takes metformin orally. 6. Essential hypertension, present on admission and active. 7. Obesity class 2, present on admission and active. Plan: We will treat him for cellulitis with IV ceftriaxone and vancomycin. Blood cultures are obtained and pending. -[place]iza catheter decompressed bladder and continue Flomax. -IV fluids at 100 per hour, saline. -hold blood pressure medications pending his clinical course over the next 12-24 hours. Appears to be high risk for bacteremia and sepsis based on his clinical presentation of shaking chills. -correctional lispro, monitor glucose. -trend lactic acid with IV fluid resuscitation. He is full resuscitation Proxy is his . Time Spent With Patient Time with patient: 30 to 49 minutes with 50% spent counseling/coordinating care Quality MIPS - Admit I confirm the patient?s Advance Care Plan is present, Code status is documented, Surrogate decision maker is in patient?s record [If Yes, STOP here]: Yes MIPS - Meds 'Current medications' to include all prescriptions, [id number] products, herbals, cannabis/cannabidiol products, and vitamin/mineral/dietary (nutritional) supplements. I have utilized all available resources to obtain, update, or review the patient?s current medications. [If Yes, STOP here]: Yes
[2023-04-27] MEDS: ACETAMINOPHEN 325 MG TABLET 975 MG PO (17:30)
--- NOTE | 2023-04-27 17:34 | PC.NURSE ---
Addendum entered by Denis Zhao R.N. 04/27/23 18:14: This RN immediately started cooling measures on this patient by placed ice packs under the patient armpits and down the patient core. Original Note: This RN immediately notified provider of core temp from weems once inserted. Provider gave verbal order for 975mg tylenol. This RN gave immediately.
[2023-04-27] MEDS: SODIUM CHLORIDE 0.9% 1,000 ML 100 ML IV (17:41)
[2023-04-27] MEDS: VANCOMYCIN 1,250 MG/250 ML PIGGYBACK 250 MG IV (18:00)
--- NOTE | 2023-04-27 18:14 | PC.NURSE ---
Dr. Rangel was updated via webex about the patient's rising temp. No response was given at this time.
--- NOTE | 2023-04-27 18:18 | PC.NURSE ---
This RN has made multiple attempts to call day hospitalist since rise in temperature noted. Fellow RN sent electronic message to overnight hospitalist. This RN called report to Float nurse. This RN called RN Coordinator to attempt to get a hold of hospitalist for any further orders.
--- NOTE | 2023-04-27 18:29 | PC.NURSE ---
accounts payable payroll coordinator called and confirmed to send this patient up to room 205. Patient taken to room with emergency room vibration technician via stretcher.
[2023-04-27] MEDS: INSULIN LISPRO 100 UNIT/ML 3ML VIAL SUBCUT (20:38)
[2023-04-27] MEDS: ASPIRIN EC 81 MG TABLET PO (20:39)
[2023-04-27] MEDS: SENNOSIDES 8.6 MG TABLET 17.2 MG PO (20:39)
[2023-04-27] MEDS: DOCUSATE 100 MG CAPSULE PO (20:39)
[2023-04-27] MEDS: HEPARIN 5,000 UNIT/ML VIAL 5000 UNIT SUBCUT (20:39)
--- NOTE | 2023-04-27 23:47 | PC.NURSE ---
Pt. was admitted on day shift @ 1721. Denies any pain, when assessed, CBG was 330 covered with 3 units of Humalog Insulin. Oriented to his room & encouraged to call for any assistance, call light with in reached. Will cont. POC & monitor.
[2023-04-28] VITALS (7 sets, daily range): BP systolic 140–149; BP diastolic 83–92; PULSE 71–91; RESP 16–18; TEMP 36.8–37.9; O2SAT 94–98
[2023-04-28] MEDS: ACETAMINOPHEN 325 MG TABLET 650 MG PO (00:23)
--- NOTE | 2023-04-28 00:50 | CM.MNRNOTE ---
Dr. Rangel notified via messaging to report pt. blood pressure was elevated to 174/101, awaiting response.
[2023-04-28] MEDS: VANCOMYCIN 1,250 MG/250 ML PIGGYBACK 250 MG IV ×2 (02:01→09:41)
[2023-04-28] MEDS: SODIUM CHLORIDE 0.9% 1,000 ML 100 ML IV ×2 (03:22→14:18)
[2023-04-28] MEDS: TAMSULOSIN 0.4 MG CAPSULE PO (09:40)
[2023-04-28] MEDS: SODIUM CHLORIDE 0.9% FLUSH 10 ML IV ×2 (09:40→20:38)
[2023-04-28] MEDS: DOCUSATE 100 MG CAPSULE PO ×2 (09:40→20:37)
[2023-04-28] MEDS: INSULIN LISPRO 100 UNIT/ML 3ML VIAL SUBCUT ×4 (09:41→20:38)
[2023-04-28] MEDS: HEPARIN 5,000 UNIT/ML VIAL 5000 UNIT SUBCUT ×2 (09:41→20:35)
--- NOTE | 2023-04-28 10:27 | PC.NURSE ---
Pt a&O, responsive to commands. Offers no overt c/o. Aware of his cellulitis, having had issues before. Leg a dull red with skin intact. Up with assisntance kadi weems and IV. Gait steady.
--- NOTE | 2023-04-28 13:35 | CM.DANOTE ---
Initial DCP Assessment Visit Note Reviewed EMR and team rounds for pt's medical status and updates. Met with pt at bedside to introduce self and role. Pt was found to be drowsy but arouseable, able to express his needs and provide hx for assessment. Pt resides independently in his own home with his spouse in [place]. Spouse is healthcare proxy. She will also plan to transport pt once he has been cleared for d/c. Payor: [employer], for Life PCP: Allyson Zelaya Pt is a 72 year-old M with a hx of type 2 diabetes and recurrent lower R-leg cellulitis presents to the ED with c/o worsening fevers, weakness, chills, and leg redness. He was started on IV ABO's in the ED, then admitted to the floor for continued eval/tx. Pt is found to be comfortable today, DCP will continue to monitor for any OP d/c needs/recommendations. Discharge Planning/Care Management CM Discharge Assessment Start: 04/28/23 13:32 Freq: Status: Active Protocol: Document 04/28/23 13:32 DPL (Rec: 04/28/23 13:35 DPL [id number]) Discharge Planning Assessment Assigned Merchandise Buyer GIULIANA Luther Advance Directives? Yes Advance Directives on File Yes History Provided By Patient,Medical Record Has Patient been admitted in last 30 No days? Prior Living Arrangements House Household Members spouse Type of transporation used prior to Drives own vehicle admit Independent with ADL's Yes Is patient alert and oriented? Yes Comment N/A Caregiver for Another No Comment States uses lift chair for standing. Patient/Family Preference Intermediate Facility,Home with Home Health Comment Pending mobility and spousal support Discharge Plan Home Transportation Arrangement Family to provide transport, if able to go home. Additional Comment Pending efficacy of IV ABO's. If patient plan is home with home health No : Has signed face to face form been completed? If patient plan is SNF: Has PASSR been No completed? Whiteboard Updated in Patient Room with Yes name and ext. # of Merchandise Buyer Review Status In Process Please Provide Date Initial DC 04/28/23 Assessment Was Performed
[2023-04-28 14:09] LABS: Add Manual Diff / Slide Review NO; Basophils Absolute Auto 100 /uL (0-100); Basophils Percent Auto 0.5 % (0-2); Eosinophils Absolute Auto 0 /uL (0-450); Hematocrit 39.2 % (41-53); Hemoglobin 14.1 g/dL (13.5-17.5); Lymphocytes Absolute Auto 1200 /uL (1100-4500); Mean Corpuscular HGB Conc 36.1 % (30-36); Mean Corpuscular Volume 88.6 fL (80-100); Monocytes Absolute Auto 600 /uL (0-900); Monocytes Percent Auto 5.5 % (3-14); Neutrophils Absolute Auto 8300 /uL (1500-7000); Platelet Count 151 X10^3/uL (150-400); Red Blood Cell Count 4.42 X10^6/uL (4.5-5.9); Red Cell Distribution Width 13.8 % (11.6-14.8); White Blood Cell Count 10.2 X10^3/uL (4.5-11.0)
[2023-04-28 14:25] LABS: Hemoglobin A1C% w Est Avg Glu 7.2 % (4.0-6.0)
[2023-04-28 14:32] LABS: BUN Creatinine Ratio 14.1 (6-22); Blood Urea Nitrogen 12 mg/dL (9-20); Calcium 8.7 mg/dL (8.4-10.2); Carbon Dioxide 28 mmol/L (22-32); Chloride 104 mmol/L (98-107); Estimated Glomerular Filt Rate > 60 mL/min (>60); Glucose 210 mg/dL (80-110); HEMOLYSIS 24 (0-50); Potassium 3.9 mmol/L (3.4-5.1); Sodium 135 mmol/L (137-145)
--- NOTE | 2023-04-28 17:29 | P.PN_ITS ---
Subjective Subjective Interval history: 72-year-old male with diabetes, class 2 obesity, BPH, recurrent right lower extremity cellulitis, hypertension, hyperlipidemia who was admitted overnight with right lower extremity cellulitis and sepsis, as evidenced by temp to 104.7, tachycardia, leukocytosis, and lactic acidosis. Patient reports he is feeling quite a bit better today than he was last evening. He has not had any further shaking chills. No nausea. No shortness of breath. Exam Vital Signs (past 8 hours): Oxygen Delivery Method Room Air Oxygen Flow Rate 0 Narrative Exam Narrative: GEN: Elderly male, Alert and oriented x 3, NAD HEENT:NC, Face symmetric CHEST: Respiratory excursions symmetric, CTAB CV: RRR, no M/R/G ABD: Soft, obese, NT/ND, BT present in all 4 quadrants, body habitus limits exam EXTR: warm, well perfused, no C/C, right lower extremity reveals pretibial erythema which appears consistent with venous stasis changes, slight warmth to touch, bilateral lower extremity nonpitting edema noted SKIN: warm and dry, no rash NEURO: Alert and oriented x 3, nonfocal Objective Labs 04/28/23 14:03 04/28/23 14:03 Labs: Laboratory Results - last 24 hr 04/28/23 14:03 WBC 10.2 RBC 4.42 L Hgb 14.1 Hct 39.2 L MCV 88.6 MCH 32.0 MCHC 36.1 H RDW 13.8 Plt Count 151 Neut % (Auto) 82.0 H Lymph % (Auto) 12.0 L [place] % (Auto) 5.5 Eos % (Auto) 0.0 L Baso % (Auto) 0.5 Neut # (Auto) 8300 H Lymph # (Auto) 1200 [place] # (Auto) 600 Eos # (Auto) 0 Baso # (Auto) 100 Sodium 135 L Potassium 3.9 Chloride 104 Carbon Dioxide 28 BUN 12 Creatinine 0.85 Estimated GFR > 60 BUN/Creatinine Ratio 14.1 Glucose 210 H Hemoglobin A1c 7.2 H Calcium 8.7 PFSH Medical History Melanoma (~2020) Obesity (BMI 30-39.9) (Unknown) Pre-diabetes Urinary retention (~01/2018) Postoperative urinary retention (~01/2018) Spider bite, venomous (~04/2017) Constipation Thoracic back pain Slowing of urinary stream Recurrent erosion of cornea Myopia Migraine Hypertension Hyperlipidemia Hip pain Edema Dyslipidemia Disorder of tendon of shoulder region Disorder of nail Derangement of other medial meniscus due to old tear or injury, unspecified knee Colitis Cervical radiculopathy DISH (diffuse idiopathic skeletal hyperostosis) Lumbar strain Lumbar stenosis with neurogenic claudication Hypokalemia Asthma BPH (benign prostatic hyperplasia) Diabetes mellitus Venous stasis Obstructive sleep apnea of adult Primary insomnia Excessive daytime sleepiness Cellulitis Tinea pedis Left leg cellulitis UTI (urinary tract infection) Surgical History History of total replacement of left shoulder joint (09/01/19) History of surgery (05/09/18) History of carpal tunnel surgery of right wrist (2019) Hx of hemorrhoidectomy (2018) History of lumbar fusion (01/29/18) History of colonoscopy History of laminectomy (~2015) Social History marital status: (to Ratna) details: lives in [place] household members: spouse lives independently: Yes caregiver/support person: No housing: house Smoking Status: Former smoker alcohol intake: current Assessment & Plan Assessment & Plan narrative: 1. Sepsis Patient presented with symptoms and signs of sepsis, as evidenced by fever, tachycardia, leukocytosis, and lactic acidosis. Blood cultures are pending. He remains on ceftriaxone and vancomycin. He is now afebrile with normal heart rate today. 2. Right lower extremity cellulitis Today, his leg appears more consistent with venous stasis. However, he has no other localizing symptoms. We will continue to elevate and monitor. 3. Diabetes mellitus type 2 Blood sugars have been in the low 200s. Will continue fingersticks and sliding scale. Holding metformin. Continue controlled carb diet. 4. Hypertension Blood pressures are well controlled. Resume usual outpatient medications Code status Full Prophylaxis High marce score. Will start Lovenox Disposition Pending Quality VTE Deep Vein Thrombosis/Pulmonary Embolism Present on Admission: No
[2023-04-28] MEDS: cefTRIAXone 2,000 MG in SODIUM CHLORIDE 0.9% 100 ML 200 MG IV (17:39)
[2023-04-28] MEDS: TEMAZEPAM 15 MG CAPSULE PO (20:37)
[2023-04-28] MEDS: SENNOSIDES 8.6 MG TABLET 17.2 MG PO (20:37)
[2023-04-28] MEDS: TRAZODONE 50 MG TABLET PO (20:37)
[2023-04-28] MEDS: PROPRANOLOL 10 MG TABLET 30 MG PO (20:37)
[2023-04-28] MEDS: ASPIRIN EC 81 MG TABLET PO (20:37)
[2023-04-28] MEDS: VANCOMYCIN 1,250 MG/250 ML PIGGYBACK 166.667 MG IV (21:55)
[2023-04-29] VITALS: BP 151/96; PULSE 67; RESP 19; TEMP 35.9; O2SAT 100
[2023-04-29 06:00] VITALS: BP 133/79; PULSE 63; RESP 18; TEMP 36.3; O2SAT 100
[2023-04-29] MEDS: LEVOTHYROXINE 50 MCG TABLET PO (06:18)
[2023-04-29 08:04] VITALS: BP 129/71; PULSE 61; RESP 16; TEMP 36; O2SAT 97
[2023-04-29] MEDS: INSULIN LISPRO 100 UNIT/ML 3ML VIAL SUBCUT ×4 (08:09→20:45)
--- NOTE | 2023-04-29 08:39 | DI.US.S_ITS ---
PROCEDURE: US PERIPH VENOUS LOW EXTREM RT INDICATIONS: Cellulitis, please evaluate for DVT TECHNIQUE: Real-time imaging, as well as color and pulse Doppler interrogation, were performed of the lower extremity deep veins from the inguinal ligament to the popliteal fossa, with documentation of the visualized calf veins. COMPARISON: [facility], CR, XR TIBIA FIBULA RT 2V, 04/27/2023, 16:21. [facility], US, US PERIPH VENOUS LOW EXTREM RT, 08/08/2022, 19:04. FINDINGS: The common femoral, femoral, popliteal, and the visualized calf veins are normally compressible, and free of intraluminal thrombus. Color and pulse Doppler demonstrate normal phasic intraluminal flow. There is normal augmentation response to distal compression maneuver. There is a hypoechoic focus without abnormal vascularity seen immediately medial to the popliteal artery/vein, measuring 4.2 x 2.6 x 3 cm. IMPRESSION: No findings of lower extremity deep venous thrombosis. Nonvascular hypo focus seen immediately medial to the popliteal artery/vein. This is nonspecific, although soft tissue hematoma is suspected. Dictated by: Houston Jackson M.D. on 04/29/2023 at 13:49 Approved by: Houston Jackson M.D. on 04/29/2023 at 13:50
[2023-04-29] MEDS: MULTIVITAMIN 1 TABLET 1 TAB PO (09:17)
[2023-04-29] MEDS: TAMSULOSIN 0.4 MG CAPSULE PO (09:17)
[2023-04-29] MEDS: LOSARTAN 50 MG TABLET 40 MG PO (09:17)
[2023-04-29] MEDS: NIFEdipine 30 MG TAB ER 90 MG PO (09:18)
[2023-04-29] MEDS: FUROSEMIDE 20 MG TABLET 40 MG PO (09:18)
[2023-04-29] MEDS: PROPRANOLOL 10 MG TABLET 30 MG PO ×2 (09:18→20:39)
[2023-04-29] MEDS: DOCUSATE 100 MG CAPSULE PO ×2 (09:18→20:39)
[2023-04-29] MEDS: ESCITALOPRAM 10 MG TABLET 5 MG PO (09:18)
[2023-04-29] MEDS: HEPARIN 5,000 UNIT/ML VIAL 5000 UNIT SUBCUT ×2 (09:19→20:40)
[2023-04-29] MEDS: SODIUM CHLORIDE 0.9% FLUSH 10 ML IV ×2 (09:19→20:43)
[2023-04-29 09:42] LABS: Add Manual Diff / Slide Review NO; Basophils Absolute Auto 100 /uL (0-100); Basophils Percent Auto 0.9 % (0-2); Eosinophils Absolute Auto 100 /uL (0-450); Hemoglobin 13.8 g/dL (13.5-17.5); Lymphocytes Absolute Auto 1400 /uL (1100-4500); Lymphocytes Percent Auto 22.3 % (25-40); Mean Corpuscular HGB Conc 36.3 % (30-36); Mean Corpuscular Hemoglobin 31.8 PG (26-34); Mean Corpuscular Volume 87.5 fL (80-100); Monocytes Absolute Auto 700 /uL (0-900); Monocytes Percent Auto 11.3 % (3-14); Neutrophils Absolute Auto 4000 /uL (1500-7000); Neutrophils Percent Auto 63.5 % (50-75); Platelet Count 137 X10^3/uL (150-400); Red Blood Cell Count 4.35 X10^6/uL (4.5-5.9); Red Cell Distribution Width 14.1 % (11.6-14.8); White Blood Cell Count 6.3 X10^3/uL (4.5-11.0)
[2023-04-29 09:55] LABS: BUN Creatinine Ratio 13.4 (6-22); Blood Urea Nitrogen 11 mg/dL (9-20); Calcium 8.8 mg/dL (8.4-10.2); Carbon Dioxide 27 mmol/L (22-32); Chloride 106 mmol/L (98-107); Estimated Glomerular Filt Rate > 60 mL/min (>60); Glucose 261 mg/dL (80-110); HEMOLYSIS < 15 (0-50); Potassium 3.9 mmol/L (3.4-5.1); Sodium 136 mmol/L (137-145)
[2023-04-29] MEDS: VANCOMYCIN 2,000 MG/400 ML PIGGYBACK 200 MG IV ×2 (11:54→23:38)
--- NOTE | 2023-04-29 12:01 | PC.NURSE ---
Patients blood sugar 263, 3u of insulin given and iv antibiotic hung by float RN! His bilateral legs are swollen with 3+edema to l.lower extremity and 4+ to r.lower extremity with some patchy redness and cellulitis. He is sitting up in his chair and eating lunch. Denies pain at this time.
[2023-04-29 12:31] LABS: Appearance Urine UA CLEAR; Bilirubin Urine UA NEGATIVE (NEGATIVE); Color Urine UA YELLOW; Glucose Urine UA TRACE g/dL (Negative); Ketones Urine UA TRACE (NEGATIVE); Leukocyte Esterase Urine UA NEGATIVE (NEGATIVE); Nitrite Urine UA NEGATIVE (Negative); Occult Blood Urine UA 1+ (Negative); Protein Urine UA NEGATIVE (Negative); Specific Gravity Urine UA 1.015 (1.000-1.035); Urobilinogen Urine UA 0.2 E.U./dL (0.2); pH Urine UA 5.5 (4.5-8.0)
[2023-04-29 12:50] LABS: Urine Volume 10mL (spun)
[2023-04-29 12:51] LABS: Bacteria Urine None Seen; Culture Indicated Urine Cult Not Indicated; RBC Urine 5-10/HPF (0-5/HPF); Squamous Epithelial Cell Urine 1-5 /HPF (0-5/HPF); WBC Urine 1-5/HPF (0-5/HPF)
[2023-04-29 14:22] VITALS: BP 130/73; PULSE 64; RESP 16; TEMP 36.6; O2SAT 97
--- NOTE | 2023-04-29 15:03 | CM.DPC ---
DCP Cont: Per MD, pt's weems was discontinued but ordered a DVT ultrasound for today to rule out DVT. Per Rn, pt has been SBA with ambulation and both MD and RN feel pt should be safe for discharge home with spouse when medically stable. EMR reviewed. Plan: SW to follow for DVT ultrasound results and possible discharge home tomorrow if medically stable and any further identified discharge planning needs. GIULIANA Griffin
--- NOTE | 2023-04-29 15:51 | P.PN_ITS ---
Subjective Subjective Interval history: Swelling and redness of RLE improving, but still erythematous. LE DVT US negative for clots. Exam Vital Signs (past 8 hours): - 04/29/23 08:04 04/29/23 14:22 Temperature 96.8 F L 97.8 F Pulse Rate 61 64 Respiratory Rate 16 16 Blood Pressure 129/71 130/73 Pulse Oximetry 97 97 Oxygen Flow Rate 0 0 Oxygen Delivery Method CPAP Oxygen Flow Rate 0 Narrative Exam Narrative: GEN: Elderly male, Alert and oriented x 3, NAD HEENT:NC, Face symmetric CHEST: Respiratory excursions symmetric, CTAB CV: RRR, no M/R/G ABD: Soft, obese, NT/ND, BT present in all 4 quadrants, body habitus limits exam EXTR: warm, well perfused, no C/C, right lower extremity reveals pretibial erythema and swelling greater than L, warm to touch, bilateral lower extremity nonpitting edema noted SKIN: warm and dry, no rash NEURO: Alert and oriented x 3, nonfocal Objective Labs 04/29/23 09:35 04/29/23 09:35 Labs: Laboratory Results - last 24 hr 04/29/23 04/29/23 09:35 11:48 WBC 6.3 RBC 4.35 L Hgb 13.8 Hct 38.0 L MCV 87.5 MCH 31.8 MCHC 36.3 H RDW 14.1 Plt Count 137 L Neut % (Auto) 63.5 Lymph % (Auto) 22.3 L [place] % (Auto) 11.3 Eos % (Auto) 2.0 Baso % (Auto) 0.9 Neut # (Auto) 4000 Lymph # (Auto) 1400 [place] # (Auto) 700 Eos # (Auto) 100 Baso # (Auto) 100 Sodium 136 L Potassium 3.9 Chloride 106 Carbon Dioxide 27 BUN 11 Creatinine 0.82 Estimated GFR > 60 BUN/Creatinine Ratio 13.4 Glucose 261 H Calcium 8.8 Urine Color Yellow Urine Appearance Clear Urine pH 5.5 Ur Specific [place] 1.015 Urine Protein Negative Urine Glucose (UA) Trace H Urine Ketones Trace H Urine Occult Blood 1+ H Urine Nitrate Negative Urine Bilirubin Negative Urine Urobilinogen 0.2 Ur Leukocyte Esterase Negative Urine RBC 5-10/hpf H Urine WBC 1-5/hpf Ur Squamous Epith Cells 1-5 /hpf Urine Bacteria None seen Ur Culture Indicated? Cult not indicated Vol Urine Centrifuged 10ml (spun) Vancomycin Trough 9.0 L PFSH Medical History Melanoma (~2020) Obesity (BMI 30-39.9) (Unknown) Pre-diabetes Urinary retention (~01/2018) Postoperative urinary retention (~01/2018) Spider bite, venomous (~04/2017) Constipation Thoracic back pain Slowing of urinary stream Recurrent erosion of cornea Myopia Migraine Hypertension Hyperlipidemia Hip pain Edema Dyslipidemia Disorder of tendon of shoulder region Disorder of nail Derangement of other medial meniscus due to old tear or injury, unspecified knee Colitis Cervical radiculopathy DISH (diffuse idiopathic skeletal hyperostosis) Lumbar strain Lumbar stenosis with neurogenic claudication Hypokalemia Asthma BPH (benign prostatic hyperplasia) Diabetes mellitus Venous stasis Obstructive sleep apnea of adult Primary insomnia Excessive daytime sleepiness Cellulitis Tinea pedis Left leg cellulitis UTI (urinary tract infection) Surgical History History of total replacement of left shoulder joint (09/01/19) History of surgery (05/09/18) History of carpal tunnel surgery of right wrist (2019) Hx of hemorrhoidectomy (2018) History of lumbar fusion (01/29/18) History of colonoscopy History of laminectomy (~2015) Social History marital status: (to Ratna) details: lives in [place] household members: spouse lives independently: Yes caregiver/support person: No housing: house Smoking Status: Former smoker alcohol intake: current Assessment & Plan Assessment & Plan narrative: 1. Sepsis Patient presented with symptoms and signs of sepsis, as evidenced by fever, tachycardia, leukocytosis, and lactic acidosis. Blood cultures are no growth to date. He remains on ceftriaxone and vancomycin. He is now afebrile with normal heart rate. 2. Right lower extremity cellulitis Improving swelling and erythema. DVT US negative. Continue rocephin/vanc. 3. Diabetes mellitus type 2 Blood sugars have been in the low 200s. Will continue fingersticks and sliding scale. Holding metformin. Continue controlled carb diet. 4. Hypertension Blood pressures are well controlled. Resume usual outpatient medications Code status Full Prophylaxis Lovenox Disposition Home in 1-2 days. Quality VTE Deep Vein Thrombosis/Pulmonary Embolism Present on Admission: No
[2023-04-29] MEDS: cefTRIAXone 2,000 MG in SODIUM CHLORIDE 0.9% 100 ML 100 MG IV (16:57)
[2023-04-29 20:37] VITALS: BP 116/73; PULSE 67; RESP 16; TEMP 36.3; O2SAT 98
[2023-04-29] MEDS: ASPIRIN EC 81 MG TABLET PO (20:39)
[2023-04-29] MEDS: SENNOSIDES 8.6 MG TABLET 17.2 MG PO (20:39)
[2023-04-29] MEDS: TEMAZEPAM 15 MG CAPSULE PO (20:39)
[2023-04-29] MEDS: TRAZODONE 50 MG TABLET PO (20:40)
[2023-04-29] MEDS: GABAPENTIN 300 MG CAPSULE PO (20:40)
[2023-04-30 05:37] LABS: Add Manual Diff / Slide Review NO; Basophils Absolute Auto 100 /uL (0-100); Basophils Percent Auto 1.1 % (0-2); Eosinophils Absolute Auto 200 /uL (0-450); Eosinophils Percent Auto 3.7 % (2-4); Hematocrit 36.5 % (41-53); Hemoglobin 13.1 g/dL (13.5-17.5); Lymphocytes Absolute Auto 1800 /uL (1100-4500); Lymphocytes Percent Auto 30.3 % (25-40); Mean Corpuscular Hemoglobin 31.2 PG (26-34); Mean Corpuscular Volume 86.7 fL (80-100); Monocytes Absolute Auto 600 /uL (0-900); Monocytes Percent Auto 9.6 % (3-14); Neutrophils Absolute Auto 3300 /uL (1500-7000); Neutrophils Percent Auto 55.3 % (50-75); Platelet Count 151 X10^3/uL (150-400); Red Blood Cell Count 4.21 X10^6/uL (4.5-5.9); Red Cell Distribution Width 13.9 % (11.6-14.8)
[2023-04-30 05:54] LABS: BUN Creatinine Ratio 15.4 (6-22); Blood Urea Nitrogen 10 mg/dL (9-20); Calcium 8.5 mg/dL (8.4-10.2); Carbon Dioxide 24 mmol/L (22-32); Chloride 108 mmol/L (98-107); Estimated Glomerular Filt Rate > 60 mL/min (>60); Glucose 182 mg/dL (80-110); HEMOLYSIS < 15 (0-50); Potassium 3.6 mmol/L (3.4-5.1); Sodium 136 mmol/L (137-145)
[2023-04-30 06:00] VITALS: BP 118/73; PULSE 64; O2SAT 97
[2023-04-30] MEDS: LEVOTHYROXINE 50 MCG TABLET PO (06:12)
[2023-04-30] MEDS: ACETAMINOPHEN 325 MG TABLET 650 MG PO (07:30)
[2023-04-30] MEDS: INSULIN LISPRO 100 UNIT/ML 3ML VIAL SUBCUT ×4 (08:20→20:47)
[2023-04-30 08:47] VITALS: BP 127/82; PULSE 63; RESP 18; TEMP 36; O2SAT 96
[2023-04-30] MEDS: PROPRANOLOL 10 MG TABLET 30 MG PO ×2 (09:58→20:46)
[2023-04-30] MEDS: DOCUSATE 100 MG CAPSULE PO ×2 (09:58→20:46)
[2023-04-30] MEDS: NIFEdipine 30 MG TAB ER 90 MG PO (09:59)
[2023-04-30] MEDS: FUROSEMIDE 20 MG TABLET 40 MG PO (09:59)
[2023-04-30] MEDS: ESCITALOPRAM 10 MG TABLET 5 MG PO (09:59)
[2023-04-30] MEDS: TAMSULOSIN 0.4 MG CAPSULE PO (09:59)
[2023-04-30] MEDS: LOSARTAN 50 MG TABLET 40 MG PO (10:00)
[2023-04-30] MEDS: MULTIVITAMIN 1 TABLET 1 TAB PO (10:00)
[2023-04-30] MEDS: HEPARIN 5,000 UNIT/ML VIAL 5000 UNIT SUBCUT ×2 (10:00→20:47)
[2023-04-30] MEDS: SODIUM CHLORIDE 0.9% FLUSH 10 ML IV ×2 (10:03→20:47)
--- NOTE | 2023-04-30 10:22 | PM.PN.1 ---
Subjective Subjective Interval history: He feels better. He has had cellulitis about 6 times, half resulting in admissions with this being his 3rd. He has typically been in the hospital for several days. Exam Vital Signs (past 8 hours): - 04/30/23 06:00 04/30/23 08:47 Temperature 96.8 F L Pulse Rate 64 63 Respiratory Rate 18 Blood Pressure 118/73 127/82 Pulse Oximetry 97 96 Oxygen Flow Rate 0 0 Oxygen Delivery Method CPAP Oxygen Flow Rate 0 Narrative Exam Narrative: NAD, fluent speech Lungs are clear, normal effort. Heart is regular, without murmur. Abdomen is soft, nontender. Right leg is swollen and red over an area about the size of the hand and the pretibia. There is no fluctuance. Good pedal pulses. Objective Labs 04/30/23 05:13 04/30/23 05:13 Labs: Laboratory Results - last 24 hr 04/29/23 04/29/23 04/30/23 09:35 11:48 05:13 WBC 6.3 6.0 RBC 4.35 L 4.21 L Hgb 13.8 13.1 L Hct 38.0 L 36.5 L MCV 87.5 86.7 MCH 31.8 31.2 MCHC 36.3 H 36.0 RDW 14.1 13.9 Plt Count 137 L 151 Neut % (Auto) 63.5 55.3 Lymph % (Auto) 22.3 L 30.3 [place] % (Auto) 11.3 9.6 Eos % (Auto) 2.0 3.7 Baso % (Auto) 0.9 1.1 Neut # (Auto) 4000 3300 Lymph # (Auto) 1400 1800 [place] # (Auto) 700 600 Eos # (Auto) 100 200 Baso # (Auto) 100 100 Sodium 136 L Potassium 3.6 Chloride 108 H Carbon Dioxide 24 BUN 10 Creatinine 0.65 L Estimated GFR > 60 BUN/Creatinine Ratio 15.4 Glucose 182 H Calcium 8.5 Urine Color Yellow Urine Appearance Clear Urine pH 5.5 Ur Specific [place] 1.015 Urine Protein Negative Urine Glucose (UA) Trace H Urine Ketones Trace H Urine Occult Blood 1+ H Urine Nitrate Negative Urine Bilirubin Negative Urine Urobilinogen 0.2 Ur Leukocyte Esterase Negative Urine RBC 5-10/hpf H Urine WBC 1-5/hpf Ur Squamous Epith Cells 1-5 /hpf Urine Bacteria None seen Ur Culture Indicated? Cult not indicated Vol Urine Centrifuged 10ml (spun) [facility] Medical History Melanoma (~2020) Obesity (BMI 30-39.9) (Unknown) Pre-diabetes Urinary retention (~01/2018) Postoperative urinary retention (~01/2018) Spider bite, venomous (~04/2017) Constipation Thoracic back pain Slowing of urinary stream Recurrent erosion of cornea Myopia Migraine Hypertension Hyperlipidemia Hip pain Edema Dyslipidemia Disorder of tendon of shoulder region Disorder of nail Derangement of other medial meniscus due to old tear or injury, unspecified knee Colitis Cervical radiculopathy DISH (diffuse idiopathic skeletal hyperostosis) Lumbar strain Lumbar stenosis with neurogenic claudication Hypokalemia Asthma BPH (benign prostatic hyperplasia) Diabetes mellitus Venous stasis Obstructive sleep apnea of adult Primary insomnia Excessive daytime sleepiness Cellulitis Tinea pedis Left leg cellulitis UTI (urinary tract infection) Surgical History History of total replacement of left shoulder joint (09/01/19) History of surgery (05/09/18) History of carpal tunnel surgery of right wrist (2019) Hx of hemorrhoidectomy (2018) History of lumbar fusion (01/29/18) History of colonoscopy History of laminectomy (~2015) Social History marital status: (to Ratna) details: lives in [place] household members: spouse lives independently: Yes caregiver/support person: No housing: house Smoking Status: Former smoker alcohol intake: current Assessment & Plan Assessment & Plan narrative: 1. Sepsis, present on admission and resolved. Patient presented with symptoms and signs of sepsis, as evidenced by fever, tachycardia, leukocytosis, and lactic acidosis. Blood cultures are no growth to date. He remains on ceftriaxone and vancomycin. He is now afebrile with normal heart rate. 2. Right lower extremity cellulitis, present on admission and improving. Improving swelling and erythema. DVT US negative. Continue rocephin/vanc. 3. Diabetes mellitus type 2, present on admission and stable. Blood sugars have been in the low 200s. Will continue fingersticks and sliding scale. Holding metformin. Continue controlled carb diet. 4. Hypertension, present on admission and stable. BP this morning 127/82. Blood pressures are well controlled. Resume usual outpatient medications Code status Full Prophylaxis Lovenox Disposition Home in 1-2 days. Discussed the treatment plan and disposition tomorrow with him and his who was on the phone with us this morning. Quality VTE Deep Vein Thrombosis/Pulmonary Embolism Present on Admission: No
[2023-04-30 10:59] VITALS: BP 119/77; PULSE 63; RESP 18; TEMP 35.7; O2SAT 96
[2023-04-30] MEDS: VANCOMYCIN 2,000 MG/400 ML PIGGYBACK 200 MG IV (11:51)
[2023-04-30 12:00] VITALS: BP 119/77; PULSE 63; RESP 18; TEMP 35.7; O2SAT 96
--- NOTE | 2023-04-30 13:21 | CM.DPC ---
DCP Home Planning: Per MD, pt to have another day of IV-Abx and then likely discharge home tomorrow Tues pending labs and cultures. Per RN, pt has remained ambulatory and now independent in room and has CPAP for use in room. SW met bedside with pt and explained role and pt confirms that his preference is to d/c home tomorrow if stable and confirms spouse can provide transport at d/c and also available for assist as needed. Pt states he ambulated the halls today and felt steady on his feet and states he is somewhat sedentary at home at baseline due to his chronic back pain (hx of multiple back surgeries and hip surgery). Pt declines need for HH and he has utilized their services before and does not feel he will be homebound criteria. Plan: SW to follow for plan of discharge home when medically stable via spouse POV and outpt f/u. No further SW needs at this time. GIULIANA Griffin
--- NOTE | 2023-04-30 15:23 | PC.NURSE ---
Patients leg is still red and swollen with 4+ edema.. He is ambulating in the halls with a walker and tolerating this well. IV vancomycin tolerated well through patients iv. He is nappy now and will take a shower a bit later.
[2023-04-30] MEDS: cefTRIAXone 2,000 MG in SODIUM CHLORIDE 0.9% 100 ML 100 MG IV (17:05)
[2023-04-30 20:39] VITALS: BP 141/78; PULSE 67; RESP 18; TEMP 35.8; O2SAT 97
[2023-04-30] MEDS: ASPIRIN EC 81 MG TABLET PO (20:45)
[2023-04-30] MEDS: TRAZODONE 50 MG TABLET PO (20:45)
[2023-04-30] MEDS: TEMAZEPAM 15 MG CAPSULE PO (20:45)
[2023-04-30] MEDS: SENNOSIDES 8.6 MG TABLET 17.2 MG PO (20:46)
[2023-04-30 23:47] LABS: Vancomycin Trough 12.9 ug/mL (10-20)
[2023-05-01] VITALS: BP 117/77; PULSE 61; RESP 17; TEMP 35.9; O2SAT 98
[2023-05-01] MEDS: VANCOMYCIN 2,000 MG/400 ML PIGGYBACK 200 MG IV (00:17)
[2023-05-01] MEDS: VANCOMYCIN TROUGH 1 REQUEST MISC (00:17)
[2023-05-01 05:11] VITALS: BP 122/74; PULSE 58; RESP 18; TEMP 36.1; O2SAT 98
[2023-05-01] MEDS: LEVOTHYROXINE 50 MCG TABLET PO (05:32)
[2023-05-01] MEDS: PROPRANOLOL 10 MG TABLET 30 MG PO (08:13)
[2023-05-01] MEDS: TAMSULOSIN 0.4 MG CAPSULE PO (08:13)
[2023-05-01] MEDS: ESCITALOPRAM 10 MG TABLET 5 MG PO (08:13)
[2023-05-01] MEDS: DOCUSATE 100 MG CAPSULE PO (08:13)
[2023-05-01] MEDS: NIFEdipine 30 MG TAB ER 90 MG PO (08:13)
[2023-05-01] MEDS: FUROSEMIDE 20 MG TABLET 40 MG PO (08:13)
[2023-05-01] MEDS: MULTIVITAMIN 1 TABLET 1 TAB PO (08:13)
[2023-05-01] MEDS: HEPARIN 5,000 UNIT/ML VIAL 5000 UNIT SUBCUT (08:14)
[2023-05-01] MEDS: INSULIN LISPRO 100 UNIT/ML 3ML VIAL SUBCUT (08:14)
[2023-05-01] MEDS: SODIUM CHLORIDE 0.9% FLUSH 10 ML IV (08:15)
[2023-05-01 08:41] VITALS: BP 149/86
[2023-05-01] MEDS: LOSARTAN 50 MG TABLET PO (08:41)
[2023-05-01 09:32] VITALS: BP 149/86; PULSE 61; RESP 20; TEMP 36; O2SAT 98
--- NOTE | 2023-05-01 10:14 | P.DS_ITS ---
History of Present Illness History of Present Illness Chief complaint: Chills/shakes Narrative: The patient is a 72-year-old male with diabetes, obesity class 2, and recurrent right leg cellulitis as well as BPH and urinary retention. He presents not feeling well since this morning with a low-grade fever of up to 102. In addition he has had shaking chills throughout the course of the day and become progressively weak. In the emergency department he could urinate about 200 mils, when palpating his abdomen he is clearly uncomfortable in the suprapubic region. He denies recent rhinorrhea, sore throat, cough, or dyspnea. His notes his right leg will isolate between red and normal or molder hand in color. Fevers are abnormal for him. He has also had anorexia but no vomiting. He is some constipation and denies any recent diarrhea, blood per rectum or melena. He also denies any vomiting. He has no abdominal pain in the right upper or left upper quadrant. He does take metformin for diabetes and Flomax for BPH. He has had a Loaiza catheter in the past. Discharge Providers Provider Date of admission: 04/27/23 16:57 Discharge Date: 05/01/23 Primary care physician: Allyson Zelaya DO Consults: None. Discharge provider: Varinder Myers MD Summary Hospital Course Discharge Diagnosis: 1. Sepsis, present on admission and resolved. Patient presented with symptoms and signs of sepsis, as evidenced by fever, tachycardia, leukocytosis, and lactic acidosis. Blood cultures are no growth to date. He was treated with ceftriaxone and vancomycin. 2. Right lower extremity cellulitis, present on admission and improving. Improving swelling and erythema. DVT US negative. 3. Diabetes mellitus type 2, present on admission and stable. Blood sugars have been in the low 200s. Will continue fingersticks and sliding scale. Holding metformin. Continue controlled carb diet. 4. Hypertension, present on admission and stable. BP this morning 127/82. Blood pressures are well controlled. Resume usual outpatient medications Hospital Course: He was admitted with acute sepsis, a fever and recurrent right leg cellulitis. This is his 6th episode, 3 of the 6 requiring hospital admission. He had a temperature of 104? on the day of admission and improve with IV antibiotics. Blood cultures remained negative. He had a fair amount of persistent redness and warmth through the morning of April 30. On April 30 is leg was still somewhat red but not warm or tender. He was felt to be stable for transition to oral antibiotics and discharge home. Status at Discharge Cognitive/behavioral status at discharge: oriented Functional status at discharge: independent ambulation Overall status at discharge: patient is back to baseline Time Spent with Patient Time spent: Greater than 30 minutes Exam Vital Signs (past 8 hours): - 05/01/23 05:11 05/01/23 08:41 05/01/23 09:32 Temperature 96.9 F L 96.8 F L Pulse Rate 58 L 61 Respiratory Rate 18 20 Blood Pressure 122/74 149/86 H 149/86 H Pulse Oximetry 98 98 Oxygen Flow Rate 0 0 Oxygen Delivery Method CPAP Oxygen Flow Rate 0 Narrative Exam Narrative: NAD, alert and oriented. Fluent speech. Lungs are clear, normal rate and effort. Heart is regular, no murmur gallop or rub. Abdomen is soft, non distended. Extremities are free of edema. Right leg is still somewhat red in the pretibial region but not tender or warm to touch. Objective Labs 04/30/23 05:13 04/30/23 05:13 Labs: Laboratory Results - last 24 hr 04/30/23 23:16 Vancomycin Trough 12.9 PFSH Medical History Melanoma (~2020) Obesity (BMI 30-39.9) (Unknown) Pre-diabetes Urinary retention (~01/2018) Postoperative urinary retention (~01/2018) Spider bite, venomous (~04/2017) Constipation Thoracic back pain Slowing of urinary stream Recurrent erosion of cornea Myopia Migraine Hypertension Hyperlipidemia Hip pain Edema Dyslipidemia Disorder of tendon of shoulder region Disorder of nail Derangement of other medial meniscus due to old tear or injury, unspecified knee Colitis Cervical radiculopathy DISH (diffuse idiopathic skeletal hyperostosis) Lumbar strain Lumbar stenosis with neurogenic claudication Hypokalemia Asthma BPH (benign prostatic hyperplasia) Diabetes mellitus Venous stasis Obstructive sleep apnea of adult Primary insomnia Excessive daytime sleepiness Cellulitis Tinea pedis Left leg cellulitis UTI (urinary tract infection) Surgical History History of total replacement of left shoulder joint (09/01/19) History of surgery (05/09/18) History of carpal tunnel surgery of right wrist (2019) Hx of hemorrhoidectomy (2019) History of lumbar fusion (01/29/18) History of colonoscopy History of laminectomy (~2016) Social History marital status: (to Ratna) details: lives in [place] household members: spouse lives independently: Yes caregiver/support person: No housing: house Smoking Status: Former smoker alcohol intake: current Discharge Assessment & Plan Assessment and Plan Assessment: 1. Sepsis, present on admission and resolved. 2. Right lower extremity cellulitis, present on admission and improving. 3. Diabetes mellitus type 2, present on admission and stable. 4. Hypertension, present on admission and stable. BP this morning 127/82. Plan of Treatment: He is discharged home on 5 additional days of antibiotics, amoxicillin t.i.d. as well as doxycycline 100 b.i.d.. The patient will follow up with the PCP within 5-6 days for a post hospital check. He will elevate the legs as much as possible and return for increased redness, pain or fevers. Discharge Plan Discharge Plan Patient Disposition: Home Provider Discharge Comment: Stable for discharge. You will be on 2 oral antibiotics for an additional 5 days. Please seek medical attention for fevers, increased pain, swelling, or redness of the leg. Continue to keep elevated as much as possible. See primary doctor within 5-6 days for follow-up. Discharge orders & Medications Prescriptions: New amoxicillin 500 mg capsule 500 mg PO Q8H Qty: 15 0RF doxycycline hyclate 100 mg capsule 100 mg PO BID Qty: 10 0RF Continued epinephrine 0.3 MG/0.3 ML auto-injector 0.3 mg IM PRN PRN (Reason: Allergic Reaction) Qty: 0 albuterol sulfate [Ventolin HFA] 90 MCG/PUFF HFA aerosol inhaler 2 puff INH Q6H PRN (Reason: asthma) Qty: 0 fluticasone propionate [Flonase Allergy Relief] 9.9 ML spray,suspension 1 spray Intranasal QDAY PRN (Reason: Sinus Congestion) Qty: 0 cyanocobalamin (vitamin B-12) 5,000 MCG tablet,disintegrating 5,000 mcg PO QDAY Qty: 0 multivitamin [Multiple Vitamins] 1 EACH tablet 2 tab PO BID Qty: 0 trazodone 50 mg Tablet 50 - 100 mg PO BEDTIME polyethylene glycol 3350 17 gram Powder In Packet 17 g PO DAILY PRN (Reason: Constipation) furosemide 20 mg tablet 40 mg PO QAM nifedipine 90 mg Tablet Extended Release 90 mg PO DAILY tamsulosin 0.4 mg Capsule 0.4 mg PO DAILY telmisartan 80 mg Tablet 40 mg PO DAILY gabapentin 300 mg Capsule 300 mg PO DAILY PRN (Reason: Pain) escitalopram oxalate 10 mg tablet 5 mg PO DAILY propranolol 60 mg capsule,extended release 24 hr 60 mg PO BEDTIME levothyroxine [Synthroid] 50 mcg tablet 50 mcg PO DAILY aspirin 81 mg tablet,delayed release (DR/EC) 81 mg PO BEDTIME (DME) [facility] BIPAP Qty: 1 Dose Instruction: As directed Patient Comments: Pressure: IPAP 13 EPAP 9 DME: [facility] Rx Instructions: As directed metformin 500 mg tablet 1,000 mg PO BID temazepam 15 mg capsule 15 mg PO BEDTIME Trulicity 0.75 mg/0.5 mL pen injector 1.5 mg SUBCUT QWEEK Medication counseling provided by Pharmacist: No Follow up/Referrals: Allyson Zelaya DO [Primary Care Provider] - Discharge Health Status Multidrug resistant organism: No MDRO Diet/Activity/Treatments Diet: Regular Skin/Wound/Dressing Care Report to your healthcare provider any signs of infection, such as:: chills, fever, increased pain and unusual drainage Visit Report/Discharge Packet Instructions: Cellulitis, Amoxicillin, Doxycycline (By mouth) Stand Alone Forms: Patient Portal/API, Stroke Signs & Symptoms Discharge Data Primary Care Provider: Allyson Zelaya VTE Deep Vein Thrombosis/Pulmonary Embolism Present on Admission: No
--- NOTE | 2023-05-01 10:14 | CM.DPC ---
DCP Cont. Reviewed EMR and team rounds for status updates. Pt has improved with the IV ABO course and has been medically cleared for d/c home later this morning. Spouse will transport, no needs for DCP identified during this admission.
--- NOTE | 2023-05-01 11:16 | PC.NURSE ---
Pt is dressed and ready for discharge home with Spouse. IV's have been removed. Went over d/c instructions with Pt-discussed d/c meds, time of last dose, reviewed stroke education, s/s of infection, elevating legs, seeing his doctor if the swelling and redness gets worse and follow up appointment. Pt denies further questions and will be taken out via w/c by PHOTO PRINTER to POV with Spouse and all belongings.
== END 2023-05-01 11:59 | disposition home or self-care (01) | DRG 872 ==
LOC: ED 16:17 → AC 17:23
PROVIDERS: Student in an Organized Health Care Education/Training Program; Admitting Provider Hospitalist; Emergency Provider Emergency Medicine; Family Provider Family Medicine; PCP Family Medicine; Referring Provider Emergency Medicine; Visit Provider Hospitalist
DX: A41.9 Sepsis, unspecified organism (principal); L03.115 Cellulitis of right lower limb; E87.20 Acidosis, unspecified; E11.9 Type 2 diabetes mellitus without complications; I10 Essential (primary) hypertension; N40.1 Benign prostatic hyperplasia with lower urinary tract symptoms; R33.8 Other retention of urine; E78.5 Hyperlipidemia, unspecified; G47.33 Obstructive sleep apnea (adult) (pediatric); Z79.85 Long-term (current) use of injectable non-insulin antidiabetic drugs; Z87.891 Personal history of nicotine dependence; Z79.84 Long term (current) use of oral hypoglycemic drugs
CPT/HCPCS: 0241U; 36415; 71045; 73590; 74177; 80048; 80053; 80202; 81001; 81003; 82962; 83036; 83605; 85025; 87040; 93971; 94660; 96365; 96375; 99284; J0696; J1644; J1815; Q9967

== ENCOUNTER → 2023-10-03 12:36 | Outpatient (CLI) | payer MEDICARE, OTHER, SELFPAY ==
[2018-01-29 18:16] VITALS: PULSE 81; RESP 18; O2SAT 100
[2023-04-27 18:47] VITALS: BMI 38.7
--- NOTE | 2023-10-03 12:40 | EKG_ITS ---
[place] [id number] [address] [place] [id number] Test Date: 2023-10-03 Pat Name: Federico Montoya Department: [facility] Room: Gender: Male Public Health Informatician: SRAVAN : 1950 Requested By: Order Number: [id number] Reading MD: Luis Enrique Hanley MD Measurements Intervals [place] Rate: 65 P: -28 NC: 188 QRS: 20 QRSD: 112 T: 48 QT: 396 QTc: 411 Interpretive Statements Normal sinus rhythm Electronically Signed On 10-04-2023 7:38:04 PDT by Luis Enrique Hanley MD
[2023-10-03 14:11] LABS: Blood Urea Nitrogen 17 mg/dL (9-20); Calcium 10.4 mg/dL (8.4-10.2); Carbon Dioxide 33 mmol/L (22-32); Chloride 102 mmol/L (98-107); Estimated Glomerular Filt Rate > 60 mL/min (>60); Glucose 111 mg/dL (80-110); HEMOLYSIS < 15 (0-50); Potassium 4.3 mmol/L (3.4-5.1); Sodium 141 mmol/L (137-145)
[2023-10-03 14:21] LABS: Add Manual Diff / Slide Review NO; Basophils Absolute Auto 100 /uL (0-100); Basophils Percent Auto 0.7 % (0-2); Eosinophils Absolute Auto 200 /uL (0-450); Eosinophils Percent Auto 2.5 % (2-4); Hematocrit 43.9 % (41-53); Hemoglobin 15.8 g/dL (13.5-17.5); Lymphocytes Absolute Auto 3000 /uL (1100-4500); Lymphocytes Percent Auto 32.6 % (25-40); Mean Corpuscular HGB Conc 36.1 % (30-36); Mean Corpuscular Hemoglobin 32.1 PG (26-34); Mean Corpuscular Volume 88.9 fL (80-100); Monocytes Absolute Auto 700 /uL (0-900); Monocytes Percent Auto 7.6 % (3-14); Neutrophils Absolute Auto 5200 /uL (1500-7000); Neutrophils Percent Auto 56.6 % (50-75); Platelet Count 257 X10^3/uL (150-400); Red Blood Cell Count 4.93 X10^6/uL (4.5-5.9); Red Cell Distribution Width 13.2 % (11.6-14.8); White Blood Cell Count 9.3 X10^3/uL (4.5-11.0)
== END ==
PROVIDERS: Family Provider Family Medicine; PCP Family Medicine; Referring Provider Orthopaedic Surgery; Visit Provider Orthopaedic Surgery
DX: Z01.818 Encounter for other preprocedural examination (principal); Z01.812 Encounter for preprocedural laboratory examination
CPT/HCPCS: 36415; 80048; 85025; 93005

== ENCOUNTER → 2023-10-08 10:50 | Outpatient (CLI) | payer MEDICARE, OTHER, SELFPAY ==
[2018-01-29 18:16] VITALS: PULSE 81; RESP 18; O2SAT 100
[2023-04-27 18:47] VITALS: BMI 38.7
--- NOTE | 2023-10-08 10:51 | DI.CT.S_ITS ---
PROCEDURE: CT UE RT WO CON INDICATIONS: PAIN IN RIGHT SHOULDER TECHNIQUE: Noncontrast 0.75 mm thick sections acquired from the acromioclavicular joint to the inferior scapula, with coronal and sagittal reformatting. For radiation dose reduction, the following was used: automated exposure control, adjustment of mA and/or kV according to patient size. COMPARISON: [facility] [place], CR, XR SHOULDER 2+ VIEWS RIGHT, 10/03/2023, 11:46. [facility], CT, CT UE RT WO CON, 09/01/2021, 15:08. FINDINGS: Image quality: Excellent. Bones: No acute osseous fracture or dislocation. Severe degenerative changes are seen at the glenohumeral joint with full-thickness joint space narrowing, subchondral sclerosis, subchondral cystic changes, marginal osteophyte formation, and remodeling of the articular surfaces. There is approximately 7 degrees glenoid retroversion relative to the midplane of the scapula at the mid glenoid level. Moderate acromioclavicular osteoarthrosis. Degenerative changes are seen at the sternoclavicular joint and in the included spine. Included ribs are intact. Soft tissues: Moderate to large glenohumeral effusion. Small osseous protuberance versus intra-articular loose body inferior to the coracoid at the superior subscapularis recess. The rotator cuff muscles are normal in bulk. The tendons, ligaments, articular cartilages, and labrum are not well evaluated with CT. Included portions of the lung are clear. A cardiac pacemaker is seen with pulse generator in the left chest. IMPRESSION: 1. Severe glenohumeral osteoarthrosis with remodeling of the articular surfaces resulting in up to 7 degrees glenoid retroversion relative to the midplane of the scapula at the mid glenoid level. 2. Moderate to large glenohumeral effusion. 3. Moderate acromioclavicular joint osteoarthrosis. Approved by: Hernesto Montana M.D. on 10/09/2023 at 11:40
== END ==
LOC: CT 10:50
PROVIDERS: Family Provider Family Medicine; PCP Family Medicine; Referring Provider Orthopaedic Surgery; Visit Provider Orthopaedic Surgery
DX: M19.011 Primary osteoarthritis, right shoulder (principal); M25.511 Pain in right shoulder
CPT/HCPCS: 73200

== ENCOUNTER 2023-12-20 08:22 | Day surgery (SDC) | payer MEDICARE, OTHER, SELFPAY ==
[2018-01-29 18:16] VITALS: PULSE 81; RESP 18; O2SAT 100
[2023-04-27 18:47] VITALS: BMI 38.7
[2023-12-11 09:32] VITALS: BMI 35.2
[2023-12-20] VITALS (15 sets, daily range): BP systolic 80–146; BP diastolic 50–92; PULSE 54–72; RESP 2–18; TEMP 36.2–36.4; O2SAT 87–100; BMI 34.8
--- NOTE | 2023-12-20 06:00 | DI.RAD.S_ITS ---
PROCEDURE: XR SHOULDER RT 1V INDICATIONS: TSA TECHNIQUE: 1 views of the shoulder were acquired. COMPARISON: [facility], CR, XR SHOULDER LT MIN 2V, 09/01/2019, 14:30. FINDINGS: Bones: Right shoulder arthroplasty, without hardware complication. Acromioclavicular joint space narrowing with osteophytosis. Soft tissues: Soft tissue edema. IMPRESSION: Right shoulder arthroplasty without hardware complication. Dictated by: Yousuf Porter M.D. on 12/20/2023 at 13:24 Approved by: Yousuf Porter M.D. on 12/20/2023 at 13:24
[2023-12-20] MEDS: ACETAMINOPHEN 325 MG TABLET 975 MG PO (09:01)
[2023-12-20] MEDS: LACTATED RINGERS 1,000 ML 42 ML IV ×2 (09:02→13:05)
--- NOTE | 2023-12-20 09:15 | PM.PREOP ---
Pre-operative Note Interval Note History & Physical reviewed/Exam performed by Physician: Yes Changes to H&P: No
--- NOTE | 2023-12-20 10:14 | PM.PREOP ---
Pre-operative Note Interval Note History & Physical reviewed/Exam performed by Physician: Yes Changes to H&P: No
[2023-12-20] MEDS: CEFAZOLIN 2 GM/100 ML PREMIX 100 ML IV (10:15)
[2023-12-20] MEDS: TRANEXAMIC ACID 1,000 MG VIAL 1000 MG INJ (10:26)
--- NOTE | 2023-12-20 10:35 | SUR.OPER ---
Beach chair with Markus/Isabel shoulder positioner. Lower body on padded OR bed. Head in foam padded head cradle, secured with straps. Non-operative arm secured <90 degrees abduction. Pillow under knees. Safety belt at thigh. Cloth tape over blanket over lower legs.
--- NOTE | 2023-12-20 13:08 | P.OP_ITS ---
Operative Date/Time/Diagnoses Date of procedure: 12/20/23 Time of procedure: 13:08 Pre-op diagnosis: Right glenohumeral arthritis Post-op diagnosis: same Procedure & Clinicians Procedure: Right anatomic total shoulder arthroplasty Same procedure as scheduled: Yes Indications: Indications: This is a 73-year-old male who has primary osteoarthritis of the glenohumeral joint. Symptoms have been present for years, insidious onset. Patient has failed conservative therapy including injections, physical therapy, anti-inflammatories and activity modification. After extensive discussion in clinic, they wished to go forward with surgery. Risks and benefits were described including the risk of infection, bleeding, damage to internal structu res including nerves. We also discussed the risk of failure of surgery and the need for revision surgery as well as the risk of anesthesia. The patient expressed understanding with these risks and wished to go forward with surgery. Surgeon: Tony Givens Fisher Pound Net Or Trap: Loly Corrales Anesthesia Type: General Operative Notes Findings: Findings: Osteoarthritis of the glenoid and humeral head as noted on preoperative imaging and under direct visualization Closure Type: primary Specimen(s): none sent Prosthetic devices, grafts, tissues, transplants, or devices: [employer] Implants CortiLoc Pegged Glenoid UHMWPE and 40 Simpliciti Nucleus Size 3 Simpliciti CoCr head size 48 x 18 Estimated Blood Loss (mL): 200 Blood products transfused: none Procedure in detail: Operative note: Patient was seen in the preoperative holding unit. The correct right shoulder was identified and marked with my initials. Again we discussed the risks and benefits of surgery and they wished to go forward with surgery. The patient was brought back to the operating room and placed supine on the operating table. he underwent smooth endotracheal intubation. All prominences were padded and they were placed into the beach chair position. Intravenous antibiotics were given. The right shoulder was then prepped with the standard sterile preparation and draping. A time-out was then performed in my initials were again identified on the correct shoulder. 1 g of IV tranexamic acid was given. A standard deltopectoral incision was made. Skin flaps were made. The cephalic vein was identified and retracted laterally. This was protected throughout the remainder of the case. Sharp dissection was made along the deltoid, subacromial and subcoracoid space to release adhesions. The conjoined tendon was identified and the axillary nerve was palpated and continuous using the tug test. It was protected throughout the remainder of the case. A brown retractor was placed underneath the deltoid muscle and a darach retractor underneath the conjoint tendon. The anterior circumflex artery and associated veins on the lower border of the subscapularis were identified and tied off using 0-Vicryl. The biceps tendon was identified in the bicipital groove. This was released from its sheath, and taken from its origin on the glenoid and tied into the pectoralis tendon for a solid tenodesis. We then began a subscapularis peel. The subscapularis was tagged with an Ethibond suture. A 360 degree circumferential release of the subscapularis was performed with protection of the axillary nerve. The coracohumeral ligament was released at the base of the coracoid. The coracoacromial ligament was left intact. The shoulder was then dislocated. Osteophytes were removed using combination of rongeur and osteotome. The rotator cuff was noted to be intact. Using an oscillating saw a conservative humeral head cut was made using the patient's [place] version. The head was measured and a guide for size 3 simpliciti humeral head was used to drill a central hole followed by impaction. Attention was then turned to the glenoid. After retracting the humeral head posteriorly, release of the capsule and labrum was performed. Central guidewire was placed. The glenoid was then reamed followed by a central drill over the guidewire. Guidewire was removed and using a guide, peripheral holes were drilled. At this point dilute Betadine wash was performed for 2 minutes. Medium viscosity cement was mixed and the drill holes were completely dried. An all polyethylene pegged glenoid was then selected, and cemented into the glenoid. Turning back to the humerus, the humeral head was delivered and 3 seperate [place] Loupes were passed through drill holes through the lesser tuberosity into the bicipital groove. The nucleus was then impacted into the humerus and a size 48 stemless humeral head was placed. The shoulder was then reduced and again brought through range of motion and was felt to be stable. The interval was then closed using #2 ethibond. The subscapularis was then repaired using a modified racking hitch with niece loupes. The deltopectoral interval was then closed with #2 Ethibond. The skin was closed with 2-0 PDS and Monocryl followed by Aquacel dressing. Patient was awoken from anesthesia and brought back to the postoperative recovery unit without issue. They were placed into a sling. Assisting participation: This operation could not have been safely performed (without compromising the technical results or length of the procedure) without the assistance of a skilled nursing surgical services director. The nursing surgical services director was medically necessary for proper positioning, retraction and manipulation of instruments, proper exposure, graft prep, and manipulation of tissue. Complications: none Post-operative Condition: stable Disposition: PACU Plan for aftercare: Postoperative instructions: Sling to remain on for 6 weeks. No external rotation past neutral for 6 weeks. Okay for sling to come off for shower and gentle pendulum exercises. Okay to shower over the Aquacel dressing. If any water gets underneath the dressing, remove the dressing. First postoperative visit in 2 weeks.
== END 2023-12-20 15:20 | disposition home or self-care (01) ==
PROVIDERS: Family Provider Family Medicine; PCP Family Medicine; Referring Provider Orthopaedic Surgery; Visit Provider Orthopaedic Surgery
PROC: (CPT 23472; principal; 2023-12-20 10:15)
DX: M19.011 Primary osteoarthritis, right shoulder (principal); G89.18 Other acute postprocedural pain; M25.711 Osteophyte, right shoulder
CPT/HCPCS: 23472; 64450; 73020; C1776; J0690; J2405; J2704; J3010